=== PATIENT | female | born 1950 | race Caucasian/White ===

== ENCOUNTER → 2017-09-13 10:11 | Outpatient (CLI) | payer MEDICARE, BC, SELFPAY ==
--- NOTE | 2017-09-13 10:13 | RAD_ITS ---
STUDY: X-RAY - LEFT SHOULDER REASON FOR EXAM: Shoulder pain, no trauma. TECHNIQUE: 3 view(s) of the shoulder. COMPARISON: None. FINDINGS: Normal glenohumeral articulation. Normal acromioclavicular joint. Normal acromion. Normal humeral head and visualized proximal humerus. There is calcific tendinitis. Normal visualized pulmonary apex. RAD/Shoulder min 2 Views IMPRESSION: Calcific tendinitis. Electronically Signed: Jersey Bose MD at 10:58 EDT Tel , Service support ,
== END ==
PROVIDERS: Family Provider Internal Medicine; PCP Internal Medicine; Visit Provider Orthopaedic Surgery
DX: M25.512 Pain in left shoulder (principal)
CPT/HCPCS: 73030

== ENCOUNTER → 2017-10-14 08:11 | Outpatient (CLI) | payer MEDICARE, BC, SELFPAY ==
--- NOTE | 2017-10-14 08:14 | RAD_ITS ---
PROCEDURE: DOUBLE Air-contrast AND BARIUM ESOPHAGRAM. REASON FOR EXAM: Female, 67 years old. Dysphagia. Solid stuck in esophagus for months. GERD. TECHNIQUE: Real-time fluoroscopic images of the esophagus following the oral administration of barium contrast and insufflation crystals and upright and MARTINEZ prone position with standard protocol. Additional upright right lateral cine imaging of the cervical esophagus was accomplished with and without an ingested 18 mm barium tablet due to symptomatology. 174 images acquired. Fluoroscopy time: 91 seconds. Dose: 144.06 mGy COMPARISON: None available. 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 In addition, a small sliding-type hiatal hernia is noted superimposed upon the distal esophagus. Minimal GE reflux is noted with and without provocation. Moderate esophageal dysmotility is also seen with initial pooling of barium within the distal esophagus during upright swallowing. Additionally, 18 mm barium tablet was seen in the upper thoracic esophagus for approximately a minute indicating esophageal dysmotility but then was later seen in the stomach. No mayte aspiration below the vocal cords noted. No finding of esophageal obstruction, diverticulum, web or stricture. Incidental imaging of the stomach shows a single fundal tiny rounded peripheral high density area with central rounded high density and interval low-attenuation, cannot exclude an aphthous ulcer versus artifact in the not completely distended stomach. More medial gastric antrum adjacent rounded peripheral high density with central low density may also represent an ulcer versus artifact. Cholecystectomy clips. RAD/Esophagus Only IMPRESSION: GE reflux with feline esophagus appearance. During the study, mild GE reflux was noted with and without provocation. Small sliding-type hiatal hernia. Functional narrowing distal esophagus with upright swallowing as described with barium pooling within the distal esophagus, may be due to hypertrophy of the lower esophageal sphincter. Clinical correlation recommended. Barium tablet seen in the upper thoracic proximal esophagus for approximately 1 minute indicating esophageal dysmotility as described. This appears to correspond well with patient's reported symptomatology. Clinical correlation recommended. Electronically Signed: Gilberto Arana, at 15:13 EDT Tel , Service support ,
== END ==
PROVIDERS: Family Provider Internal Medicine; PCP Internal Medicine; Visit Provider Internal Medicine
DX: R13.19 Other dysphagia (principal)
CPT/HCPCS: 74220

== ENCOUNTER 2018-10-10 18:25 | Emergency (ER) | payer MEDICARE, BC, SELFPAY ==
[2018-10-10 18:28] VITALS: BP 150/81; PULSE 74; RESP 15; TEMP 36.9; O2SAT 98; BMI 32.9
--- NOTE | 2018-10-10 18:36 | EKG12_ITS ---
Test Reason : Blood Pressure : / mmHG Vent. Rate : 065 BPM Atrial Rate : 065 BPM P-R Int : 120 ms QRS Dur : 074 ms QT Int : 398 ms P-R-T Axes : 054 007 068 degrees QTc Int : 413 ms Normal sinus rhythm Nonspecific ST abnormality Abnormal ECG Confirmed by JIMI CORNEJO, DIMAS ([id number]), editor at large RENETTA ASHLEY ([id number]) on 10/11/2018 3:52:06 PM Referred By: MAURY Confirmed By:DIMAS KRAUSE MD
--- NOTE | 2018-10-10 20:53 | ED.RN ---
PT CALLED FROM TRIAGE. PT NO LONGER RESIDES IN WAITING ROOM. PT LEFT WITHOUT BEING SEEN. REGISTRATION NOTIFIED.
== END 2018-10-10 20:59 | disposition left against medical advice (07) ==
LOC: ED 20:53
PROVIDERS: Emergency Provider Emergency Medicine; Family Provider Internal Medicine; PCP Internal Medicine
DX: I10 Essential (primary) hypertension (principal)
CPT/HCPCS: 93005

== ENCOUNTER → 2018-10-20 | Outpatient (CLI) | payer MEDICARE, BC, SELFPAY ==
[2018-10-10 18:28] VITALS: BMI 32.9
--- NOTE | 2018-10-20 08:57 | MRI_ITS ---
STUDY: MRA OF THE HEAD WITHOUT CONTRAST REASON FOR EXAM: Female, 68 years old. Constant headaches/dizziness x1 month. TECHNIQUE: 3-D kvny-ec-kmavnz (TOF) imaging was performed with MIPs. The study was performed unenhanced. COMPARISON: 07/23/2010. FINDINGS: Normal bilateral petrous carotid arteries. Normal right cavernous carotid artery with a normal supraclinoid bifurcation. Normal left cavernous carotid artery with a normal supraclinoid bifurcation. Normal right A1 segment of the anterior cerebral artery. Normal left A1 segment of the anterior cerebral artery. Normal intact anterior communicating artery (ACOM). Normal bilateral A2 segments of the anterior cerebral arteries. Normal right M1 and M2 segments of the middle cerebral arteries, with a normal M1 bifurcation. Normal left M1 and M2 segments of the middle cerebral arteries, with a normal M1 bifurcation. Normal right posterior communicating artery (PCOM). Normal left posterior communicating artery (PCOM). Normal bilateral vertebral arteries. Normal basilar artery with a normal basilar bifurcation. The visualized bilateral superior cerebellar (SCA) arteries are normal. Normal bilateral P1, P2 and visualized P3 segments of the posterior cerebral arteries. There is no demonstrated aneurysm of the [place] of [place]. There is no major vessel occlusion or hemodynamically significant stenosis. MRI/MRA Head ONLY without Contrast IMPRESSION: Normal MRA of the head Electronically Signed: Hang Day MD at 11:43 EDT , Service support ,
--- NOTE | 2018-10-20 08:57 | MRI_ITS ---
STUDY: MRA NECK WITH AND WITHOUT CONTRAST REASON FOR EXAM: Female, 68 years old. Constant headaches and dizziness x1 month. TECHNIQUE: 3-D njvn-ey-ulblhq (TOF) imaging was performed in an 1.5 T MRI scanner. 17 IV Dotarem was administered for the contrast enhanced images. COMPARISON: None. FINDINGS: RIGHT CAROTID ARTERIES: Normal right common carotid artery (CCA). Widely patent right internal carotid bulb. Minimal stenosis of the origin of the right internal carotid (ICA) artery without a hemodynamically significant stenosis. Normal visualized cervical portion of the right internal carotid artery. Normal origin of the right external carotid artery (ECA). LEFT CAROTID ARTERIES: Normal left common carotid artery (CCA). Normal left internal carotid bulb. Normal origin of the left internal carotid (ICA) artery without a hemodynamically significant stenosis. Normal visualized cervical portion of the left internal carotid artery. Normal origin of the left external carotid artery (ECA). VERTEBRAL ARTERIES: Normal antegrade flow within the bilateral vertebral artery without a hemodynamically significant stenosis. MRI/MRA Neck WITH and W/O Contrast IMPRESSION: 1. Minimal stenosis at the origin of the right proximal internal carotid artery. The right common carotid artery and the rest of the right cervical internal carotid artery are also widely patent. 2. Widely patent left common carotid artery, left common carotid bifurcation and left cervical internal carotid artery. 3. Widely patent vertebral arteries, left is dominant. 4. Widely patent aortic arch and origins of the great vessels. The left common carotid artery has a common trunk with the innominate artery. Electronically Signed: Hang Day MD at 11:48 EDT , Service support ,
--- NOTE | 2018-10-20 08:57 | MRI_ITS ---
STUDY: MRI BRAIN WITH AND WITHOUT CONTRAST REASON FOR EXAM: Female, 68 years old. Constant headaches and dizziness x1 month. TECHNIQUE: Standardized multiplanar fat and water weighted pulse sequences were obtained. 17 IV Dotarem was administered for the contrast portion of the examination. COMPARISON: 07/23/2010. FINDINGS: No restricted diffusion to suspect acute or subacute ischemic infarct. Normal size of the ventricles and extra-axial spaces for the patient's age. Few subcortical white matter T2 FLAIR hyperintensity foci in the frontal lobes and left central lobe convexity have increased slightly in size. There are no mass effects. These are chronic white matter ischemic changes. Normal bilateral basal ganglia. Normal thalami. There is no extra-axial fluid accumulation. Normal flow voids within the major intracranial circulation suggesting patency by spin echo criteria. Normal venous enhancement. There is no enhancing intra-axial or extra-axial abnormality. Converging linear intramedullary veins in the right frontal operculum (series 8, image 14; series 9, images 22-23) due to focal DVA (developmental venous anomaly). Normal sella turcica, pituitary gland, infundibular stalk, optic chiasm and hypothalamus. Normal tectal plate and pineal gland. Normal midbrain, diana and medulla. Normal cerebellum. Normal basal cisterns. Normal bilateral temporal bones. Normal bilateral internal auditory canals. No demonstrated orbital abnormality, within the constraints of a routine brain study. Normal visualized paranasal sinuses. Normal calvarium and skull base. Normal visualized soft tissue structures. Normal visualized upper cervical spine. MRI/Brain W/WO Contrast IMPRESSION: 1. No MRI evidence of acute or subacute ischemic infarct or acute intracranial abnormality. 2. Mild increase in size of few nonspecific subcortical white matter T2 FLAIR hyperintensity foci in the frontal lobes and left central lobe convexity. They may be migraine-related changes but microvascular disease cannot be entirely excluded. 3. Incidental small focal DVA (developmental venous anomaly) in the right frontal operculum. Electronically Signed: Hang Day MD at 11:19 EDT , Service support ,
[2018-10-20 09:26] LABS: CREATININE FINGERSTICK 0.9 mg/dL (0.55-1.02); EGFR FINGERSTICK > 60.0000 mL/min (>60)
== END | disposition home or self-care (01) ==
PROVIDERS: Family Provider Internal Medicine; PCP Internal Medicine; Referring Provider Internal Medicine; Visit Provider Internal Medicine
DX: R51 Headache (principal)
CPT/HCPCS: 70544; 70549; 70553; A9575

== ENCOUNTER 2018-11-09 11:00 | Outpatient (RCR) | payer MEDICARE, BC, SELFPAY ==
--- NOTE | 2018-11-03 14:42 | HP.PTEVAL_ITS ---
Patient's Visit Information PARVIN DUENAS is a 68 year old F referred to Physical Therapy by Aubree Woody DO with a diagnosis of BPV. Date of Evaluation: 11/03/18 Physical Therapist: Torres Galindo, LAURYN, OCS, CSCS - Visit Plan Frequency: 1x/Week Duration: 4-6 Weeks Plan: weekly as needed 2-4 for positional treatments adn ablance checks - Subjective Findings: Dizzy for 6 weeks. Had something similar a couple years ago whcih we treated successfully with positional. Insidious on set of dizzyness and FRAUSTO and eye pain. Had MRI whcih was normal and opthalmologist said she is normal. No heart tests. Woke up 6 weeks ago in middle of night and spun getting out of bed. Now looking up or down gets dizzy for a couple seconds. Is fine in between episodes. FRAUSTO constant for 6 weeks. No falls. Balance not bad but might be off a little bit causing her to grab stuff. No numbness. Sleep is not great but that is normal for her. Not employed. 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 - Pain FRAUSTO Pain Intensity (Out of 10): 5 Pain Intensity Range: 5 - Objective Walks hesitantly but I, hesitant to move head. C/S AROM WFL adn painfree but hesitant to extend. UE AROM WFL. Balance is fair. - L hallpike, + R hallpike for up torsional, treated with Arslan then + again for 10 seconds up torsional or ageotropic nystagmus. Treated with Arslan again . did not wish to lie down again and test. - Balance Scores Functional Gait Assessment Score: 26 % Disability: 13.3400 - Goals Goal 1:: abolish dizzyness with head movements Goal Time Frame: 2-4 Weeks Goal 2:: Pt 30/30 FGA score to showimproved balance Goal Time Frame: 2-4 Weeks Goal 3:: Pt feel 100% back to normal Goal Time Frame: 2-4 Weeks - Rehabilitation Potential Physical Therapy Diagnosis: BPPV R post canal Rehabilitation Potential: Good - Anticipated Interventions Patient/Client Instruction: Educate patient on: Condition, Plan of Care For the Purpose of:: To increase tolerance to activity/condition/position Therapeutic Exercise to Include: Balance training Comment: positional treatments For the Purpose of:: To increase tolerance to activity/condition/position Thank you for the opportunity to evaluate your patient. For Medicare and Medicare HMO plans, please review the plan of care and approve it. It will need to be FAXED BACK to us at [phone] for Medicare purposes. For Medicare only, by signing this I certify the plan of care. Please let me know if there are questions or concerns regarding this plan of care. Physician Signature:__ Date:
--- NOTE | 2019-01-12 14:46 | HP.PTDCNRP_ITS ---
HP - Discharge Summary (1) - Patient Information PARVIN DUENAS was seen in my office for initial evaluation on 11/03/18. The following Plan of Care was established for this patient: Initial Frequency: 1x/Week Initial Duration: 4-6 Weeks - Anticipated Interventions Patient/Client Instruction: Educate patient on: Condition, Plan of Care For the Purpose of:: To increase tolerance to activity/condition/position Therapeutic Exercise to Include: Balance training For the Purpose of:: To increase tolerance to activity/condition/position This patient was last seen in our office 11/09/18. Pertinent comments regarding their Physical therapy will appear below: Pt see 2 visits for symptoms for BPPV treatment adn was 93% improved. She cancelled her alst foolow up. at this point, it has been nearly two months and I will discontinue due to nonattendance. At this point I will be discontinuing this patient from physical therapy. I wo uld be happy to see this patient again in the future if found appropriate by the physician. Thank you! Torres Galindo, DPT, OCS, CSCS
== END 2018-11-09 19:00 | disposition home or self-care (01) ==
LOC: PT 11:00
PROVIDERS: Family Provider Internal Medicine; PCP Internal Medicine; Visit Provider Internal Medicine
DX: H81.10 Benign paroxysmal vertigo, unspecified ear (principal)
CPT/HCPCS: 97161; 97530

== ENCOUNTER → 2019-08-07 | Outpatient (CLI) | payer MEDICARE, BC, SELFPAY ==
[2019-07-19 13:18] VITALS: BMI 32.9
--- NOTE | 2019-08-07 12:45 | RAD_ITS ---
STUDY: X-RAY - RIGHT SHOULDER REASON FOR EXAM: Shoulder pain, no trauma. TECHNIQUE: 4 view(s) of the shoulder. COMPARISON: Radiographs 03/15/2013. FINDINGS: Normal glenohumeral articulation. There is acromioclavicular arthrosis similar to the prior study. There is a small exostosis at the posterior aspect of the base of the acromion. Normal humeral head and visualized proximal humerus. The soft tissue structures are unremarkable. Normal visualized pulmonary apex. RAD/Shoulder min 2 Views IMPRESSION: Acromioclavicular arthrosis. Electronically Signed: Jersey Bose MD at 14:12 EDT Tel , Service support ,
== END | disposition home or self-care (01) ==
LOC: HPRAD 12:45
PROVIDERS: PCP Internal Medicine; Referring Provider Orthopaedic Surgery; Visit Provider Orthopaedic Surgery
DX: M25.511 Pain in right shoulder (principal)
CPT/HCPCS: 73030

== ENCOUNTER 2019-09-14 13:30 | Outpatient (RCR) | payer MEDICARE, BC, SELFPAY ==
[2019-07-19 13:18] VITALS: BMI 32.9
--- NOTE | 2019-08-17 13:27 | HP.PTEVAL_ITS ---
Patient's Visit Information PARVIN DUENAS is a 69 year old F referred to Physical Therapy by Dr. Taya Kang DO with a diagnosis of R shoulder pain. Date of Evaluation: 08/17/19 Physical Therapist: Betito Garcia DPT - Visit Plan Frequency: 2x /Week Duration: 4 Weeks Plan: Start with ROM, US as need. Add in isometrics and scapular stability, with in pain free ranges. - Subjective Pt. is here today for her initial evaluation with diagnosis of R shoulder pain. Pt. reports having pain fro ~5-6 months. No mech of injury. 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 Denies N/T. Pt. reports pain at posterior aspect of subacromial space and AC joint region. Pt. reports pain is inconsistent pending on the day. Increases pain: lifting, reaching over head, pushing. Decreases pain: rest, ice/heat. Pt. has not been taking any medications at this point in time. Pt. is hopeful to reduce symptoms in order to complete all recreational and houshold work without incerase in symptoms. - Pain R shoulder Pain Intensity (Out of 10): 2 Pain Intensity Range: 1, 8 - Objective POSTURE: Pt. has slight rounded shoulders, but symmetrical. Pt. has equal shoulder heights. PALPATION: Pt. has tenderness at AC joint, at subacromial space throughout (worst at posteiror side). NEURO: normal DTR and normal sensation throughout. ROM: R shoulder- AROM- flexion 170deg increased pain starting at 120deg above, abd 170deg tota (pain starting at ~120deg), functional ER C6, functional IR L3 NE. MMT: R shoulder- flexion 4+/5 mild increase nW, abd 4+/5 mild increase NW, ER 4+/5 NE, IR 4+/5 NE, ext 5/5 NE. L shoulder- 4+/5 throughout NE. - Special Tests R Shoulder Lift Off Test - Subscapular Tear: Negative R Shoulder Drop Sign - IS Test: Negative R Shoulder Empty Can - SS: Positive R Shoulder Belly Press - SupScap: Negative R Shoulder Neer - Impingement: Positive R Shoulder Shea [place] - Impingement: Positive R Shoulder Biceps Load Test - Labrum: Negative R Shoulder Speeds Test - Labrum/Biceps: Negative R Shoulder [place]riens - SLAP/A-C: Negative R Shoulder Shrug Sign - OA/Adhesive Capsulitis: Negative Comments: Pt. has tenderness with empty can, no weakness noted - Goals Goal 1:: LTG: pt. to be I with HEP. Goal Time Frame: 4-6 Weeks Goal 2:: LTG: Pt. to have increased MMT by 1/2 grade of all effected R shoulder musculature. Goal Time Frame: 4-6 Weeks Goal 3:: STG: Pt. to have increased ROM of R shoulder to full without increase in symptoms. Goal Time Frame: 2-4 Weeks Goal 4:: STG: Pt. to sleep throughout the night withotu increase in symptoms. Goal Time Frame: 2-4 Weeks Goal 5:: LTG: Pt. to complete all ADLs and IADLs without increase in symptoms. Goal Time Frame: 4-6 Weeks - Rehabilitation Potential Physical Therapy Diagnosis: Pt. has signs and symptoms consistent with R shoulder pain. Pt. has descent strength and no drop sign. Pt. does have some soreness with impingement testing, but minimal pain with strength testing throughout R shoulder. Pt. has pain at final 25% of over head motions as well. Pt. appears to have impingement symptoms and some pain at her AC joint with over head motions. Rehabilitation Potential: Excellent - Anticipated Interventions Patient/Client Instruction: Educate patient on: Condition, Plan of Care, Risk Factors, Benefits of Fitness Program For the Purpose of:: To improve decision making, To facilitate caregiver knowledge, To improve self management, To prevent re-injury, To improve ability to perform tasks related to life management, To improve tolerance to ADL's Therapeutic Exercise to Include: Strength training, Power training, Endurance training, Postural training, Flexibilty training, Passive ROM, Active ROM, Scapular Strength/Stabilization For the Purpose of:: To decrease pain, To decrease swelling/inflammation, To increase ROM, To improve nutrient delivery to tissue, To increase oxygenation perfusion, To improve muscle performance and motor function, To improve ability to perform ADL's, To increase tolerance to activity/condition/position, To decrease soft tissue restriction, To increase flexibility/ROM Manual Therapy Techniques to Include: Trigger point massage, Mobilization, Passive ROM, Functional dry needling, Soft tissue mobilization For the Purpose of:: To decrease pain, To decrease swelling/inflammation, To increase ROM, To improve nutrient delivery to tissue Ultrasound (thermal/non thermal): Yes For the Purpose of:: To decrease pain, To decrease swelling/inflammation, To increase ROM, To improve nutrient delivery to tissue Thank you for the opportunity to evaluate your patient. For Medicare and Medicare HMO plans, please review the plan of care and approve it. It will need to be FAXED BACK to us at [phone] for Medicare purposes. For Medicare only, by signing this I certify the plan of care. Please let me know if there are questions or concerns regarding this plan of care. Physician Signature: Date:
--- NOTE | 2019-11-27 12:37 | HP.PT.NRP ---
PARVIN DUENAS was seen in my office for initial evaluation on 08/17/19. The following Plan of Care was established for this patient: Initial Frequency: 2x /Week Initial Duration: 4 Weeks Patient/Client Instruction: Educate patient on: Condition, Plan of Care, Risk Factors, Benefits of Fitness Program For the Purpose of:: To improve decision making, To facilitate caregiver knowledge, To improve self management, To prevent re-injury, To improve ability to perform tasks related to life management, To improve tolerance to ADL's Therapeutic Exercise to Include: Strength training, Power training, Endurance training, Postural training, Flexibilty training, Passive ROM, Active ROM, Scapular Strength/Stabilization For the Purpose of:: To decrease pain, To decrease swelling/inflammation, To increase ROM, To improve nutrient delivery to tissue, To increase oxygenation perfusion, To improve muscle performance and motor function, To improve ability to perform ADL's, To increase tolerance to activity/condition/position, To decrease soft tissue restriction, To increase flexibility/ROM Manual Therapy Techniques to Include: Trigger point massage, Mobilization, Passive ROM, Functional dry needling, Soft tissue mobilization For the Purpose of:: To decrease pain, To decrease swelling/inflammation, To increase ROM, To improve nutrient delivery to tissue Ultrasound (thermal/non thermal): Yes For the Purpose of:: To decrease pain, To decrease swelling/inflammation, To increase ROM, To improve nutrient delivery to tissue This patient was last seen in our office 08/23/19. Pertinent comments regarding their Physical therapy will appear below: Pt. was seen in PT for her shoulder pain. Pt. has not been seen in several months and will be DC from PT at this point in time. At this point I will be discontinuing this patient from physical therapy. I would be happy to see this patient again in the future if found appropriate by the physician. Thank you! Betito Garcia, LAURYN
== END 2019-09-14 19:00 | disposition home or self-care (01) ==
LOC: MASS 13:30
PROVIDERS: PCP Internal Medicine; Referring Provider Orthopaedic Surgery; Visit Provider Orthopaedic Surgery
DX: M25.511 Pain in right shoulder (principal)
CPT/HCPCS: 97035; 97110; 97161

== ENCOUNTER → 2019-10-05 | Outpatient (CLI) | payer MEDICARE, BC, SELFPAY ==
[2019-07-19 13:18] VITALS: BMI 32.9
[2019-10-05 15:46] LABS: Hematocrit 37.2 % (37-47); Hemoglobin 11.6 g/dL (12.0-15.0); Mean Corp Hgb Conc 31.2 g/dL (32-36); Mean Corpuscular Hgb 28.2 pg (27.0-32.0); Mean Corpuscular Volume 90.5 fL (81-99); Mean Platelet Vol. 10.1 fl (6.2-12.0); Platelet Count 240 K/mm3 (150-450); RBC Distribution Width SD 46.5 fl (35.1-43.9); Red Blood Count 4.11 M/mm3 (4.2-5.4); White Blood Count 4.2 K/mm3 (4.4-11.0)
[2019-10-05 16:09] LABS: CRP 3.09 mg/L (0.0-3.0)
[2019-10-05 16:18] LABS: Erythrocyte Sedimentation Rate 6 mm/hr (0-30)
== END | disposition home or self-care (01) ==
LOC: LAB 14:36
PROVIDERS: PCP Internal Medicine; Referring Provider Ophthalmology; Visit Provider Ophthalmology
DX: G45.3 Amaurosis fugax (principal)
CPT/HCPCS: 36415; 85027; 85652; 86140

== ENCOUNTER → 2019-10-12 12:41 | Outpatient (CLI) | payer MEDICARE, BC, SELFPAY ==
[2019-07-19 13:18] VITALS: BMI 32.9
--- NOTE | 2019-10-12 12:44 | ECHOCS_ITS ---
Reason For Study: TIA Procedure This was a 2D Doppler, Color Flow transthoracic echocardiogram. The study was technically difficult. Contrast injection was performed. Exam performed in department. Left Ventricle Normal LV size. Left ventricular systolic function is normal. The estimated ejection fraction is 65 %. There is evidence of diastolic dysfunction. No regional wall motion abnormalities noted. Right Ventricle Normal RV size. Normal systolic function. Atria The left atrium is mildly enlarged. Normal right atrium. No doppler evidence for ASD. Mitral Valve There is no mitral annular calcification. Normal mitral valve. Trivial mitral valve insufficiency. Tricuspid Valve Normal tricuspid valve. Trivial tricuspid valve insufficiency. Right ventricular systolic pressure estimated to be 39 mmHg. Aortic Valve Trisinus/trileaflet aortic valve. Mild focal aortic valve calcification. Pulmonic Valve The pulmonic valve is not well visualized. Trivial pulmonic valve insufficiency. Great Vessels Normal sized aortic root. Pericardium/Pleural No pericardial effusion. Medication 22 gauge I.V. with prn adaptor inserted into right arm. Performed a rapid injection of agitated mix of 9 cc saline and 1cc air to assess for atrial septal defect. Diluted definity 3.0ml given slow IV push to enhance endocardial definition. MMode/2D Measurements & Calculations LVIDd: 4.8 cm IVSd: 0.78 cm LVOT diam: 2.0 cm LVIDs: 3.4 cm LVPWd: 0.77 cm RVDd: 3.1 cm FS: 29.7 % LVOT area: 3.0 cm2 Ao root diam: 3.0 cm LAV(MOD-bp): 58.9 ml LVAd ap4: 22.8 cm2 LAV(MOD-bp) Indexed: 31.7 ml/m2 EDV(MOD-sp4): 64.3 ml LAV(MOD-sp2): 59.6 ml EDV(sp4-el): 66.0 ml LAV(MOD-sp4): 53.8 ml LVAs ap4: 9.4 cm2 ESV(MOD-sp4): 15.0 ml ESV(sp4-el): 15.6 ml EF(MOD-sp4): 76.7 % EF(sp4-el): 76.4 % SV(MOD-sp4): 49.3 ml SV(sp4-el): 50.4 ml LA A4 area: 18.7 cm2 LA dimension(2D): 4.0 cm RA A4 area: 17.2 cm2 Time Measurements MV dec time: 0.28 sec Doppler Measurements & Calculations MV E max pako: 105.3 cm/sec Lat Peak E' Pako: 7.0 cm/sec Med Peak E' Pako: 5.6 cm/sec MV A max pako: 117.1 cm/sec E/E' lat: 15.1 E/E' med: 18.7 MV E/A: 0.90 MV V2 max: 117.8 cm/sec Ao V2 max: 153.2 cm/sec LV V1 max: 116.5 cm/sec MV max P.6 mmHg Ao max P.4 mmHg LV V1 max P.4 mmHg MV V2 mean: 64.6 cm/sec JUANA(V,D): 2.3 cm2 MV mean P.0 mmHg MV V2 VTI: 34.7 cm PA V2 max: 95.1 cm/sec PI end-d pako: 133.2 cm/sec TR max pako: 297.7 cm/sec TR max P.6 mmHg MV P1/2t-pr_phl: 76.1 msec Interpretation Summary The study was technically difficult. Contrast injection was performed. Left ventricular systolic function is normal. The estimated ejection fraction is 65 %. The left atrium is mildly enlarged. Trivial mitral valve insufficiency. Trivial tricuspid valve insufficiency. Mild focal aortic valve calcification. Trivial pulmonic valve insufficiency. Right ventricular systolic pressure estimated to be 39 mmHg. There is evidence of diastolic dysfunction. Ordering Physician: Uriah Jiménez Referring Physician: ANASTASIA COLINDRES Performed By: Shilpa Back RDCS, RVT
--- NOTE | 2019-10-12 13:51 | CDU_ITS ---
Reason For Study: Amaurosis fugax Rt. Velocities/BP Lt. Velocities/BP Prox CCA 112.5/10.8 cm/sec. Prox CCA 99.2/15.2 cm/sec. Mid CCA 74.7/14.7 cm/sec. Mid CCA 86.4/17.0 cm/sec. Dist CCA 70.8/12.1 cm/sec. Dist CCA 75.4/22.5 cm/sec. Prox ICA 93.7/22.5 cm/sec. Prox ICA 65.1/16.8 cm/sec. Mid ICA 20.9/18.8 cm/sec. Mid ICA 58.2/16.7 cm/sec. Dist ICA 60.9/17.5 cm/sec. Dist ICA 57.3/14.0 cm/sec. Rt. ICA/CCA = 1.25. Lt. ICA/CCA = .75. Prox ECA 146.7/13.3 cm/sec. Prox ECA 135.7/18.8 cm/sec. Rt. Vert. 79.1/15.2 cm/sec. Lt. Vert. 78.5/16.3 cm/sec. Right Extracranial There is intimal thickening but no significant atherosclerotic plaque noted in the right common carotid artery. There is heterogeneous, irregular atherosclerotic plaque noted in the right internal carotid artery. There is intimal thickening but no significant atherosclerotic plaque noted in the right external carotid artery. Antegrade flow is noted in the right vertebral artery. Left Extracranial There is intimal thickening but no significant atherosclerotic plaque noted in the left common carotid artery. There is heterogeneous, irregular atherosclerotic plaque noted in the left internal carotid artery. There is intimal thickening but no significant atherosclerotic plaque noted in the left external carotid artery. Antegrade flow is noted in the left vertebral artery. Procedure Carotid Duplex [id number]. Exam performed in department. Interpretation Summary Irregular calcific plaque at the proximal right internal carotid artery with less than 50% stenosis. The mid internal carotid artery has a peak systolic velocity of 80 cm/s and not recorded 20 cm/s. <50% stenosis right external carotid Irregular calcific plaque with shadowing at the proximal left internal carotid with less than 50% stenosis <50% stenosis left external carotid Patent and antegrade vertebrals bilaterally Ordering Physician: Uriah Jiménez Referring Physician: Aubree Woody M.D. Performed By: Tana Palencia RVT and Student
== END ==
PROVIDERS: PCP Internal Medicine; Referring Provider Ophthalmology; Visit Provider Ophthalmology
DX: G45.3 Amaurosis fugax (principal)
CPT/HCPCS: 93306; 93880; Q9957; A4216; C8929

== ENCOUNTER → 2019-11-30 | Outpatient (CLI) | payer MEDICARE, BC, SELFPAY ==
[2019-11-22 12:49] VITALS: BMI 32.9
--- NOTE | 2019-11-30 10:26 | MRI_ITS ---
STUDY: MRI LUMBAR SPINE WITHOUT CONTRAST REASON FOR EXAM: Female, 69 years old. LBP, LEFT leg and buttock pain. 2 prior lumbar surgeries TECHNIQUE: Standardized fat and water weighted pulse sequences were obtained in the sagittal and axial planes. COMPARISON: October 13 2016, September 02 2016 FINDINGS: Lumbar spine is aligned. T12 has a hemangioma in the anterior two thirds of the vertebral body. Marrow, SI joints and paraspinal soft tissues are normal There are laminectomies of L2-L3, L3-L4 and L4-L5 without hardware placement. Multiple discs are age-appropriate the degenerated. There is an incidental intrasacral CSF cyst. Conus medullaris terminates at T12-L1 with normal cauda equina. Thecal sac is patent. There is moderate bilateral foraminal stenosis at L3-L4, L4-L5 and L5-S1. Lateral recesses are patent. Compared to 2017 preoperative state thecal sac is decompressed with improvement in patency. MRI/Spine Lumbar (Routine) IMPRESSION: 1. Expected appearance of decompressed patent thecal sac at L2-L3, L3-L4 and L4-L5. 2. Bilateral multilevel moderate foraminal stenoses. Electronically Signed: Dariana Marks, at 16:34 EDT Tel , Service support ,
== END | disposition home or self-care (01) ==
PROVIDERS: PCP Internal Medicine; Referring Provider Physician Assistant; Visit Provider Physician Assistant
DX: M54.16 Radiculopathy, lumbar region (principal)
CPT/HCPCS: 72148

== ENCOUNTER 2019-12-19 12:00 | Outpatient (RCR) | payer MEDICARE, BC, SELFPAY ==
[2019-10-15 14:54] VITALS: BMI 32.9
[2019-11-22 12:49] VITALS: BMI 32.9
--- NOTE | 2019-12-05 09:18 | HP.PTEVAL_ITS ---
Patient's Visit Information PARVIN DUENAS is a 69 year old F referred to Physical Therapy by ALONDRA López with a diagnosis of L ITB syndrome adn Lumbar radiculopathy.. Date of Evaluation: 12/05/19 Physical Therapist: Torres Galindo, DPT, OCS, CSCS - Visit Plan Frequency: 3x /Week Duration: 2-4 Weeks Plan: 2-3x/week for 4-6 weeks. 1. rollout and stertch L ITB and piriformis to HEP. 2. L/S AROM flexion bias and NS strengthening. 3. hip stabs. 4. TENS with ice as needed. Progress all ex to HEP pt can continue on her own when done with PT. - Subjective LB was really giving trouble. lso L hip and into L leg. Thsi does nto feel l sana sciatica whcih she has had in the past. These were bad for about three months. Cannot lie on left side. They have been bad for 3 months and not sure why. Pain is 7/10 in back and hip with activity with walking. Sitting is pretty comfortable. Hurts at night in L hip if on side. Is keeping her up a little each night. Not employed. Spends day taking care of daughter who is bedridden and this makes that hard. Can do basics at home without too much trouble. No regular exercises. - Pain L hip and LB Pain Intensity (Out of 10): 0 Pain Intensity Range: 0, 7 - Objective Increased lumbar lordosis in LB, tender to touch in L GT area and down ITB maximally and minimaly on R. Walks I and easily and safe. Transfers bed and chair I. L/S AROM mod limited in ext adn L SB with some minor pain, flexion is min limited, R SB is OK. HS mod tight, - SLR, - SLump test. LE joints aROM WFL, hip tight in IR and flexion B but no pain. ITB max tight B staying in neutral in sidelying. reflexes 2/3 patella and achilles. Sensation LE WNL to gross light touch. Strength LE 4-/5 without myotomal abnormalities. - Goals Goal 1:: Sleep withotu waking at night Goal Time Frame: 4-6 Weeks Goal 2:: Pain in LB and hip 0-1/10 at all times and 80% improved. Goal Time Frame: 4-6 Weeks Goal 3:: I appropr HEP adn activitiy modification to manage symptoms. Goal Time Frame: 4-6 Weeks Goal 4:: Walk dog without increased pain Goal Time Frame: 4-6 Weeks - Rehabilitation Potential Physical Therapy Diagnosis: L ITB syndrome and lumbar radiculopathy/stenosis. Rehabilitation Potential: Fair - Anticipated Interventions Patient/Client Instruction: Educate patient on: Condition, Plan of Care For the Purpose of:: To decrease pain, To increase ROM, To improve muscle performance and motor function, To increase tolerance to activity/condition/position Therapeutic Exercise to Include: Strength training, Postural training, Flexibilty training, Neuromotor development, Passive ROM, Active ROM, Dynamic Lumbar Stabilization For the Purpose of:: To decrease pain, To increase ROM, To improve muscle performance and motor function, To increase tolerance to activity/condition/position, To improve ability of physical actions for home/community/work/leisure Manual Therapy Techniques to Include: Mobilization, Soft tissue mobilization For the Purpose of:: To decrease pain, To increase ROM TENS: Yes Cryotherapy (ice pack, ice massage): Yes For the Purpose of:: To decrease pain, To decrease swelling/inflammation Thank you for the opportunity to evaluate your patient. For Medicare and Medicare HMO plans, please review the plan of care and approve it. It will need to be FAXED BACK to us at [phone] for Medicare purposes. For Medicare only, by signing this I certify the plan of care. Please let me know if there are questions or concerns regarding this plan of care. Physician Signature: Date:
--- NOTE | 2019-12-26 10:35 | HP.PT.NRP ---
PARVIN DUENAS was seen in my office for initial evaluation on 12/05/19. The following Plan of Care was established for this patient: Initial Frequency: 3x /Week Initial Duration: 2-4 Weeks Patient/Client Instruction: Educate patient on: Condition, Plan of Care For the Purpose of:: To decrease pain, To increase ROM, To improve muscle performance and motor function, To increase tolerance to activity/condition/position Therapeutic Exercise to Include: Strength training, Postural training, Flexibilty training, Neuromotor development, Passive ROM, Active ROM, Dynamic Lumbar Stabilization For the Purpose of:: To decrease pain, To increase ROM, To improve muscle performance and motor function, To increase tolerance to activity/condition/position, To improve ability of physical actions for home/community/work/leisure Manual Therapy Techniques to Include: Mobilization, Soft tissue mobilization For the Purpose of:: To decrease pain, To increase ROM TENS: Yes Cryotherapy (ice pack, ice massage): Yes For the Purpose of:: To decrease pain, To decrease swelling/inflammation This patient was last seen in our office 12/19/19. Pertinent comments regarding their Physical therapy will appear below: Pt seen 4 visits of POC and has called to cancel the remianing visits due to covid. Wants chart discharged. At this point I will be discontinuing this patient from physical therapy. I would be happy to see this patient again in the future if found appropriate by the physician. Thank you! Torres Galindo, DPT, OCS, CSCS
== END 2019-12-19 19:00 | disposition home or self-care (01) ==
LOC: PT 12:00
PROVIDERS: PCP Internal Medicine; Referring Provider Physician Assistant; Visit Provider Physician Assistant
DX: M76.32 Iliotibial band syndrome, left leg (principal); M54.16 Radiculopathy, lumbar region
CPT/HCPCS: 97014; 97110; 97140; 97162; G0283

== ENCOUNTER → 2020-03-29 07:12 | Outpatient (CLI) | payer MEDICARE, BC, SELFPAY ==
[2019-12-12 11:27] VITALS: BMI 32.9
--- NOTE | 2020-03-29 07:14 | MRI_ITS ---
STUDY: MRI LEFT HIP REASON FOR EXAM: Female, 69 years old. lt hip pain TECHNIQUE: Standardized fat and water weighted pulse sequences were obtained in all 3 orthogonal planes. COMPARISON: None. FINDINGS: Normal hip joint without articular joint space narrowing. Normal acetabulum. Normal labrum. Normal femoral head. Normal femoral neck and intratrochanteric region. Normal gluteus minimus, medius and iliopsoas tendons and distal insertions. There is no trochanteric, iliopsoas or iliopectineal bursitis. Normal superior and inferior pubic rami. Normal pubic symphysis. Normal ischial tuberosity. Mild tendinosis and peritendinitis is of the origin of the conjoined tendon of the hamstring origin. Normal visualized iliac wing, sacroiliac joint, and sacral ala. Normal visualized soft tissue structures of the pelvis. MRI/Lower Ext Joint Only (Routine) IMPRESSION: Mild tendinosis and peritendinitis is of the conjoined tendon of the hamstring origin. Electronically Signed: Flash Maloney MD at 9:18 EST Tel , Service support ,
== END ==
PROVIDERS: PCP Internal Medicine; Referring Provider Orthopaedic Surgery; Visit Provider Orthopaedic Surgery
DX: M25.552 Pain in left hip (principal)
CPT/HCPCS: 73721

== ENCOUNTER 2020-04-24 23:10 | Emergency (ER) | payer MEDICARE, BC, SELFPAY ==
[2020-04-24 23:11] VITALS: BP 157/70; PULSE 92; RESP 18; TEMP 37.2; O2SAT 95; BMI 35.2
[2020-04-24 23:30] VITALS: BP 166/70; PULSE 88; RESP 16; O2SAT 98
--- NOTE | 2020-04-24 23:50 | ED.DCSUM_ITS ---
History of Present Illness Chief Complaint: General Illness Informant: Patient - Abdominal Pain/Flank Pain Onset: Today - several hrs ago tonight Context: Sudden Onset Timing: Continuous - not colicky Quality: Aching Location: Right Flank Current Severity: Moderate Maximum Severity: Moderate Worsened by: Nothing Relieved by: Nothing - Nausea/Vomiting/Emesis GI Symptom: Nausea, Vomiting Onset: - - started simultaneously with R flank pain tonight Quality: Nonbilious. Negative for: Blood streaks - Diarrhea/Melena/Hematochezia GI Symptom: Negative for: Melena, Hematochezia Associated Symptoms: Frequency, Urgency, - - and suprapubic/bladder pain Narrative: Patient states for the last several days she has felt like she had a UTI which is not uncommon for her, giving her pain in her bladder/suprapubic area in addition to urinary frequency and urgency. As a result she had a phone conversation with her doctor, who called her in Macrobid without needing to be seen. She took the first pill just today. Tonight, she started having acute sudden onset severe right flank pain which she has never had before. Associated with nausea/vomiting. No history of kidney stones. Multiple remote abdominal surgeries. Subjective fevers that she was feeling today, chills started when she started vomiting and having this pain. Pain goes around her right side into her back, she denies any radiation down in extremity, saddle anesthesia, urinary retention or incontinence. - Past Medical History (1) Depression Status: Chronic (2) IBS (irritable bowel syndrome) Status: Chronic (3) Piriformis syndrome of left side Status: Chronic Past Medical History - Allergies and Home Meds Allergies/Adverse Reactions: Allergies Penicillins [PCN] Allergy (Verified 04/24/20 23:21) Rash Primary Care Physician: Aubree Woody DO [Primary Care Provider] - 3-5 Days Surgical History: appendectomy, cholecystectomy, hysterectomy - and BSO per pt Smoking Status: Never smoker Review of Systems General: Reports: Chills, Fever, Malaise, Subjective. Denies: Sweats Eyes: Denies: Visual changes - bilaterally, Diplopia ENT: Denies: Bilateral ear pain, Rhinorrhea, Sore throat Cardiovascular: Denies: Chest pain, Palpitations Respiratory: Denies: Dyspnea, Cough, Dyspnea on exertion Gastrointestinal: Reports: Abdominal pain, Nausea, Vomiting. Denies: Diarrhea, Melena, Hematochezia Genitourinary: Reports: Frequency. Denies: Dysuria, Hematuria Musculoskeletal: Reports: Back pain. Denies: Neck pain, Extremity Pain Skin: Denies: Rash, Wounds Neurological: Denies: Headache, Weakness, Numbness Physical Exam Vital Signs/Narrative: Vital Signs Temp Pulse Resp BP Pulse Ox 04/24/20 23:11 99.0 F 92 18 157/70 H 95 Inital Vital Signs reviewed: Yes General: Well nourished, Well developed, No Acute Distress Head: Normocephalic, Atraumatic Eyes: Perrl, EOMI ENT: Moist mucous membranes, No rhinorrhea Neck: Supple, Nontender Cardiovascular: Regular rate, Regular rhythm, No murmurs Respiratory: No distress, CTA bilaterally, Chest nontender Abdomen: Soft, Nondistended, Normal bowel sounds, Tender - Suprapubic mostly. Also tender throughout the right side.. Negative for: Guarding, Rebound tenderness, Pulsatile mass Back: Nontender, Normal Inspection. Negative for: CVA tenderness Extremities: Nontender, No edema. Negative for: Calf Tenderness Skin: Normal color, No rash, No Trauma Neurological: Alert, Oriented x3, Cranial nerves II-XII grossly intact, Normal Strength, Normal Sensation, Normal Gait Psychological: Normal affect, Normal Mood Diagnostic/Tx/Re-eval Impressions Abdomen/Pelvis CT 04/25/20 23:31 IMPRESSION: Suspicion for acute urinary bladder cystitis with right pyelonephritis. No evidence of obstructing stone Electronically Signed: Luigi Pinedo DO at 0:45 EST Tel , Service support , 04/25/20 23:31 Abdomen/Pelvis without Cont [CT] Stat Laboratory Results 04/24/20 04/24/20 04/24/20 23:40 23:40 23:40 WBC 7.9 RBC 4.21 Hgb 12.2 Hct 38.6 MCV 91.7 MCH 29.0 MCHC 31.6 L RDW Std Deviation 43.3 RDW Coeff of Nuno 13.0 Plt Count 231 MPV 9.6 Immature Gran % (Auto) 0.900 Neut % (Auto) 69.0 Lymph % (Auto) 21.7 [place] % (Auto) 7.1 Eos % (Auto) 0.9 Baso % (Auto) 0.4 Absolute Neuts (auto) 5.5 Absolute Lymphs (auto) 1.72 Nucleated RBC % 0 PT 12.4 INR 1.0 APTT 20.7 L Sodium 138 Potassium 3.7 Chloride 104 Carbon Dioxide 28.0 Anion Gap 6 BUN 15 Creatinine 0.81 Estim Creat Clear Calc 51.11 Est GFR (MDRD) Af Amer 90 Est GFR (MDRD) Non-Af 74 BUN/Creatinine Ratio 18.5 Glucose 101 Lactic Acid Calcium 8.7 Total Bilirubin 0.50 AST 11 L ALT 16 Alkaline Phosphatase 60 Total Protein 6.8 Albumin 3.6 Globulin 3.2 Albumin/Globulin Ratio 1.1 Urine Color Urine Clarity Urine pH Ur Specific [place] Urine Protein Urine Glucose (UA) Urine Ketones Urine Occult Blood Urine Nitrite Urine Bilirubin Urine Urobilinogen Ur Leukocyte Esterase Urine RBC Urine WBC Ur Squamous Epith Cells Urine Bacteria Urine Mucus 04/24/20 04/25/20 23:40 00:30 WBC RBC Hgb Hct MCV MCH MCHC RDW Std Deviation RDW Coeff of Nuno Plt Count MPV Immature Gran % (Auto) Neut % (Auto) Lymph % (Auto) [place] % (Auto) Eos % (Auto) Baso % (Auto) Absolute Neuts (auto) Absolute Lymphs (auto) Nucleated RBC % PT INR APTT Sodium Potassium Chloride Carbon Dioxide Anion Gap BUN Creatinine Estim Creat Clear Calc Est GFR (MDRD) Af Amer Est GFR (MDRD) Non-Af BUN/Creatinine Ratio Glucose Lactic Acid 1.0 Calcium Total Bilirubin AST ALT Alkaline Phosphatase Total Protein Albumin Globulin Albumin/Globulin Ratio Urine Color SEE COMMENT BELOW Urine Clarity Cloudy Urine pH 7.0 Ur Specific [place] 1.010 Urine Protein 100 H Urine Glucose (UA) Normal Urine Ketones 5 H Urine Occult Blood 150 H Urine Nitrite Positive H Urine Bilirubin 6 H Urine Urobilinogen 12 H Ur Leukocyte Esterase 500 H Urine RBC 25-50 SEEN Urine WBC 50-100 SEEN Ur Squamous Epith Cells 0-5 SEEN Urine Bacteria 1+ Urine Mucus 0 SEEN - Medical Decision Making CT abdomen and pelvis was performed given the sudden onset of symptoms that is more suspicious for a stone or other obstructive uropathy. Pyelonephritis is also in the differential diagnosis, which is what the imaging is mostly consistent with in addition to cystitis as above. She was given Rocephin IV and her Macrobid is changed to Cipro. Urine was obtained prior to starting antibiotics here, and it was sent for culture. Her septic work-up is really negative for sepsis, although blood cultures were obtained is part of this anyway. She is feeling much better after morphine and Zofran with IV fluids, however she is having gas pains that she associates with her irritable bowel now. She was treated with a GI cocktail and dicyclomine, she said this helped and she is feeling better enough to go home, although prior to discharge she requested another dose of analgesic. Since she is tolerating oral fluids, pain is under control, she is not septic, has no renal injury/failure or obstructive uropathy in context of infection, outpatient treatment with close outpatient follow-up is appropriate. We discussed reasons to return she is comfortable with this plan. Rx'd reglan, cipro, and #10 prn [place]. ED Disposition - Plan for ED Patient: Disposition: Home or Assisted Living Diagnosis: Pyelonephritis, acute Instructions: ED Pyelonephritis, Female (Adult) Prescriptions: Ciprofloxacin [Cipro] 500 mg PO BID #14 tab Prescription Printed Hydrocodone Bitart/Apap 5-325 [[place] 5MG-325MG] 1 tab PO Q4H PRN PRN 2 Days #10 tab PRN Reason: Pain Prescription Printed Metoclopramide [Reglan] 10 mg PO Q6H PRN #15 tab PRN Reason: Nausea/Vomiting Prescription Printed Referrals: Aubree Woody DO [Primary Care Provider] - 3-5 Days
[2020-04-24] MEDS: Ondansetron 4 MG/2 ML Vial IV (23:55)
[2020-04-24] MEDS: Morphine 4 MG/ML Syringe IV (23:55)
[2020-04-24 23:56] LABS: Prothrombin Time (Protime)PT. 12.4 SECONDS (11.7-14.9)
[2020-04-24 23:57] LABS: Partial Thromboplast Time 20.7 Seconds (24.1-36.2)
[2020-04-24 23:59] VITALS: PULSE 95; TEMP 37.3
[2020-04-25 00:02] LABS: Absolute Lymphocyte Count 1.72 X10^3/uL (0.83-4.51); Absolute Neutrophil Count 5.5 X10^3/uL (2.0-7.7); Basophil# 0.03 X10^3/uL; Basophil% 0.4 % (0-1); Eosinophil# 0.07 X10^3/uL; Eosinophils% 0.9 % (0-5); Hematocrit 38.6 % (37-47); Hemoglobin 12.2 g/dL (12.0-15.0); Lymphocyte # 1.72 X10^3/ul (4.0); Lymphocyte % 21.7 % (19-41); Mean Corp Hgb Conc 31.6 g/dL (32-36); Mean Corpuscular Volume 91.7 fL (81-99); Mean Platelet Vol. 9.6 fl (6.2-12.0); Monocyte# 0.56 X10^3/uL; Monocyte% 7.1 % (0-10); NRBC Flagged by Analyzer 0 % (0-5); Neutrophil # 5.46 X10^3/uL (2.7-7.7); Platelet Count 231 K/mm3 (150-450); RBC Distribution Width SD 43.3 fl (35.1-43.9); Red Blood Count 4.21 M/mm3 (4.2-5.4); White Blood Count 7.9 K/mm3 (4.4-11.0)
[2020-04-25 00:04] LABS: ALB/GLOB Ratio 1.1 RATIO (0.9-2.4); AST(SGOT) 11 U/L (15-37); Alanine Aminotransfer ALT/SGPT 16 U/L (13-56); Albumin, Serum 3.6 g/dL (3.2-5.0); Alkaline Phosphatase 60 U/L (45-117); Anion Gap 6 (5-15); BUN 15 mg/dL (7-18); BUN/Creat Ratio 18.5 RATIO (10-20); Calcium,Total 8.7 mg/dL (8.5-10.1); Chloride 104 mmol/L (98-107); Creatinine, Serum 0.81 mg/dL (0.55-1.02); EST Glomerular Filtration Rate 74 mL/min (>60); Est Glom Filt Rate - Afr Amer 90 mL/min (>60); Estimated Creatinine Clearance 51.11 ml/min; Globulin 3.2 g/dL (2.2-4.2); Glucose 101 mg/dL (74-106); Potassium 3.7 mmol/L (3.5-5.1); Protein, Total 6.8 g/dL (6.4-8.2); Sodium Level 138 mmol/L (136-145)
[2020-04-25 00:39] LABS: Mucous, Urine 0 SEEN /hpf (<or=2+)
[2020-04-25 00:40] LABS: Glucose, Dipstick Normal (Normal); Ketone-Dipstick 5 mg/dl (Negative); Leukocyte Esterase-Dipstick 500 /ul (Negative); Nitrite-Dipstick Positive (Negative); Occult Blood-Urine 150 /ul (Negative); Protein-Dipstick 100 mg/dl (Negative); Urine Clarity Cloudy (Clear); Urine Urobilinogen 12 mg/dl (Normal)
[2020-04-25 00:41] LABS: Color, Urine SEE COMMENT BELOW (Yellow); Urine Bilirubin Dipstick 6 mg/dL (Negative)
[2020-04-25 00:51] LABS: Red Blood Cells-Urine 25-50 SEEN /hpf (0-5); Squamous Epithelial Cells - UA 0-5 SEEN /hpf (5-10); White Blood Cells 50-100 SEEN /hpf (0-5)
[2020-04-25 00:52] LABS: Bacteria 1+ /hpf (None Seen)
[2020-04-25] MEDS: Mag Hydrox/Al Hydrox/Simeth 30 ML UDC PO (01:00)
[2020-04-25] MEDS: Dicyclomine 10 MG Capsule PO (01:00)
[2020-04-25] MEDS: Ceftriaxone 1 GM/50 ML BAG IV (01:05)
[2020-04-25 01:09] VITALS: RESP 18
[2020-04-25 01:20] VITALS: TEMP 37.2
[2020-04-25] MEDS: Morphine 2 MG/ML Syringe IV (01:49)
[2020-04-25 01:56] VITALS: BP 162/71; PULSE 84; RESP 18; O2SAT 99
[2020-04-25 02:00] VITALS: RESP 16
--- NOTE | 2020-04-25 23:31 | CT_ITS ---
STUDY: CT ABDOMEN AND PELVIS WITHOUT CONTRAST REASON FOR EXAM: Female, 69 years old. RT FLANK PAIN,NAUSEA AND VOMITING,RECENT DX WITH UTI -- HX:HTN,GERD -- SURGERY:APPENDECTOMY,CHOLECYSTECTOMY,HYSTERECTOMY,MULT BACK RADIATION DOSAGE (If Supplied By Facility): CTDIvol = ( 12.04 ) mGy, DLP = ( 595.80 ) mGycm TECHNIQUE: Transaxial images were obtained from the dome of the diaphragm to the symphysis pubis without oral contrast, and without intravenous contrast. Sagittal and coronal images were reconstructed. Individualized dose optimization techniques were used for this CT. COMPARISON: None. FINDINGS: The visualized lung bases are unremarkable. The visualized portions of the heart are within normal limits. Normal liver. There are surgical clips in the gallbladder fossa consistent with a prior cholecystectomy. Normal spleen. Normal pancreas. Normal bilateral adrenal glands. No evidence of obstructing stones however, there is mild right hydronephrosis and right hydroureter as well as inflammation and edema around the bladder suggesting acute cystitis with right pyelonephritis. Left kidney is within normal limits Normal visualized stomach. Normal small intestine. There are multiple colonic diverticula consistent with diverticulosis. There are surgical clips in the region of the appendix consistent with a prior appendectomy. Normal abdominal aorta. Normal inferior vena cava. Normal retroperitoneum. Normal abdominal wall. Normal osseous structures. CT/Abdomen/Pelvis without Cont IMPRESSION: Suspicion for acute urinary bladder cystitis with right pyelonephritis. No evidence of obstructing stone Electronically Signed: Luigi Pinedo DO at 0:45 EST Tel , Service support ,
== END 2020-04-25 01:56 | disposition home or self-care (01) ==
PROVIDERS: Emergency Provider Emergency Medicine; PCP Internal Medicine
DX: N10 Acute pyelonephritis (principal); K92.1 Melena; F32.9 Major depressive disorder, single episode, unspecified; Z79.899 Other long term (current) drug therapy
CPT/HCPCS: 74176; 80053; 81001; 83605; 85025; 85610; 85730; 87040; 87086; 87088; 96361; 96365; 96375; 96376; 99285; J7030; A4216; J2405

== ENCOUNTER 2020-04-28 10:30 | Outpatient (RCR) | payer MEDICARE, BC, SELFPAY ==
--- NOTE | 2020-04-03 11:31 | HP.PTEVAL_ITS ---
Patient's Visit Information PARVIN DUENAS is a 69 year old F referred to Physical Therapy by Dr. Taya Kang DO with a diagnosis of L PSIS/Piriformis, Gt TTP, Left ITband tendonitis. Date of Evaluation: 04/03/20 Physical Therapist: Abiola Waggoner DPT - Visit Plan Frequency: 2x /Week Duration: 4 Weeks Plan: Focus on core strength/stabilization- ITband/posterior chain roll out- modalities of US and E-stim. HEP Given IE: TA Contraction, hip adduction with pillow, bridge, postural education - Subjective Patient reports that she has left sided ITBand and lumbar back pain on the left side. Has had this since before December- She has pain in the hip and radiates all the way to her ankle- does radiate into the groin. Did have PT in December but nervous about COVID so she stopped coming. But the pain has gotten worse- she had an MRI of the hip which was fine but was referred back to PT at this time. Patient reports that pain is there all the time but sometimes it worst. Agg: standing for long periods of time, sitting then getting up, getting in/out of the car. Worst: 10/10 describes the pain as sharp/shotting and can be a dull ache. Eases: heating pad, sitting in a reclyner and a hand held massager. Best: 3/10. The pain that radiates down the leg is more of an ache. No N/T in the foot. Feels like a tight band around the ankles. Has had an MRI of her back and a hip MRI and x-ray- done through the [facility]. 08 and 16 back surgeries- laminectomy Dr. Cheng the first one and Dr. Christiano O[place] the 2nd one. She had great outcomes from those. Does have knee buckling and has fallen twice- last one was Tuesday. She squatted down and then could not get up off the floor. Sleep: disturbed- hard to get comfortable and wakes her up-usually a side sleeper but is now only able to sleep on the right side. Has had a few UTIs in the last few months but is having bladder- getting up 3-4x a night- mild incontinence (plans to call PCP) Work: does not work outside of the home. She is not very active- she has to sit a lot due to the pain. 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 Her left foot feels a little swoll en today- that has been since she has had pain. PMHx/Meds: no changes since she saw . Tuesday she had to use a walker. - Objective Posture: FH, RS, increased kyphoisis- can correct with verbal and tacile cues but does not maintain. Gait:antalgic- decreased stance on the left LE with flat foot progression with shortened step length- when getting up from sitting takes a few seconds prior to taking first step. Sit to Stand: requires UE a and reports pain- takes longer than normal. SLS: weight shift but unable to SLS on either side but reports pain on left. HR/TR: able without pain uses UE A. ROM: Lumbar: Flexion: hands to mid campbell, exnt: neutral, SB: decreased by 50% bilateral with pain on left, Rotation: decreased by 25% no pain reported bilaterally, Hip/Knee/Ankle: WFL no pain reported. Strength: Core: poor, Hip: 4-/5 throughout with pain in all testing. Knee: 5/5, Ankle:5/5. Sensation:Left sided hypersensitive to gross touch in LE Calf>thigh. Reflex: patellar: WNL bilateral. Flex: HS: severe. Gastroc: moderate. Special Test: slump: positive on left, Dural signs: postive on left. Palpation: significant tenderness throughout left paraspinals, gluts and down the ITband to the knee and lateral aspect of the calf - Goals Goal 1:: Patient will be I with HEP and progression Goal Time Frame: 4-6 Weeks Goal 2:: Patient will ambulate >300 feet with a normalized gait pattern Goal Time Frame: 4-6 Weeks Goal 3:: Patient will sit to stand without pain Goal Time Frame: 4-6 Weeks Goal 4:: Patient will maintain proper posture t/o tx session to demo increased core s/s Goal Time Frame: 4-6 Weeks - Rehabilitation Potential Physical Therapy Diagnosis: Patient presents with hypomobility- she has dec reased core strength/stabilization, LE strength, flex and muscular endurance leading to poor posture and increased pain with ADL's. Rehabilitation Potential: Good - Anticipated Interventions Patient/Client Instruction: Educate patient on: Benefits of Fitness Program Therapeutic Exercise to Include: Strength training, Endurance training, Balance training, Coordination, Agility training, Body mechanics, Postural training, Flexibilty training, Gait and locomotor training, Neuromotor development, Passive ROM, Active ROM, Dynamic Lumbar Stabilization, Scapular Strength/Stabilization For the Purpose of:: To improve muscle performance and motor function TENS: Yes Cryotherapy (ice pack, ice massage): Yes Thermo therapy (hot pack): Yes Ultrasound (thermal/non thermal): Yes For the Purpose of:: To decrease swelling/inflammation Thank you for the opportunity to evaluate your patient. For Medicare and Medicare HMO plans, please review the plan of care and approve it. It will need to be FAXED BACK to us at [phone] for Medicare purposes. For Medicare only, by signing this I certify the plan of care. Please let me know if there are questions or concerns regarding this plan of care. Physician Signature: Date:
--- NOTE | 2020-07-10 10:18 | HP.PT.NRP ---
PARVIN DUENAS was seen in my office for initial evaluation on 04/03/20. The following Plan of Care was established for this patient: Initial Frequency: 2x /Week Initial Duration: 4 Weeks Patient/Client Instruction: Educate patient on: Benefits of Fitness Program Therapeutic Exercise to Include: Strength training, Endurance training, Balance training, Coordination, Agility training, Body mechanics, Postural training, Flexibilty training, Gait and locomotor training, Neuromotor development, Passive ROM, Active ROM, Dynamic Lumbar Stabilization, Scapular Strength/Stabilization For the Purpose of:: To improve muscle performance and motor function TENS: Yes Cryotherapy (ice pack, ice massage): Yes Thermo therapy (hot pack): Yes Ultrasound (thermal/non thermal): Yes For the Purpose of:: To decrease swelling/inflammation This patient was last seen in our office . Pertinent comments regarding their Physical therapy will appear below: self pay DN- discharge At this point I will be discontinuing this patient from physical therapy. I would be happy to see this patient again in the future if found appropriate by the physician. Thank you! PARKER CormierT
== END 2020-04-28 19:00 | disposition home or self-care (01) ==
LOC: PT 10:30
PROVIDERS: PCP Internal Medicine; Referring Provider Orthopaedic Surgery; Visit Provider Orthopaedic Surgery
DX: G57.02 Lesion of sciatic nerve, left lower limb (principal); M76.32 Iliotibial band syndrome, left leg
CPT/HCPCS: 97035; 97110; 97140; 97161

== ENCOUNTER → 2020-07-23 10:44 | Outpatient (CLI) | payer MEDICARE, BC, SELFPAY ==
--- NOTE | 2020-07-23 10:47 | US_ITS ---
STUDY: RENAL ULTRASOUND - COMPLETE REASON FOR EXAM: Female, 70 years old. UTI TECHNIQUE: Ultrasound evaluation of the kidneys was performed with real-time and static stark-scale imaging. COMPARISON: None. FINDINGS: RIGHT KIDNEY: Normal location of the right kidney, which is normal in size. The right kidney measures 10.3 x 4.1 x 3.9 cm. There is a normal cortex of the right kidney. The renal cortex measures 0.9 cm. There is no right renal mass or cyst. There are no right renal calculi. There is no right hydronephrosis. DISTAL RIGHT URETER: There is non-visualization of the distal right ureter. There is no demonstrated right ureterovesical junction calculus. There is a visualized right ureteral jet. LEFT KIDNEY: Normal location of the left kidney, which is normal in size. The left kidney measures 10.0 x 5.2 x 5.1 cm. There is a normal cortex of the left kidney. The renal cortex measures 1.5 cm. There is a simple 1.4 cm cyst. There are no left renal calculi. There is no left hydronephrosis. DISTAL LEFT URETER: There is non-visualization of the distal left ureter. There is no demonstrated left ureterovesical junction calculus. There is a visualized left ureteral jet. AORTA: There is no elongation or tortuosity of the abdominal aorta. I.V.C.: The IVC is patent. BLADDER: The bladder is sonographically normal US/Kidney and Bladder IMPRESSION: No suspicious sonographic findings, simple left renal cyst, no specific follow-up needed Electronically Signed: Kenton Rodriguez MD at 11:33 EDT , Service support ,
== END ==
PROVIDERS: PCP Internal Medicine; Referring Provider Urology; Visit Provider Urology
DX: N39.0 Urinary tract infection, site not specified (principal)
CPT/HCPCS: 76770

== ENCOUNTER → 2020-10-06 10:16 | Outpatient (CLI) | payer MEDICARE, BC, SELFPAY ==
--- NOTE | 2020-10-06 10:21 | NM_ITS ---
CLINICAL: 70-year-old female with reported history of abdominal bloating and nausea. SEMI-SOLID PHASE 99m Tc SULFUR COLLOID GASTRIC EMPTYING STUDY COMPARISON: Previous semisolid gastric emptying examination report 01/26/2016 FINDINGS: The patient was administered 1.0 mCi of 99m Tc sulfur colloid mixed with oatmeal and consumed per os. Image acquisitions in the anterior-posterior projections for a total of 60 minutes. There is prompt visualization of the stomach. There is no gastroesophageal reflux identified. First order kinetics are maintained throughout the duration of the acquisitions. The T ? linear fit was calculated to be 130.99 minutes, (Normal: 12-56 minutes) compared to 38.64 minutes defined on the previous examination. NM/Gastric Emptying Study IMPRESSION: 1. ABNORMAL 99m Tc sulfur colloid semi-solid phase (oatmeal) gastric emptying imaging examination. A. There is delayed semi-solid phase gastric emptying compared to normal controls. (Arline et al, J Nucl Med Tech 38: 186, 2010). B. Overall compared to the previous semisolid phase gastric emptying examination dated 01/26/2016, there is interval development of abnormal delayed gastric emptying as defined above. Electronically Signed: Flash Sanchez DO at 22:49 EDT Tel , Service support ,
== END ==
PROVIDERS: PCP Internal Medicine; Referring Provider Internal Medicine; Visit Provider Internal Medicine
DX: R11.0 Nausea (principal)
CPT/HCPCS: 78264; A9541

== ENCOUNTER → 2020-12-01 08:38 | Outpatient (CLI) | payer MEDICARE, BC, SELFPAY ==
--- NOTE | 2020-12-01 08:41 | RAD_ITS ---
STUDY: X-RAY - ESOPHAGUS (BARIUM SWALLOW) WITH FLUOROSCOPY REASON FOR EXAM: Female, 70 years old. DYSPHAGIA, FEELS LIKE FOOD STICKERS TECHNIQUE: 16 view(s) of the esophagus were obtained following swallowing of barium. FLUOROSCOPY TIME (if supplied): (35 seconds) minutes/seconds COMPARISON: Comparison is made with prior examination 10/14/2017. FINDINGS: There is no demonstrated esophageal foreign body. There is no demonstrated stricture or mucosal abnormality. Normal gastroesophageal junction, without a demonstrated hiatal hernia. The patient ingested a 12 mm tablet of barium. The tablet is trapped at the gastroesophageal junction. There is atherosclerotic calcification of the aortic arch with tortuosity of the descending aorta. Normal visualized pulmonary parenchyma. There are diffuse degenerative changes of the visualized thoracic spine. RAD/Esophagus Dual Contrast IMPRESSION: The ingested 12 mm tablet of barium is trapped at the gastroesophageal junction. Electronically Signed: Toni Bishop MD at 10:34 EDT , Service support ,
== END ==
PROVIDERS: PCP Internal Medicine; Referring Provider Internal Medicine Gastroenterology; Visit Provider Internal Medicine Gastroenterology
DX: R13.10 Dysphagia, unspecified (principal)
CPT/HCPCS: 74220; 74221

== ENCOUNTER → 2020-12-09 10:14 | Outpatient (CLI) | payer MEDICARE, BC, SELFPAY | PROVIDERS: PCP Internal Medicine; Referring Provider Internal Medicine Gastroenterology; Visit Provider Internal Medicine Gastroenterology | DX: Z11.59 Encounter for screening for other viral diseases (principal) | CPT/HCPCS: 87635; C9803; U0005; U0003 ==

== ENCOUNTER 2021-01-10 22:55 | Emergency (ER) | payer MEDICARE, BC, SELFPAY ==
[2021-01-10 22:56] VITALS: BP 139/75; PULSE 103; RESP 20; TEMP 35.9; O2SAT 96; BMI 33.5
--- NOTE | 2021-01-10 23:31 | EDS_ITS ---
HPI HPI - GI History of Present Illness Chief Complaint: Nausea/Vomiting Informant: patient Abdominal Pain/Flank Pain Onset: Today Context: Sudden Onset (Awoke with symptoms 2 AM almost 24 hours ago from now) Timing: Continuous Quality: Aching Location: Diffuse (Mostly epigastric and periumbilical, nonlateralizing) Current Severity: Severe Maximum Severity: Severe Worsened by: - (Vomiting) Relieved by: Nothing Nausea/Vomiting/Emesis GI Symptom: Positive for Nausea and Vomiting Onset: Today Quality: Positive for Nonbilious; Negative for Blood streaks, Coffee ground and Hematemesis Severity: Severe (Unable to keep anything down including ice chips) Diarrhea/Melena/Hematochezia GI Symptom: Positive for - (Constipated but having bowel movement today.); Negative for Diarrhea, Melena and Hematochezia Associated Symptoms Associated Symptoms: Negative for Dysuria, Frequency, Hematuria and Urgency Narrative Narrative: 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 She presents today with symptoms that initially started similar to how she has had them in the past with vomiting and epigastric discomfort, however the pain is worsened and progressed into the periumbilical area throughout the day, now she is having epigastric distention, continues to have intractable vomiting. All of this is unusual. She had history of cholecystectomy, is also had a total hysterectomy with bilateral salpingo-oophorectomy due to multiple cysts in the past. [facility] Medical History (Updated 01/11/21 @ 01:[address] Efren Mcfarland MD) Anxiety Gastroparesis GERD (gastroesophageal reflux disease) Home Medications bupropion HCl 300 mg 24 hr tablet, extended release 300 mg PO DAILY tab 09/13/17 [History Last Taken Unknown] propranolol 20 mg tablet 20 mg PO DAILY tab 09/13/17 [History Last Taken Unknown] rabeprazole 20 mg tablet,delayed release 20 mg PO DAILY 11/22/19 [History Last Taken Unknown] cholecalciferol (vitamin D3) 1,250 mcg (50,000 unit) capsule 1,250 mcg PO DAILY cap 04/01/20 [History Last Taken Unknown] mecobalamin (vitamin B12) 10,000 mcg solution for injection mcg IM [facility] 04/01/20 [History Last Taken Unknown] ciprofloxacin HCl 500 mg PO BID #14 tablet 01/11/21 [Rx Last Taken Unknown] metoclopramide HCl 10 mg PO Q6H PRN #20 tab 01/11/21 [Rx Last Taken Unknown] Allergy/AdvReac Type Severity Reaction Status Date / Time Penicillins [PCN] Allergy Rash Verified 04/24/20 23:21 Surgical History (Updated 01/10/21 @ 23:[address] Efren Mcfarland MD) H/O bilateral salpingo-oophorectomy H/O: hysterectomy History of appendectomy History of cholecystectomy Hx of tonsillectomy Social History Smoking Status: Never smoker ROS ROS ED Constitutional Constitutional ED: Reports malaise; Denies chills or fever(s) Eyes Eyes: Denies change in vision or diplopia ENT ENT ED: Denies rhinorrhea or sore throat Cardiovascular Cardiovascular: Denies chest pain or palpitations Respiratory/Chest Respiratory/Chest: Denies cough or dyspnea Gastrointestinal Gastrointestinal: Reports as per HPI, abdominal pain, nausea and vomiting; Denies diarrhea Genitourinary Genitourinary ED: Denies dysuria or hematuria Musculoskeletal Musculoskeletal: Denies back pain or neck pain Integumentary Denies abscess or rash Neurologic Neurologic: Denies headache(s), paresthesias or weakness Psychiatric Psychiatric: Denies anxiety or suicidal thoughts EXAM Physical Exam Const Vital Signs: 01/10/21 22:56 Temperature 96.7 F L Temperature Source Temporal Pulse Rate 103 H Respiratory Rate 20 H Blood Pressure 139/75 H Blood Pressure Mean 96 Pulse Ox 96 Oxygen Delivery Method Room Air Positive well nourished and well developed General Appearance ED: well developed and NAD HEENT Reports moist mucous membranes normocephalic and atraumatic Eyes PERRL and EOMs intact bilaterally Neck full ROM and supple Resp normal respiratory effort and clear to auscultation bilaterally Cardio regular rate, regular rhythm and no murmurs GI GI Narrative: Hyperactive bowel sounds present. Very tender throughout the entire upper abdomen mostly in the epigastrium and supraumbilical area. No palpable hernias. Mild distention throughout upper abdomen, nonlateralizing. No palpable masses. Auscultation: hyperactive bowel sounds Palpation: soft; Negative for guarding or rebound tenderness present Back/Spine no CVA tenderness General Back: other FROM Extremity normal to inspection General Extremety ED: Negative for edema, pulses abnormal or tenderness General Extremity: Negative for edema or pulses abnormal Neuro oriented x3, CN's II-XII intact bilaterally and no sensory deficits noted Sensorium / Orientation: awake and alert Motor Exam: strength 5/5 throughout Skin no rashes or lesions noted and no wounds MDM MDM MDM Narrative Medical decision making narrative: Patient initially treated with IV fluids, small dose of morphine and Reglan. Her nausea was much better, her pain transiently was improved and then returned in the epigastrium mostly focused. Labs really are unremarkable except for urinalysis which appears to show infection although she does have 10-25 squamous epithelials, she has more pyuria. This will be sent for culture, she states she is on Keflex daily to prevent urinary tract infection but she has noticed some burning lately as she did not initially admit to. Her CT shows nothing acute. It was obtained mostly to rule out obstruction which is not present. She is tolerating oral fluids. She will be given a GI cocktail to see if that helps with her discomfort prior to discharge on antibiotics for urinary infection which may or may not be causing her vomiting here especially with her history of gastroparesis. Will prescribe her some Reglan to use as needed in addition, and advised to hold the Keflex until after the antibiotic course is finished. We did send a culture. Lab Data Attestation: I reviewed the patient's lab results. Labs: Laboratory Results - last 24 hr 01/10/21 01/10/21 01/11/21 23:55 23:55 00:22 WBC 7.8 RBC 4.43 Hgb 13.1 Hct 40.1 MCV 90.5 MCH 29.6 MCHC 32.7 RDW Std Deviation 42.7 RDW Coeff of Nuno 13.0 Plt Count 238 MPV 10.0 Immature Gran % (Auto) 0.300 Neut % (Auto) 74.1 H Lymph % (Auto) 17.1 L [place] % (Auto) 7.1 Eos % (Auto) 1.3 Baso % (Auto) 0.1 Absolute Neuts (auto) 5.8 Absolute Lymphs (auto) 1.33 Nucleated RBC % 0 Sodium 139 Potassium 3.6 Chloride 107 Carbon Dioxide 28.0 Anion Gap 4 L BUN 17 Creatinine 0.86 Estim Creat Clear Calc 49.63 Est GFR (MDRD) Af Amer 83 Est GFR (MDRD) Non-Af 69 BUN/Creatinine Ratio 19.7 Glucose 104 Calcium 8.9 Total Bilirubin 0.80 AST 13 L ALT 16 Alkaline Phosphatase 73 Total Protein 6.7 Albumin 3.3 Globulin 3.4 Albumin/Globulin Ratio 1.0 Lipase 51 L Urine Color SEE COMMENT BELOW Urine Clarity Sl. Cloudy Urine pH 6.0 Ur Specific [place] 1.020 Urine Protein 100 H Urine Glucose (UA) Normal Urine Ketones 5 H Urine Occult Blood 25 H Urine Nitrite Negative Urine Bilirubin 1 H Urine Urobilinogen 1 H Ur Leukocyte Esterase 500 H Urine RBC 0 SEEN Urine WBC 50-100 SEEN Ur Squamous Epith Cells 10-25 SEEN Ur Transition Epith Cell 0-5 SEEN Urine Bacteria 1+ Urine Mucus 0 SEEN Radiography Diagnostic Testing: Clinical Impression(s) from Imaging Studies Abdomen/Pelvis CT 01/11/21 00:05 IMPRESSION: Findings most compatible with nonspecific enteritis. Cannot exclude mild distal colitis No significant dilatation to suggest bowel obstruction. Status post cholecystectomy. Right renal cysts, remainder of abdominal viscera are unremarkable. Mild hiatal hernia. Electronically Signed: Anay Singh MD at 1:49 EDT , Service support , Discharge Plan Triage Chief Complaint: Nausea/Vomiting ED Provider: Efren Mcfarland Dx/Rx/DC Orders Clinical Impression: Vomiting, Acute epigastric pain, Gastroparesis, Acute lower urinary tract infection Instructions: Gastroparesis, ED CYSTITIS Female Adult Prescriptions: New ciprofloxacin HCl [ciprofloxacin HCl] 500 MG tablet 500 mg PO BID Qty: 14 RF: 0 metoclopramide HCl [metoclopramide HCl] 10 MG tablet 10 mg PO Q6H PRN (Reason: nausea and vomiting) Qty: 20 RF: 0 Continued propranolol 20 mg tablet 20 mg PO DAILY RF: 0 cholecalciferol (vitamin D3) 1,250 mcg (50,000 unit) capsule 1,250 mcg PO DAILY RF: 0 rabeprazole [AcipHex] 20 mg tablet,delayed release (DR/EC) 20 mg PO DAILY RF: 0 mecobalamin (vitamin B12) 10,000 mcg recon soln IM .qomonth RF: 0 Held bupropion HCl [Wellbutrin XL] 300 mg tablet extended release 24 hr 300 mg PO DAILY RF: 0 Hold Instructions: until finished w/ metoclopramide Primary Care Provider: Aubree Woody Referrals: Aubree Woody DO [Primary Care Provider] - 3-5 Days if not improving Disposition Disposition: Home, Self Care
[2021-01-10] MEDS: 0.9% Normal Saline 1,000 ML 250 ML IV (23:56)
[2021-01-10] MEDS: Morphine 2 MG/ML Syringe IV (23:56)
[2021-01-10] MEDS: Metoclopramide 10 MG/2 ML Vial IV (23:56)
--- NOTE | 2021-01-11 00:05 | CT_ITS ---
STUDY: CT ABDOMEN AND PELVIS WITH CONTRAST REASON FOR EXAM: Female, 70 years old. diffuse abd pain, vomiting RADIATION DOSAGE (If Supplied By Facility): CTDIvol = ( 17.22 ) mGy, DLP = ( 1121.04 ) mGycm TECHNIQUE: Transaxial images were obtained from the dome of the diaphragm to the symphysis pubis without oral contrast. IV 100mL [id number]-[id number] was administered. Sagittal and coronal images were reconstructed. Individualized dose optimization techniques were used for this CT. COMPARISON: None. FINDINGS: The visualized lung bases are unremarkable. The visualized portions of the heart are within normal limits. Normal liver. There are surgical clips in the gallbladder fossa consistent with a prior cholecystectomy. Normal spleen. Normal pancreas. Normal bilateral adrenal glands. Normal right kidney. Multiple low attenuation structures within the left kidney consistent with simple renal cysts, largest seen in the upper pole measuring 1.8 cm. Otherwise normal left kidney. There is a small hiatal hernia. Borderline thickening of the rose of the small bowel with mild distention up to a maximum diameter of 2.2 cm. Findings may indicate nonspecific enteritis. There is fluid within the colon. The appendix is not visualized. The descending colon is decompressed with borderline thickening of the wall, cannot exclude distal mild colitis. There is diffuse atherosclerotic calcification of the abdominal aorta, without a demonstrated aneurysm. Normal inferior vena cava. Normal retroperitoneum. The urinary bladder is decompressed with thickening of the wall which may indicate cystitis. Mild free fluid within the posterior cul-de-sac. Nonvisualized uterus suggestive of previous hysterectomy. Normal abdominal wall. There are diffuse degenerative changes of the visualized lumbar spine. CT/Abdomen/Pelvis W IV Cont ONLY IMPRESSION: Findings most compatible with nonspecific enteritis. Cannot exclude mild distal colitis No significant dilatation to suggest bowel obstruction. Status post cholecystectomy. Right renal cysts, remainder of abdominal viscera are unremarkable. Mild hiatal hernia. Electronically Signed: Anay Singh MD at 1:49 EDT , Service support ,
[2021-01-11 00:11] LABS: Absolute Lymphocyte Count 1.33 X10^3/uL (0.83-4.51); Absolute Neutrophil Count 5.8 X10^3/uL (2.0-7.7); Basophil# 0.01 X10^3/uL; Basophil% 0.1 % (0-1); Eosinophils% 1.3 % (0-5); Hematocrit 40.1 % (37-47); Hemoglobin 13.1 g/dL (12.0-15.0); Lymphocyte # 1.33 X10^3/ul (0.83-4.51); Lymphocyte % 17.1 % (19-41); Mean Corp Hgb Conc 32.7 g/dL (32-36); Mean Corpuscular Hgb 29.6 pg (27.0-32.0); Mean Corpuscular Volume 90.5 fL (81-99); Monocyte# 0.55 X10^3/uL; Monocyte% 7.1 % (0-10); NRBC Flagged by Analyzer 0 % (0-5); Neutrophil # 5.77 X10^3/uL (2.7-7.7); Neutrophil % 74.1 % (47-70); Platelet Count 238 K/mm3 (150-450); RBC Distribution Width SD 42.7 fl (35.1-43.9); Red Blood Count 4.43 M/mm3 (4.2-5.4); White Blood Count 7.8 K/mm3 (4.4-11.0)
[2021-01-11 00:26] LABS: AST(SGOT) 13 U/L (15-37); Alanine Aminotransfer ALT/SGPT 16 U/L (13-56); Albumin, Serum 3.3 g/dL (3.2-5.0); Alkaline Phosphatase 73 U/L (45-117); Anion Gap 4 (5-15); BUN 17 mg/dL (7-18); BUN/Creat Ratio 19.7 RATIO (10-20); Calcium,Total 8.9 mg/dL (8.5-10.1); Chloride 107 mmol/L (98-107); Creatinine, Serum 0.86 mg/dL (0.55-1.02); EST Glomerular Filtration Rate 69 mL/min (>60); Est Glom Filt Rate - Afr Amer 83 mL/min (>60); Estimated Creatinine Clearance 49.63 ml/min; Globulin 3.4 g/dL (2.2-4.2); Glucose 104 mg/dL (74-106); Lipase 51 U/L (73-393); Potassium 3.6 mmol/L (3.5-5.1); Protein, Total 6.7 g/dL (6.4-8.2); Sodium Level 139 mmol/L (136-145)
[2021-01-11 00:34] LABS: Mucous, Urine 0 SEEN /hpf (<or=2+); Red Blood Cells-Urine 0 SEEN /hpf (0-5)
[2021-01-11 00:38] LABS: Glucose, Dipstick Normal (Normal); Ketone-Dipstick 5 mg/dl (Negative); Leukocyte Esterase-Dipstick 500 /ul (Negative); Nitrite-Dipstick Negative (Negative); Occult Blood-Urine 25 /ul (Negative); Protein-Dipstick 100 mg/dl (Negative); Urine Clarity Sl. Cloudy (Clear); Urine Urobilinogen 1 mg/dl (Normal)
[2021-01-11 00:41] LABS: Color, Urine SEE COMMENT BELOW (Yellow); Urine Bilirubin Dipstick 1 mg/dL (Negative)
[2021-01-11] MEDS: Mag Hydrox/Al Hydrox/Simeth 30 ML UDC PO (01:03)
[2021-01-11 01:05] LABS: Squamous Epithelial Cells - UA 10-25 SEEN /hpf (5-10); Transitional Epithelial - Ur 0-5 SEEN /hpf (0-5); White Blood Cells 50-100 SEEN /hpf (0-5)
[2021-01-11 01:06] LABS: Bacteria 1+ /hpf (None Seen)
[2021-01-11] MEDS: Ciprofloxacin 500 MG Tablet PO (01:07)
[2021-01-11] MEDS: Ceftriaxone 1 GM/50 ML BAG IV (01:11)
[2021-01-11 01:57] VITALS: BP 134/78; PULSE 70; RESP 16; O2SAT 97
== END 2021-01-11 01:58 | disposition home or self-care (01) ==
PROVIDERS: Emergency Provider Emergency Medicine; PCP Internal Medicine
DX: N39.0 Urinary tract infection, site not specified (principal); K31.84 Gastroparesis; F41.9 Anxiety disorder, unspecified; K21.9 Gastro-esophageal reflux disease without esophagitis; Z79.899 Other long term (current) drug therapy
CPT/HCPCS: 74177; 80053; 81001; 83690; 85025; 87086; 87088; 96361; 96365; 96375; 99285; J7030; Q9967; A4216

== ENCOUNTER → 2021-02-10 12:19 | Outpatient (CLI) | payer MEDICARE, BC, SELFPAY ==
--- NOTE | 2021-02-10 12:23 | BI_ITS ---
MAMMOGRAPHY - BILATERAL SCREENING REASON FOR EXAM: Female, 70 years old. Routine annual screening examination. PERTINENT HISTORY: Non-contributory. TECHNIQUE: Digital bilateral breast amina (3D mammographic acquisition) in the CC and MLO projections. 2-D mediolateral oblique (MLO) and craniocaudad (CC) views of both breasts were obtained. CAD: Full Field Digital Mammography with Computer Added Detection was performed. COMPARISON: Comparison is made with prior study dated 07/07/2016 and 10/31/2014. FINDINGS: Breast Composition: The breasts are almost entirely fatty. There are no dominant masses or suspicious calcifications. No other significant abnormalities are identified. There has been no significant change since the prior study. BI/SCRN MAMM (CAD)W/AMINA BILAT IMPRESSION: Stable bilateral screening mammogram. Yearly follow-up mammogram recommended. (A) ASSESSMENT CATEGORY: BIRADS Category 1: Negative. A letter regarding these results will be sent to the patient by the facility within 30 days. Approximately 10% of breast cancers are not detected by mammography. A normal mammogram should not delay biopsy of a clinically suspicious abnormality. [id number] Electronically Signed: Toni Bishop MD at 8:12 EST , Service support ,
--- NOTE | 2021-02-10 12:27 | BD_ITS ---
STUDY: DUAL ENERGY X-RAY ABSORPTIOMETRY / DXA REASON FOR EXAM: Female, 70 years old. [id number]. The patient is postmenopausal. TECHNIQUE: Bone Mineral Density (BMD) measurements of lumbar spine and bilateral hips were obtained. COMPARISON: Comparison is made with prior study 10/31/2014. FINDINGS: Lumbar Spine (L1-L4): g/cm2 (0.866) / T-score (-1.6) / Z-score (0.6) Findings are suggestive of osteopenia with a moderate fracture risk. Left Femur Total: g/cm2 (0.845) / T-score (-0.8) / Z-score (0.8) Left Femoral Neck: g/cm2 (0.696) / T-score (-1.4) / Z-score (0.5) Right Femur Total: g/cm2 (0.839) / T-score (0.8) / Z-score (0.7) Right Femoral Neck: g/cm2 (0.707) / T-score (-1.3) / Z-score (0.6) The T-Scores on the most recent prior examination were: Lumbar Spine (L1-L4): There has been worsening of bone density since the previous examination. Left Femur Total: which represents a worsening of 7.9%. Right Femur Total: which represents a worsening of 5.6%. BD/Dexa Bone Density Study IMPRESSION: The patient is considered osteopenic as outlined below according to World Lionel Organization (WHO) criteria with a moderate fracture risk. There has been worsening of bone density since the previous examination. Reference Information: The T-score is the number of standard deviations above or below the standard which is normal for young adults at their peak bone mineral density. The World Health Organization (WHO) interprets the T-scores as follows: Above -1 Normal bone density Between -1 and -2.5 Osteopenia Equal to / or below -2.5 Osteoporosis As a practical clinical guideline, osteopenia may be graded as follows: Mild -1 through -1.5 Moderate -1.6 through -2.0 Severe -2.1 through -2.4 The Z-score is the number of standard deviations above or below age-matched controls. A Z-score of less than -1.5 would be considered abnormal. References: 1. NIH Osteoporosis and Related Bone Diseases www osteo.org 2. International Society for Clinical Densitometry www iscd.org 3. National Osteoporosis Foundation www nof.org Electronically Signed: Toni Bishop MD at 14:31 EST , Service support ,
== END ==
PROVIDERS: PCP Internal Medicine; Referring Provider Internal Medicine; Visit Provider Internal Medicine
DX: Z12.31 Encounter for screening mammogram for malignant neoplasm of breast (principal); Z78.0 Asymptomatic menopausal state
CPT/HCPCS: 77063; 77067; 77080

== ENCOUNTER → 2021-07-03 | Outpatient (CLI) | payer MEDICARE, BC, SELFPAY ==
[2021-07-03 15:00] LABS: Hematocrit 38.8 % (37-47); Hemoglobin 12.6 g/dL (12.0-15.0); Mean Corp Hgb Conc 32.5 g/dL (32-36); Mean Corpuscular Volume 92.4 fL (81-99); Mean Platelet Vol. 10.4 fl (6.2-12.0); Platelet Count 262 K/mm3 (150-450); RBC Distribution Width CV 13.2 % (11.6-14.6); RBC Distribution Width SD 44.7 fl (35.1-43.9); White Blood Count 5.4 K/mm3 (4.4-11.0)
[2021-07-03 15:07] LABS: Anion Gap 5 (5-15); BUN 17 mg/dL (7-18); BUN/Creat Ratio 21.1 RATIO (10-20); Calcium,Total 9.3 mg/dL (8.5-10.1); Chloride 106 mmol/L (98-107); EST Glomerular Filtration Rate 74 mL/min (>60); Est Glom Filt Rate - Afr Amer 90 mL/min (>60); Glucose 88 mg/dL (74-106); Potassium 4.1 mmol/L (3.5-5.1); Sodium Level 141 mmol/L (136-145)
== END | disposition home or self-care (01) ==
LOC: MTLAB 11:50
PROVIDERS: PCP Internal Medicine; Referring Provider Urology; Visit Provider Urology
DX: N39.0 Urinary tract infection, site not specified (principal); R10.9 Unspecified abdominal pain
CPT/HCPCS: 36415; 80048; 85027

== ENCOUNTER → 2021-07-09 | Outpatient (CLI) | payer MEDICARE, BC, SELFPAY ==
--- NOTE | 2021-07-09 07:27 | CT_ITS ---
STUDY: CT ABDOMEN AND PELVIS WITHOUT CONTRAST REASON FOR EXAM: Female, 70 years old. UTI, FLANK PAIN RADIATION DOSAGE (If Supplied By Facility): CTDIvol = ( 11.96 ) mGy, DLP = ( 578.87 ) mGycm TECHNIQUE: Transaxial images were obtained from the dome of the diaphragm to the symphysis pubis without oral contrast, and without intravenous contrast. Sagittal and coronal images were reconstructed. Individualized dose optimization techniques were used for this CT. COMPARISON: 01/11/2021 FINDINGS: The visualized lung bases are unremarkable. The visualized portions of the heart are within normal limits. Normal liver. There are surgical clips in the gallbladder fossa consistent with a prior cholecystectomy. Normal spleen. Normal pancreas. Normal bilateral adrenal glands. Normal right kidney. Normal left kidney. There is a small hiatal hernia. Normal small intestine. Normal colon. There is non-visualization of the appendix. Normal abdominal aorta. Normal inferior vena cava. Normal retroperitoneum. Normal urinary bladder. Normal abdominal wall. Status post posterior decompression in the lower lumbar spine. CT/Abdomen/Pelvis without Cont IMPRESSION: No renal or ureteral stone. Electronically Signed: Flash Maloney MD at 8:50 EDT ,
== END | disposition home or self-care (01) ==
LOC: CT 07:25
PROVIDERS: PCP Internal Medicine; Referring Provider Urology; Visit Provider Urology
DX: R10.9 Unspecified abdominal pain (principal); N39.0 Urinary tract infection, site not specified; R11.2 Nausea with vomiting, unspecified; N36.9 Urethral disorder, unspecified
CPT/HCPCS: 74176

== ENCOUNTER → 2022-01-20 | Outpatient (CLI) | payer MEDICARE, BC, SELFPAY ==
[2022-01-20 12:25] LABS: Absolute Lymphocyte Count 2.21 X10^3/uL (0.83-4.51); Absolute Neutrophil Count 1.7 X10^3/uL (2.0-7.7); Basophil# 0.05 X10^3/uL; Basophil% 1.1 % (0-1); Eosinophil# 0.17 X10^3/uL; Eosinophils% 3.8 % (0-5); Hemoglobin 11.8 g/dL (12.0-15.0); Lymphocyte # 2.21 X10^3/ul (0.83-4.51); Mean Corp Hgb Conc 31.9 g/dL (32-36); Mean Corpuscular Hgb 29.3 pg (27.0-32.0); Mean Corpuscular Volume 91.8 fL (81-99); Mean Platelet Vol. 9.9 fl (6.2-12.0); Monocyte# 0.39 X10^3/uL; Monocyte% 8.6 % (0-10); NRBC Flagged by Analyzer 0 % (0-5); Neutrophil # 1.69 X10^3/uL (2.7-7.7); Neutrophil % 37.5 % (47-70); Platelet Count 246 K/mm3 (150-450); RBC Distribution Width CV 13.3 % (11.6-14.6); RBC Distribution Width SD 45.1 fl (35.1-43.9); Red Blood Count 4.03 M/mm3 (4.2-5.4); White Blood Count 4.5 K/mm3 (4.4-11.0)
[2022-01-20 12:44] LABS: D-Dimer Quantitative (DVT/PE) 0.74 FEU/ug/m (0.27-0.49)
[2022-01-20 12:45] LABS: ALB/GLOB Ratio 1.3 RATIO (0.9-2.4); AST(SGOT) 15 U/L (15-37); Alanine Aminotransfer ALT/SGPT 19 U/L (13-56); Albumin, Serum 3.7 g/dL (3.2-5.0); Alkaline Phosphatase 58 U/L (45-117); Anion Gap 6 (5-15); BUN 17 mg/dL (7-18); BUN/Creat Ratio 21.5 RATIO (10-20); Calcium,Total 9.3 mg/dL (8.5-10.1); Chloride 107 mmol/L (98-107); Creatinine, Serum 0.79 mg/dL (0.55-1.02); EST Glomerular Filtration Rate 76 mL/min (>60); Est Glom Filt Rate - Afr Amer 92 mL/min (>60); Globulin 2.9 g/dL (2.2-4.2); Glucose 96 mg/dL (74-106); Potassium 4.7 mmol/L (3.5-5.1); Protein, Total 6.6 g/dL (6.4-8.2); Sodium Level 143 mmol/L (136-145); Thyroid Stim Hormone (TSH) 1.01 uIU/mL (0.358-3.74)
[2022-01-20 12:50] LABS: BNP,B-Type NATRIURETIC PEPTIDE 214.7 pg/mL (0-100)
== END | disposition home or self-care (01) ==
LOC: LABSPEC 12:15
PROVIDERS: PCP Internal Medicine; Visit Provider Internal Medicine
DX: R06.02 Shortness of breath (principal); R00.2 Palpitations
CPT/HCPCS: 80053; 83880; 84443; 85025; 85379

== ENCOUNTER → 2022-01-20 | Outpatient (CLI) | payer MEDICARE, BC, SELFPAY ==
--- NOTE | 2022-01-20 13:34 | CT_ITS ---
STUDY: CTA CHEST REASON FOR EXAM: Female, 71 years old. ELEVATED D DIMER RADIATION DOSAGE (If Supplied By Facility): CTDIvol = ( 11.19 ) mGy, DLP = ( 493.64 ) mGycm TECHNIQUE: The examination was performed with the intravenous administration of IV 100mL Isovue-370. Post-processing of the angiographic images was performed, with multiplanar reformation and 3D reconstruction. Individualized dose optimization techniques were used for this CT. COMPARISON: None. FINDINGS: Normal enhancement of the main pulmonary artery and right and left pulmonary arteries. Normal enhancement of the bilateral peripheral pulmonary arteries. There is no demonstrated pulmonary embolism. There is atherosclerotic calcification of the aortic arch with tortuosity. There is no demonstrated aortic dissection. There are mild degree of calcifications of the coronary arteries. Normal mediastinum. Normal hilar regions. Normal visualized trachea and bronchi. The lungs are well expanded. Minimal increased linear markings in the posterior medial segment of the right lower lobe suggestive of a mild lingular scarring. Normal pleura. Normal chest wall structures. There are degenerative changes of thoracic spine. There is a 1.6 cm x 2 cm cyst in the upper medial aspect of the left kidney. Small hiatal hernia. CT/CTA Chest W/WO Contrast IMPRESSION: No evidence of pleural embolism. Mild scarring in the posterior medial segment of the right lower lobe. Electronically Signed: Toni Bishop MD at 14:19 EST ,
== END | disposition home or self-care (01) ==
LOC: CT 13:32
PROVIDERS: PCP Internal Medicine; Referring Provider Internal Medicine; Visit Provider Internal Medicine
DX: R79.89 Other specified abnormal findings of blood chemistry (principal); R06.02 Shortness of breath; R00.2 Palpitations
CPT/HCPCS: 71275; 80053; 83880; 84443; 85025; 85379; Q9967

== ENCOUNTER → 2022-01-29 | Outpatient (CLI) | payer MEDICARE, BC, SELFPAY | END | disposition home or self-care (01) | LOC: PSN 13:18 | PROVIDERS: PCP Internal Medicine; Visit Provider Internal Medicine | DX: R79.89 Other specified abnormal findings of blood chemistry (principal); R00.2 Palpitations | CPT/HCPCS: 93225; 93226 ==

== ENCOUNTER → 2022-02-02 | Outpatient (CLI) | payer MEDICARE, BC, SELFPAY ==
--- NOTE | 2022-02-02 10:31 | MRI_ITS ---
STUDY: MRI LUMBAR SPINE WITH AND WITHOUT CONTRAST REASON FOR EXAM: Female, 71 years old. LUMBAR RADICULOPATHY, PRIOR SURGERY TECHNIQUE: Standardized fat and water weighted pulse sequences were obtained in the sagittal and axial planes. IV 17ml Clariscan was administered for the contrast portion of the examination. COMPARISON: 11/30/2019 FINDINGS: A hemangioma is noted in T12. Partially visualized possible CSF cyst that level of S1-S2. Postsurgical changes with laminectomies are identified in the lumbar spine. T12-L1: Normal endplates. Normal disc height, hydration and morphology. Normal bilateral facet joints. Normal central canal and bilateral lateral recesses. Normal bilateral intervertebral neural foramina. Normal lumbar lordosis. There is no substantial scoliosis. Normal conus medullaris that terminates at the L1 L1-2: Normal endplates. Normal disc height, hydration and morphology. Normal bilateral facet joints. Normal central canal and bilateral lateral recesses. Normal bilateral intervertebral neural foramina. L2-3: There is broad-based disc herniation with mild to moderate right and moderate left foraminal stenosis. There is bilateral facet arthrosis. Findings appear stable at this level compared to prior study. L3-4: There is broad-based disc herniation with moderate bilateral foraminal stenosis. There is bilateral facet arthrosis. Findings appear slightly improved compared to the prior study. L4-5: There is broad-based disc herniation with moderate bilateral foraminal stenosis. Findings appear stable compared to prior study. L5-S1: There is broad-based disc herniation with moderate bilateral foraminal stenosis. Findings appear stable compared to the prior study. Normal visualized sacral ala. Normal visualized paraspinous soft tissue structures. MRI/Spine Lumbar W/WO Contrast IMPRESSION: Multilevel disc herniations, foraminal stenosis, mostly unchanged when compared to the prior study. Findings appear slightly improved at the level of L3-L4. Stable hemangioma and sacral CSF cyst. Electronically Signed: En Horton MD at 14:44 EST ,
== END | disposition home or self-care (01) ==
LOC: MRI 10:21
PROVIDERS: PCP Internal Medicine; Referring Provider Physician Assistant Surgical; Visit Provider Physician Assistant Surgical
DX: N28.9 Disorder of kidney and ureter, unspecified (principal); M51.36 Other intervertebral disc degeneration, lumbar region
CPT/HCPCS: 72158; A9575

== ENCOUNTER → 2022-02-04 | Outpatient (CLI) | payer MEDICARE, BC, SELFPAY ==
--- NOTE | 2022-02-04 10:54 | ECHOD_ITS ---
Reason For Study: EDEMA Procedure This was a 2D Doppler, Color Flow transthoracic echocardiogram. Exam performed in department. Left Ventricle Normal size and thickness. The left ventricular ejection fraction is 60 %. Stage 2 diastolic dysfunction. Right Ventricle Normal right ventricle. Atria The left atrium is moderately enlarged. Normal right atrium. Mitral Valve Mild (1+) mitral valve insufficiency. Tricuspid Valve Trivial tricuspid valve insufficiency. Right ventricular systolic pressure estimated to be 43 mmHg. Mild pulmonary hypertension. Aortic Valve Aortic sclerosis, no stenosis. Pulmonic Valve The pulmonic valve is not well visualized. Great Vessels Normal sized aortic root. MMode/2D Measurements & Calculations Ao root diam: 2.5 cm LAV(MOD-bp): 60.5 ml LVAd ap4: 16.9 cm2 LAV(MOD-bp) Indexed: 32.6 ml/m2 LVLd ap4: 6.0 cm LAV(MOD-sp2): 50.3 ml EDV(MOD-sp4): 39.2 ml LAV(MOD-sp4): 55.9 ml EDV(sp4-el): 40.7 ml LVAs ap4: 7.7 cm2 LVLs ap4: 4.4 cm ESV(MOD-sp4): 12.7 ml ESV(sp4-el): 11.5 ml EF(MOD-sp4): 67.8 % EF(sp4-el): 71.8 % SV(MOD-sp4): 26.6 ml SV(sp4-el): 29.2 ml LA A4 area: 18.0 cm2 LA dimension(2D): 4.4 cm RA A4 area: 12.5 cm2 Time Measurements MV dec time: 0.19 sec Doppler Measurements & Calculations MV E max pako: 106.9 cm/sec Lat Peak E' Pako: 6.1 cm/sec Med Peak E' Pako: 6.8 cm/sec MV A max pako: 84.2 cm/sec E/E' lat: 17.5 E/E' med: 15.7 MV E/A: 1.3 MV V2 max: 130.0 cm/sec Ao V2 max: 121.1 cm/sec MV max P.8 mmHg MV dec slope: 579.4 cm/sec2 Ao max P.9 mmHg MV V2 mean: 55.5 cm/sec Ao V2 mean: 77.6 cm/sec MV mean P.7 mmHg Ao mean P.8 mmHg MV V2 VTI: 41.2 cm Ao V2 VTI: 29.8 cm AV (velocity ratio): 0.80 LV V1 max: 89.5 cm/sec PA V2 max: 79.6 cm/sec TR max pako: 308.1 cm/sec LV V1 max P.2 mmHg PA V2 mean: 63.1 cm/sec TR max P.0 mmHg LV V1 mean P.9 mmHg LV V1 mean: 64.9 cm/sec LV V1 VTI: 23.7 cm ECHO/Echo Complete Interpretation Summary The left ventricular ejection fraction is 60 %. Stage 2 diastolic dysfunction. The left atrium is moderately enlarged. Mild (1+) mitral valve insufficiency. Mild pulmonary hypertension. Ordering Physician: Aubree Woody Referring Physician: Aubree Woody Performed By: Jenny lEkins RCS
== END | disposition home or self-care (01) ==
PROVIDERS: PCP Internal Medicine; Referring Provider Internal Medicine; Visit Provider Internal Medicine
DX: R06.02 Shortness of breath (principal); R60.9 Edema, unspecified
CPT/HCPCS: 93306

== ENCOUNTER → 2022-03-22 | Outpatient (CLI) | payer MEDICARE, BC, SELFPAY ==
[2022-03-22 14:05] LABS: Rheumatoid Factor < 10.0 IU/mL (<15)
[2022-03-24 14:09] LABS: Cytoplasmic Ab (C-ANCA) <1:20 titer (Neg:<1:20)
[2022-03-24 16:50] LABS: ANTINUCLEAR ANTIBODIES DIRECT Negative (Negative)
[2022-03-24 16:51] LABS: CCP IgG Antibodies 3 units (0-19); Perinuclear Ab (P-ANCA) <1:20 titer (Neg:<1:20)
== END | disposition home or self-care (01) ==
LOC: PAVLAB 13:21
PROVIDERS: PCP Internal Medicine; Referring Provider Internal Medicine Critical Care Medicine; Visit Provider Internal Medicine Critical Care Medicine
DX: I27.20 Pulmonary hypertension, unspecified (principal)
CPT/HCPCS: 36415; 86038; 86200; 86225; 86235; 86256; 86431

== ENCOUNTER 2022-03-30 14:05 | Emergency (ER) | payer MEDICARE, BC, SELFPAY ==
[2022-03-30 14:06] VITALS: BP 176/76; PULSE 51; RESP 16; TEMP 36.6; O2SAT 98; BMI 35.3
--- NOTE | 2022-03-30 15:26 | CT_ITS ---
EXAMINATION : Head CT w/out contrast HISTORY : visual changes COMPARISON : None. TECHNIQUE : Multiple contiguous axial images were obtained from the skull base to the vertex without intravenous contrast. A radiation dose optimization technique was used for this scan. FINDINGS : There is no evidence for acute intracranial hemorrhage, mass effect, or midline shift. There is no extra-axial fluid collection. There are periventricular white matter changes consistent with chronic microvascular ischemic disease. There is sulcal widening and ventricular enlargement consistent with cerebral atrophy. There is normal stark-white differentiation, without CT evidence of acute ischemia or infarct. The skull base and calvarium are unremarkable. The orbits are unremarkable. The paranasal sinuses are clear. The mastoid air cells are well-aerated. The soft tissues are unremarkable. CT/Brain/Head without Contrast IMPRESSION: No acute intracranial abnormality. Chronic involutional and ischemic changes of the brain. Electronically Signed: Laron Diaz MD at 16:57 EST ,
--- NOTE | 2022-03-30 15:27 | EKG12_ITS ---
Test Reason : NEURO Blood Pressure : / mmHG Vent. Rate : 048 BPM Atrial Rate : 048 BPM P-R Int : 144 ms QRS Dur : 076 ms QT Int : 434 ms P-R-T Axes : 058 015 077 degrees QTc Int : 387 ms Sinus bradycardia Nonspecific ST and T wave abnormality Abnormal ECG Confirmed by SHARIF CORNEJO, MATHEW ([id number]), newspaper managing editor BRANDON DELGADO ([id number]) on 03/31/2022 9:16:54 AM Referred By: Confirmed By:MATHEW OLGUIN MD
--- NOTE | 2022-03-30 15:30 | EDS_ITS ---
HPI History of Present Illness Chief Complaint: Neuro S/Sx Informant: patient Narrative Narrative: Patient presents with vertigo and transient visual changes. We This patient is being worked up for congestive heart failure but not having any symptoms related to that. She was in the shower this morning. She had an episode where she had vertigo. She had a true sense of spinning. She held onto a rail and was fine. This was not presyncope. She states that lasted for maybe a minute and has been completely gone. This occurred if she bent and reached for some shampoo. After it was gone she has been totally normal and functional. However, about an hour or so after that she had an episode where she had bright- colored lights in her vision. She describes these as looking similar to the streamer's that will be used sometimes at an Olympic celebration. She covered each eye individually and she saw the same thing out of both eyes. I brought up Internet pictures of visual scotoma and she verifies that that is exactly which she saw. Those symptoms are also gone. Patient is completely asymptomatic and back to normal now. She has no other complaints and review of systems. Only new medications are Lasix and potassium. She had blood work done this morning also. She had been fasting for this and wonders if that may have contributed. Patient does have a prior history of migraines but has never had a complex migraine. She is starting to get just a slight headache on the left side but it is very mild. [facility] Medical History Anxiety B12 deficiency Chavira palsy CKD (chronic kidney disease) stage 3, GFR 30-59 ml/min Depression Diastolic dysfunction Eczema of both hands Edema, leg Essential (primary) hypertension Gastroparesis GERD (gastroesophageal reflux disease) Hyperlipidemia IBS (irritable bowel syndrome) Iron deficiency anemia AJAY (obstructive sleep apnea) Palpitations Piriformis syndrome of left side Pulmonary hypertension SOB (shortness of breath) SVT (supraventricular tachycardia) Home Medications albuterol sulfate 90 mcg/actuation aerosol inhaler 2 puff inhalation Q4H PRN shortness of breath or wheezing 03/12/22 [History Last Taken Unknown] mecobalamin (vitamin B12) 10,000 mcg solution for injection 1,000 mcg IM QMONTH 03/12/22 [History Last Taken Unknown] pantoprazole 40 mg tablet,delayed release 40 mg PO DAILY 03/12/22 [History Last Taken Unknown] vilazodone 20 mg tablet 20 mg PO DAILY 03/12/22 [History Last Taken Unknown] vibegron 75 mg tablet (Gemtesa) 75 mg PO DAILY 03/22/22 [History Last Taken Unknown] cholecalciferol (vitamin D3) 50 mcg (2,000 unit) capsule 100 mcg PO DAILY 03/23/22 [History Last Taken Unknown] furosemide 20 mg tablet (Lasix) 20 mg PO DAILY #30 tabs 03/23/22 [Rx Last Taken Unknown] potassium chloride 10 mEq tablet,extended release 10 meq PO DAILY #30 tabs 03/23/22 [Rx Last Taken Unknown] propranolol 40 mg tablet 40 mg PO DAILY 03/23/22 [History Last Taken Unknown] lisinopril 10 mg tablet 10 mg PO BID #180 tabs 03/29/22 [Rx Last Taken Unknown] Allergy/AdvReac Type Severity Reaction Status Date / Time Sulfa (Sulfonamide Allergy Intermediate Other Verified 03/30/22 14:06 Antibiotics) sulfamethoxazole Allergy Intermediate Itching Verified 03/30/22 14:06 [From Bactrim] trimethoprim [From Bactrim] Allergy Intermediate Itching Verified 03/30/22 14:06 codeine Allergy Unknown Other Verified 03/30/22 14:06 Penicillins [PCN] Allergy Rash Verified 03/30/22 14:06 Family History Mother Hypertension Grandfather Cancer kidney, brain Father Parkinson's disease Grandmother CVA (cerebral vascular accident) Myocardial infarction Brother CVA (cerebral vascular accident) Myocardial infarction Surgical History H/O bilateral salpingo-oophorectomy H/O: hysterectomy History of appendectomy History of cholecystectomy History of lumbar laminectomy Hx of tonsillectomy Social History Smoking Status: Never smoker alcohol intake: never substance use type: does not use caffeine: Yes Type: coffee Number of servings: 1 ROS ROS ED Constitutional Constitutional ED: Denies chills or fever(s) Eyes Eyes: Reports change in vision ENT ENT ED: Denies sore throat Cardiovascular Cardiovascular: Denies chest pain or palpitations Respiratory/Chest Respiratory/Chest: Denies cough or dyspnea Gastrointestinal Gastrointestinal: Denies nausea or vomiting Musculoskeletal Musculoskeletal: Denies myalgias Integumentary Denies rash Neurologic Neurologic: Reports headache(s) and other Details: See history of present illness. ; Denies paresthesias or weakness Endocrine Endocrinology: Denies polydipsia or polyuria Hematologic/Lymphatic Hematologic/Lymphatic: Denies easy bleeding EXAM Physical Exam Narrative Exam Narrative: Patient sitting quietly in bed. She looks comfortable. She had no trouble walking back to the room and getting into a gown. HEENT: No sign of rash trauma or weakness. No lid lag. No pallor. Eye: funduscopic exam is normal on both sides. There is no photophobia. There is no limitation of range of motion. No APD. Neck: No pain with range of motion. No JVD seen. Lungs clear to auscultation bilaterally Heart is regular with a rate of about 50. She states she has had a slow heart rate recently and has been watching this. She has no hypotension with this. She is on propanolol. Abdomen is completely benign No CVA tenderness Extremities show no notable edema. Peripheral pulses are normal. Color is no rmal. Coordination is normal. Neurologic: Patient alert oriented person place time and situation with no sign of weakness numbness or tingling on exam. She has no history of this on her history either. Const Vital Signs: 03/30/22 14:06 Temperature 97.9 F Temperature Source Temporal Pulse Rate 51 L Respiratory Rate 16 Blood Pressure 176/76 H Blood Pressure Mean 109 Pulse Ox 98 Oxygen Delivery Method Room Air MDM MDM MDM Narrative Medical decision making narrative: I did review patient's outpatient Holter monitor report from January 2022. This showed supraventricular events but no abnormal occurrences couplets or's ventricular tachycardia. I reviewed the patient's electrolytes that were just done this morning as ordered by outpatient/primary physician. This shows some mild elevation in the creatinine consistent with possibly mild dehydration. She had been n.p.o. overnight for lab work. Potassium was okay at 4.0. I did add a CBC here that showed minimal anemia at 11.9 but normal platelets and white count. This anemia is not the cause of her symptoms. My independent interpretation of her CT of the head without contrast shows no acute process bleeding or mass. Final reading by radiology showed chronic involutional ischemic changes of the brain but no acute intracranial abnormality. This patient had visual scotoma with a history of migraines and has a dull headache unilaterally now afterwards. I think her symptoms were related to this. She states the headache is not that bad. She is happy just taking Tylenol and going home. I think that is reasonable in this case. I do not think that this is a stroke. I do not think she needs further evaluation/MRI/admission. We did discuss reasons that would bring her back. Lab Data Attestation: I reviewed the patient's lab results. Labs: Laboratory Results - last 24 hr 03/30/22 15:40 WBC 5.0 RBC 4.09 L Hgb 11.9 L Hct 36.8 L MCV 90.0 MCH 29.1 MCHC 32.3 RDW Std Deviation 42.5 RDW Coeff of Nuno 12.9 Plt Count 256 MPV 10.0 Immature Gran % (Auto) 0.200 Neut % (Auto) 47.9 Lymph % (Auto) 39.5 Mccone % (Auto) 7.8 Eos % (Auto) 3.8 Baso % (Auto) 0.8 Absolute Neuts (auto) 2.4 Absolute Lymphs (auto) 1.98 Nucleated RBC % 0 Radiography Diagnostic Testing: Clinical Impression(s) from Imaging Studies Brain CT 03/30/22 15:26 IMPRESSION: No acute intracranial abnormality. Chronic involutional and ischemic changes of the brain. Electronically Signed: Laron Diaz MD at 16:57 EST , EKG Initial EKG: Comments: My independent interpretation of an EKG done for chronic bradycardia shows bradycardic rhythm at 48 but it is sinus. No ectopy. No acute ST elevation depression. IA interval, QRS duration and QTc are normal. Of note the patient has had a Holter monitor evaluating her slow rate. She is also on propanolol chronically. Discharge Plan Triage Chief Complaint: Neuro S/Sx ED Provider: Serjio Ignacio Dx/Rx/DC Orders Clinical Impression: Ocular migraine Instructions: ED, Migraine (Classical) Prescriptions: No Action mecobalamin (vitamin B12) 10,000 mcg recon soln 1,000 mcg IM QMONTH albuterol sulfate 90 mcg/actuation HFA aerosol inhaler 2 puff inhalation Q4H PRN (Reason: shortness of breath or wheezing) vilazodone 20 mg tablet 20 mg PO DAILY pantoprazole 40 mg tablet,delayed release (DR/EC) 40 mg PO DAILY propranolol 40 mg tablet 40 mg PO DAILY cholecalciferol (vitamin D3) 50 mcg (2,000 unit) capsule 100 mcg PO DAILY potassium chloride 10 mEq tablet extended release 10 meq PO DAILY Qty: 30 6RF furosemide [Lasix] 20 mg tablet 20 mg PO DAILY Qty: 30 6RF Gemtesa 75 mg tablet 75 mg PO DAILY lisinopril 10 mg tablet 10 mg PO BID Qty: 180 3RF Primary Care Provider: Aubree Woody Referrals: Aubree Woody DO [Primary Care Provider] - 3-5 Days Disposition Disposition: Home, Self Care
[2022-03-30 16:01] LABS: Absolute Lymphocyte Count 1.98 X10^3/uL (0.83-4.51); Absolute Neutrophil Count 2.4 X10^3/uL (2.0-7.7); Basophil# 0.04 X10^3/uL; Basophil% 0.8 % (0-1); Eosinophil# 0.19 X10^3/uL; Eosinophils% 3.8 % (0-5); Hematocrit 36.8 % (37-47); Hemoglobin 11.9 g/dL (12.0-15.0); Lymphocyte # 1.98 X10^3/ul (0.83-4.51); Lymphocyte % 39.5 % (19-41); Mean Corp Hgb Conc 32.3 g/dL (32-36); Mean Corpuscular Hgb 29.1 pg (27.0-32.0); Monocyte# 0.39 X10^3/uL; Monocyte% 7.8 % (0-10); NRBC Flagged by Analyzer 0 % (0-5); Neutrophil % 47.9 % (47-70); Platelet Count 256 K/mm3 (150-450); RBC Distribution Width CV 12.9 % (11.6-14.6); RBC Distribution Width SD 42.5 fl (35.1-43.9); Red Blood Count 4.09 M/mm3 (4.2-5.4)
[2022-03-30 17:56] VITALS: BMI 35.2
[2022-03-30 18:00] VITALS: BP 175/81; PULSE 50; RESP 16; O2SAT 100
== END 2022-03-30 18:01 | disposition home or self-care (01) ==
PROVIDERS: Emergency Provider Emergency Medicine; PCP Internal Medicine; Visit Provider Emergency Medicine
DX: G43.909 Migraine, unspecified, not intractable, without status migrainosus (principal); N18.30 Chronic kidney disease, stage 3 unspecified; E78.5 Hyperlipidemia, unspecified; I12.9 Hypertensive chronic kidney disease with stage 1 through stage 4 chronic kidney disease, or unspecified chronic kidney disease; R42 Dizziness and giddiness; R06.02 Shortness of breath; Z79.899 Other long term (current) drug therapy
CPT/HCPCS: 36415; 70450; 80048; 85025; 93005; 96360; 99283; J7030; A4216

== ENCOUNTER → 2022-03-30 | Outpatient (CLI) | payer MEDICARE, BC, SELFPAY ==
[2022-03-30 09:43] LABS: Anion Gap 7 (5-15); BUN 24 mg/dL (7-18); BUN/Creat Ratio 23.1 RATIO (10-20); Calcium,Total 9.5 mg/dL (8.5-10.1); Chloride 106 mmol/L (98-107); Creatinine, Serum 1.04 mg/dL (0.55-1.02); EST Glomerular Filtration Rate 55 mL/min (>60); Est Glom Filt Rate - Afr Amer 67 mL/min (>60); Glucose 107 mg/dL (74-106); Sodium Level 141 mmol/L (136-145)
== END | disposition home or self-care (01) ==
LOC: LAB 08:36
PROVIDERS: PCP Internal Medicine; Referring Provider Internal Medicine Cardiovascular Disease; Visit Provider Internal Medicine Cardiovascular Disease
DX: R06.02 Shortness of breath (principal)
CPT/HCPCS: 36415; 80048

== ENCOUNTER → 2022-04-07 | Outpatient (CLI) | payer MEDICARE, BC, SELFPAY ==
--- NOTE | 2022-04-07 16:00 | STRESSREP_ITS ---
Stress Test Report Date: 04/07/2022 Procedure: Pharmacologic stress nuclear imaging study Indications: Shortness of breath Consent: Per the patient Procedure: The patient underwent pharmacologic (Regadenoson 0.4mg ) evaluation with a peak heart rate of 89 beats per minute (6%predicted maximal heart rate) and a peak blood pressure of 164/78 mmHg. The baseline ECG demonstrated sinus bradycardia. The peak pharmacologic ECG demonstrated normal sinus rhythm with downsloping ST segments in inferior leads. There were no cardiac dysrhythmias pretest, during pharmacologic infusion, or recovery. There was no complaint of chest discomfort during pharmacologic infusion or recovery. The patient was injected with 11.9 millicuries of technetium 99m Cardiolite and subsequently rest SPECT Cardiolite nuclear imaging was obtained in the horizontal long, vertical long, and short axis views. The patient underwent pharmacologic (Regadenoson) evaluation. The patient was injected with 36 millicuries of technetium 99m Cardiolite and subsequently stress SPECT Cardiolite nuclear imaging was obtained in the horizontal long, vertical long, and short axis views. A gated Cardiolite study at peak stress was obtained. The examination was stopped secondary to completion of protocol. Rest and stress SPECT Cardiolite nuclear imaging status post realignment, normalization, and attenuation correction demonstrate mildly decreased perfusion of the anterior wall with stress along with basal lateral wall. The reported LVEF is 82%. Impression: 1. Pharmacologic (Regadenoson) evaluation 2. Peak pharmacologic ECG with downsloping ST changes suggestive of ischemia. 3. There were no cardiac dysrhythmias pretest, during pharmacologic infusion, or recovery. 5. Mildly decreased perfusion of the anterior wall and basal lateral wall with stress suggestive of ischemia. 6. The gated Cardiolite study reports an LVEF of 82%. This note was generated with Pruffiation software. It may contain incorrect words, spelling, and punctuation that were not noted in checking the note before signing.
== END | disposition home or self-care (01) ==
LOC: CVS 06:28
PROVIDERS: PCP Internal Medicine; Visit Provider Internal Medicine Cardiovascular Disease
DX: R06.02 Shortness of breath (principal)
CPT/HCPCS: 78452; 93017; A9500; A4216; J2785

== ENCOUNTER → 2022-04-08 | Outpatient (CLI) | payer MEDICARE, BC, SELFPAY ==
--- NOTE | 2022-04-08 15:38 | PFTCOMP_ITS ---
COMPLETE PULMONARY FUNCTION TEST INTERPRETATION Brief HPI: Patient is a 71-year-old female, currently under the care of Dr. Parsons, who presents to [facility] for complete pulmonary function tests secondary to diagnosis of pulmonary hypertension. Respiratory therapist reports good effort and reproducible results. Interpretation: Forced expiration spirometry shows no large airways obstructive ventilatory defect with an FEV1 of 80% predicted. There is no significant bronchodilator response by strict ATS criteria. Spirograms are of good quality and plateau normally. The respiratory flow volume loop shows a normal pattern. Lung volumes by body plethysmography show a moderately decreased total lung capacity at 2.87 L, 65% predicted. All other lung volumes are reduced symmetrically. Diffusion capacity by carbon monoxide is normal at 76% predicted. The airway resistance is slightly elevated. No previous pulmonary function tests were available for review. Impression: Moderate restrictive ventilatory defect with relatively preserved diffusion capacity
== END | disposition home or self-care (01) ==
PROVIDERS: PCP Internal Medicine; Visit Provider Internal Medicine Critical Care Medicine
DX: I27.20 Pulmonary hypertension, unspecified (principal)
CPT/HCPCS: 94060; 94726; 94729

== ENCOUNTER → 2022-04-14 | Outpatient (CLI) | payer MEDICARE, BC, SELFPAY ==
[2022-04-14 12:35] LABS: Prothrombin Time (Protime)PT. 12.6 SECONDS (11.7-14.9)
[2022-04-14 12:36] LABS: Partial Thromboplast Time 25.1 Seconds (24.1-36.2)
== END | disposition home or self-care (01) ==
LOC: LAB 11:58
PROVIDERS: PCP Internal Medicine; Visit Provider Internal Medicine Cardiovascular Disease
DX: R06.02 Shortness of breath (principal); I50.30 Unspecified diastolic (congestive) heart failure; R00.2 Palpitations
CPT/HCPCS: 36415; 85610; 85730

== ENCOUNTER 2022-04-23 10:15 | Observation (INO) | payer MEDICARE, BC, SELFPAY ==
[2022-04-22 08:35] VITALS: BMI 34.7
--- NOTE | 2022-04-23 10:32 | CL.I_ITS ---
Patient Name: PARVIN DUENAS Study Date: 04/23/2022 Performing: Elizabet Snider MD Ht: 62 inches 157.48 cm : 1950 Wt: 189.99 lbs 86.18 kg Age: 71 Gender: female BSA: 1.87 PROCEDURE(S) PERFORMED IC12-([id number])GENI W/WO PTCA, SINGLE CORONARY ARTERY [id number])LHC/COR CLINICAL PROFILE AND CO-MORBIDITIES Indications: Suspected CAD Heart Failure: None Stress/Imaging Stress Test w/SPECT MPI: Yes Result: Positive Intermediate Risk Stress Test with SPECT MPI: Positive Intermediate Risk CAD Presentations: Stable angina. CONCLUSIONS 75-80% distal RCA Mild LAD/LCX Successful GENI distal RCA using Resolute Milan 2.75x12 mm, post-dilated using 3.0 mm balloon RECOMMENDATIONS ASA Indefinitley Plavix for at least 12 months DESCRIPTION OF PROCEDURE The patient arrived to the procedure lab. The risks and benefits of the procedure as well as a full description of our services here and lack of surgical backup were fully explained to the patient and/or their significant other prior to the catheterization. The Timeout was completed, verifying the correct patient and procedure. The patient's procedural site was prepped and draped in the usual fashion. Local anesthetic was given subcutaneously to right radial region with Lidocaine 2%. Using a modified Seldinger technique, arterial access was obtained via the right radial artery, a 6Fr sheath was inserted.. Left Coronary Artery selective angiography was performed in multiple views using a 5 Fr. 4.0 Oxford catheter. Right Coronary Artery selective angiography was then performed in multiple views using a 5 Fr. 4.0 Oxford catheterThe images were reviewed and options discussed. A decision was then made to proceed with an Intervention, IVUS or other adjunct procedure. jr 4 cordis Guide catheter was inserted and engaged into the RCA. runthrough Guide wire was advanced to the RCA. milan 2.75 x 12 Drug Eluting stent was advanced across the lesion in the right coronary, distal. Angiogram performed post stent deployment. nc euphora 3.0 x 12 Balloon catheter was inserted post stent. Angiogram performed post balloon dilatation. sheath flushed then The arterial sheath was pulled and a TR Band was applied for hemostasis CORONARY ANGIOGRAPHY DOMINANCE: Right Dominant LEFT HEART ASSESSMENT Left Ventricular Ejection Fraction: Not assessed LEFT MAIN: Angiographically normal LEFT ANTERIOR DESCENDING ARTERY: LAD: Luminal Irregularities 10% Proximal lesion in LAD CIRCUMFLEX ARTERY: CIRCUMFLEX: Tubular 30% Mid lesion in Circumflex RIGHT CORONARY ARTERY: RCA: Tubular 30% Proximal lesion in RCA Tubular 80% Distal lesion in RCA INTERVENTION INFORMATION LESION SITE: RCA (Distal) Lesion Complexity: Non-High/Non-C, lesion length: 10 mm Pre Stenosis: 80 % Pre intervention LEANN flow: 3 PROCEDURE: Drug Eluting Stent with post dilatation Post Stenosis: 0 % Post intervention LEANN flow: 3 Lesion Devices: Terumo .014 180cm Runthrough Extra Floppy straight Cordis 6 Fr JR4 100cm Guide Catheter Medtronic Resolute [place] RX GENI 2.75x12 Medtronic NC EUPHORA RX 3.0x12 BALLOON COMPLICATIONS No Complications PROCEDURE MEDICATIONS Versed 1 mg IV Fentanyl 50 mcg IV Versed 1 mg IV Oxygen: 2 L/min via nasal cannula Brilinta 180 mg PO @ 04/23/2022 09:45:26 Heparin given IA 04/23/2022 09:34:49 Heparin 6000 unit(s) IV 04/23/2022 09:42:56 Nitro 200 mcg IC 04/23/2022 09:58:55 Verapamil 2.5mg, Ntg 200mcgs, 2000 units of Heparin given IA 04/23/2022 09:34:49 SUMMARY OF HEMODYNAMIC DATA Time AIR REST ECG 07:49:15 ECG 09:11:27 AO 138/63 (93) SA 09:38:51 AIR REST 10:31:21 Signed By Elizabet Snider MD On 04/23/2022 10:31:43 Elizabet Snider MD
[2022-04-23 12:45] VITALS: BP 147/63; PULSE 51; RESP 16; TEMP 36.6; O2SAT 100
--- NOTE | 2022-04-23 13:15 | DCINST_ITS ---
Discharge Instructions Diet Discharge Diet: Low fat / Low cholesterol Activity Discharge Activity: Return to Normal Activity Follow Up Care Please Follow Up With: Elizabet Snider MD When: 2 weeks Test Results: Test results from this visit will be discussed in further detail at your follow- up appointment, if applicable. Discharge Plan Admission Admit Date/Time: 04/23/22 10:15 Attending Provider: Elizabet Snider Primary Care Provider: Aubree Woody Discharge Orders/Prescriptions Prescriptions: New atorvastatin 10 mg Tablet 10 mg PO QHS Qty: 30 3RF clopidogrel 75 mg Tablet 75 mg PO DAILY Qty: 60 3RF nitroglycerin 0.4 mg Tablet, Sublingual 0.4 mg sublingual Q5M PRN (Reason: Cardiac/Chest Pain) Qty: 14 3RF Continued mecobalamin (vitamin B12) 10,000 mcg recon soln 1,000 mcg IM QMONTH albuterol sulfate 90 mcg/actuation HFA aerosol inhaler 2 puff inhalation Q4H PRN (Reason: shortness of breath or wheezing) vilazodone 20 mg tablet 20 mg PO DAILY pantoprazole 40 mg tablet,delayed release (DR/EC) 40 mg PO DAILY propranolol 40 mg tablet 40 mg PO DAILY cholecalciferol (vitamin D3) 50 mcg (2,000 unit) capsule 100 mcg PO DAILY potassium chloride 10 mEq tablet extended release 10 meq PO DAILY Qty: 30 6RF furosemide [Lasix] 20 mg tablet 20 mg PO DAILY Qty: 30 6RF Gemtesa 75 mg tablet 75 mg PO DAILY lisinopril 10 mg tablet 10 mg PO BID Qty: 180 3RF amlodipine 2.5 mg tablet 2.5 mg PO DAILY Qty: 30 11RF aspirin 81 mg tablet,delayed release (DR/EC) 81 mg PO DAILY Referrals / Follow Up: Aubree Woody DO [Primary Care Provider] - Disposition Disposition (needs filled in before D/C Order can be placed): Home, Self Care
--- NOTE | 2022-04-23 13:23 | EKG12_ITS ---
Test Reason : POST PCI Blood Pressure : / mmHG Vent. Rate : 051 BPM Atrial Rate : 051 BPM P-R Int : 144 ms QRS Dur : 084 ms QT Int : 390 ms P-R-T Axes : 060 021 102 degrees QTc Int : 359 ms Sinus bradycardia Nonspecific T wave abnormality Abnormal ECG Confirmed by JIMI CORNEJO, DIMAS ([id number]), purchase request editor BRANDON DELGADO ([id number]) on 04/28/2022 8:53:05 AM Referred By: JAMMIE Confirmed By:DIMAS KRAUSE MD
--- NOTE | 2022-04-23 13:43 | CRPHASE1 ---
Patient Communication Guide to Cardiac Rehab Given to Patient:: Yes Cardiac Rehab Facility Choice List Given to Patient:: Yes Knitting Machine Fixer:: Elizabet Snider Guide to Cardiac Rehab Given by ICU Staff Prior to Discharge: Yes Cardiac Rehabilitation Info Cardiac Rehabilitation Program Information: Cardiac Rehab The cardiac rehab team at [facility] consists of highly skilled exercise physiologists, nurses, respiratory therapists and physicians working together with you. Our purpose is to help you have a full recovery and achieve the goals you set for yourself. Over the years many of our patients have returned to activities they assumed they would never do again! We can help restore your confidence and motivation to make lifestyle changes that can have a significant impact on your health and quality of life! We can help answer questions and concerns you may have about exercise, lifestyle, medications, diet, stress and anxiety which are common following a hospitalization. WE monitor ECG and vital signs during exercise and discuss your progress with you and report to your physician(s). Cardiac Rehab is proven to help reduce readmissions, improve functional capacity and lower recurrence of problems with your heart. Our Cardiac Rehab program is Certified by the [place] [employer] Pulmonary [employer] (AACVPR) and Accredited by the [place] [employer] through our [facility]. You can contact us at . We invite you to call us with your questions or to get started in our program. If you have other questions or concerns be sure to ask your physician/provider during your follow-up visit. WE look forward to seeing you!
--- NOTE | 2022-04-23 13:44 | CRPH1.INST_ITS ---
General Education CAD and cardiac anatomy and function:: Patient communicates acknowledgment Explanation of diagnoses and procedures:: Patient communicates acknowledgment Sign/Symptoms of RI:: Patient communicates acknowledgment Antiplatelet therapy: Patient communicates acknowledgment Emergency procedures and activation of EMS: Patient communicates acknowledgment Compliance of all prescribed medications: Patient communicates acknowledgment Smoking Patient Nicotine/Smoking Risk Factors Are:: Never smoked Recommendations Include:: Second-hand smoke recommendation Nicotine/Smoking Response Code:: Patient communicates acknowledgment Dyslipidemia Recommendations Include:: Lipid profile not available Dyslipidemia Response Code:: Patient communicates acknowledgment Overweight/Obesity Patient Overweight/Obesity Risk Factors Are:: Obesity - > or = 30 Recommendations Include:: Weight loss of 5-10%, Reduced calorie diet, Exercise 5-7 times/week Overweight/Obesity:: Patient communicates acknowledgment Hypertension Recommendations Include:: Maintain BP <130/85 Hypertension:: Patient communicates acknowledgment Heart Disease Recommendations Include:: Educated family members of their risk Heart Disease Response Code:: Patient communicates acknowledgment Diabetes Patient Diabetes Risk Factors Are:: No documented hx of diabetes Diabetes:: Patient communicates acknowledgment Metabolic Syndrome Recommendations Include:: Does not meet criteria Sedentary Patient Sedentary Risk Factors Are:: Lack of regular exercise Recommendations Include:: Aerobic exercise 5-7 times/week for 20-30 minutes continuously, Benefits of regular exercise, Discussed home walking program, [facility] Sedentary Response Code:: Patient communicates acknowledgment Stress Patient Stress Risk Factors Are:: Patient denies stress as a risk factor Recommendations Include:: Identification of stressors, and assessment of coping skills, Stress management techniques Stress Response Code:: Patient communicates acknowledgment
[2022-04-23] MEDS: Acetaminophen 500 MG Tablet 1000 MG PO (13:45)
[2022-04-23 16:13] LABS: ACT Activated Clotting Time 281 sec (74-137)
[2022-04-23 16:14] LABS: ACT Activated Clotting Time 269 sec (74-137)
[2022-04-23 16:35] VITALS: BP 153/60; PULSE 52; RESP 18; O2SAT 100
[2022-04-23] MEDS: Clopidogrel Bisulfate 300 MG Tablet PO (16:36)
== END 2022-04-23 17:50 | disposition home or self-care (01) ==
LOC: PCU 12:47
PROVIDERS: Admitting Provider Internal Medicine Cardiovascular Disease; PCP Internal Medicine; Visit Provider Internal Medicine Cardiovascular Disease
DX: I25.110 Atherosclerotic heart disease of native coronary artery with unstable angina pectoris (principal); I50.32 Chronic diastolic (congestive) heart failure; I13.0 Hypertensive heart and chronic kidney disease with heart failure and stage 1 through stage 4 chronic kidney disease, or unspecified chronic kidney disease; N18.30 Chronic kidney disease, stage 3 unspecified; Z79.899 Other long term (current) drug therapy; Z79.82 Long term (current) use of aspirin; G47.33 Obstructive sleep apnea (adult) (pediatric); K21.9 Gastro-esophageal reflux disease without esophagitis; E78.5 Hyperlipidemia, unspecified
CPT/HCPCS: 85347; 92928; 93005; 93454; 99152; 99153; 99221; J7040; Q9967; C1725; C1769; C1874; C1887; C1894; C9600; G0378

== ENCOUNTER → 2022-05-11 | Outpatient (CLI) | payer MEDICARE, BC, SELFPAY ==
--- NOTE | 2022-05-11 09:26 | CR.HP_ITS ---
CR - History & Physical - General Arrival date:: 05/11/22 Arrival time:: 09:25 Date of Referral:: 04/28/22 Date of CR Evaluation:: 05/11/22 Referring Physician: Dr. Elizabet Snider Primary Diagnosis: PCI w/coronary stenting - History of Present Cardiac Event Onset Date: Enter Onset Date of cardiac illnesses in Comment field below PTCA or coronary stenting:: Yes - PCI w/coronary stenting on 04/23/2022 Heart Failure EF <35%:: Yes - Unspecified Diastolic Heart Failure LVEF 60-64% Type of Symptoms:: 6 months ago, started feeling slugish tired and short of breath, even just sitting. Interventions with present event:: PCP, lab work; Pulmonary Consult and Car diology Consult, lead to stent Were there any complications?: no - Sleep Disorder Evaluation Hx of Sleep Apnea: Yes Do you snore loudly (louder than talking or can be heard through closed doors)?: Yes - Has already Diagnosed with AJAY and has CPAP History of Hypertension (for STOP score): Yes - Sleep study showed very severe AJAY with apnea 44 times in 60 minutes - Medications Home Medications: Ambulatory Orders Medication Instructions Recorded albuterol sulfate 90 mcg/actuation 2 puff inhalation Q4H PRN 03/12/22 aerosol inhaler shortness of breath or wheezing mecobalamin (vitamin B12) 10,000 1,000 mcg IM QMONTH 03/12/22 mcg solution for injection pantoprazole 40 mg tablet,delayed 40 mg PO DAILY 03/12/22 release vilazodone 20 mg tablet 20 mg PO DAILY 03/12/22 vibegron 75 mg tablet (Gemtesa) 75 mg PO DAILY 03/22/22 cholecalciferol (vitamin D3) 50 100 mcg PO DAILY 03/23/22 mcg (2,000 unit) capsule furosemide 20 mg tablet (Lasix) 20 mg PO DAILY #30 tabs 03/23/22 potassium chloride 10 mEq 10 meq PO DAILY #30 tabs 03/23/22 tablet,extended release propranolol 40 mg tablet 40 mg PO DAILY 03/23/22 lisinopril 10 mg tablet 10 mg PO BID #180 tabs 03/29/22 amlodipine 2.5 mg tablet 2.5 mg PO DAILY #30 tabs 04/06/22 aspirin 81 mg tablet,delayed 81 mg PO DAILY 04/07/22 release atorvastatin 10 mg tablet 10 mg PO QHS #30 tabs 04/23/22 clopidogrel 75 mg tablet 75 mg PO DAILY #60 tabs 04/23/22 nitroglycerin 0.4 mg sublingual 0.4 mg sublingual Q5M PRN 04/23/22 tablet Cardiac/Chest Pain #14 tabs - Allergies Allergies/Adverse Reactions: Allergies Sulfa (Sulfonamide Antibiotics) Allergy (Intermediate, Verified 04/20/22 11:11) Other sulfamethoxazole [From Bactrim] Allergy (Intermediate, Verified 04/20/22 11:11) Itching burning of hands trimethoprim [From Bactrim] Allergy (Intermediate, Verified 04/20/22 11:11) Itching burning of hands codeine Allergy (Unknown, Verified 04/20/22 11:11) Other Penicillins [PCN] Allergy (Verified 04/20/22 11:11) Rash Advanced Directives - Advanced Directives 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 Living Will: Yes Advance Directives Information Provided: No Advance Directives on File: No DNR Order?:: No - MOLST See MOLST form: No Past Medical History - Covid-19 Screening Fever: No Unexplained muscle aches: No Current respiratory symptoms: No Upper respiratory infections symptoms: No Gastro-intestinal symptoms: Yes - H/O GERD< Irritable Bowel Syndrome Mhz-Smin-Ssfuiq symptoms: No Has tested positive for COVID-19 in last 30 days: No Date of testin05/11/22 - not vaccinated Had contact w/person w/symptoms or Covid-19 (+) last 14 days: No Has High Risk Exposures ID'd by Health dept/Inf Control team: No 65 years or older:: Yes Lives in Assisted Living facility:: No Has a chronic lung disease or moderate to severe asthma:: No Has a serious heart condition:: No Immunocompromised:: No Severely obese (Body Mass Index of 40 or higher):: No Diabetic:: No Has chronic kidney disease undergoing dialysis:: Yes Has liver disease:: No - Past Medical Illness Medical History: Past Medical History (Last Reviewed 05/06/22 @ 10:07 by Kaitlyn Triplett) Anxiety F41.9 B12 deficiency E53.8 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 CKD (chronic kidney disease) stage 3, GFR 30-59 ml/min N18.30 Depression F32.9 Diastolic dysfunction I51.89 Eczema of both hands L30.9 Edema, leg R60.0 Essential (primary) hypertension I10 Gastroparesis K31.84 GERD (gastroesophageal reflux disease) K21.9 Hyperlipidemia E78.5 IBS (irritable bowel syndrome) K58.9 Iron deficiency anemia D50.9 AJAY (obstructive sleep apnea) G47.33 Palpitations R00.2 Piriformis syndrome of left side G57.02 Pulmonary hypertension I27.20 SOB (shortness of breath) R06.02 SVT (supraventricular tachycardia) I47.1 - Past Surgical History Surgical History: Past Surgical History (Last Reviewed 05/06/22 @ 10:07 by Kaitlyn Triplett) H/O bilateral salpingo-oophorectomy Z90.79, Z90.722 H/O: hysterectomy Z90.710 History of appendectomy Z90.49 History of cholecystectomy Z90.49 History of coronary artery stent placement Onset Date: ~04/23/22 Z95.5 GENI distal RCA using Resolute Sunday [id number] History of lumbar laminectomy Z98.890 Hx of tonsillectomy Z90.89 Surgical History: appendectomy, cholecystectomy, hysterectomy - and BSO per pt - Family History Summary Family History: Family History (Last Reviewed 05/06/22 @ 10:07 by Kaitlyn Triplett) Mother Hypertension Grandfather Cancer kidney, brain Father Parkinson's disease Grandmother CVA (cerebral vascular accident) Myocardial infarction Brother CVA (cerebral vascular accident) Myocardial infarction Social History - Smoking History Smoking Status: Never smoker Hx Tobacco Use: No Hx Smoking Exposure: No - Alcohol Use Alcohol Usage: No - Substance Abuse Hx Substance Use: No - Occupation Occupation (List type of work in comments):: Retired - Hobbies, Recreation, Social Activities Hobbies: Other - scrap booking make cards, granddaughter, [place] (son adn granddaughter both in [place]) Recreational Activities: I am able to engage in most, but not all activities Social Environment - Status Marital Status: - Current Living Arrangements Living Environment:: Spouse - Children How many children do you have?: 2 - Son/daughter Do any of your children live nearby?: No - Daughter is bed ridden on ventilator from CP - Safety Do you feel safe in your surroundings?: Yes - Assistance Do you need any assistance at home?: no Review of Systems - Review of Systems Hints: Right click = Denies ([place]). Left click = Reports ([place]) Review of Present Symptoms: Reports: Heart Arrhythmia/Irregularities - Periods of SVT, palpitations, Appetite - Normal - days don't want to eat, days I want to eat all day, don't eat regular 3 meals day, Sleep - Normal - it is now since reagular CPAP 7 to 9 hours nightly. Denies: Shortness of Breath at Rest - improved, still has periods of like anxiety., Shortness of Breath with Exertion - since the stent not really but a few times there has been periods., Angina, Dizziness/Lightheadedness, Fatigue - ti is not as bad as it was prior to the stent placement and by 7:30 pm ready for bed., Appetite - Special Diet - Pain Is Patient Pain Free?: Yes Pain Location: none, pelvis - hips, back - chronic back pain., lower extremity - terrible leg pain cramping, stopped lipitor for 10 days to see if improved but still having the issues Pain Level: 10 - some day can be an 8 to 9 Risk Factor Assessment - Vital Signs Temperature: 98.2 F Respiratory Rate: 14 Pulse Ox: 96 Blood Pressure: 134/79 Nailbeds:: pink - Pulse Pulse Rate: 50 Pulse Rhythm: Regular - Hypertension Blood Pressure Sitting - Left Arm: 134/79 - Stress Stress: Recent - this is all new to deal with - Blood Cholesterol/Lipids Total Cholesterol (mg/dL) Goal = less than 200 mg/dL: 201 HDL Cholesterol (mg/dL) Goal = less than 40 mg/dL: 49 LDL Cholesterol (mg/dL) Goal = less than 70 mg/dL: 107 Triglycerides (mg/dL) Goal = less than 150 mg/dL: 226 - Diabetes Nutrition Referral for Diabetes: No - Obesity Height: 5 ft 2 in Weight:: 192 lb Weight in Pounds: 192.0 lbs Weight Source: Stated by Patient Body Mass Index (BMI): 35.1 Nutritional Referral for Obesity: Yes - Physical Inactivity Physical Inactivity: Reg Exercise 30 min/day - Risk Stratification Risk Guidelines: Lowest Risk: Risk Factor for Smoking, Risk Factor for Diabetes, Risk Factor for Sedentary Lifestyle, Moderate Risk: Risk Factor for Dyslipidemia, Risk Factor for Hypertension - 134/79 @ rest, Highest Risk: Risk Factor for Obesity - BMI 35% - Family History Family History: Family History (Last Reviewed 05/06/22 @ 10:07 by Kaitlyn Triplett) Mother Hypertension Grandfather Cancer Father Parkinson's disease Grandmother CVA (cerebral vascular accident) Myocardial infarction Brother CVA (cerebral vascular accident) Myocardial infarction Motivation - Motivation to Participate On a scale of 1 to 10, how prepared are you to commit to attending program?: 10 What do you see as barriers to successfully being able to complete the program?: depend on the care of my daughter What do you see as the benefits of succesfully completing the program? In other words, what do you hope to get out of participating in the program?: healthier both mentally and physically, being focused on getting better Are there issues you are dealing with that will interfere with completing the program?: mental attitude Do you have a spouse or signficant other, family or friends who will help support you to complete the program?: Yes
--- NOTE | 2022-05-11 09:27 | PCM.CR.ITP ---
Diagnosis - General Information Admitting Diagnosis: PCI w/coronary stenting Secondary Diagnosis: Unspecified Diasstolic HF, Hypertension, Hyperlipidemia Personal Learning Style:: Audio/Visual, Written Barriers to Learning: Vision Impairment Stage of change r/t lifestyle modifications:: Action Gave educational material for:: Treating Heart Disease, Emotions & Heart Disease, Stress Management & Relaxation, Sleep Disorders & Heart Disease, How The Heart Works, What it means to have Heart Disease, How Coronary Artery Disease is Diagnosed, Heart Procedures, What Heart Medications Do, Risk Factors & Modifications, Living an Active Life, Nutrition - Education/Goals Individual Counseling: Initial Assessment: Abnormal Cholesterol Levels, High Blood Pressure, Overweight/Obesity Cardiac Rehabilitation Goals: 1. Maintain the individual as the primary focus of care. 2. To improve the patient's quality of life. 3. Identification of cardiac risk factors and provide cardiac risk factor management. 4. Enhance the psychosocial status of the patient. 5. Reconditioning enough to allow the patient to resume customary activities. 6. Control symptoms of cardiac disease Personal Goals: Initial Assessment: Improve management of stress and emotions, Improve energy level, Participate in home exercise program, Improve knowledge of cardiac disease, Improve muscle strength and endurance, Improve diet and eating habits (eat healthier), Control risk factors (learn risk factor modification) Scale for measuring improvement of personal goals: Enter appropriate number in Comments. 2 = Unchanged. 3 = Slightly Better. 4 = Moderate Improvement. 5 = Met my Goal - Diagnosis & Disease Process Outcomes/Goals: Pt IDs own risk factors & lifestyle modifications by Session 10, Verbalizes symptoms of angina & response by session 3., Pt independently manages Plan/Interventions: Assist Pt to ID & engage in lifestyle modification to reduce CVD risk, Instruct on individual risk factors, Review symptoms of angina & emergency actions, Review secondary diagnosis & identify educational needs. - Safety Referral to Physical Therapy: No Referral to [facility] Case Management: No Fall Risk Assessed:: Yes Assistive Devices:: None Exercise - Initial Assessment - Visit Date of Eval: 05/11/22 Session #:: 0 - Pre-cardiac Rehab Evaluation Mets: Pre-: >7 METS for 30 minutes by discharge - Physician Prescribed Exercise Modalities: Treadmill, Airdyne, NuStep Frequency: 3x/week for 12 weeks [36 sessions] Intensity: 60-80% of age predicted maximum heart rate reserve Duration: 30 - 45 minutes Current METSs:: 3.0 Target Heart Rate:: 96-111 Resting Blood Pressure: 134/79 EKG Type: Sinus Bradycardia Current Physical Activity or Exercising minutes: Physically active > 3 hours daily - Outcomes & Goals Goals:: Verbalizes understanding of THR, RPE & goal METS by session 6, Documents in home exercise log/reports 30 min aerobic 5 day/wk by DC, Demonstrates accurate pulse taking by DC - Intervention & Plan Exercise Program Goals: Instruct on personal THR & RPE, Instruct on MET level & personal MET goal, Show patient to take own pulse /validate performance until accurate, Instruct on home exercise - Physical Activity Home Exercise Physical Activity - Home Exercise: Safe Exercise, Warm-up, Self-monitoring, Cool-Down, Home Exercise > 30 min Daily, Sitting Time <3 hours/daily - Outcomes & Goals Outcomes/Goals: Demonstrates correct Warm-up/exercise Cool-Down (S3) if = 2.5 METs, Verbalizes symptoms of exercise intolerance by Session 3 (S3), Demonstrate safe equipment use (S3) & follows exercise prescrition (6) - Intervention & Plan Plan/Intervention: Instruct warm-up & cool-down if exercising at > 2 METs, Instruct on symptoms of exercise intolerance & actions to take, Instruct & monitor on saf, Assess intial functional capacity & safety risk Nutrition - Initial Assessment - Program Goals Nutrition Program Goals: LDL <100 optimal. 100 - 129 Near optimal. 130 - 159 Borderline High. 160 - 189 High. Total Cholesterol <200 desirable. 200 - 239 Borderline High. >/= 240 High. HDL < 40 Low >/=60 High. Triglycerides <150 desirable. <199 optimal. VlDL 5 - 40. HgbA1C <7%. BMI <25 Patient has diagnosis of Hyperlipidemia (ICD E78)?: Yes - Visit Date of Assessment:: 05/11/22 Session #:: 0 - Pre-cardiac Rehab Evaluation - Cholesterol/Lipids (Other Core Measures) Triglycerides (mg/dL): 226 Total Cholesterol (mg/dL): 201 LDL Cholesterol (mg/dL): 107 HDL Cholesterol (mg/dL): 49 Determine presence & major risk factors that modify LDL goal: Hypertension or hypertensive medication, Age men > 45 years; women >/= 55 years Outcomes/Goals: Pt IDs own risk factors & lifestyle modifications by Session 10, Verbalizes symptoms of angina & response by session 3., Pt independently manages Intervention/Plan: Instruct on personal lipid levels & lipid goals/NCEP guidelines, Instruct on cholesterol Referral to dietitian:: Yes - Medical Nutrition Therapy - Diabetes (Other Core Measures) Diabetes Type: Not Applicable - Weight Mgt (Other Care) Not Applicable: No Height: 5 ft 2 in - Weight:: 192 lb BMI: 35.1 Diagnosis Overweight/Obesity BMI> 30% ICD-10 E66: Yes Diagnosis High BMI/Morbid Obesity BMI> 35% ICD-10 Z68: Yes Outcomes/Goals: Pt sets, maintains & shows weight loss goal & trend during rehab Intervention/Plan: Instruct on ideal BMI & set weight loss goal w/patient, Assist pt to ID & incorporate diet changes for weight loss by S9, Refer to Structured Weight Loss program as appropriate, Encourage goal of using 250-300dcal per session for weight loss - Healthy Eating Habits Will attend diet classes:: Yes Outcomes/Goals:: Consume diet rich in vegs,fruits,whole grain/high fiber,fish,lean meat, Limit sat/trans fats,cholesterol & added salts & sugars Intervention/Plan:: Assess current eating habits - Education Gave educational materials for:: Healthy eating Nutrition - 30-Day Assessment Nutrition - 60-Day Assessment Nutrition - 90-Day Assessment Nutrition - Final Assessment Core - Initial Assessment - Visit Date of Eval: 05/11/22 Session #:: 0 - Pre-cardiac Rehab Evaluation - Medication Compliance Preventative Medication(s):: Aspirin, Clopidogrel/P2Y12 inhibit, Statin/lipid, Beta marciano H/O mental health issues: depression, anxiety, or addiction?: No Doesn?t believe in the benefits of treatment?: No Believes medications are unnecessary or harmful?: No Has a concern about medication side effects?: No Expresses concern over the cost of medications?: No Outcomes/Goals: Verbalizes medications,desired effect & common side effects @ DC, Pt self-reports following medication regimen, Keeps card in wallet w/medications listed by DC Interventions/plans: Instruct on medication effects & side effects, Review medication list w/patient every two weeks, Instruct importance of taking meds as ordered & assist problem solving - Tobacco Use Tobacco Use: Non-smoker - Hypertension Hypertension Diagnosis:: Hypertension ICD-10 I10 Resting Blood Pressure:: 134/79 [place] [employer] Hypertension Guidelines: Citizen [place] [employer] Hypertension Guidelines. Normal BP Less than 120/80. Elevated BP 120/80. Hypertension Stage 1: BP 130-139/80-89. Hypertesnion Stage 2: BP 140 or higher/90 or higher. Hypertension Crisis: BP higher than 180/120 Outcomes/Goals: Able to verbalize/achieve optimal blood pressure <130/80, Incorporates diet changes & exercise for blood pressure control by DC Interventions/plan: Instruct on optimal blood pressure, hypertension & medications, Instruct on effects of sodium, alcohol, stress, exercise &hypertension - Tobacco Cessation Referral Smoking Cessation Referral:: No Individual Education/Counseling:: No Education Schedule Given:: Yes Core - 30-Day Assessment Core - 60-Day Assessment Core - 90 Day Assessment Core - Final Assessment Psychosocial - Initial Assess - VIsit Date of Eval: 05/11/22 Session #:: 0 - Pre-cardiac Rehab Evaluation History of Emotional Disorders: Anxious, Depression - Psychosocial Test Tool Used:: Vivi Bailey QOL Cardiac, PHQ-9 Questionnaire phq-9 Severity: Severity. 1-4 Minimal Depression. 5-9 Mild Depression. 10-14 Moderate Depression. 15-19 Moderately Sever Depression. 20-27 Severe Depression. Rule: See PHQ-9 Score: 17 - Refer back to patient PCP Dr. Woody - Referral to Behavioral Health PS - Interventions: Yes Referral to Physician if PHQ-9 if score is 5-9: - 17 MOderately-Serve Depression per PHQ, Yes Attend Stress Management Classes, No Referral to Behavioral Health if PHQ-9 score >9:, No Referral to [facility] - Outcomes/Goals: See list Psychosocial Outcomes/Goals:: ID's personal stressors & 2 strategies to manage stress by discharge - Intervention/Plan: See List Interventions/Plan:: Assess stressors,coping strategies & signs of derpression on admission, Instruct/assist pt to develop coping & personal stress Mgt strategies, Instruct patient to recognize signs & symptoms of depression, Instruct patient to recog Psychosocial - 30-Day Assess Psychosocial - 60-Day Assess Psychosocial - 90-Day Assess Psychosocial - Final Assessmen Patient Health Questionnaire Initial Assessment 1. Little interest or pleasure in doing things: Nearly every day 2. Feeling down, depressed, or hopeless: More than half the days 3. Trouble falling or staying asleep, or sleeping too much: Not at all 4. Feeling tired or having little energy: Nearly every day 5. Poor appetite or overeating: Nearly every day 6. Feeling bad about yourself -- or that you are a failure or have let yourself or your family down: More than half the days 7. Trouble concentrating on things, such as reading the newspaper or watching television: More than half the days 8. Moving or speaking so slowly that other people could have noticed. Or the opposite - being so fidgety or restless that you have been moving around a lot more than usual: More than half the days 9. Thoughts that you would be better off , or of hurting yourself in some way: Not at all How difficult have these problems made it for you to do your work, take care of things at home, or get along with other people?: Very difficult Total Score: 17 NI-Q SV Test - Statements CAD is a disease of the arteries in the heart: False Examples of risk factors for heart disease: False Angina is chest pain or discomfort: True The benefits of resistance training include: True Eating more meat and dairy products: False Anti-platelet medications such as aspirin are important: True The only effective way to manage stress: False An exercise warm-up slowly increases heart rate: I Don't Know Prepared, processed foods usually have high sodium: True Depression is common after a heart attack: True The statin medications lower cholesterol: True To control blood pressure, lower the amount of sodium: True If someone gets chest discomfort during walking: False Transfats are partially hydrogenated vegetable oils: False Sleep apnea that is not treated increases the risk: True To control cholesterol, one should become a vegetarian: False Someone knows if he/she is exercising at the right level: I Don't Know Diabetes cannot be prevented with exercise & health eating: False Stress is a large risk for heart attack: True A diet that can help lower blood pressure is rich in: I Don't Know - Total Score Total Correct Responses: 14 Self-Efficacy Initial Assessment We would like to know how confident you are in doing certain activities. Please select your confidence level for:: Select your confidence level for the following using the scale 1-10 where 1 is not at all confident and 10 is totally confident. Your score is the average of all 6 responses. Fatigue: How confident are you that you can keep the fatigue caused by your disease from interfering with the things you want to do? Select Number: 2 Physical Discomfort or Pain: How confident are you that you can keep the physical discomfort or pain of your disease from interfering with the things you want to do? Select Number: 2 Emotional Distress: How confident are you that you can keep the emotional distress caused by your disease from interfering with the things you want to do? Select Number: 2 Other Symptoms or Health Problems: How confident are you that you can keep other symptoms or health problems from interfering with the things you want to do? Select Number: 2 Different Tasks and Activities: How confident are you that you can do the different tasks and activities needed to manage your health condition so as to reduce your need to see a doctor? Select Number: 2 Medication: How confident are you that you can do things other than just taking medication to reduce how much your illness affects your everyday life? Select Number: 7 Total Score:: 2 Nutrition Survey - Nutrition Survey Initial Have you lost >10 lbs over the past 2 months without trying?: No Are you following a special diet at home for diabetes, low fat, or low salt?: No Are you interested in meeting with a dietitian for help understanding your diet?: Yes Do you eat less than 3 meals a day?: Yes Do you eat fatty meats (avendaño, sausage, ribs, etc), fried foods, desserts, large amounts of salad dressings, margarine, butter, or cheese most days?: No Do you have food allergies? [Enter types in comment field]: Yes - watermelon, canalope, pineapple Do you eat in restaurants more than 3 times a week?: No Do you season food with salt, seasoning salt, or garlic salt?: No Do you used canned, boxed, frozen meals, or soups, seasoning packets?: No Total Score:: 3
[2022-05-11 10:01] VITALS: BP 134/79; PULSE 50; RESP 14; TEMP 36.8; O2SAT 96; BMI 35.1
[2022-05-11 10:32] VITALS: BP 134/79; BMI 35.1
== END | disposition home or self-care (01) ==
LOC: CR 09:21
PROVIDERS: PCP Internal Medicine; Referring Provider Internal Medicine Cardiovascular Disease; Visit Provider Internal Medicine Cardiovascular Disease
DX: Z95.5 Presence of coronary angioplasty implant and graft (principal)

== ENCOUNTER → 2022-05-28 | Outpatient (CLI) | payer MEDICARE, BC, SELFPAY ==
[2022-05-11 10:32] VITALS: BMI 35.1
--- NOTE | 2022-05-28 10:30 | BI_ITS ---
MAMMOGRAPHY - BILATERAL SCREENING REASON FOR EXAM: Female, 71 years old. Routine annual screening examination. PERTINENT HISTORY: Non-contributory. TECHNIQUE: Digital bilateral breast idris (3D mammographic acquisition) in the CC and MLO projections. 2-D mediolateral oblique (MLO) and craniocaudad (CC) views of both breasts were obtained. CAD: Full Field Digital Mammography with Computer Added Detection was performed. COMPARISON: Comparison is made with prior examination of February 10, 2021 and July 07, 2016. FINDINGS: Breast Composition: The breasts are almost entirely fatty. There are no dominant masses or suspicious calcifications. No other significant abnormalities are identified. There has been no significant change since the prior study. BI/SCREENING MAMM (CAD), BILAT IMPRESSION: Stable bilateral screening mammogram. Yearly follow-up mammogram recommended. (A) ASSESSMENT CATEGORY: BIRADS Category 1: Negative. A letter regarding these results will be sent to the patient by the facility within 30 days. Approximately 10% of breast cancers are not detected by mammography. A normal mammogram should not delay biopsy of a clinically suspicious abnormality. [id number] Electronically Signed: Toni Bishop MD at 12:17 EDT ,
== END | disposition home or self-care (01) ==
LOC: OPBI 10:29
PROVIDERS: PCP Internal Medicine; Visit Provider Internal Medicine
DX: Z12.31 Encounter for screening mammogram for malignant neoplasm of breast (principal)
CPT/HCPCS: 77067

== ENCOUNTER → 2022-06-01 | Outpatient (CLI) | payer MEDICARE, BC, SELFPAY ==
[2022-05-11 10:32] VITALS: BMI 35.1
--- NOTE | 2022-06-01 07:56 | ART_ITS ---
Reason For Study: claudication Procedure A bilateral lower extremity continuous wave Doppler with analog waveform analysis,segmental pressures,and ankle brachial indexes without exercise. Left Segmental Pressures Left brachial= 144mmHg. Left posterior tibial artery = 176mmHg. Left dorsalis pedis artery = 149mmHg. Left digit = 111 mmHg. The left dorsalis pedis waveforms are triphasic. The left posterior tibial artery waveforms are triphasic. Right Segmental Pressures Right brachial= 142mmHg. Right posterior tibial artery = 172mmHg. Right dorsalis pedis artery = 155mmHg. Right digit = 111 mmHg. The right dorsalis pedis waveforms are triphasic. The right posterior tibial artery waveforms are triphasic. Indices The right ankle brachial index by the dorsalis pedis is 1.08. The right ankle brachial index by the posterior tibial artery is 1.19. The right digital-brachial index is .77. The left ankle brachial index by the dorsalis pedis is 1.03. The left ankle brachial index by the posterior tibial artery is 1.22. The left digital-brachial index is .77. VL/Lower Ext Art Exam w/o Exercis Interpretation Summary Right ARY 1.19, normal. TBI and Doppler/PVR waveforms of the right leg normal a t rest. Left ARY 1.22, normal. TBI and Doppler/PVR waveforms of the left leg normal at rest. Ordering Physician: Joan Canales Performed By: Santiago Meade RVT
== END | disposition home or self-care (01) ==
LOC: CVS 07:55
PROVIDERS: PCP Internal Medicine; Referring Provider Physician Assistant Medical; Visit Provider Physician Assistant Medical
DX: I73.9 Peripheral vascular disease, unspecified (principal); I27.20 Pulmonary hypertension, unspecified; R25.2 Cramp and spasm; I25.10 Atherosclerotic heart disease of native coronary artery without angina pectoris; Z95.5 Presence of coronary angioplasty implant and graft
CPT/HCPCS: 93923

== ENCOUNTER 2022-06-04 09:30 | Outpatient (RCR) | payer MEDICARE, BC, SELFPAY ==
[2022-05-11 10:32] VITALS: BMI 35.1
== END 2022-06-04 23:59 ==
LOC: CR 09:30
PROVIDERS: PCP Internal Medicine; Referring Provider Internal Medicine Cardiovascular Disease; Visit Provider Internal Medicine Cardiovascular Disease
DX: I25.10 Atherosclerotic heart disease of native coronary artery without angina pectoris (principal); I50.30 Unspecified diastolic (congestive) heart failure; Z95.5 Presence of coronary angioplasty implant and graft
CPT/HCPCS: 93798

== ENCOUNTER → 2022-06-29 | Outpatient (CLI) | payer MEDICARE, BC, SELFPAY ==
[2022-06-11 15:05] VITALS: BMI 35.1
[2022-06-29 12:00] LABS: Rheumatoid Factor < 10.0 IU/mL (<15); Thyroid Stim Hormone (TSH) 1.21 uIU/mL (0.358-3.74)
[2022-06-30 15:08] LABS: RNP Ab <0.2 AI (0.0-0.9); Smith Ab <0.2 AI (0.0-0.9)
[2022-07-02 16:09] LABS: Immunoglobulin A 240 mg/dL (64-422); Immunoglobulin G 811 mg/dL (586-1602); Immunoglobulin M 39 mg/dL (26-217); PROEL- A/G Ratio 1.4 (0.7-1.7); PROEL- Albumin 4.1 g/dL (2.9-4.4); PROEL- Alpha-1 Globulin 0.2 g/dL (0.0-0.4); PROEL- Alpha-2 Globulin 0.8 g/dL (0.4-1.0); PROEL- Beta Globulin 1.1 g/dL (0.7-1.3); PROEL- Gamma Globulin 0.8 g/dL (0.4-1.8); PROEL- Globulin, Total 2.9 g/dL (2.2-3.9); VITAMIN B6 17.1 ug/L (3.4-65.2); Vitamin B1, Thiamine 99.7 nmol/L (66.5-200.0)
== END | disposition home or self-care (01) ==
LOC: LAB 09:58
PROVIDERS: PCP Internal Medicine; Referring Provider Psychiatry & Neurology Neurology; Visit Provider Psychiatry & Neurology Neurology
DX: G62.9 Polyneuropathy, unspecified (principal); Z79.899 Other long term (current) drug therapy
CPT/HCPCS: 82746; 82784; 84165; 84207; 84425; 84443; 86235; 86334; 86431

== ENCOUNTER 2022-07-02 09:30 | Outpatient (RCR) | payer MEDICARE, BC, SELFPAY ==
[2022-05-11 10:32] VITALS: BMI 35.1
--- NOTE | 2022-06-11 14:51 | CR.ITP_ITS ---
Diagnosis Exercise - 60-day Assessment - Visit Date of Eval: 06/11/22 Session #:: 12 - Physician Prescribed Exercise Modalities: Treadmill, Airdyne, NuStep, SciFit Frequency: 3x/week for 12 weeks [36 sessions] Intensity: 60-80% of age predicted maximum heart rate reserve Duration: 30 - 45 minutes Current METSs:: 4.0 Target Heart Rate:: 96-111 Current RPE:: 11-14 Maximum Excercise HR:: 97 Resting Blood Pressure: 120/60 Maximum Exercise Blood Pressure: 140/68 EKG Type: sinus bradycardia to sinus rhythm w/rare PACs. - Outcomes & Goals Goals:: Verbalizes understanding of THR, RPE & goal METS by session 6, Documents in home exercise log/reports 30 min aerobic 5 day/wk by DC, Demonstrates accurate pulse taking by DC - Intervention & Plan Exercise Program Goals: Instruct on personal THR & RPE, Instruct on MET level & personal MET goal, Show patient to take own pulse /validate performance until a ccurate, Instruct on home exercise - 30-day Reassessments 30 day Reassessments:: Met - Physical Activity Home Exercise Physical Activity - Home Exercise: Safe Exercise, Warm-up, Self-monitoring, Cool-Down, Home Exercise > 30 min Daily, Sitting Time <3 hours/daily - Outcomes & Goals Outcomes/Goals: Demonstrates correct Warm-up/exercise Cool-Down (S3) if = 2.5 METs, Verbalizes symptoms of exercise intolerance by Session 3 (S3), Demonstrate safe equipment use (S3) & follows exercise prescrition (6) - Intervention & Plan Plan/Intervention: Instruct warm-up & cool-down if exercising at > 2 METs, Instruct on symptoms of exercise intolerance & actions to take, Instruct & monitor on saf, Assess intial functional capacity & safety risk - 30-day Reassessments 30 day Reassessments:: Met Nutrition - Initial Assessment Nutrition - 30-Day Assessment Nutrition - 60-Day Assessment - Program Goals Nutrition Program Goals: LDL <100 optimal. 100 - 129 Near optimal. 130 - 159 Borderline High. 160 - 189 High. Total Cholesterol <200 desirable. 200 - 239 Borderline High. >/= 240 High. HDL < 40 Low >/=60 High. Triglycerides <150 desirable. <199 optimal. VlDL 5 - 40. HgbA1C <7%. BMI <25 Patient has diagnosis of Hyperlipidemia (ICD E78)?: Yes - Visit Date of Assessment:: 06/11/22 Session #:: 12 - Cholesterol/Lipids (Other Core Measures) Triglycerides (mg/dL): 226 Total Cholesterol (mg/dL): 201 LDL Cholesterol (mg/dL): 107 HDL Cholesterol (mg/dL): 49 Determine presence & major risk factors that modify LDL goal: Hypertension or hypertensive medication, Age men > 45 years; women >/= 55 years Outcomes/Goals: Pt IDs own risk factors & lifestyle modifications by Session 10, Verbalizes symptoms of angina & response by session 3., Pt independently manages Intervention/Plan: Instruct on personal lipid levels & lipid goals/NCEP guidelines, Instruct on cholesterol Referral to dietitian:: No - Medical Nutrition Therapy on 06/02/2022 30-day Reassessments:: Progressing - Diabetes (Other Core Measures) Diabetes Type: Not Applicable - Weight Mgt (Other Care) Not Applicable: No Height: 5 ft 2 in Weight:: 192 lb BMI: 35.1 Diagnosis Overweight/Obesity BMI> 30% ICD-10 E66: Yes Diagnosis High BMI/Morbid Obesity BMI> 35% ICD-10 Z68: Yes Outcomes/Goals: Pt sets, maintains & shows weight loss goal & trend during rehab Intervention/Plan: Instruct on ideal BMI & set weight loss goal w/patient, Assist pt to ID & incorporate diet changes for weight loss by S9, Encourage goal of using 250-300dcal per session for weight loss 30 day Reassessments:: Not Met Reassessment Notes & Comments:: no changes made - Healthy Eating Habits Will attend diet classes:: Yes Outcomes/Goals:: Consume diet rich in vegs,fruits,whole grain/high fiber,fish,lean meat, Limit sat/trans fats,cholesterol & added salts & sugars Intervention/Plan:: Assess current eating habits 30-day Reassessments:: Progressing - Education Gave educational materials for:: Healthy eating Nutrition - 90-Day Assessment Nutrition - Final Assessment Core - Initial Assessment Core - 30-Day Assessment Core - 60-Day Assessment - Visit Date of Eval: 06/11/22 Session #:: 12 - Medication Compliance Preventative Medication(s):: Aspirin, Clopidogrel/P2Y12 inhibit, Statin/lipid H/O mental health issues: depression, anxiety, or addiction?: No Doesn?t believe in the benefits of treatment?: No Believes medications are unnecessary or harmful?: No Has a concern about medication side effects?: No Expresses concern over the cost of medications?: No Outcomes/Goals: Verbalizes medications,desired effect & common side effects @ DC, Pt self-reports following medication regimen, Keeps card in wallet w/medications listed by DC Interventions/plans: Instruct on medication effects & side effects, Review medication list w/patient every two weeks, Instruct importance of taking meds as ordered & assist problem solving 30-day Reassessments:: Progressing - Tobacco Use Tobacco Use: Non-smoker - Hypertension Hypertension Diagnosis:: Hypertension ICD-10 I10 Resting Blood Pressure:: 120/60 [place] [employer] Hypertension Guidelines: [place] [employer] Hypertension Guidelines. Normal BP Less than 120/80. Elevated BP 120/80. Hypertension Stage 1: BP 130-139/80-89. Hypertesnion Stage 2: BP 140 or higher/90 or higher. Hypertension Crisis: BP higher than 180/120 Peak Exercise Blood Pressure:: 140/68 Outcomes/Goals: Able to verbalize/achieve optimal blood pressure <130/80, Incorporates diet changes & exercise for blood pressure control by DC Interventions/plan: Instruct on optimal blood pressure, hypertension & medications, Instruct on effects of sodium, alcohol, stress, exercise &hype rtension 30 day Reassessments:: Progressing - Tobacco Cessation Referral Smoking Cessation Referral:: No Individual Education/Counseling:: No Education Schedule Given:: Yes Core - 90 Day Assessment Core - Final Assessment Psychosocial - Initial Assess Psychosocial - 30-Day Assess Psychosocial - 60-Day Assess - VIsit Date of Eval: 06/11/22 Session #:: 12 Not Applicable: No History of previous Mental disease:: Yes History of Emotional Disorders: Anxious, Depression - Psychosocial Test Tool Used:: PHQ-9 Questionnaire phq-9 Severity: Severity. 1-4 Minimal Depression. 5-9 Mild Depression. 10-14 Moderate Depression. 15-19 Moderately Sever Depression. 20-27 Severe Depression. Rule: - Referral to Behavioral Health PS - Interventions: Yes Attend Stress Management Classes, No Referral to Behavioral Health if PHQ-9 score >9:, No Referral to [facility], No Referral to Physician if PHQ-9 if score is 5-9: - Outcomes/Goals: See list Psychosocial Outcomes/Goals:: ID's personal stressors & 2 strategies to manage stress by discharge - Intervention/Plan: See List Interventions/Plan:: Assess stressors,coping strategies & signs of derpression on admission, Instruct/assist pt to develop coping & personal stress Mgt strategies, Instruct patient to recognize signs & symptoms of depression, Instruct patient to recog - 30-day Reassessments: 30 day Reassessments:: Met Psychosocial - 90-Day Assess Psychosocial - Final Assessmen Patient Health Questionnaire 30-Day Re-eval Assessment 1. Little interest or pleasure in doing things: Nearly every day 2. Feeling down, depressed, or hopeless: More than half the days 3. Trouble falling or staying asleep, or sleeping too much: Not at all 4. Feeling tired or having little energy: Nearly every day 5. Poor appetite or overeating: Nearly every day 6. Feeling bad about yourself -- or that you are a failure or have let yourself or your family down: More than half the days 7. Trouble concentrating on things, such as reading the newspaper or watching television: More than half the days 8. Moving or speaking so slowly that other people could have noticed. Or the opposite - being so fidgety or restless that you have been moving around a lot more than usual: More than half the days 9. Thoughts that you would be better off , or of hurting yourself in some way: Not at all How difficult have these problems made it for you to do your work, take care of things at home, or get along with other people?: Very difficult Total Score: 17 Self-Efficacy 30-Day Re-eval Assessment We would like to know how confident you are in doing certain activities. Please select your confidence level for:: Select your confidence level for the following using the scale 1-10 where 1 is not at all confident and 10 is totally confident. Your score is the average of all 6 responses. Fatigue: How confident are you that you can keep the fatigue caused by your disease from interfering with the things you want to do? Select Number: 3 Physical Discomfort or Pain: How confident are you that you can keep the physical discomfort or pain of your disease from interfering with the things you want to do? Select Number: 3 Emotional Distress: How confident are you that you can keep the emotional distress caused by your disease from interfering with the things you want to do? Select Number: 3 Other Symptoms or Health Problems: How confident are you that you can keep other symptoms or health problems from interfering with the things you want to do? Select Number: 4 Different Tasks and Activities: How confident are you that you can do the different tasks and activities needed to manage your health condition so as to reduce your need to see a doctor? Select Number: 7 Medication: How confident are you that you can do things other than just taking medication to reduce how much your illness affects your everyday life? Select Number: 7 Total Score:: 4 Nutrition Survey
[2022-06-11 15:05] VITALS: BP 120/60; BP 140/68; BMI 35.1
== END 2022-07-04 23:59 ==
LOC: CR 09:30
PROVIDERS: PCP Internal Medicine; Referring Provider Internal Medicine Cardiovascular Disease; Visit Provider Internal Medicine Cardiovascular Disease
DX: I25.10 Atherosclerotic heart disease of native coronary artery without angina pectoris (principal); I50.30 Unspecified diastolic (congestive) heart failure; Z95.5 Presence of coronary angioplasty implant and graft
CPT/HCPCS: 93798; 97802

== ENCOUNTER 2022-07-23 09:30 | Outpatient (RCR) | payer MEDICARE, BC, SELFPAY ==
[2022-06-11 15:05] VITALS: BMI 35.1
[2022-07-05 00:43] VITALS: BP 120/60; BP 140/68
--- NOTE | 2022-07-12 09:07 | CR.ITP_ITS ---
Diagnosis Exercise - 60-day Assessment - Visit Date of Eval: 07/12/22 Session #:: 23 - Physician Prescribed Exercise Modalities: Treadmill, Airdyne, NuStep Frequency: 3x/week for 12 weeks [36 sessions] Intensity: 60-80% maximum heart rate reserve from GXT Current METSs:: 5 Target Heart Rate:: 111-126 Current RPE:: 12-13 Maximum Excercise HR:: 90 Resting Blood Pressure: 108/62 Maximum Exercise Blood Pressure: 164/72 EKG Type: SB to NSR with rare/occas pac's - Outcomes & Goals Goals:: Verbalizes understanding of THR, RPE & goal METS by session 6, Documents in home exercise log/reports 30 min aerobic 5 day/wk by DC, Demonstrates accurate pulse taking by DC, Other additional outcome/goals: see below - Intervention & Plan Exercise Program Goals: Instruct on personal THR & RPE, Instruct on MET level & personal MET goal, Show patient to take own pulse /validate performance until accurate, Instruct on home exercise, Other additional plan/int - 30-day Reassessments 30 day Reassessments:: Progressing - pulse taking reviewed - Physical Activity Home Exercise Physical Activity - Home Exercise: Safe Exercise, Warm-up, Self-monitoring, Cool-Down, Home Exercise > 30 min Daily, Sitting Time <3 hours/daily - Outcomes & Goals Outcomes/Goals: Demonstrates correct Warm-up/exercise Cool-Down (S3) if = 2.5 METs, Verbalizes symptoms of exercise intolerance by Session 3 (S3), Demonstrate safe equipment use (S3) & follows exercise prescrition (6), Other: See below - Intervention & Plan Plan/Intervention: Instruct warm-up & cool-down if exercising at > 2 METs, Instruct on symptoms of exercise intolerance & actions to take, Instruct & monitor on saf, Assess intial functional capacity & safety risk, Other See below - 30-day Reassessments 30 day Reassessments:: Progressing - warming up properly Nutrition - Initial Assessment Nutrition - 30-Day Assessment Nutrition - 60-Day Assessment - Program Goals Nutrition Program Goals: LDL <100 optimal. 100 - 129 Near optimal. 130 - 159 Borderline High. 160 - 189 High. Total Cholesterol <200 desirable. 200 - 239 Borderline High. >/= 240 High. HDL < 40 Low >/=60 High. Triglycerides <150 desirable. <199 optimal. VlDL 5 - 40. HgbA1C <7%. BMI <25 Patient has diagnosis of Hyperlipidemia (ICD E78)?: Yes - Visit Date of Assessment:: 07/12/22 Session #:: 23 - Cholesterol/Lipids (Other Core Measures) Determine presence & major risk factors that modify LDL goal: Hypertension or hypertensive medication, Low HDL cholesterol <40 mg/dL*, Family history of premature CHD in Male < 55 years: female <65 yearsFa, Age men > 45 years; women >/= 55 years Outcomes/Goals: Pt IDs own risk factors & lifestyle modifications by Session 10, Verbalizes symptoms of angina & response by session 3., Pt independently manages, Other Additional Outcomes/Goals: Intervention/Plan: Advocate for lipid panel cholesterol medication if applicable, Instruct on personal lipid levels & lipid goals/NCEP guidelines, Instruct on cholesterol, Other additional plan/int Referral to dietitian:: No - pt has met with dietition 30-day Reassessments:: Progressing - pt has met with dietition - Weight Mgt (Other Care) Height: 5 ft 2 in Weight:: 85.049 kg BMI: 34.2 Diagnosis Overweight/Obesity BMI> 30% ICD-10 E66: Yes Diagnosis High BMI/Morbid Obesity BMI> 35% ICD-10 Z68: No Outcomes/Goals: Pt sets, maintains & shows weight loss goal & trend during rehab, Other additional outcomes/goals Intervention/Plan: Instruct on ideal BMI & set weight loss goal w/patient, Assist pt to ID & incorporate diet changes for weight loss by S9, Refer to Structured Weight Loss program as appropriate, Encourage goal of using 250- 300dcal per session for weight loss, Other additional plan/interventions 30 day Reassessments:: Progressing - pt has met with dietary and has lost weight - Healthy Eating Habits Will attend diet classes:: Yes Outcomes/Goals:: Consume diet rich in vegs,fruits,whole grain/high fiber,fish,lean meat, Limit sat/trans fats,cholesterol & added salts & sugars, Other additional outcome/goals: Intervention/Plan:: Assess current eating habits, Other Additional plan/interventions 30-day Reassessments:: Progressing - pt has met with dietary - Education Gave educational materials for:: Signs & symptoms of hypoglycemia, Signs & symptoms of hyperglycemia, Relate diabetes to coronary artery disease, Healthy eating Nutrition - 90-Day Assessment Nutrition - Final Assessment Core - Initial Assessment Core - 30-Day Assessment Core - 60-Day Assessment - Visit Date of Eval: 07/12/22 Session #:: 23 - Medication Compliance Preventative Medication(s):: Aspirin, Clopidogrel/P2Y12 inhibit, Statin/lipid H/O mental health issues: depression, anxiety, or addiction?: No Doesn?t believe in the benefits of treatment?: No Believes medications are unnecessary or harmful?: No Has a concern about medication side effects?: No Expresses concern over the cost of medications?: No Outcomes/Goals: Verbalizes medications,desired effect & common side effects @ DC, Pt self-reports following medication regimen, Keeps card in wallet w/medications listed by DC, Other additional outcome/goals: Interventions/plans: Instruct on medication effects & side effects, Review medication list w/patient every two weeks, Instruct importance of taking meds as ordered & assist problem solving, Other additional 30-day Reassessments:: Progressing - encouraged pt to take meds - Tobacco Use Tobacco Use: Non-smoker - Hypertension Hypertension Diagnosis:: Hypertension ICD-10 I10 Resting Blood Pressure:: 108/62 [place] [employer] Hypertension Guidelines: [place] [employer] Hypertension Guidelines. Normal BP Less than 120/80. Elevated BP 120/80. Hypertension Stage 1: BP 130-139/80-89. Hypertesnion Stage 2: BP 140 or higher/90 or higher. Hypertension Crisis: BP higher than 180/120 Peak Exercise Blood Pressure:: 164/72 Outcomes/Goals: Able to verbalize/achieve optimal blood pressure <130/80, Incorporates diet changes & exercise for blood pressure control by DC, Other additional outcomes/goals Interventions/plan: Instruct on optimal blood pressure, hypertension & medications, Instruct on effects of sodium, alcohol, stress, exercise &hypertension, Other additional plan/interventions 30 day Reassessments:: Progressing - encouraged pt to take meds - Tobacco Cessation Referral Smoking Cessation Referral:: No Individual Education/Counseling:: No Education Schedule Given:: Yes Core - 90 Day Assessment Core - Final Assessment Psychosocial - Initial Assess Psychosocial - 30-Day Assess Psychosocial - 60-Day Assess - VIsit Date of Eval: 07/12/22 History of previous Mental disease:: Yes History of Emotional Disorders: Anxious, Depression - Outcomes/Goals: See list Psychosocial Outcomes/Goals:: ID's personal stressors & 2 strategies to manage stress by discharge, Other Additional outcome/goals: - Intervention/Plan: See List Interventions/Plan:: Assess stressors,coping strategies & signs of derpression on admission, Instruct/assist pt to develop coping & personal stress Mgt strategies, Refer to Behavioral Health if appropriate, Refer to Physician if appropriate, Instruct patient to recognize signs & symptoms of depression, Instruct patient to recog, Other additional plan/intervention - 30-day Reassessments: 30 day Reassessments:: Met Psychosocial - 90-Day Assess Psychosocial - Final Assessmen Patient Health Questionnaire 60-Day Re-eval Assessment 1. Little interest or pleasure in doing things: Nearly every day 2. Feeling down, depressed, or hopeless: More than half the days 3. Trouble falling or staying asleep, or sleeping too much: Not at all 4. Feeling tired or having little energy: Nearly every day 5. Poor appetite or overeating: Nearly every day 6. Feeling bad about yourself -- or that you are a failure or have let yourself or your family down: More than half the days 7. Trouble concentrating on things, such as reading the newspaper or watching television: More than half the days 8. Moving or speaking so slowly that other people could have noticed. Or the opposite - being so fidgety or restless that you have been moving around a lot more than usual: More than half the days 9. Thoughts that you would be better off , or of hurting yourself in some way: Not at all How difficult have these problems made it for you to do your work, take care of things at home, or get along with other people?: Very difficult Total Score: 17 Self-Efficacy 60-Day Re-eval Assessment We would like to know how confident you are in doing certain activities. Please select your confidence level for:: Select your confidence level for the following using the scale 1-10 where 1 is not at all confident and 10 is totally confident. Your score is the average of all 6 responses. Fatigue: How confident are you that you can keep the fatigue caused by your disease from interfering with the things you want to do? Select Number: 3 Physical Discomfort or Pain: How confident are you that you can keep the physical discomfort or pain of your disease from interfering with the things you want to do? Select Number: 3 Emotional Distress: How confident are you that you can keep the emotional distress caused by your disease from interfering with the things you want to do? Select Number: 3 Other Symptoms or Health Problems: How confident are you that you can keep other symptoms or health problems from interfering with the things you want to do? Select Number: 4 Different Tasks and Activities: How confident are you that you can do the diffe rent tasks and activities needed to manage your health condition so as to reduce your need to see a doctor? Select Number: 7 Medication: How confident are you that you can do things other than just taking medication to reduce how much your illness affects your everyday life? Select Number: 7 Total Score:: 4 Nutrition Survey
[2022-07-12 09:18] VITALS: BP 108/62; BP 164/72; BMI 34.2
== END 2022-08-04 23:59 ==
LOC: CR 09:30
PROVIDERS: PCP Internal Medicine; Referring Provider Internal Medicine Cardiovascular Disease; Visit Provider Internal Medicine Cardiovascular Disease
DX: I25.10 Atherosclerotic heart disease of native coronary artery without angina pectoris (principal); I50.30 Unspecified diastolic (congestive) heart failure; Z95.5 Presence of coronary angioplasty implant and graft
CPT/HCPCS: 93798

== ENCOUNTER → 2022-08-19 | Outpatient (CLI) | payer MEDICARE, BC, SELFPAY ==
[2022-07-12 09:18] VITALS: BMI 34.2
--- NOTE | 2022-08-19 10:00 | ADUUE_ITS ---
Reason For Study: Swelling RIGHT Radial mid, 0.20 x 0.20 cm, 78.5 cm/sec. Radial distal, 0.21 x 0.22 cm, 66.8 cm/sec. Ulnar distal, 0.11 x 0.12 cm, 69.4 cm/sec, Radial, Ulnar and Cephalic vein are compressible. No acute occlusion or pseudoaneurysm noted. Preliminary report to Al[facility]ANT[facility]. /US Art Duplex Unilat UP Extrem Interpretation Summary Right radial and ulnar artery patent with no stenosis, occlusion, pseudoaneurys m, fistula identified. Right radial, ulnar, cephalic veins patent. Ordering Physician: Kaitlyn Tolentino Referring Physician: Aubree Woody M.D. Performed By: Tana Palencia RVT
== END | disposition home or self-care (01) ==
PROVIDERS: PCP Internal Medicine; Referring Provider Nurse Practitioner Gerontology; Visit Provider Nurse Practitioner Gerontology
DX: M25.421 Effusion, right elbow (principal); R09.89 Other specified symptoms and signs involving the circulatory and respiratory systems
CPT/HCPCS: 93931

== ENCOUNTER → 2022-08-31 | Outpatient (CLI) | payer MEDICARE, BC, SELFPAY ==
[2022-07-12 09:18] VITALS: BMI 34.2
--- NOTE | 2022-08-31 09:51 | VDUE_ITS ---
Reason For Study: right arm pain Right Proximal Right jugular vein is spontaneous, widely patent, phasic, with no intraluminal echogenicity noted. Right subclavian vein is spontaneous, widely patent, phasic, with no intraluminal echogenicity noted. Right Lower Arm Right radial vein is compressible. Right ulnar vein is compressible. Right Arm Right axillary vein is spontaneous, patent, phasic, competent, compressible and demonstrates augmentation. Right brachial vein is compressible. Right cephalic vein is compressible. Right basilic vein is compressible. Prelim faxed to Елена Galindo. VL/Venous Duplex US, Unilateral Interpretation Summary Deep veins of the right upper extremity are patent and compressible segmentally . There is no evidence of deep vein thrombosis. Superficial veins of the right upper extremity are patent and compressible segm entally. There is no evidence of superficial vein thrombosis. Ordering Physician: Елена Galindo Performed By: Santiago Meade, RVT ???
== END | disposition home or self-care (01) ==
LOC: CVS 09:49
PROVIDERS: PCP Internal Medicine; Referring Provider Nurse Practitioner Family; Visit Provider Nurse Practitioner Family
DX: M79.601 Pain in right arm (principal)
CPT/HCPCS: 93971

== ENCOUNTER 2022-09-24 15:03 | Emergency (ER) | payer MEDICARE, BC, SELFPAY ==
[2022-07-12 09:18] VITALS: BMI 34.2
--- NOTE | 2022-09-24 15:27 | EX.ED.DYSGE1 ---
HPI History of Present Illness Chief Complaint: Chest Pain Narrative Narrative: Patient is a 72-year-old female with history of CAD who had a stent placed in April, hypertension, arthritis, hyperlipidemia who takes Plavix and aspirin presents to the emergency department with 3 days of worsening chest pain on exertion. Patient notices that when she exerts himself, she feels more dizzy, lightheaded worsening short of breath as well as pain to her back and chest. At rest, the pain subsides. She states it was worse yesterday and she continued to have these feelings today and she is here for evaluation. [facility] Medical History Anxiety B12 deficiency Chavira palsy CKD (chronic kidney disease) stage 3, GFR 30-59 ml/min Depression Diastolic dysfunction Eczema of both hands Edema, leg Essential (primary) hypertension Gastroparesis GERD (gastroesophageal reflux disease) Hyperlipidemia IBS (irritable bowel syndrome) Iron deficiency anemia AJAY (obstructive sleep apnea) Palpitations Piriformis syndrome of left side Pulmonary hypertension SOB (shortness of breath) SVT (supraventricular tachycardia) Home Medications albuterol sulfate 90 mcg/actuation aerosol inhaler 2 puff inhalation Q4H PRN shortness of breath or wheezing 03/12/22 [History Last Taken Unknown] mecobalamin (vitamin B12) 10,000 mcg solution for injection 1,000 mcg IM QMONTH 03/12/22 [History Last Taken Unknown] pantoprazole 40 mg tablet,delayed release 40 mg PO DAILY 03/12/22 [History Last Taken 04/23/22] vilazodone 20 mg tablet 20 mg PO DAILY 03/12/22 [History Last Taken 04/23/22] vibegron 75 mg tablet (Gemtesa) 75 mg PO DAILY 03/22/22 [History Last Taken Unknown] cholecalciferol (vitamin D3) 50 mcg (2,000 unit) capsule 100 mcg PO DAILY 03/23/22 [History Last Taken Unknown] furosemide 20 mg tablet (Lasix) 20 mg PO DAILY #30 tabs 03/23/22 [Rx Last Taken Unknown] potassium chloride 10 mEq tablet,extended release 10 meq PO DAILY #30 tabs 03/23/22 [Rx Last Taken Unknown] propranolol 40 mg tablet 40 mg PO DAILY 03/23/22 [History Last Taken 04/23/22] lisinopril 10 mg tablet 10 mg PO BID #180 tabs 03/29/22 [Rx Last Taken 04/23/22] amlodipine 2.5 mg tablet 2.5 mg PO DAILY #30 tabs 04/06/22 [Rx Last Taken 04/23/22] aspirin 81 mg tablet,delayed release 81 mg PO DAILY 04/07/22 [History Last Taken 04/23/22] atorvastatin 10 mg tablet 10 mg PO QHS #30 tabs 04/23/22 [Rx Last Taken Unknown] clopidogrel 75 mg tablet 75 mg PO DAILY #60 tabs 04/23/22 [Rx Last Taken Unknown] nitroglycerin 0.4 mg sublingual tablet 0.4 mg sublingual Q5M PRN Cardiac/Chest Pain #14 tabs 04/23/22 [Rx Last Taken Unknown] Allergy/AdvReac Type Severity Reaction Status Date / Time Sulfa (Sulfonamide Allergy Intermediate Other Verified 08/10/22 10:33 Antibiotics) sulfamethoxazole Allergy Intermediate Itching Verified 08/10/22 10:33 [From Bactrim] trimethoprim [From Bactrim] Allergy Intermediate Itching Verified 08/10/22 10:33 codeine Allergy Unknown Other Verified 08/10/22 10:33 Penicillins [PCN] Allergy Rash Verified 08/10/22 10:33 Family History Mother Hypertension Grandfather Cancer kidney, brain Father Parkinson's disease Grandmother CVA (cerebral vascular accident) Myocardial infarction Brother CVA (cerebral vascular accident) Myocardial infarction Surgical History H/O bilateral salpingo-oophorectomy H/O: hysterectomy History of appendectomy History of cholecystectomy History of coronary artery stent placement (~04/23/22) History of lumbar laminectomy Hx of tonsillectomy Social History Smoking Status: Never smoker alcohol intake: never substance use type: does not use caffeine: Yes Type: coffee Number of servings: 1 ROS ROS ED ROS Narrative Constitutional: Negative for fever, chills, weight loss, weakness Eyes: Negative for vision loss, vision change, double vision ENT: Negative for any sore throat, ear pain, congestion Cardiovascular: Positive for any chest pain, tightness, palpitations, worse with exertion Respiratory: Negative for any cough, sputum production, hemoptysis, orthopnea. Positive for dyspnea, dyspnea on exertion Gastrointestinal: Negative for any abdominal pain, nausea, vomiting, diarrhea, constipation, blood in stool, blood in vomit : Negative for any urinary frequency, dysuria, retention, blood in urine Muscle skeletal: Negative for any muscle joint pain, stiffness, myalgias, arthralgias, neck pain, back pain Neurological: Negative for any headache, syncope, numbness or tingling, dizziness Skin: Negative for any rashes, lumps, itching, abrasions, lacerations Psychiatric: Negative for any depression, anxiety, stress, suicidal ideation, homicidal ideation Hematologic: Negative for any easy bruising, excessive bruising, easy bleeding Allergies: Negative for any eczema, hives, rash EXAM Physical Exam Narrative Exam Narrative: Vital signs reviewed. HEET: Head normocephalic atraumatic, TMs clear bilaterally. Posterior pharynx is clear, moist mucous membranes. Nares clear bilaterally. Neck: Supple with no lymphadenopathy or tenderness. No signs of meningismus, negative jolt sign. Cardiac: Regular rate and rhythm no murmurs gallops or rubs, equal peripheral pulses bilaterally. Respiratory: Lungs clear to auscultation bilaterally. No chest tenderness. Abdomen: Soft, nontender, nondistended. No abdominal bruit or pulsatile masses. No hepatosplenomegaly Extremities: No peripheral edema, no signs of gross trauma or deformity. Active full range of motion of all extremities. Neuro: Cranial nerves II through XII intact, no focal neurological deficits. Skin: Clean dry and intact with no rash, purpura, petechiae, vesicles or pustules. Backs/flank: No CVA tenderness, no midline spinal tenderness, no deformity. Psych: Normal mood and affect. No SI, HI or acute psychosis. Const Vital Signs: 09/24/22 15:36 09/24/22 15:43 Temperature 97.8 F Temperature Source Temporal Pulse Rate 58 L Respiratory Rate 18 Blood Pressure 117/50 L Blood Pressure Mean 72 Pulse Ox 99 Oxygen Delivery Method Room Air Room Air Positive well nourished and well developed General Appearance ED: well developed MDM MDM Lab Data Labs: Laboratory Results - last 24 hr 09/24/22 09/24/22 15:30 17:40 WBC 5.2 RBC 3.67 L Hgb 11.2 L Hct 34.6 L MCV 94.3 MCH 30.5 MCHC 32.4 RDW Std Deviation 45.1 H RDW Coeff of Nuno 13.1 Plt Count 225 MPV 9.8 Immature Gran % (Auto) 0.200 Neut % (Auto) 51.1 Lymph % (Auto) 37.5 [place] % (Auto) 7.7 Eos % (Auto) 2.9 Baso % (Auto) 0.6 Absolute Neuts (auto) 2.7 Absolute Lymphs (auto) 1.96 Nucleated RBC % 0 D-Dimer Quant (PE/DVT) 0.39 Sodium 140 Potassium 3.6 Chloride 105 Carbon Dioxide 32.0 Anion Gap 3 L BUN 13 Creatinine 0.96 Estim Creat Clear Calc 41.28 Est GFR (MDRD) Af Amer 73 Est GFR (MDRD) Non-Af 61 BUN/Creatinine Ratio 13.6 Glucose 95 Calcium 8.8 Troponin I High Sens 5 6 B-Natriuretic Peptide 72.9 Radiography Diagnostic Testing: Clinical Impression(s) from Imaging Studies Chest X-Ray 09/24/22 15:40 IMPRESSION: No radiographic evidence of acute cardiopulmonary disease. Electronically Signed: Anthony Zarate MD at 16:08 EDT , EKG Sinus rhythm with occasional PVCs: Attestation: I personally reviewed and interpreted this EKG as follows: Comments: Sinus rhythm with occasional PVCs, rate 65 bpm, VA interval 138 ms, QRS duration 70 ms, no acute ST elevation, no acute infarct noted. Treatment and Re-Evaluation :: All radiologic examinations were read, reviewed by the emergency department attending. From these reads, a plan of care will be put in place. Patient appears generally well, patient appears nontoxic, vital signs are stable. Patient presents to the emergency department with complaints of intermittent chest pain, shortness of breath worse with exertion. Patient had a stent placed in April, patient is here for a full cardiac work-up. Patient's laboratory values were grossly unremarkable, patient's CBC was unremarkable, chemistries were unremarkable, BNP was negative. Patient initial troponin was 5, repeat was 6. This is negative. EKG was unremarkable. I did order a D-dimer, concerning for any pulmonary embolus, this was negative. I did speak with Dr. Snider who performed her stent, he offered 2 choices, the patient can go home, have some med changes, and follow-up outpatient and not exert himself. Or be admitted for a stress test. Patient's chest x-ray is unremarkable no evidence of pneumonia. I do long conversation with the patient, the patient would like to do some med changes and follow-up outpatient. Patient has strict return precautions to return for any worsening chest pain shortness of breath fever chills nausea vomiting. There is no evidence of any ACS [place] today. Patient stable for discharge Discharge Plan Triage Chief Complaint: Chest Pain ED Midlevel Provider: Attila Bradford ED Provider: Shaina Goldberg Dx/Rx/DC Orders Clinical Impression: SOB (shortness of breath) on exertion, Chest pain Instructions: ED Chest Pain, Uncertain Cause Prescriptions: No Action mecobalamin (vitamin B12) 10,000 mcg recon soln 1,000 mcg IM QMONTH albuterol sulfate 90 mcg/actuation HFA aerosol inhaler 2 puff inhalation Q4H PRN (Reason: shortness of breath or wheezing) vilazodone 20 mg tablet 20 mg PO DAILY pantoprazole 40 mg tablet,delayed release (DR/EC) 40 mg PO DAILY propranolol 40 mg tablet 40 mg PO DAILY cholecalciferol (vitamin D3) 50 mcg (2,000 unit) capsule 100 mcg PO DAILY potassium chloride 10 mEq tablet extended release 10 meq PO DAILY Qty: 30 6RF furosemide [Lasix] 20 mg tablet 20 mg PO DAILY Qty: 30 6RF Gemtesa 75 mg tablet 75 mg PO DAILY atorvastatin 10 mg Tablet 10 mg PO QHS Qty: 30 3RF clopidogrel 75 mg Tablet 75 mg PO DAILY Qty: 60 3RF nitroglycerin 0.4 mg Tablet, Sublingual 0.4 mg sublingual Q5M PRN (Reason: Cardiac/Chest Pain) Qty: 14 3RF lisinopril 10 mg tablet 10 mg PO BID Qty: 180 3RF amlodipine 2.5 mg tablet 2.5 mg PO DAILY Qty: 30 11RF aspirin 81 mg tablet,delayed release (DR/EC) 81 mg PO DAILY Primary Care Provider: Aubree Woody Referrals: Elizabet Snider MD [Med Staff - Active Staff] - Aubree Woody DO [Primary Care Provider] - Activity Restrictions/Additional Instructions: You will follow-up with Dr. Snider's office next week. You will take amlodipine 5 mg, which is 2 pills. You will then cut your lisinopril in half so that is 5 mg. Please return for worsening chest pain. Follow-up next week Disposition Disposition: Home, Self Care
[2022-09-24 15:36] VITALS: BP 117/50; PULSE 58; RESP 18; TEMP 36.6; O2SAT 99; BMI 33.2
[2022-09-24 15:40] LABS: Absolute Lymphocyte Count 1.96 X10^3/uL (0.83-4.51); Absolute Neutrophil Count 2.7 X10^3/uL (2.0-7.7); Basophil# 0.03 X10^3/uL; Basophil% 0.6 % (0-1); Eosinophil# 0.15 X10^3/uL; Eosinophils% 2.9 % (0-5); Hematocrit 34.6 % (37-47); Hemoglobin 11.2 g/dL (12.0-15.0); Lymphocyte # 1.96 X10^3/ul (0.83-4.51); Lymphocyte % 37.5 % (19-41); Mean Corp Hgb Conc 32.4 g/dL (32-36); Mean Corpuscular Hgb 30.5 pg (27.0-32.0); Mean Corpuscular Volume 94.3 fL (81-99); Mean Platelet Vol. 9.8 fl (6.2-12.0); Monocyte% 7.7 % (0-10); NRBC Flagged by Analyzer 0 % (0-5); Neutrophil # 2.67 X10^3/uL (2.7-7.7); Neutrophil % 51.1 % (47-70); Platelet Count 225 K/mm3 (150-450); RBC Distribution Width CV 13.1 % (11.6-14.6); RBC Distribution Width SD 45.1 fl (35.1-43.9); Red Blood Count 3.67 M/mm3 (4.2-5.4); White Blood Count 5.2 K/mm3 (4.4-11.0)
--- NOTE | 2022-09-24 15:40 | RAD_ITS ---
EXAM: XR CHEST, 1 VIEW CLINICAL INDICATION: chest pain TECHNIQUE: Frontal view of the chest. COMPARISON: 06/27/14 FINDINGS: LUNGS AND PLEURAL SPACES: Unremarkable. No consolidation or edema. No pneumothorax. No effusion. HEART: Unremarkable. Cardiac silhouette not enlarged. MEDIASTINUM: Central airways and mediastinal contour are unremarkable. BONES/JOINTS: Unremarkable. SOFT TISSUES: Unremarkable. RAD/Chest 1 View (Portable) IMPRESSION: No radiographic evidence of acute cardiopulmonary disease. Electronically Signed: Anthony Zarate MD at 16:08 EDT ,
[2022-09-24 15:52] LABS: D-Dimer Quantitative (DVT/PE) 0.39 FEU/ug/m (0.27-0.49)
[2022-09-24 15:59] LABS: Anion Gap 3 (5-15); BUN 13 mg/dL (7-18); BUN/Creat Ratio 13.6 RATIO (10-20); Calcium,Total 8.8 mg/dL (8.5-10.1); Chloride 105 mmol/L (98-107); Creatinine, Serum 0.96 mg/dL (0.55-1.02); EST Glomerular Filtration Rate 61 mL/min (>60); Est Glom Filt Rate - Afr Amer 73 mL/min (>60); Estimated Creatinine Clearance 41.28 ml/min; Glucose 95 mg/dL (74-106); Potassium 3.6 mmol/L (3.5-5.1); Sodium Level 140 mmol/L (136-145); Troponin-I HS (w/2H Reflex) 5 pg/mL (3.0-54.0)
[2022-09-24 16:00] LABS: BNP,B-Type NATRIURETIC PEPTIDE 72.9 pg/mL (0-100)
[2022-09-24] MEDS: Aspirin 81 MG TAB.CHEW 324 MG PO (16:11)
[2022-09-24 17:36] LABS: Reflex Troponin-HS? (from REC) Y
[2022-09-24 18:08] LABS: Troponin-I HS 6 pg/mL (3.0-54.0)
[2022-09-24 19:06] VITALS: BP 126/63; PULSE 57; RESP 18; O2SAT 98
== END 2022-09-24 19:08 | disposition home or self-care (01) ==
PROVIDERS: Nurse Practitioner; Emergency Provider Emergency Medicine; PCP Internal Medicine; Visit Provider Emergency Medicine
DX: R06.02 Shortness of breath (principal); N18.30 Chronic kidney disease, stage 3 unspecified; R07.9 Chest pain, unspecified; I25.10 Atherosclerotic heart disease of native coronary artery without angina pectoris; I12.9 Hypertensive chronic kidney disease with stage 1 through stage 4 chronic kidney disease, or unspecified chronic kidney disease; E78.5 Hyperlipidemia, unspecified; Z95.5 Presence of coronary angioplasty implant and graft; Z79.02 Long term (current) use of antithrombotics/antiplatelets; Z79.82 Long term (current) use of aspirin
CPT/HCPCS: 71045; 80048; 83880; 84484; 85025; 85379; 93005; 99284

== ENCOUNTER → 2022-10-01 | Day surgery (SDC) | payer MEDICARE, BC, SELFPAY ==
[2022-07-12 09:18] VITALS: BMI 34.2
[2022-09-30 09:58] VITALS: BMI 34.5
--- NOTE | 2022-10-01 09:37 | CL.D_ITS ---
Patient Name: PARVIN DUENAS Study Date: 10/01/2022 Performing: Mike Hatfield MD Ht: 62 inches 157.48 cm : 1950 Wt: 189 lbs 85.73 kg Age: 72 Gender: female BSA: 1.87 PROCEDURE(S) PERFORMED [id number])[facility] CLINICAL PROFILE AND INDICATIONS Indications: Worsening Angina Heart Failure: None Stress/Imaging Stress/Image Study Performed: No CAD Presentations: Unstable angina. CONCLUSIONS Previously placed stent in the right coronary artery is noted to be patent with mild luminal irregularities in the circumflex artery and left anterior descending artery. RECOMMENDATIONS Medical therapy. We will add Ranexa to her regimen. DESCRIPTION OF PROCEDURE The patient arrived to the procedure lab. The risks and benefits of the procedure as well as a full description of our services here and current unavailability of surgical backup were fully explained to the patient and/or their significant other prior to the catheterization. The Timeout was completed, verifying the correct patient and procedure. The patient's procedural site was prepped and draped in the usual fashion. Local anesthetic was given subcutaneously to right radial region with Lidocaine 2%. Using a modified Seldinger technique, arterial access was obtained via the right radial artery, a 6Fr sheath was inserted. Right Coronary Artery selective angiography was then performed in multiple views using a 5 Fr. 4.0 Hensley catheter. Left Coronary Artery selective angiography was performed in multiple views using a 5 Fr. 4.0 Hensley catheter.The arterial sheath was pulled and a TR Band was applied for hemostasis CORONARY ANGIOGRAPHY DOMINANCE: Right Dominant LEFT HEART ASSESSMENT Left Ventricular Ejection Fraction: by Echo 60 % Normal LV wall motion Normal Left Ventricular systolic function LEFT MAIN: Angiographically normal LEFT ANTERIOR DESCENDING ARTERY: Mild luminal irregularities less than 30% CIRCUMFLEX ARTERY: Mild luminal irregularities less than 30% RIGHT CORONARY ARTERY: PROX RCA: No significant disease noted MID RCA: Mild luminal irregularities DISTAL RCA: Previously placed stent is patent COMPLICATIONS No Complications PROCEDURE MEDICATIONS Fentanyl 50 mcg IV Versed 1 mg IV Versed 1 mg IV Oxygen: 2 L/min via nasal cannula Baby Aspirin (81mg) 1 Tabs PO @ 10/01/2022 08:26:53 Heparin given IA 10/01/2022 08:50:36 Plavix 75 mg PO 10/01/2022 08:27:02 Verapamil 2.5mg, Ntg 100mcgs, 3000 units of Heparin given IA 10/01/2022 08:50:36 SUMMARY OF HEMODYNAMIC DATA Time AIR REST ECG 07:28:46 ECG 07:29:06 ECG 08:29:32 Art 102/52 (72) 08:50:29 AO 112/52 (75) SA 08:53:06 AO 146/60 (93) 09:03:43 Signed By Mike Hatfield MD On 10/01/2022 09:37:12 Mike Hatfield MD
== END | disposition home or self-care (01) ==
PROVIDERS: PCP Internal Medicine; Referring Provider Internal Medicine Cardiovascular Disease; Visit Provider Internal Medicine Cardiovascular Disease
DX: I25.110 Atherosclerotic heart disease of native coronary artery with unstable angina pectoris (principal); N18.30 Chronic kidney disease, stage 3 unspecified; Z95.5 Presence of coronary angioplasty implant and graft; Z79.899 Other long term (current) drug therapy; Z79.82 Long term (current) use of aspirin; E78.5 Hyperlipidemia, unspecified
CPT/HCPCS: 93454; 99152; 99153; J7040; C1769; C1894; Q9967

== ENCOUNTER → 2022-10-22 | Outpatient (CLI) | payer MEDICARE, BC, SELFPAY ==
[2022-07-12 09:18] VITALS: BMI 34.2
--- NOTE | 2022-10-22 15:55 | RAD_ITS ---
HISTORY: right hand pain -- right hand pain. TECHNIQUE: XR Hand Min 3 Views. COMPARISON: None. FINDINGS: BONES : No acute fracture identified. Mineralization unremarkable. JOINTS: No dislocation. Mild degenerative change peripherally at the intervertebral joints with joint space narrowing and small osteophytes. RAD/Hand Min 3 Views IMPRESSION: No acute fracture or dislocation identified . Mild osteoarthritis of the right hand. Electronically Signed: Oanh Sanford MD at 9:55 EDT ,
== END | disposition home or self-care (01) ==
LOC: RAD 15:50
PROVIDERS: PCP Internal Medicine; Referring Provider Internal Medicine; Visit Provider Internal Medicine
DX: M79.641 Pain in right hand (principal)
CPT/HCPCS: 73130

== ENCOUNTER → 2022-11-12 | Outpatient (CLI) | payer MEDICARE, BC, SELFPAY ==
[2022-07-12 09:18] VITALS: BMI 34.2
[2022-11-12 10:54] LABS: Erythrocyte Sedimentation Rate 5 mm/hr (0-30)
[2022-11-12 10:56] LABS: Absolute Lymphocyte Count 1.83 X10^3/uL (0.83-4.51); Absolute Neutrophil Count 1.6 X10^3/uL (2.0-7.7); Basophil# 0.04 X10^3/uL; Eosinophil# 0.15 X10^3/uL; Eosinophils% 3.8 % (0-5); Hematocrit 36.7 % (37-47); Hemoglobin 12.2 g/dL (12.0-15.0); Lymphocyte # 1.83 X10^3/ul (0.83-4.51); Lymphocyte % 46.4 % (19-41); Mean Corp Hgb Conc 33.2 g/dL (32-36); Mean Corpuscular Hgb 31.1 pg (27.0-32.0); Mean Corpuscular Volume 93.6 fL (81-99); Mean Platelet Vol. 9.9 fl (6.2-12.0); Monocyte# 0.27 X10^3/uL; Monocyte% 6.9 % (0-10); NRBC Flagged by Analyzer 0 % (0-5); Neutrophil # 1.64 X10^3/uL (2.7-7.7); Neutrophil % 41.6 % (47-70); Platelet Count 247 K/mm3 (150-450); RBC Distribution Width SD 44.5 fl (35.1-43.9); Red Blood Count 3.92 M/mm3 (4.2-5.4); White Blood Count 3.9 K/mm3 (4.4-11.0)
[2022-11-12 11:12] LABS: CRP < 2.90 mg/L (0.0-3.0); Rheumatoid Factor < 10.0 IU/mL (<15)
[2022-11-15 16:09] LABS: ANTINUCLEAR ANTIBODIES DIRECT Negative (Negative)
== END | disposition home or self-care (01) ==
PROVIDERS: PCP Internal Medicine; Referring Provider Orthopaedic Surgery; Visit Provider Orthopaedic Surgery
DX: M19.041 Primary osteoarthritis, right hand (principal)
CPT/HCPCS: 36415; 84550; 85025; 85652; 86038; 86140; 86431

== ENCOUNTER → 2022-11-30 | Outpatient (CLI) | payer MEDICARE, BC, SELFPAY ==
[2022-07-12 09:18] VITALS: BMI 34.2
--- NOTE | 2022-11-30 15:53 | NEURO ---
NCS and/or EMG Patient Report Ordering Doctor: Jed Cheng DATE OF SERVICE: 11/30/22 Clinical Summary: This is a 72 year old female presenting with burning/sharp pain the right hand palm. This EMG/NCS was performed to evaluate for right carpal tunnel syndrome or ulnar mononeuropathy. Nerve Conduction Studies Summary: The right ulnar-D5 SNAP is mildly prolonged. Otherwise, nerve conduction studies in the right upper extremity were normal. Needle Examination Summary: Needle examination of the right upper extremity was normal. Impression: There is no electrodiagnostic evidence of a right median mononeuropathy at the wrist (carpal tunnel syndrome) or ulnar mononeuropathy. Multi Select Codes Neurology Neurology Interp Codes: 79692-72 Musc test done w/n test comp (interp) (1) and 01495-89 Nrv cndj test 7-8 studies (interp)
== END | disposition home or self-care (01) ==
LOC: PSN 13:48
PROVIDERS: PCP Internal Medicine; Referring Provider Orthopaedic Surgery; Visit Provider Orthopaedic Surgery
DX: G56.01 Carpal tunnel syndrome, right upper limb (principal); M19.041 Primary osteoarthritis, right hand; R20.2 Paresthesia of skin
CPT/HCPCS: 95886; 95910

== ENCOUNTER → 2023-03-17 | Outpatient (CLI) | payer MEDICARE, BC, SELFPAY ==
[2022-07-12 09:18] VITALS: BMI 34.2
[2023-03-17 11:53] LABS: Cholesterol 211 mg/dL (200); High Density Lipoprotein 59 mg/dL; Triglycerides 178 mg/dL; Very Low Density Lipoprotein 36 mg/dL (5-40)
== END | disposition home or self-care (01) ==
LOC: LAB 10:50
PROVIDERS: PCP Internal Medicine; Referring Provider Internal Medicine Cardiovascular Disease; Visit Provider Internal Medicine Cardiovascular Disease
DX: I10 Essential (primary) hypertension (principal); I73.9 Peripheral vascular disease, unspecified; E78.5 Hyperlipidemia, unspecified; I25.10 Atherosclerotic heart disease of native coronary artery without angina pectoris
CPT/HCPCS: 36415; 80061

== ENCOUNTER → 2023-03-22 | Outpatient (CLI) | payer MEDICARE, BC, SELFPAY ==
[2022-07-12 09:18] VITALS: BMI 34.2
== END | disposition home or self-care (01) ==
LOC: PSN 10:20
PROVIDERS: PCP Internal Medicine; Referring Provider Internal Medicine Cardiovascular Disease; Visit Provider Internal Medicine Cardiovascular Disease
DX: R00.2 Palpitations (principal)
CPT/HCPCS: 93225; 93226

== ENCOUNTER 2023-06-06 14:46 | Emergency (ER) | payer MEDICARE, BC, SELFPAY ==
[2022-07-12 09:18] VITALS: BMI 34.2
[2023-06-06 14:47] VITALS: BP 169/78; PULSE 67; RESP 18; TEMP 36.3; O2SAT 98; BMI 36.6
--- NOTE | 2023-06-06 14:56 | ED.RN ---
when asked to describe dizziness like room is moving/spinning or lightheaded like going to pass out/collapse pt states both. pt later states that when she woke up this am it was like her curtains were moving. reports nausea improved with zofran given per squad.
--- NOTE | 2023-06-06 15:17 | EKG12_ITS ---
Test Reason : Blood Pressure : / mmHG Vent. Rate : 060 BPM Atrial Rate : 060 BPM P-R Int : 134 ms QRS Dur : 076 ms QT Int : 426 ms P-R-T Axes : 064 015 088 degrees QTc Int : 426 ms Normal sinus rhythm Nonspecific ST and T wave abnormality Abnormal ECG Confirmed by Jed Rosado ([id number]), videotape editor BRANDON DELGADO ([id number]) on 06/07/2023 10:07:11 AM Referred By: PARAG Confirmed By:Jed Rosado
[2023-06-06] MEDS: 0.9% Normal Saline (1000mL) 1,000 ML 1000 ML IV (15:27)
[2023-06-06] MEDS: proMETHazine 25 MG/ML Syringe 12.5 MG IM (15:27)
[2023-06-06] MEDS: Meclizine HCl 25 MG Tablet PO (15:28)
--- NOTE | 2023-06-06 15:28 | EDS_ITS ---
HPI History of Present Illness Chief Complaint: Dizziness Narrative Narrative: 72-year-old female presenting with dizziness. She describes this as vertiginous in nature. It started at 6:30 AM. There is mild headache. She had nausea and vomiting. She states he had this a couple of weeks ago and it went well tone. She states he also has a history of vertigo in the past. She states she was off balance and fell today but did not hit her head or lose conscious. Denies any chest pain or shortness of breath. Patient states he has chronic abdominal pain secondary to diabetic gastroparesis. Patient states that when she was vomiting today she was also having bowel movements at the same time. Denies any black or bloody stool. No fevers or chills. Patient states that she is on Plavix. [facility] Medical History Abnormal stress test Angina pectoris Anxiety B12 deficiency Chavira palsy CAD (coronary artery disease) CKD (chronic kidney disease) stage 3, GFR 30-59 ml/min Claudication of both lower extremities Decreased radial pulse Depression Diastolic dysfunction Eczema of both hands Edema, leg Essential (primary) hypertension Gastroparesis GERD (gastroesophageal reflux disease) Heart failure with preserved ejection fraction, NYHA class II Hyperlipidemia IBS (irritable bowel syndrome) Iron deficiency anemia Leg cramps Obesity AJAY (obstructive sleep apnea) AJAY (obstructive sleep apnea) Palpitations Piriformis syndrome of left side Pulmonary hypertension SOB (shortness of breath) SVT (supraventricular tachycardia) Swelling of right wrist Home Medications albuterol sulfate 90 mcg/actuation aerosol inhaler 2 puff inhalation Q4H PRN shortness of breath or wheezing 03/12/22 [History Last Taken Unknown] mecobalamin (vitamin B12) 10,000 mcg solution for injection 1,000 mcg IM QMONTH 03/12/22 [History Last Taken Unknown] pantoprazole 40 mg tablet,delayed release 40 mg PO DAILY 03/12/22 [History Last Taken 10/01/22] vilazodone 20 mg tablet 20 mg PO DAILY 03/12/22 [History Last Taken 10/01/22] vibegron 75 mg tablet (Gemtesa) 75 mg PO DAILY 03/22/22 [History Last Taken Unknown] cholecalciferol (vitamin D3) 50 mcg (2,000 unit) capsule 100 mcg PO DAILY 03/23/22 [History Last Taken Unknown] aspirin 81 mg tablet,delayed release 81 mg PO DAILY 04/07/22 [History Last Taken 10/01/22] nitroglycerin 0.4 mg sublingual tablet 0.4 mg sublingual Q5M PRN Cardiac/Chest Pain #14 tabs 04/23/22 [Rx Last Taken Unknown] lisinopril 5 mg tablet 5 mg PO BID #180 tabs 10/01/22 [Rx Last Taken Unknown] ranolazine 500 mg tablet,extended release,12 hr 500 mg PO Q12H #60 tabs 10/01/22 [Rx Last Taken Unknown] furosemide 20 mg tablet (Lasix) 20 mg PO DAILY #90 tabs 10/22/22 [Rx Last Taken Unknown] potassium chloride 10 mEq tablet,extended release 10 meq PO DAILY #30 tabs 10/28/22 [Rx Last Taken Unknown] clopidogrel 75 mg tablet 75 mg PO DAILY 03/17/23 [History Last Taken Unknown] prucalopride 2 mg tablet (Motegrity) 2 mg PO DAILY 03/17/23 [History Last Taken Unknown] cyanocobalamin (vitamin B-12) 1,000 mcg/mL injection solution 1,000 mcg IM QMONTH 06/06/23 [History Last Taken Unknown] meclizine 25 mg tablet 25 mg PO 4X/DAY PRN PRN Dizziness #30 tabs 06/06/23 [Rx Last Taken Unknown] Allergy/AdvReac Type Severity Reaction Status Date / Time Sulfa (Sulfonamide Allergy Intermediate Other Verified 06/06/23 14:47 Antibiotics) sulfamethoxazole Allergy Intermediate Itching Verified 06/06/23 14:47 [From Bactrim] trimethoprim [From Bactrim] Allergy Intermediate Itching Verified 06/06/23 14:47 codeine Allergy Unknown Other Verified 06/06/23 14:47 Penicillins [PCN] Allergy Rash Verified 06/06/23 14:47 atorvastatin AdvReac Intermediate Myalgias Verified 06/06/23 14:47 Family History Mother Hypertension Grandfather Cancer kidney, brain Father Parkinson's disease Grandmother CVA (cerebral vascular accident) Myocardial infarction Brother CVA (cerebral vascular accident) Myocardial infarction Surgical History H/O bilateral salpingo-oophorectomy H/O: hysterectomy History of appendectomy History of cholecystectomy History of coronary artery stent placement (~04/23/22) History of lumbar laminectomy Hx of cardiac cath Hx of tonsillectomy Social History Smoking Status: Never smoker alcohol intake: never substance use type: does not use caffeine: Yes Type: coffee Number of servings: 1 ROS ROS ED Constitutional Constitutional ED: Denies chills, fever(s) or sweats Eyes Eyes: Reports other Details: Dizziness ; Denies blurry vision or change in vision ENT ENT ED: Denies ear pain or sore throat Cardiovascular Cardiovascular: Denies palpitations or racing heartbeat Respiratory/Chest Respiratory/Chest: Denies cough, dyspnea or sputum Gastrointestinal Gastrointestinal: Reports abdominal pain, nausea and vomiting; Denies constipation or diarrhea Genitourinary Genitourinary ED: Denies dysuria, hematuria or urinary frequency Musculoskeletal Musculoskeletal: Denies arthralgias, myalgias or neck pain Integumentary Denies abscess, Abrasions or rash Neurologic Neurologic: Denies headache(s), paresthesias or weakness Psychiatric Psychiatric: Denies anxiety, depression, suicidal ideation or suicidal thoughts Endocrine Endocrinology: Denies polydipsia or polyuria EXAM Physical Exam Const Vital Signs: 06/06/23 14:47 06/06/23 14:55 06/06/23 17:04 Temperature 97.4 F L Temperature Source Oral Pulse Rate 67 71 Respiratory Rate 18 16 Respiratory Effort Normal Respiratory Pattern Normal Blood Pressure 169/78 H 156/80 H Blood Pressure Mean 108 105 Pulse Ox 98 99 Oxygen Delivery Method Room Air Positive well nourished General Appearance ED: NAD; Negative for pallor HEENT Reports moist mucous membranes Eyes Eyes Narrative: Nystagmus noted on examination. Difficulty performing Hazel-Hallpike as patient closes her eyes. Reproducible vertiginous dizziness with head motion. Neck no lymphadenopathy Resp normal respiratory effort and clear to auscultation bilaterally Cardio regular rate and regular rhythm Neuro oriented x3 and CN's II-XII intact bilaterally Sensorium / Orientation: alert Psych mental status grossly normal Skin no rashes or lesions noted General Skin Exam: Negative for jaundice or pallor MDM MDM MDM Narrative Medical decision making narrative: Patient presenting with dizziness which she describes as vertiginous in nature. Is difficult to examine her to assess for peripheral vertigo with Hazel-Hallpike as the patient closes her eyes on examination. She does have reproducible vertiginous symptoms. Patient given meclizine and Phenergan. Differential includes vertigo, dehydration, anemia, electrolyte abnormalities, dysrhythmia. Patient also having abdominal pain which also please differential of gastritis, GERD, gastroenteritis, colitis, diverticulitis, UTI, pyelonephritis, gastroparesis. CBC will be obtained to assess white blood cell count, hemoglobin, platelets. CMP to assess liver function, renal function, electroly charles. Lipase to assess for pancreatitis. Urinalysis to assess for UTI. EKG to assess for dysrhythmia. High-sensitivity troponin to assess for cardiac ischemia. Patient is fairly tender on examination diffusely. Will obtain CT of the abdomen pelvis with IV contrast. Patient is given a liter normal saline. Will reevaluate. On reevaluation the patient's dizziness is much improved. EKG on my interpretation shows normal sinus rhythm with a ventricular to 60 bpm without sign of ischemic change. CBC shows normal white blood cell count of 5.3. Hemoglobin 12.5, platelets 272. Renal function and electrolytes within normal limits. LFTs are normal. Lipase is normal. Patient feeling much better after treatment and is no longer dizzy. CT of the abdomen pelvis was obtained due to her abdominal pain and is negative for any acute findings. Patient counseled on this. Return precautions were discussed. Impression: 1. Abdominal pain 2. History of gastroparesis 3. Vertigo Lab Data Attestation: I reviewed the patient's lab results. Labs: Laboratory Results - last 24 hr 06/06/23 15:21 WBC 5.3 RBC 4.40 Hgb 12.5 Hct 38.5 MCV 87.5 MCH 28.4 MCHC 32.5 RDW Std Deviation 43.6 RDW Coeff of Nuno 13.6 Plt Count 272 MPV 9.7 Immature Gran % (Auto) 0.200 Neut % (Auto) 58.3 Lymph % (Auto) 31.6 [place] % (Auto) 7.4 Eos % (Auto) 1.7 Baso % (Auto) 0.8 Absolute Neuts (auto) 3.1 Absolute Lymphs (auto) 1.67 Nucleated RBC % 0 Sodium 140 Potassium 3.9 Chloride 106 Carbon Dioxide 27.0 Anion Gap 7 BUN 17 Creatinine 0.76 Estim Creat Clear Calc 65.71 Est GFR (MDRD) Af Amer 95 Est GFR (MDRD) Non-Af 79 BUN/Creatinine Ratio 22.2 H Glucose 107 H Calcium 9.2 Total Bilirubin 0.80 AST 19 ALT 17 Alkaline Phosphatase 69 Troponin I High Sens 4 Total Protein 6.9 Albumin 3.4 Globulin 3.5 Albumin/Globulin Ratio 1.0 Lipase 30 Radiography Diagnostic Testing: Clinical Impression(s) from Imaging Studies Abdomen/Pelvis CT 06/06/23 16:42 IMPRESSION: No acute abnormalities in the abdomen or pelvis. Electronically Signed: Laron Diaz MD at 17:42 EDT , Discharge Plan Triage Chief Complaint: Dizziness ED Provider: Ferny Slade Dx/Rx/DC Orders Instructions: ED Abdominal Pain Unkn Cause Fem, ED Vertigo, Unspecified Prescriptions: New meclizine 25 mg tablet 25 mg PO 4X/DAY PRN PRN (Reason: Dizziness) Qty: 30 0RF No Action mecobalamin (vitamin B12) 10,000 mcg recon soln 1,000 mcg IM QMONTH albuterol sulfate 90 mcg/actuation HFA aerosol inhaler 2 puff inhalation Q4H PRN (Reason: shortness of breath or wheezing) vilazodone 20 mg tablet 20 mg PO DAILY pantoprazole 40 mg tablet,delayed release (DR/EC) 40 mg PO DAILY cholecalciferol (vitamin D3) 50 mcg (2,000 unit) capsule 100 mcg PO DAILY Gemtesa 75 mg tablet 75 mg PO DAILY clopidogrel 75 mg tablet 75 mg PO DAILY Motegrity 2 mg tablet 2 mg PO DAILY Patient Comments: TAKE 1 TABLET BY MOUTHLONCE DAILYD nitroglycerin 0.4 mg Tablet, Sublingual 0.4 mg sublingual Q5M PRN (Reason: Cardiac/Chest Pain) Qty: 14 3RF ranolazine 500 mg tablet extended release 12 hr 500 mg PO Q12H Qty: 60 2RF cyanocobalamin (vitamin B-12) 1,000 mcg/mL solution 1,000 mcg IM QMONTH aspirin 81 mg tablet,delayed release (DR/EC) 81 mg PO DAILY lisinopril 5 mg tablet 5 mg PO BID Qty: 180 3RF furosemide [Lasix] 20 mg tablet 20 mg PO DAILY Qty: 90 3RF potassium chloride 10 mEq tablet extended release 10 meq PO DAILY Qty: 30 6RF Primary Care Provider: Aubree Woody Referrals: Aubree Woody DO [Primary Care Provider] - Disposition Disposition: Home, Self Care
[2023-06-06 15:40] LABS: Absolute Lymphocyte Count 1.67 X10^3/uL (0.83-4.51); Absolute Neutrophil Count 3.1 X10^3/uL (2.0-7.7); Basophil# 0.04 X10^3/uL; Basophil% 0.8 % (0-1); Eosinophil# 0.09 X10^3/uL; Eosinophils% 1.7 % (0-5); Hematocrit 38.5 % (37-47); Hemoglobin 12.5 g/dL (12.0-15.0); Lymphocyte # 1.67 X10^3/ul (0.83-4.51); Lymphocyte % 31.6 % (19-41); Mean Corp Hgb Conc 32.5 g/dL (32-36); Mean Corpuscular Hgb 28.4 pg (27.0-32.0); Mean Corpuscular Volume 87.5 fL (81-99); Mean Platelet Vol. 9.7 fl (6.2-12.0); Monocyte# 0.39 X10^3/uL; Monocyte% 7.4 % (0-10); NRBC Flagged by Analyzer 0 % (0-5); Neutrophil # 3.08 X10^3/uL (2.7-7.7); Neutrophil % 58.3 % (47-70); Platelet Count 272 K/mm3 (150-450); RBC Distribution Width CV 13.6 % (11.6-14.6); RBC Distribution Width SD 43.6 fl (35.1-43.9); White Blood Count 5.3 K/mm3 (4.4-11.0)
[2023-06-06 16:27] LABS: AST(SGOT) 19 U/L (15-37); Alanine Aminotransfer ALT/SGPT 17 U/L (13-56); Albumin, Serum 3.4 g/dL (3.2-5.0); Alkaline Phosphatase 69 U/L (45-117); Anion Gap 7 (5-15); BUN 17 mg/dL (7-18); BUN/Creat Ratio 22.2 RATIO (10-20); Calcium,Total 9.2 mg/dL (8.5-10.1); Chloride 106 mmol/L (98-107); Creatinine, Serum 0.76 mg/dL (0.55-1.02); EST Glomerular Filtration Rate 79 mL/min (>60); Est Glom Filt Rate - Afr Amer 95 mL/min (>60); Estimated Creatinine Clearance 65.71 ml/min; Globulin 3.5 g/dL (2.2-4.2); Glucose 107 mg/dL (74-106); Lipase 30 U/L (13-75); Potassium 3.9 mmol/L (3.5-5.1); Protein, Total 6.9 g/dL (6.4-8.2); Sodium Level 140 mmol/L (136-145); Troponin-I HS 4 pg/mL (3.0-54.0)
--- NOTE | 2023-06-06 16:42 | CT_ITS ---
INDICATION: abdominal pain EXAMINATION: CT Abdomen And Pelvis W/ Contrast Injection TECHNIQUE: Helically acquired images were obtained of the abdomen and pelvis after IV contrast. A radiation dose optimization technique was used for this scan. IV Contrast dosage and agent: IV 100mL Isovue-300 Oral contrast: None. COMPARISON: None. FINDINGS: Visualized lung bases: Unremarkable Liver: Unremarkable Gallbladder: Surgically absent. Spleen: Unremarkable Pancreas: Unremarkable Adrenal Glands: Unremarkable Kidneys: Bilateral simple renal cysts. Vasculature: Mild scattered aortoiliac atherosclerotic calcifications. GI Tract: Scattered diverticula throughout the colon without evidence of inflammation. Lymphadenopathy: None Peritoneum: No ascites. Bladder: Unremarkable Reproductive organs: Status post hysterectomy. Bones/Soft tissues: No suspicious osseous or soft tissue lesions CT/Abdomen/Pelvis W IV Cont ONLY IMPRESSION: No acute abnormalities in the abdomen or pelvis. Electronically Signed: Laron Diaz MD at 17:42 EDT ,
[2023-06-06 17:04] VITALS: BP 156/80; PULSE 71; RESP 16; O2SAT 99
[2023-06-06 17:57] VITALS: BP 121/50; PULSE 88; RESP 16; TEMP 36.4; O2SAT 100
== END 2023-06-06 17:59 | disposition home or self-care (01) ==
PROVIDERS: Emergency Provider Student in an Organized Health Care Education/Training Program; PCP Internal Medicine; Visit Provider Student in an Organized Health Care Education/Training Program
DX: R42 Dizziness and giddiness (principal); I50.32 Chronic diastolic (congestive) heart failure; I13.0 Hypertensive heart and chronic kidney disease with heart failure and stage 1 through stage 4 chronic kidney disease, or unspecified chronic kidney disease; E11.43 Type 2 diabetes mellitus with diabetic autonomic (poly)neuropathy; E11.22 Type 2 diabetes mellitus with diabetic chronic kidney disease; N18.30 Chronic kidney disease, stage 3 unspecified; R10.9 Unspecified abdominal pain; R11.2 Nausea with vomiting, unspecified; R51.9 Headache, unspecified; K21.9 Gastro-esophageal reflux disease without esophagitis; E78.5 Hyperlipidemia, unspecified; I25.10 Atherosclerotic heart disease of native coronary artery without angina pectoris; Z79.02 Long term (current) use of antithrombotics/antiplatelets; K31.84 Gastroparesis
CPT/HCPCS: 74177; 80053; 83690; 84484; 85025; 93005; 99283; J7030; Q9967; A4216

== ENCOUNTER 2023-07-27 17:03 | Observation (INO) | payer MEDICARE, BC, SELFPAY ==
[2022-07-12 09:18] VITALS: BMI 34.2
[2023-07-27] VITALS (7 sets, daily range): BP systolic 126–176; BP diastolic 62–90; PULSE 63–88; RESP 18–23; TEMP 36.1–36.6; O2SAT 97–99; BMI 36.8; BMI 35.9
--- NOTE | 2023-07-27 17:07 | EKG12_ITS ---
Test Reason : CP Blood Pressure : / mmHG Vent. Rate : 069 BPM Atrial Rate : 069 BPM P-R Int : 134 ms QRS Dur : 078 ms QT Int : 396 ms P-R-T Axes : 051 005 110 degrees QTc Int : 424 ms Normal sinus rhythm with sinus arrhythmia Nonspecific ST and T wave abnormality Abnormal ECG Confirmed by Jed Rosado ([id number]), department editor LEONELA JENNINGS ([id number]) on 07/28/2023 11:59:13 AM Referred By: Umm Villagran Confirmed By:Jed Rosado
--- NOTE | 2023-07-27 17:15 | EDS_ITS ---
HPI History of Present Illness Chief Complaint: Chest Pain Informant: patient Onset/Context/Timing Onset: Today and Weeks Activity at onset: gradual Timing: Intermittent Quality: Positive for Dull and Heaviness Location: Substernal Current Severity: Gone Maximum Severity: Mild Worsened By: Exertion Relieved By: Rest Associated Symptoms: Positive for Dyspnea; Negative for Nausea, Vomiting, Diaphoresis, Cough, Fever, Lightheadedness, Acid Reflux or Palpitations Narrative Narrative: 73-year-old female history of CAD with 1 cardiac stent a year ago. Patient states the last several weeks she has had exertional chest pain with walking steps to her basement or take her dog for a walk. At rest she feels better. She does get exertional shortness of breath. Denies nausea or diaphoresis. Currently symptom-free. Denies any radiation of the pain. Has had prior chest pain similar with her coronary artery disease. Prior Similar Symptoms: Yes Recent Illness/Hospitalization: No CVD Risk Factors: Negative for Diabetes PE Risk Factors: Negative for Recent Travel/Surgery, Recent Immobilization, Prior DVT or PE, Cancer or OCP + Smoking + >/=35 TAD Risk Factors: Negative for Marfan's Syndrome [facility] Medical History Angina pectoris Decreased radial pulse Swelling of right wrist Claudication of both lower extremities Leg cramps CAD (coronary artery disease) Abnormal stress test Heart failure with preserved ejection fraction, NYHA class II Obesity AJAY (obstructive sleep apnea) Chavira palsy CKD (chronic kidney disease) stage 3, GFR 30-59 ml/min B12 deficiency Iron deficiency anemia Hyperlipidemia AJAY (obstructive sleep apnea) Diastolic dysfunction Pulmonary hypertension SVT (supraventricular tachycardia) Palpitations SOB (shortness of breath) Edema, leg Essential (primary) hypertension Eczema of both hands Anxiety Gastroparesis GERD (gastroesophageal reflux disease) Piriformis syndrome of left side IBS (irritable bowel syndrome) Depression Home Medications ?Medication ?Instructions ?Recorded ?Last Taken ?Type albuterol sulfate 90 mcg/actuation 2 puff inhalation Q4H PRN 03/12/22 Unknown History aerosol inhaler shortness of breath or wheezing mecobalamin (vitamin B12) 10,000 1,000 mcg IM QMONTH 03/12/22 Unknown History mcg solution for injection pantoprazole 40 mg tablet,delayed 40 mg PO DAILY 03/12/22 10/01/22 History release vilazodone 20 mg tablet 20 mg PO DAILY 03/12/22 10/01/22 History vibegron 75 mg tablet (Gemtesa) 75 mg PO DAILY 03/22/22 Unknown History cholecalciferol (vitamin D3) 50 100 mcg PO DAILY 03/23/22 Unknown History mcg (2,000 unit) capsule aspirin 81 mg tablet,delayed 81 mg PO DAILY 04/07/22 10/01/22 History release nitroglycerin 0.4 mg sublingual 0.4 mg sublingual Q5M PRN 04/23/22 Unknown Rx tablet Cardiac/Chest Pain #14 tabs lisinopril 5 mg tablet 5 mg PO BID #180 tabs 10/01/22 Unknown Rx furosemide 20 mg tablet (Lasix) 20 mg PO DAILY #90 tabs 10/22/22 Unknown Rx potassium chloride 10 mEq 10 meq PO DAILY #30 tabs 10/28/22 Unknown Rx tablet,extended release clopidogrel 75 mg tablet 75 mg PO DAILY 03/17/23 Unknown History prucalopride 2 mg tablet 2 mg PO DAILY 03/17/23 Unknown History (Motegrity) cyanocobalamin (vitamin B-12) 1,000 mcg IM QMONTH 06/06/23 Unknown History 1,000 mcg/mL injection solution meclizine 25 mg tablet 25 mg PO 4X/DAY PRN PRN Dizziness 06/06/23 Unknown Rx #30 tabs Allergy/AdvReac Type Severity Reaction Status Date / Time Sulfa (Sulfonamide Allergy Intermediate Other Verified 06/06/23 14:47 Antibiotics) sulfamethoxazole (From Allergy Intermediate Itching Verified 06/06/23 14:47 Bactrim) trimethoprim (From Bactrim) Allergy Intermediate Itching Verified 06/06/23 14:47 codeine Allergy Unknown Other Verified 06/06/23 14:47 Penicillins (PCN) Allergy Rash Verified 06/06/23 14:47 atorvastatin AdvReac Intermediate Myalgias Verified 06/06/23 14:47 Family History Mother Hypertension Grandfather Cancer kidney, brain Father Parkinson's disease Grandmother CVA (cerebral vascular accident) Myocardial infarction Brother CVA (cerebral vascular accident) Myocardial infarction Surgical History Hx of cardiac cath History of coronary artery stent placement (~04/23/22) History of lumbar laminectomy H/O bilateral salpingo-oophorectomy H/O: hysterectomy Hx of tonsillectomy History of appendectomy History of cholecystectomy Social History Smoking Status: Never smoker alcohol intake: never substance use type: does not use caffeine: Yes Type: coffee Number of servings: 1 ROS ROS ED ROS Narrative Exertional dyspnea and exertional chest pain. Review of Systems ROS Unobtainable: Denies due to encephalopathy Constitutional Constitutional ED: Denies chills or fever(s) Eyes Eyes: Denies none ENT ENT ED: Denies ear pain Cardiovascular Cardiovascular: Reports as per HPI and chest pain; Denies palpitations or racing heartbeat Respiratory/Chest Respiratory/Chest: Reports dyspnea and dyspnea on exertion; Denies cough Gastrointestinal Gastrointestinal: Denies abdominal pain, constipation, diarrhea, melena, nausea or vomiting Genitourinary Genitourinary ED: Denies dysuria or hematuria Musculoskeletal Musculoskeletal: Denies arthralgias or back pain Integumentary Denies abscess Neurologic Neurologic: Denies headache(s) Psychiatric Psychiatric: Denies anxiety Endocrine Endocrinology: Denies cold intolerance Hematologic/Lymphatic Hematologic/Lymphatic: Denies easy bleeding Allergic/Immunologic Allergic/Immunologic ED: Denies mouth swelling, tongue swelling or urticaria EXAM Physical Exam Narrative Exam Narrative: 73-year-old female no acute distress. Vital signs stable afebrile. Pulse ox 99% on room air no hypoxia. H EENT exam unremarkable. Neck nontender. No JVD. Lungs clear to auscultation bilaterally. Heart regular rhythm no murmur. Chest wall and ribs nontender. Abdomen soft nontender. Moving all 4 extremities. Calves are nontender without edema or cords. Equal symmetrical radial pulses. Normal relationship manager strength. Patient is awake and alert. Answering questions following commands. Const Vital Signs: 07/27/23 17:03 07/27/23 17:22 Temperature 98 F Temperature Source Temporal Pulse Rate 88 Respiratory Rate 18 Blood Pressure 176/90 H Blood Pressure Mean 118 Pulse Ox 99 98 Oxygen Delivery Method Room Air Room Air Positive well nourished and well developed; Negative for cachectic, contractures or unkempt General Appearance ED: well developed and NAD; Negative for unkempt, cachectic, contractures or pallor Nutritional Appearance: Negative for cachectic HEENT Denies moist mucous membranes or dry mucous membranes normocephalic and atraumatic; Negative for trauma or tenderness Mouth ED: No dry mucous membranes Mouth: No dry mucous membranes Eyes PERRL and EOMs intact bilaterally General Eye ED: Negative for pale conjunctiva or scleral icterus Neck no lymphadenopathy, supple and no JVD General: Negative for tenderness Chest Wall inspection of chest normal and palpation of chest normal Chest: Negative for tenderness Resp normal respiratory effort and clear to auscultation bilaterally Effort and Inspection: Negative for respiratory distress Auscultation: Negative for rales, rhonchi, wheezes or diminished lung sounds Cardio regular rate, regular rhythm, S1 normal heart sound, S2 normal heart sound and no murmurs Rate: Negative for bradycardia or tachycardic Rhythm: Negative for abnormal rhythm Peripheral Pulses: pulses 2+ throughout GI normal to inspection, nondistended, normoactive bowel sounds, soft to palpation, non-tender, non-distended and no masses Auscultation: Negative for hyperactive bowel sounds Palpation: Negative for splenomegaly, mass or other Back/Spine no CVA tenderness and no thoracic nor lumbar tenderness General Back: Negative for CVA tenderness Cervical Spine: Negative for cervical spine tenderness Extremity normal to inspection General Extremety ED: Negative for edema, pulses abnormal or tenderness General Extremity: Negative for edema or pulses abnormal Neuro oriented x3 and CN's II-XII intact bilaterally Sensorium / Orientation: awake, alert, oriented to person, oriented to place and oriented to time; Negative for confused, lethargic or stuporous Motor Exam: strength 5/5 throughout Psych mental status grossly normal Appearance: Negative for unkempt Attitude: No agitated Mood & Affect: Negative for depressed, anxious or tearful Skin no rashes or lesions noted and no wounds General Skin Exam: Negative for jaundice or pallor Rashes: No rashes noted Trauma: Negative for abrasion, laceration or puncture Heart Score History: Highly Suspicious ECG: Normal Age: >/= 65 years Risk Factors: >/= 3 Risk Factors or History of CAD Score: 6 MDM MDM MDM Narrative Medical decision making narrative: 74-year-old female history of CAD with 1 stent describes classic exertional angina with exertional chest pain exertional dyspnea. Resolves at rest. Is a normal exam. No reproducible pain. She undergo cardiac workup. She will need to be admitted for provocative testing for cardiac disease. Most likely she will need to heart catheterization. Because I do not think she would pass her stress test. Repeat exam patient doing well at 5:56 PM. Hospitalist on page for admission. History & Record Review Discussion w/independent historian: Patient Additional record(s) reviewed:: Prior inpatient record, Prior outpatient record, Prior ED visit and Prior labs Lab Data Attestation: I reviewed the patient's lab results. Lab results narrative: CBC shows a white count of 5. H&H 11.3 and 35.7. Platelets 263. Electrolytes show gap 6. BUN 19 creatinine 0.8. Glucose 87. Troponin 8. Chest x-ray unremarkable. Labs: Laboratory Results - last 24 hr 07/27/23 17:20 WBC 5.5 RBC 4.03 L Hgb 11.3 L Hct 35.7 L MCV 88.6 MCH 28.0 MCHC 31.7 L RDW Std Deviation 45.0 H RDW Coeff of Nuno 13.9 Plt Count 263 MPV 9.8 Immature Gran % (Auto) 0.400 Neut % (Auto) 47.1 Lymph % (Auto) 38.3 [place] % (Auto) 10.9 H Eos % (Auto) 2.4 Baso % (Auto) 0.9 Absolute Neuts (auto) 2.6 Absolute Lymphs (auto) 2.10 Nucleated RBC % 0 Sodium 139 Potassium 3.7 Chloride 105 Carbon Dioxide 28.0 Anion Gap 6 BUN 19 H Creatinine 0.87 Estim Creat Clear Calc 59.59 Est GFR (MDRD) Af Amer 82 Est GFR (MDRD) Non-Af 68 BUN/Creatinine Ratio 21.9 H Glucose 87 Calcium 9.3 Troponin I High Sens 8 Radiography Chest X-Ray - ED: 1 View, Read by ED Physician, Normal, Heart, Lungs, Mediastinum, Bony Structures, No Acute Disease and Chronic Changes Diagnostic Testing: Chest x-ray, portable, single view interpreted by myself shows no acute abnormality. Normal cardiac silhouette. Normal lung barnett. Rhythm Strip Rhythm Strip: Sinus Rhythm Rate: 69 Ectopy: None EKG Initial EKG: Interpretation: Sinus Rhythm and No Acute Injury Pattern Comments: Normal sinus rhythm rate of 69 no acute signs of GA or ischemia. No dysrhythmia. Discharge Plan Triage Chief Complaint: Chest Pain ED Provider: Daniel Yañez Dx/Rx/DC Orders Prescriptions: No Action mecobalamin (vitamin B12) 10,000 mcg recon soln 1,000 mcg IM QMONTH albuterol sulfate 90 mcg/actuation HFA aerosol inhaler 2 puff inhalation Q4H PRN (Reason: shortness of breath or wheezing) vilazodone 20 mg tablet 20 mg PO DAILY pantoprazole 40 mg tablet,delayed release (DR/EC) 40 mg PO DAILY cholecalciferol (vitamin D3) 50 mcg (2,000 unit) capsule 100 mcg PO DAILY Gemtesa 75 mg tablet 75 mg PO DAILY clopidogrel 75 mg tablet 75 mg PO DAILY Motegrity 2 mg tablet 2 mg PO DAILY Patient Comments: TAKE 1 TABLET BY MOUTHLONCE DAILYD nitroglycerin 0.4 mg Tablet, Sublingual 0.4 mg sublingual Q5M PRN (Reason: Cardiac/Chest Pain) Qty: 14 3RF cyanocobalamin (vitamin B-12) 1,000 mcg/mL solution 1,000 mcg IM QMONTH meclizine 25 mg tablet 25 mg PO 4X/DAY PRN PRN (Reason: Dizziness) Qty: 30 0RF aspirin 81 mg tablet,delayed release (DR/EC) 81 mg PO DAILY lisinopril 5 mg tablet 5 mg PO BID Qty: 180 3RF furosemide [Lasix] 20 mg tablet 20 mg PO DAILY Qty: 90 3RF potassium chloride 10 mEq tablet extended release 10 meq PO DAILY Qty: 30 6RF Primary Care Provider: Aubree Woody Referrals: Aubree Woody DO [Primary Care Provider] - Print Language: Scottish
[2023-07-27] MEDS: Aspirin 81 MG TAB.CHEW 324 MG PO (17:24)
--- NOTE | 2023-07-27 17:35 | RAD_ITS ---
INDICATION: chest pain EXAMINATION/TECHNIQUE: X-RAY - XR Chest 1 View COMPARISON: FINDINGS: LINES/DEVICES: None. LUNGS: No consolidation, edema or effusion. No pneumothorax. MEDIASTINUM AND CARDIOVASCULAR STRUCTURES: Cardiac silhouette not enlarged. Calcified aortic arch. Central airways and mediastinal contour are unremarkable. BONES AND SOFT TISSUES: Mild degenerative vertebral changes. RAD/Chest 1 View (Portable) IMPRESSION: No radiographic evidence of acute cardiopulmonary disease. Electronically Signed: Alexys Burnham DO at 17:58 EDT ,
[2023-07-27 17:39] LABS: Absolute Neutrophil Count 2.6 X10^3/uL (2.0-7.7); Basophil# 0.05 X10^3/uL; Basophil% 0.9 % (0-1); Eosinophil# 0.13 X10^3/uL; Eosinophils% 2.4 % (0-5); Hematocrit 35.7 % (37-47); Hemoglobin 11.3 g/dL (12.0-15.0); Lymphocyte % 38.3 % (19-41); Mean Corp Hgb Conc 31.7 g/dL (32-36); Mean Corpuscular Volume 88.6 fL (81-99); Mean Platelet Vol. 9.8 fl (6.2-12.0); Monocyte% 10.9 % (0-10); NRBC Flagged by Analyzer 0 % (0-5); Neutrophil # 2.59 X10^3/uL (2.7-7.7); Neutrophil % 47.1 % (47-70); Platelet Count 263 K/mm3 (150-450); RBC Distribution Width CV 13.9 % (11.6-14.6); Red Blood Count 4.03 M/mm3 (4.2-5.4); White Blood Count 5.5 K/mm3 (4.4-11.0)
[2023-07-27 17:55] LABS: Anion Gap 6 (5-15); BUN 19 mg/dL (7-18); BUN/Creat Ratio 21.9 RATIO (10-20); Calcium,Total 9.3 mg/dL (8.5-10.1); Chloride 105 mmol/L (98-107); Creatinine, Serum 0.87 mg/dL (0.55-1.02); EST Glomerular Filtration Rate 68 mL/min (>60); Est Glom Filt Rate - Afr Amer 82 mL/min (>60); Estimated Creatinine Clearance 59.59 ml/min; Glucose 87 mg/dL (74-106); Potassium 3.7 mmol/L (3.5-5.1); Sodium Level 139 mmol/L (136-145); Troponin-I HS (w/2H Reflex) 8 pg/mL (3.0-54.0)
--- NOTE | 2023-07-27 18:01 | HP.PCM_ITS ---
HPI - General General Date of Admission: 07/27/23 Date of Service: 07/27/23 Chief Complaint: chest pain HPI Narrative PARVIN DUENAS, is a 73 F with a PMh as outlined who presents via the E on 07/27/2023 with a complaint of chest pain. The chest pain had been going on for several weeks, and aggravated by exertion and performing her activities of daily living. She felt better at rest. She denied any nausea, vomiting, dizziness or lightheadedness. She has a history of CAD and had stents inserted one year ago. Review of systems was otherwise negative. Vitals in the ED were temp of 98F, IA of 88, BP of 176/90, RR o 18 and pulse ox of 99% on room air. CBC showed hb of 11.3, wbc of 5.5 and platelets of 263. CHemistry was unremarkable. EKG showed no acute ST changes. CXR showed no acute cardiopulmonary pathology. She is being admitted to be managed for chest pain to rule out ACS. [facility] Medical History Angina pectoris Decreased radial pulse Swelling of right wrist Claudication of both lower extremities Leg cramps CAD (coronary artery disease) Abnormal stress test Heart failure with preserved ejection fraction, NYHA class II Obesity AJAY (obstructive sleep apnea) Chavira palsy CKD (chronic kidney disease) stage 3, GFR 30-59 ml/min B12 deficiency Iron deficiency anemia Hyperlipidemia AJAY (obstructive sleep apnea) Diastolic dysfunction Pulmonary hypertension SVT (supraventricular tachycardia) Palpitations SOB (shortness of breath) Edema, leg Essential (primary) hypertension Eczema of both hands Anxiety Gastroparesis GERD (gastroesophageal reflux disease) Piriformis syndrome of left side IBS (irritable bowel syndrome) Depression Home Medications ?Medication ?Instructions ?Recorded ?Last Taken ?Type albuterol sulfate 90 mcg/actuation 2 puff inhalation Q4H PRN 03/12/22 Unknown History aerosol inhaler shortness of breath or wheezing pantoprazole 40 mg tablet,delayed 40 mg PO DAILY 03/12/22 10/01/22 History release vilazodone 20 mg tablet 20 mg PO DAILY 03/12/22 10/01/22 History vibegron 75 mg tablet (Gemtesa) 75 mg PO DAILY 03/22/22 Unknown History cholecalciferol (vitamin D3) 50 100 mcg PO DAILY 03/23/22 Unknown History mcg (2,000 unit) capsule aspirin 81 mg tablet,delayed 81 mg PO DAILY 04/07/22 10/01/22 History release nitroglycerin 0.4 mg sublingual 0.4 mg sublingual Q5M PRN 04/23/22 Unknown Rx tablet Cardiac/Chest Pain #14 tabs lisinopril 5 mg tablet 5 mg PO BID #180 tabs 10/01/22 Unknown Rx clopidogrel 75 mg tablet 75 mg PO DAILY 03/17/23 Unknown History cyanocobalamin (vitamin B-12) 1,000 mcg IM QMONTH 06/06/23 Unknown History 1,000 mcg/mL injection solution meclizine 25 mg tablet 25 mg PO 4X/DAY PRN PRN Dizziness 06/06/23 Unknown Rx #30 tabs Allergy/AdvReac Type Severity Reaction Status Date / Time Sulfa (Sulfonamide Allergy Intermediate Other Verified 07/27/23 18:22 Antibiotics) sulfamethoxazole (From Allergy Intermediate Itching Verified 07/27/23 18:22 Bactrim) trimethoprim (From Bactrim) Allergy Intermediate Itching Verified 06/06/23 14:47 codeine Allergy Unknown Other Verified 07/27/23 18:22 Penicillins (PCN) Allergy Rash Verified 07/27/23 18:22 atorvastatin AdvReac Intermediate Myalgias Verified 07/27/23 18:22 Family History Mother Hypertension Grandfather Cancer kidney, brain Father Parkinson's disease Grandmother CVA (cerebral vascular accident) Myocardial infarction Brother CVA (cerebral vascular accident) Myocardial infarction Surgical History Hx of cardiac cath History of coronary artery stent placement (~04/23/22) History of lumbar laminectomy H/O bilateral salpingo-oophorectomy H/O: hysterectomy Hx of tonsillectomy History of appendectomy History of cholecystectomy Social History Smoking Status: Never smoker alcohol intake: never substance use type: does not use caffeine: Yes Type: coffee Number of servings: 1 ROS Constitutional Constitutional: Denies anorexia, chills, fatigue, fever(s), malaise or weakness Eyes Eyes: Denies change in vision ENT HEENT: Denies dysphagia, headache(s), sore throat or throat swelling Cardiovascular Cardiovascular: Reports chest pain; Denies claudication, edema, orthopnea, palpitations, paroxysmal nocturnal dyspnea or syncope Respiratory/Chest Respiratory/Chest: Denies cough, shortness of breath at rest, shortness of breath with exertion or wheezing Gastrointestinal Gastrointestinal: Denies abdominal pain, nausea or vomiting Genitourinary Genitourinary: Denies dysuria Musculoskeletal Musculoskeletal: Denies back pain, muscle weakness or neck pain Neurologic Neurologic: Denies confusion, dizziness, focal weakness, headache(s) or numbness Psychiatric Psychiatric: Denies anxiety or depression Vital Signs Vital Signs Vital Signs: 07/27/23 17:03 07/27/23 17:22 Temperature 98 F Temperature Source Temporal Pulse Rate 88 Respiratory Rate 18 Blood Pressure 176/90 H Blood Pressure Mean 118 Pulse Ox 99 98 Oxygen Delivery Method Room Air Room Air Weight Weight: 201 lb 0.985 oz Body Mass Index (BMI) 36.8 Physical Exam Const alert, oriented x3 and no apparent distress General Appearance: cooperative and well developed HEENT normocephalic, head/scalp atraumatic, moist oral mucous membranes and oropharynx normal Eyes PERRL and EOMs intact bilaterally Neck no lymphadenopathy and supple Lymph Lymphatic: no lymphadenopathy noted and no lymphedema noted Resp normal respiratory effort, normal air movement and clear to auscultation bilaterally Cardio regular rate, regular rhythm, S1 normal heart sound, S2 normal heart sound and no murmurs GI normal to inspection, nondistended, normoactive bowel sounds, soft to palpation, non-tender and non-distended Extremity normal capillary refill, no clubbing, cyanosis or edema and no calf tenderness General Extremity: no tenderness to palpation of joints or extremities Skin General Skin Exam: no breakdown Neuro CN's II-XII intact bilaterally, no focal motor deficits, no sensory deficits noted and deep tendon reflexes 2+ bilaterally Motor Exam: strength 5/5 throughout and general weakness Psych thought process normal and cooperative Appearance: appropriate Results Lab / Micro Data 07/27/23 17:20 07/27/23 17:20 Labs: Laboratory Results - last 24 hr 07/27/23 17:20: WBC 5.5, RBC 4.03 L, Hgb 11.3 L, Hct 35.7 L, MCV 88.6, MCH 28.0, MCHC 31.7 L, RDW Std Deviation 45.0 H, RDW Coeff of Nuno 13.9, Plt Count 263, MPV 9.8, Immature Gran % (Auto) 0.400, Neut % (Auto) 47.1, Lymph % (Auto) 38.3, [place] % (Auto) 10.9 H, Eos % (Auto) 2.4, Baso % (Auto) 0.9, Absolute Neuts (auto) 2.6, Absolute Lymphs (auto) 2.10, Nucleated RBC % 0, Sodium 139, Potassium 3.7, Chloride 105, Carbon Dioxide 28.0, Anion Gap 6, BUN 19 H, Creatinine 0.87, Estim Creat Clear Calc 59.59, Est GFR (MDRD) Af Amer 82, Est GFR (MDRD) Non-Af 68, B UN/Creatinine Ratio 21.9 H, Glucose 87, Calcium 9.3, Troponin I High Sens 8 Rhythm Strip Rhythm Strip: Sinus Rhythm Rate: 69 Ectopy: None Imaging Radiology Impression Chest X-Ray 07/27/23 17:35 IMPRESSION: No radiographic evidence of acute cardiopulmonary disease. Electronically Signed: Alexys Burnham DO at 17:58 EDT Reading Location ID and State: [facility] / [place] Tel [phone], Service support , Assessment & Plan Assessment/Plan (1) Chest pain, exertional: PLAN: Plan #Unstable Angina * Admit to PCU * Patient complains of chest pain which is worsened with exertion and relieved by rest. She also has exertional dyspnea. * Initial troponin is negative. EKG shows no acute ST changes and chest x-ray showed no acute cardiopulmonary process. * Will cycle troponins. P.o. aspirin 81 mg daily. Continue with Plavix and high intensity statin as well as metoprolol * Consult cardiology as patient symptoms are classic for angina and so she may benefit from cardiac cath. Discussed with Dr. Rosado the instructor nurse on- call. He wants patient managed as unstable angina and wants her on heparin drip and Nitropaste. For cardiac cath tomorrow. * Sublingual nitroglycerin as needed * #History of CAD s/p stent: * Had cardiac cath in 2022 which showed 75 to 80% distal RCA stenosis and mid LAD and left circumflex artery stenosis. She has successful GENI to the distal RCA. * On aspirin, Plavix as well as metoprolol. Not on statin due to allergies * Her last 2D echo is from February 2022 which showed EF of 60% with stage II diastolic dysfunction and mild pulmonary hypertension with RVSP of 43 mmHg. #Hypertension: Metoprolol and lisinopril #Heart failure preserved ejection fraction: Not in exacerbation. On Lasix. #AJAY: On CPAP nightly DVT prophylaxis: Lovenox CODE STATUS: full code * Patient counseled extensively about different types of CODE STATUS including full code, DNR CCA and DNR CCA. * Patient elects to be full code. Total [id number] time 17 minutes. Charges/Coding Visit Charges Inpatient E&M: 14489 Init Hosp L3 Procedures Hospitalists Procedures: 37159 Advncd Care Plan 30 Min
--- NOTE | 2023-07-27 18:09 | NURSING ---
DR STACY MIGUEL
[2023-07-27 19:29] LABS: Reflex Troponin-HS? (from REC) Y
[2023-07-27] MEDS: Nitroglycerin Oint 1 INCH PACKET TD (20:54)
[2023-07-27] MEDS: Enoxaparin 100 MG/ML Syringe 90 MG SC (20:54)
[2023-07-27 21:37] LABS: Troponin-I HS 9 pg/mL (3.0-54.0)
[2023-07-27] MEDS: Lisinopril 5 MG Tablet PO (21:40)
[2023-07-28] VITALS (8 sets, daily range): BP systolic 139–164; BP diastolic 60–79; PULSE 53–104; RESP 16–18; TEMP 36.2–36.8; O2SAT 97–99
[2023-07-28 00:39] LABS: Troponin-I HS 5 pg/mL (3.0-54.0)
--- NOTE | 2023-07-28 05:55 | ECHOCS_ITS ---
Reason For Study: Chest Pain Procedure This was a 2D Doppler, Color Flow transthoracic echocardiogram. The study was technically difficult. Contrast injection was performed. Exam performed portable in patient room. Left Ventricle Normal LV size. The estimated ejection fraction is 70 %. No evidence for diastolic dysfunction. No regional wall motion abnormalities noted. Right Ventricle Normal RV size. Normal systolic function. Atria The left and right atria are normal. No doppler evidence for ASD. Mitral Valve There is no mitral valve stenosis. No mitral valve insufficiency. Tricuspid Valve There is no tricuspid stenosis. No tricuspid valve insufficiency. Unable to estimate RV systolic pressure due to inadequate jet, pulmonary artery pressure probably normal. Aortic Valve Trisinus/trileaflet aortic valve. Aortic sclerosis, no stenosis. There is no aortic stenosis. No aortic valve insufficiency. Pulmonic Valve There is no pulmonic valvular stenosis. No pulmonic valve insufficiency. Great Vessels Normal aortic root. Pericardium/Pleural No pericardial effusion. Medication Diluted definity 2ml given slow IV push to enhance endocardial definition. MMode/2D Measurements & Calculations LVIDd: 4.7 cm IVSd: 0.81 cm Ao root diam: 3.1 cm LVIDs: 3.0 cm LVPWd: 0.71 cm LA dimension: 4.0 cm FS: 36.6 % LAV(MOD-bp): 53.0 ml LVAd ap4: 23.4 cm2 SV(MOD-sp4): 48.7 ml LAV(MOD-bp) Indexed: 27.8 ml/m2 LVLd ap4: 6.5 cm LAV(MOD-sp2): 55.3 ml EDV(MOD-sp4): 69.2 ml LAV(MOD-sp4): 47.4 ml EDV(sp4-el): 71.8 ml LVAs ap4: 11.1 cm2 LVLs ap4: 5.1 cm ESV(MOD-sp4): 20.5 ml ESV(sp4-el): 20.5 ml EF(MOD-sp4): 70.4 % EF(sp4-el): 71.5 % SV(sp4-el): 51.3 ml LA A4 area: 18.6 cm2 RA A4 area: 17.2 cm2 TAPSE: 2.2 cm Time Measurements MV dec time: 0.29 sec Doppler Measurements & Calculations MV E max pako: 80.7 cm/sec Lat Peak E' Pako: 7.6 cm/sec Med Peak E' Pako: 6.7 cm/sec MV A max pako: 104.7 cm/sec E/E' lat: 10.6 E/E' med: 12.0 MV E/A: 0.77 MV V2 max: 126.5 cm/sec MV P1/2t max pako: 97.9 cm/sec Ao V2 max: 130.9 cm/sec MV max P.4 mmHg MV P1/2t: 106.2 msec Ao max P.9 mmHg MV V2 mean: 53.8 cm/sec MV mean P.5 mmHg MV dec slope: 270.1 cm/sec2 MV V2 VTI: 42.6 cm MVA(P1/2t): 2.1 cm2 LV V1 max: 118.5 cm/sec PA V2 max: 75.8 cm/sec LV V1 max P.6 mmHg LV V1 mean P.8 mmHg LV V1 mean: 77.9 cm/sec LV V1 VTI: 30.1 cm ECHO/Echo Complete W/ Contrast Interpretation Summary The estimated ejection fraction is 70 %. No evidence for diastolic dysfunction. Ordering Physician: Umm Villagran Referring Physician: Aubree Woody M.D. Performed By: Spike Salinas RCS
--- NOTE | 2023-07-28 05:55 | EKG12_ITS ---
Test Reason : pre-cath Blood Pressure : / mmHG Vent. Rate : 057 BPM Atrial Rate : 057 BPM P-R Int : 144 ms QRS Dur : 076 ms QT Int : 452 ms P-R-T Axes : 073 028 095 degrees QTc Int : 439 ms Sinus bradycardia with sinus arrhythmia Nonspecific T wave abnormality Abnormal ECG When compared with ECG of 27-JUL-2023 17:08, MANUAL COMPARISON REQUIRED, DATA IS UNCONFIRMED Confirmed by Jed Rosado ([id number]), photographic editor LEONELA JENNINGS ([id number]) on 07/28/2023 2:20:49 PM Referred By: Umm Villagran Confirmed By:Jed Rosado
[2023-07-28] MEDS: Aspirin E.C. 81 MG Tablet PO (06:30)
[2023-07-28] MEDS: Lisinopril 5 MG Tablet PO (06:30)
[2023-07-28] MEDS: Clopidogrel Bisulfate 75 MG Tablet PO (06:30)
[2023-07-28 06:57] LABS: Absolute Lymphocyte Count 1.68 X10^3/uL (0.83-4.51); Absolute Neutrophil Count 1.6 X10^3/uL (2.0-7.7); Basophil# 0.03 X10^3/uL; Basophil% 0.8 % (0-1); Eosinophil# 0.16 X10^3/uL; Eosinophils% 4.1 % (0-5); Hematocrit 36.3 % (37-47); Hemoglobin 11.3 g/dL (12.0-15.0); Lymphocyte # 1.68 X10^3/ul (0.83-4.51); Lymphocyte % 43.1 % (19-41); Mean Corp Hgb Conc 31.1 g/dL (32-36); Mean Corpuscular Hgb 27.9 pg (27.0-32.0); Mean Corpuscular Volume 89.6 fL (81-99); Mean Platelet Vol. 10.1 fl (6.2-12.0); Monocyte# 0.41 X10^3/uL; Monocyte% 10.5 % (0-10); NRBC Flagged by Analyzer 0 % (0-5); Platelet Count 254 K/mm3 (150-450); Red Blood Count 4.05 M/mm3 (4.2-5.4); White Blood Count 3.9 K/mm3 (4.4-11.0)
--- NOTE | 2023-07-28 07:23 | PCM.PN.HOSP ---
Reason for Visit Reason for Visit: Diagnoses Chest pain, unspecified (07/27/23) Subjective Subjective Patient is a 73-year-old lady who was sent to the ED by her primary private detective on account of shortness of breath and chest pain with exertion and assessment of unstable angina made treatment initiated per protocol admitted to monitored bed for further management Objective Data Objective Data Vital Signs: Vital Signs Temp Pulse Resp BP Pulse Ox O2 Del Method 97.9 F 55 L 18 147/60 H 98 Room Air 07/28/23 06:27 07/28/23 06:27 07/28/23 06:27 07/28/23 06:27 07/28/23 06:27 07/28/23 06:27 Oxygen Delivery Method Room Air Weight: 90.5 kg Body Mass Index (BMI) 35.9 Lab / Micro Data 07/28/23 06:05 07/28/23 06:05 Labs: Laboratory Results - last 24 hr 07/27/23 17:20: WBC 5.5, RBC 4.03 L, Hgb 11.3 L, Hct 35.7 L, MCV 88.6, MCH 28.0, MCHC 31.7 L, RDW Std Deviation 45.0 H, RDW Coeff of Nuno 13.9, Plt Count 263, MPV 9.8, Immature Gran % (Auto) 0.400, Neut % (Auto) 47.1, Lymph % (Auto) 38.3, [place] % (Auto) 10.9 H, Eos % (Auto) 2.4, Baso % (Auto) 0.9, Absolute Neuts (auto) 2.6, Absolute Lymphs (auto) 2.10, Nucleated RBC % 0, Sodium 139, Potassium 3.7, Chloride 105, Carbon Dioxide 28.0, Anion Gap 6, BUN 19 H, Creatinine 0.87, Estim Creat Clear Calc 59.59, Est GFR (MDRD) Af Amer 82, Est GFR (MDRD) Non-Af 68, BUN/Creatinine Ratio 21.9 H, Glucose 87, Calcium 9.3, Troponin I High Sens 8 07/27/23 21:04: Troponin I High Sens 9 07/27/23 23:57: Troponin I High Sens 5 07/28/23 06:05: WBC 3.9 L, RBC 4.05 L, Hgb 11.3 L, Hct 36.3 L, MCV 89.6, MCH 27.9, MCHC 31.1 L, RDW Std Deviation 46.0 H, RDW Coeff of Nuno 14.0, Plt Count 254, MPV 10.1, Immature Gran % (Auto) 0.500, Neut % (Auto) 41.0 L, Lymph % (Auto) 43.1 H, [place] % (Auto) 10.5 H, Eos % (Auto) 4.1, Baso % (Auto) 0.8, Absolute Neuts (auto) 1.6 L, Absolute Lymphs (auto) 1.68, Nucleated RBC % 0 Radiography Diagnostic Testing: Radiology Impression Chest X-Ray 07/27/23 17:35 IMPRESSION: No radiographic evidence of acute cardiopulmonary disease. Electronically Signed: Alexys Burnham DO at 17:58 EDT Reading Location ID and State: [facility] / [place] Tel [phone], Service support , Rhythm Strip Rhythm Strip: Sinus Rhythm Rate: 69 Ectopy: None Physical Exam Narrative GENERAL: cooperative HEENT: Atraumatic; normocephalic EYES; Anicteric, Normal Conjunctiva NECK; supple, normal thyroid, RESPIRATORY: Diminished to auscultation CARDIOVASCULAR: Regular S1 S2, GI: soft, normoactive bowel sounds, : No Renal angle tenderness; EXTREMITIES: No edema, no clubbing, MUSCULOSKELETAL: no muscle wasting NEURO: Awake; no lateralizing signs. SKIN: No Rash PSYCH; Flat affect Assessment & Plan Assessment/Plan (1) Chest pain, exertional: PLAN: Plan Patient is a 73-year-old lady who was sent to the ED by her primary private detective on account of shortness of breath and chest pain with exertion and assessment of unstable angina made treatment initiated per protocol admitted to monitored bed for further management 1. Unstable angina ? Patient admitted to a monitored bed as part of the management serial cardiac enzymes ordered. Patient started on LMWH, nitrates, dual antiplatelet therapy in addition to high intensity statin and beta-blockers. Consult was placed to Dr. Rosado Case was discussed with him by the admitting physician. Plan is for patient to undergo left heart catheterization with intervention if warranted on 07/28/2023 2. Coronary artery disease ? With previous PCI, cardiac cath in 2022 which showed 75 to 80% distal RCA stenosis and mid LAD and left circumflex artery stenosis. She has successful GENI to the distal RCA. Patient is on guideline directed medical therapy 3. Essential benign hypertension ? Blood pressure remained stable 4. Chronic congestive heart failure with preserved ejection fraction ? Patient remains euvolemic 5. Class II obesity with BMI of 35.9 ? Complicating care weight loss advised 6. Obstructive sleep apnea ? Patient is on CPAP consistent use encouraged 7. Anemia ? Secondary to chronic disorder monitoring H&H and transfuse if patient becomes symptomatic or hemoglobin falls below 7 8. DVT prophylaxis ? Patient is on Lovenox Time spent in the patient's overall evaluation,decision-making process, review of diagnostic data, adjustment of management, discussion with other providers, nursing nursing and ancillary staff involved in patient's care documentation, 52 Minutes Charges/Coding Visit Charges Inpatient E&M: 83036 [facility] Hosp L3
--- NOTE | 2023-07-28 07:38 | CON.PCM.CA_ITS ---
Assessment & Plan Assessment/Plan (1) Chest pain, exertional: PLAN: The patient's chest discomfort is almost pathognomonic for exertional angina that is accelerating. Her EKG shows minor T wave changes compared to an old EKG from June 2023. Enzymes are negative x 2 sets. But the patient has known coronary disease status post stenting of the right coronary artery in April 2022 and had mild 30% stenoses in the LAD and circumflex on catheterization. The patient has remained asymptomatic on nitroglycerin paste aspirin and Plavix. I would recommend that she undergo a left heart catheterization. The procedure risk/benefit and alternatives were explained to the patient in detail she voiced understanding and agrees to proceed. (2) History of CAD (coronary artery disease): PLAN: April 2022 the patient underwent stenting of the distal right coronary artery with a final diameter of 3 mm stent. She had 30% stenoses in the LAD and circumflex at that time with normal LV function ejection fraction 60%. (3) AJAY (obstructive sleep apnea): PLAN: The patient is on therapy for her obstructive sleep apnea. (4) Hyperlipidemia: QUALIFIERS: Hyperlipidemia type: pure hypercholesterolemia Q ualified Code(s): E78.00 - Pure hypercholesterolemia, unspecified PLAN: March 2023 the patient's lipids were total cholesterol of 211 triglycerides 178 LDL 116 and HDL 59. She was placed on atorvastatin at the time of her stenting procedure but apparently developed myalgias. She is currently not on statin therapy. Consideration should be given for trialing low-dose rosuvastatin with coenzyme Q10 as an outpatient. PLAN: Plan 1. Left heart catheterization today. 2. Continue Plavix aspirin and nitroglycerin. 3. Will address trial of statin therapy in the ambulatory setting. HPI Consult Data Date of Consult: 07/28/23 HPI Narrative HPI Narrative: PARVIN DUENAS, is a 73 F who presents with a history of exertional chest symptoms. The patient noted this week that walking her dog to the mailbox which is several 100 feet that she developed some tightness and upper chest discomfort. She also noticed this when she went downstairs and back up the stairs. When she stopped and rested the symptoms were got resolved. She also has noted yesterday that just walking on flat ground in her kitchen she developed the same type of discomfort that went away when she stopped and rested. The patient called our office and was instructed to present to the emergency department with this history. The patient has a history of stenting of the distal right coronary by Dr. Snider in April 2022. She was recathed in September of that year and it showed that the stent was widely patent with mild luminal irregularities in the circumflex and left anterior descending. There is 30% lesions in both. Left-ventricular ejection fraction was 60% with normal wall motion. This catheterization and the stent were prompted by dyspnea on exertion as her presenting complaint. She has not had the type of chest discomfort that she is experiencing now with exertion. The patient has been treated with Ranexa aspirin and Plavix. She also is on lisinopril 5 mg twice daily. Since admission the patient denies any recurrent symptoms her troponin and delta high-sensitivity troponin were both negative. Her EKG shows minor T wave changes compared to an old EKG. The patient also notes that she has had some mild lightheadedness with the symptoms. She denies any near-syncope or syncope. She denies any lower extremity edema she has not had any shortness of breath dyspnea on exertion, PND or orthopnea. [facility] Medical History Angina pectoris Decreased radial pulse Swelling of right wrist Claudication of both lower extremities Leg cramps CAD (coronary artery disease) Abnormal stress test Heart failure with preserved ejection fraction, NYHA class II Obesity AJAY (obstructive sleep apnea) Chavira palsy CKD (chronic kidney disease) stage 3, GFR 30-59 ml/min B12 deficiency Iron deficiency anemia Hyperlipidemia AJAY (obstructive sleep apnea) Diastolic dysfunction Pulmonary hypertension SVT (supraventricular tachycardia) Palpitations SOB (shortness of breath) Edema, leg Essential (primary) hypertension Eczema of both hands Anxiety Gastroparesis GERD (gastroesophageal reflux disease) Piriformis syndrome of left side IBS (irritable bowel syndrome) Depression Home Medications ?Medication ?Instructions ?Recorded ?Last Taken ?Type albuterol sulfate 90 mcg/actuation 2 puff inhalation Q4H PRN 03/12/22 Unknown History aerosol inhaler shortness of breath or wheezing pantoprazole 40 mg tablet,delayed 40 mg PO DAILY 03/12/22 10/01/22 History release vilazodone 20 mg tablet 20 mg PO DAILY 03/12/22 10/01/22 History vibegron 75 mg tablet (Gemtesa) 75 mg PO DAILY 03/22/22 Unknown History cholecalciferol (vitamin D3) 50 100 mcg PO DAILY 03/23/22 Unknown History mcg (2,000 unit) capsule aspirin 81 mg tablet,delayed 81 mg PO DAILY 04/07/22 10/01/22 History release nitroglycerin 0.4 mg sublingual 0.4 mg sublingual Q5M PRN 04/23/22 Unknown Rx tablet Cardiac/Chest Pain #14 tabs lisinopril 5 mg tablet 5 mg PO BID #180 tabs 10/01/22 Unknown Rx clopidogrel 75 mg tablet 75 mg PO DAILY 03/17/23 Unknown History cyanocobalamin (vitamin B-12) 1,000 mcg IM QMONTH 06/06/23 Unknown History 1,000 mcg/mL injection solution meclizine 25 mg tablet 25 mg PO 4X/DAY PRN PRN Dizziness 06/06/23 Unknown Rx #30 tabs Allergy/AdvReac Type Severity Reaction Status Date / Time Sulfa (Sulfonamide Allergy Intermediate Other Verified 07/27/23 18:22 Antibiotics) sulfamethoxazole (From Allergy Intermediate Itching Verified 07/27/23 18:22 Bactrim) trimethoprim (From Bactrim) Allergy Intermediate Itching Verified 06/06/23 14:47 codeine Allergy Unknown Other Verified 07/27/23 18:22 Penicillins (PCN) Allergy Rash Verified 07/27/23 18:22 atorvastatin AdvReac Intermediate Myalgias Verified 07/27/23 18:22 Family History Mother Hypertension Grandfather Cancer kidney, brain Father Parkinson's disease Grandmother CVA (cerebral vascular accident) Myocardial infarction Brother CVA (cerebral vascular accident) Myocardial infarction Surgical History Hx of cardiac cath History of coronary artery stent placement (~04/23/22) History of lumbar laminectomy H/O bilateral salpingo-oophorectomy H/O: hysterectomy Hx of tonsillectomy History of appendectomy History of cholecystectomy Social History Smoking Status: Never smoker alcohol intake: never substance use type: does not use caffeine: Yes Type: coffee Number of servings: 1 Prior Cardiac Testing/Procedures Prior Cardiac Testing/Procedures: Echocardiogram, Stress Test, Stenting and Cardiac Angiogram ROS Constitutional Constitutional: Reports as per HPI Eyes Eyes: Reports as per HPI ENT HEENT: Reports as per HPI Cardiovascular Cardiovascular: Reports as per HPI Respiratory/Chest Respiratory/Chest: Reports cough Gastrointestinal Gastrointestinal: Reports systems reviewed and no addt'l complaints, except as documented Genitourinary Genitourinary: Reports systems reviewed and no addt'l complaints, except as documented Musculoskeletal Musculoskeletal: Reports systems reviewed and no addt'l complaints, except as documented Integumentary Integumentary: Reports systems reviewed and no addt'l complaints, except as documented Neurologic Neurologic: Reports as per HPI Psychiatric Psychiatric: Reports systems reviewed and no addt'l complaints, except as documented Endocrine Endocrinology: Reports systems reviewed and no addt'l complaints, except as documented Hematologic/Lymphatic Hematologic/Lymphatic: Reports systems reviewed and no addt'l complaints, except as documented Allergic/Immunologic Allergic/Immunologic: Reports systems reviewed and no addt'l complaints, except as documented Physical Exam Const alert, oriented x3 and no apparent distress HEENT normocephalic Eyes EOMs intact bilaterally Neck no JVD and no carotid bruits Chest inspection of chest normal Resp normal respiratory effort and clear to auscultation bilaterally Cardio regular rate, regular rhythm, S1 normal heart sound, S2 normal heart sound, no murmurs, no rub and no gallops Peripheral Pulses: radial pulses present right 2+, posterior tibial pulses present right 2+ and dorsalis pedis pulses present right 2+ GI soft to palpation and no bruits Extremity normal to inspection and no pedal edema Skin no rashes or lesions noted Neuro Neuro Narrative: Alert and oriented x 3 Psych mental status grossly normal Risk Stratification Risk Stratification Applicable: Yes Age >/= 65: Yes >/= 3 CAD Risk Factors (HTN, HLD, DM, family hx of CAD, or current smoker): Yes Aspirin Use in the Past 7 Days: Yes Severe Angina (>/= episodes in 24 hours): Yes EKG ST Changes >/= 0.5mm: No Positive Cardiac Marker: No LEANN Risk Stratification Score: 4 LEANN % Risk: 20% Risk Charges/Coding Visit Charges Inpatient E&M: 22382 Init Hosp L3 Objective Data Vital Signs: Vital Signs Temp Pulse Resp BP Pulse Ox O2 Del Method 97.9 F 55 L 18 147/60 H 98 Room Air 07/28/23 06:27 07/28/23 06:27 07/28/23 06:27 07/28/23 06:27 07/28/23 06:27 07/28/23 06:27 Oxygen Delivery Method Room Air Weight: 199 lb 8.293 oz Body Mass Index (BMI) 35.9 Lab / Micro Data Attestation: I reviewed the patient's lab results. 07/28/23 06:05 07/27/23 17:20 Labs: Laboratory Results - last 24 hr 07/27/23 17:20: WBC 5.5, RBC 4.03 L, Hgb 11.3 L, Hct 35.7 L, MCV 88.6, MCH 28.0, MCHC 31.7 L, RDW Std Deviation 45.0 H, RDW Coeff of Nuno 13.9, Plt Count 263, MPV 9.8, Immature Gran % (Auto) 0.400, Neut % (Auto) 47.1, Lymph % (Auto) 38.3, [place] % (Auto) 10.9 H, Eos % (Auto) 2.4, Baso % (Auto) 0.9, Absolute Neuts (auto) 2.6, Absolute Lymphs (auto) 2.10, Nucleated RBC % 0, Sodium 139, Potassium 3.7, Chloride 105, Carbon Dioxide 28.0, Anion Gap 6, BUN 19 H, Creatinine 0.87, Estim Creat Clear Calc 59.59, Est GFR (MDRD) Af Amer 82, Est GFR (MDRD) Non-Af 68, B UN/Creatinine Ratio 21.9 H, Glucose 87, Calcium 9.3, Troponin I High Sens 8 07/27/23 21:04: Troponin I High Sens 9 07/27/23 23:57: Troponin I High Sens 5 07/28/23 06:05: WBC 3.9 L, RBC 4.05 L, Hgb 11.3 L, Hct 36.3 L, MCV 89.6, MCH 27.9, MCHC 31.1 L, RDW Std Deviation 46.0 H, RDW Coeff of Nuno 14.0, Plt Count 254, MPV 10.1, Immature Gran % (Auto) 0.500, Neut % (Auto) 41.0 L, Lymph % (Auto) 43.1 H, [place] % (Auto) 10.5 H, Eos % (Auto) 4.1, Baso % (Auto) 0.8, A bsolute Neuts (auto) 1.6 L, Absolute Lymphs (auto) 1.68, Nucleated RBC % 0 Rhythm Strip Rhythm Strip: Sinus Rhythm Rate: 69 Ectopy: None Cardiology Labs/Tests 07/27/23 17:20: WBC 5.5, RBC 4.03 L, Hgb 11.3 L, Hct 35.7 L, MCV 88.6, MCH 28.0, MCHC 31.7 L, Plt Count 263, MPV 9.8, Immature Gran % (Auto) 0.400, Neut % (Auto) 47.1, Lymph % (Auto) 38.3, [place] % (Auto) 10.9 H, Eos % (Auto) 2.4, Baso % (Auto) 0.9, Absolute Neuts (auto) 2.6, Nucleated RBC % 0, Sodium 139, Potassium 3.7, Chloride 105, Carbon Dioxide 28.0, Anion Gap 6, BUN 19 H, Creatinine 0.87, Est GFR (MDRD) Af Amer 82, Est GFR (MDRD) Non-Af 68, BUN/Creatinine Ratio 21.9 H, Glucose 87, Calcium 9.3 07/28/23 06:05: WBC 3.9 L, RBC 4.05 L, Hgb 11.3 L, Hct 36.3 L, MCV 89.6, MCH 27.9, MCHC 31.1 L, Plt Count 254, MPV 10.1, Immature Gran % (Auto) 0.500, Neut % (Auto) 41.0 L, Lymph % (Auto) 43.1 H, [place] % (Auto) 10.5 H, Eos % (Auto) 4.1, Baso % (Auto) 0.8, Absolute Neuts (auto) 1.6 L, Nucleated RBC % 0 Rhythm: EKG: ECHO: Stress Test: Cardiac Cath: PCI: CT Surgery: Holter monitor: EPS: PPM: CXR: Chest CT Scan: Radiography Diagnostic Testing: Radiology Impression Chest X-Ray 07/27/23 17:35 IMPRESSION: No radiographic evidence of acute cardiopulmonary disease. Electronically Signed: Alexys Burnham DO at 17:58 EDT Reading Location ID and State: [facility] / [place] Tel [phone], Service support ,
[2023-07-28 07:39] LABS: Anion Gap 6 (5-15); BUN 15 mg/dL (7-18); BUN/Creat Ratio 18.1 RATIO (10-20); Calcium,Total 9.2 mg/dL (8.5-10.1); Chloride 108 mmol/L (98-107); Creatinine, Serum 0.83 mg/dL (0.55-1.02); EST Glomerular Filtration Rate 72 mL/min (>60); Est Glom Filt Rate - Afr Amer 87 mL/min (>60); Glucose 103 mg/dL (74-106); Potassium 4.4 mmol/L (3.5-5.1); Sodium Level 138 mmol/L (136-145)
[2023-07-28] MEDS: 0.9% Saline Lock 10 ML Syringe IV (08:10)
[2023-07-28] MEDS: Acetaminophen 325 MG Tablet 650 MG PO (08:10)
--- NOTE | 2023-07-28 11:04 | CL.D_ITS ---
Patient Name: PARVIN DUENAS Study Date: 07/28/2023 Performing: Namrata Harrison MD Ht: 62 inches 158.75 cm : 1950 Wt: 199.8 lbs 90.5 kg Age: 73 Gender: female BSA: 1.92 PROCEDURE(S) PERFORMED [id number]-([id number])[facility] CLINICAL PROFILE AND INDICATIONS Heart Failure: None CAD Presentations: Unstable angina. CONCLUSIONS Mild CAD as described. Prior stent in the RCA is widely patent. No significant aortic stenosis. RECOMMENDATIONS DESCRIPTION OF PROCEDURE The patient arrived to the procedure lab. The risks and benefits of the procedure as well as a full description of our services here and current unavailability of surgical backup were fully explained to the patient and/or their significant other prior to the catheterization. The Timeout was completed, verifying the correct patient and procedure. The patient's procedural site was prepped and draped in the usual fashion. Local anesthetic was given subcutaneously to right radial region with Lidocaine 2%. Using a modified Seldinger technique, arterial access was obtained via the right radial artery, a 6Fr sheath was inserted. LV to AO pullback pressures were then recorded. Left Coronary Artery selective angiography was performed in multiple views using a 5 Fr. JL3.5 catheter. Right Coronary Artery selective angiography was then performed in multiple views using a 5 Fr. JR4 catheter.The arterial sheath was pulled and a TR Band was applied for hemostasis CORONARY ANGIOGRAPHY DOMINANCE: Right Dominant LEFT HEART ASSESSMENT LEFT MAIN: Mild luminal irregularities LEFT ANTERIOR DESCENDING ARTERY: Mild luminal irregularities DIAGONAL 1: Proximal - 30 % Stenosis CIRCUMFLEX ARTERY: Mild luminal irregularities RIGHT CORONARY ARTERY: Mild luminal irregularities DISTAL RCA: Previously placed stent is patent VALVE FINDINGS: No Aortic Valve Stenosis COMPLICATIONS No Complications PROCEDURE MEDICATIONS Fentanyl 50 mcg IV Versed 1 mg IV Oxygen: 2 L/min via nasal cannula Heparin given IA 07/28/2023 10:24:21 Verapamil 2.5mg, Ntg 100mcgs, 3000 units of Heparin given IA 07/28/2023 10:24:21 SUMMARY OF HEMODYNAMIC DATA Time AIR REST ECG 09:57:28 LV 148/-4, 7 10:28:00 LV 155/-5, 9 10:28:08 LVp 154/5, 10 10:28:31 AOp 152/72 (103) 10:28:38 Signed By Namrata Harrisno MD On 07/28/2023 11:03:51 Namrata Harrison MD
[2023-07-28] MEDS: Vibegron 75 MG TABLET PO (11:13)
[2023-07-28] MEDS: Cholecalciferol (VIT D3) 25 MCG TABLET (1,000 UNITS) 100 MCG PO (11:13)
[2023-07-28] MEDS: VILAZODONE HYDROCHLORIDE 10 MG TABLET 20 MG PO (11:13)
[2023-07-28] MEDS: Pantoprazole Sodium 40 MG Tablet PO (11:13)
--- NOTE | 2023-07-28 13:38 | DS.PCM_ITS ---
Providers Date of Admission: 07/27/23 Date of Discharge: 07/28/23 Primary Care Physician: Dr. Aubree Woody, DO Consultations 07/27/23 20:15 Consult: Cardiology Routine Consulting Provider: Jed Rosado Reason for Consult: unstable angina EMERGENT Consult: No MD Notified: Yes Date Notified: 07/27/23 Time Notified: 20:16 Method of Notification: Verbal Reason For Visit: STABLE ANGINA Diagnosis Discharge Diagnosis (1) Chest pain, exertional: Status: Acute Code(s): R07.9 - Chest pain, unspecified Plan Patient is a 73-year-old lady who was sent to the ED by her primary transit planning director on account of shortness of breath and chest pain with exertion and assessment of unstable angina made treatment initiated per protocol admitted to monitored bed for further management 1. Unstable angina ? Patient admitted to a monitored bed as part of the management serial cardiac enzymes ordered. Patient started on LMWH, nitrates, dual antiplatelet therapy in addition to high intensity statin and beta-blockers. Consult was placed to Dr. Rosado Case was discussed with him by the admitting physician. Plan is for patient to undergo left heart catheterization with intervention if warranted on 07/28/2023 -Patient left heart catheterization demonstrated mild CAD with widely patent proximal stent in the RCA no significant aortic stenosis. Cardiology recommended optimization of medical therapy 2. Coronary artery disease ? With previous PCI, cardiac cath in 2022 which showed 75 to 80% distal RCA stenosis and mid LAD and left circumflex artery stenosis. She has successful GENI to the distal RCA. Patient is on guideline directed medical therapy 3. Essential benign hypertension ? Blood pressure remained stable 4. Chronic congestive heart failure with preserved ejection fraction ? Patient remains euvolemic 5. Class II obesity with BMI of 35.9 ? Complicating care weight loss advised 6. Obstructive sleep apnea ? Patient is on CPAP consistent use encouraged 7. Anemia ? Secondary to chronic disorder monitoring H&H and transfuse if patient becomes symptomatic or hemoglobin falls below 7 8. DVT prophylaxis ? Patient is on Lovenox Time spent in the patient's overall evaluation,decision-making process, review of diagnostic data, adjustment of management, discussion with other providers, nursing nursing and ancillary staff involved in patient's care documentation, 52 Minutes Medications at Discharge Home Medications albuterol sulfate 90 mcg/actuation aerosol inhaler 2 puff inhalation Q4H PRN shortness of breath or wheezing 03/12/22 pantoprazole 40 mg tablet,delayed release 40 mg PO DAILY 03/12/22 vilazodone 20 mg tablet 20 mg PO DAILY 03/12/22 vibegron 75 mg tablet (Gemtesa) 75 mg PO DAILY 03/22/22 cholecalciferol (vitamin D3) 50 mcg (2,000 unit) capsule 100 mcg PO DAILY 03/23/22 aspirin 81 mg tablet,delayed release 81 mg PO DAILY 04/07/22 nitroglycerin 0.4 mg sublingual tablet 0.4 mg sublingual Q5M PRN Cardiac/Chest Pain #14 tabs 04/23/22 lisinopril 5 mg tablet 5 mg PO BID #180 tabs 10/01/22 clopidogrel 75 mg tablet 75 mg PO DAILY 03/17/23 cyanocobalamin (vitamin B-12) 1,000 mcg/mL injection solution 1,000 mcg IM QMONTH 06/06/23 meclizine 25 mg tablet 25 mg PO 4X/DAY PRN PRN Dizziness #30 tabs 06/06/23 Physical Exam Narrative GENERAL: cooperative HEENT: Atraumatic; normocephalic EYES; Anicteric, Normal Conjunctiva NECK; supple, normal thyroid, RESPIRATORY: Diminished to auscultation CARDIOVASCULAR: Regular S1 S2, GI: soft, normoactive bowel sounds, : No Renal angle tenderness; EXTREMITIES: No edema, no clubbing, MUSCULOSKELETAL: no muscle wasting NEURO: Awake; no lateralizing signs. SKIN: No Rash PSYCH; Flat affect Weight / BMI Weight Weight: 90.5 kg Body Mass Index (BMI) 35.9 ABG / Lab / Microbiology Data 07/28/23 06:05 07/28/23 06:05 Laboratory: Laboratory Results - last 24 hr 07/27/23 17:20: WBC 5.5, RBC 4.03 L, Hgb 11.3 L, Hct 35.7 L, MCV 88.6, MCH 28.0, MCHC 31.7 L, RDW Std Deviation 45.0 H, RDW Coeff of Nuno 13.9, Plt Count 263, MPV 9.8, Immature Gran % (Auto) 0.400, Neut % (Auto) 47.1, Lymph % (Auto) 38.3, [place] % (Auto) 10.9 H, Eos % (Auto) 2.4, Baso % (Auto) 0.9, Absolute Neuts (auto) 2.6, Absolute Lymphs (auto) 2.10, Nucleated RBC % 0, Sodium 139, Potassium 3.7, Chloride 105, Carbon Dioxide 28.0, Anion Gap 6, BUN 19 H, Creatinine 0.87, Estim Creat Clear Calc 59.59, Est GFR (MDRD) Af Amer 82, Est GFR (MDRD) Non-Af 68, B UN/Creatinine Ratio 21.9 H, Glucose 87, Calcium 9.3, Troponin I High Sens 8 07/27/23 21:04: Troponin I High Sens 9 07/27/23 23:57: Troponin I High Sens 5 07/28/23 06:05: WBC 3.9 L, RBC 4.05 L, Hgb 11.3 L, Hct 36.3 L, MCV 89.6, MCH 27.9, MCHC 31.1 L, RDW Std Deviation 46.0 H, RDW Coeff of Nuno 14.0, Plt Count 254, MPV 10.1, Immature Gran % (Auto) 0.500, Neut % (Auto) 41.0 L, Lymph % (Auto) 43.1 H, [place] % (Auto) 10.5 H, Eos % (Auto) 4.1, Baso % (Auto) 0.8, A bsolute Neuts (auto) 1.6 L, Absolute Lymphs (auto) 1.68, Nucleated RBC % 0, Sodium 138, Potassium 4.4, Chloride 108 H, Carbon Dioxide 24.0, Anion Gap 6, BUN 15, Creatinine 0.83, Estim Creat Clear Calc 62.20, Est GFR (MDRD) Af Amer 87, Est GFR (MDRD) Non-Af 72, BUN/Creatinine Ratio 18.1, Glucose 103, Calcium 9.2 Radiography Diagnostic Testing: Radiology Impression Chest X-Ray 07/27/23 17:35 IMPRESSION: No radiographic evidence of acute cardiopulmonary disease. Electronically Signed: Alexys Burnham DO at 17:58 EDT Reading Location ID and State: [facility] / [place] Tel [phone], Service support , Echocardiogram 07/28/23 05:55 Interpretation Summary The estimated ejection fraction is 70 %. No evidence for diastolic dysfunction. Ordering Physician: Umm Villagran Referring Physician: Aubree Woody M.D. Performed By: Spike Salinas RCS D/C Instructions Discharge Diet: Low fat / Low cholesterol Discharge Activity: Return to Normal Activity Call your doctor if you observe: Fever of 101 or Higher, Shortness of breath, Fainting spells and Chest pain Meaningful Use Info Meaningful Use Meaningful Use Diagnoses (Choose all that apply): None applicable Ischemic Stroke Statin Dosing Therapy Reference: STATIN DOSE THERAPY REFERENCE: * Patients > 75 years receive moderate or high dose statin therapy. * Patients 75 years or YOUNGER should receive HIGH intensity statin dose unless contraindicated. You will be required to document reason for non-treatment if statin daily dose does not meet guidelines. HIGH DOSE STATIN THERAPY DAILY Atorvastatin > than or = to 40 mg Rosuvastatin > than or = to 20 mg Amlodipine + Atorvastatin > than or = to 2.5/40 mg Ezetimibe + Simvastatin 10/80 mg Simvastatin 80mg Discharge Plan Admission Admit Date/Time: 07/27/23 18:19 Attending Provider: Willi Mehta Primary Care Provider: Aubree Woody Consulting Providers: Jed Rosado; Umm Villagran Discharge Orders/Prescriptions Prescriptions: Continued albuterol sulfate 90 mcg/actuation HFA aerosol inhaler 2 puff inhalation Q4H PRN (Reason: shortness of breath or wheezing) vilazodone 20 mg tablet 20 mg PO DAILY pantoprazole 40 mg tablet,delayed release (DR/EC) 40 mg PO DAILY cholecalciferol (vitamin D3) 50 mcg (2,000 unit) capsule 100 mcg PO DAILY Gemtesa 75 mg tablet 75 mg PO DAILY clopidogrel 75 mg tablet 75 mg PO DAILY nitroglycerin 0.4 mg Tablet, Sublingual 0.4 mg sublingual Q5M PRN (Reason: Cardiac/Chest Pain) Qty: 14 3RF cyanocobalamin (vitamin B-12) 1,000 mcg/mL solution 1,000 mcg IM QMONTH meclizine 25 mg tablet 25 mg PO 4X/DAY PRN PRN (Reason: Dizziness) Qty: 30 0RF aspirin 81 mg tablet,delayed release (DR/EC) 81 mg PO DAILY lisinopril 5 mg tablet 5 mg PO BID Qty: 180 3RF Referrals / Follow Up: Aubree Woody DO [Primary Care Provider] - Within 1 Week Disposition Disposition (needs filled in before D/C Order can be placed): Home, Self Care Charges/Coding Visit Charges Inpatient E&M: 88997 Disch Hosp >30min
--- NOTE | 2023-07-28 14:14 | PHA.DC.MR.R ---
Pharmacy MA Med Reconciliation Pharmacy Service has performed discharge medication reconciliation for this patient. The patient's discharge medication list was reviewed for discrepancies and discrepancies were resolved. Medications at Discharge Home Medications albuterol sulfate 90 mcg/actuation aerosol inhaler 2 puff inhalation Q4H PRN shortness of breath or wheezing 03/12/22 pantoprazole 40 mg tablet,delayed release 40 mg PO DAILY 03/12/22 vilazodone 20 mg tablet 20 mg PO DAILY 03/12/22 vibegron 75 mg tablet (Gemtesa) 75 mg PO DAILY 03/22/22 cholecalciferol (vitamin D3) 50 mcg (2,000 unit) capsule 100 mcg PO DAILY 03/23/22 aspirin 81 mg tablet,delayed release 81 mg PO DAILY 04/07/22 nitroglycerin 0.4 mg sublingual tablet 0.4 mg sublingual Q5M PRN Cardiac/Chest Pain #14 tabs 04/23/22 lisinopril 5 mg tablet 5 mg PO BID #180 tabs 10/01/22 clopidogrel 75 mg tablet 75 mg PO DAILY 03/17/23 cyanocobalamin (vitamin B-12) 1,000 mcg/mL injection solution 1,000 mcg IM QMONTH 06/06/23 meclizine 25 mg tablet 25 mg PO 4X/DAY PRN PRN Dizziness #30 tabs 06/06/23
--- NOTE | 2023-07-28 15:11 | CASEMGMT ---
Patient has order for discharge. RN CM in to discuss needs at discharge. Patient denies needs or help at discharge. Patient had no further questions or concerns.
== END 2023-07-28 13:38 | disposition home or self-care (01) ==
LOC: ED 18:17 → PCU 19:18
PROVIDERS: Admitting Provider Student in an Organized Health Care Education/Training Program; Emergency Provider Emergency Medicine; PCP Internal Medicine; Referring Provider Student in an Organized Health Care Education/Training Program; Visit Provider Internal Medicine
DX: I25.110 Atherosclerotic heart disease of native coronary artery with unstable angina pectoris (principal); I13.0 Hypertensive heart and chronic kidney disease with heart failure and stage 1 through stage 4 chronic kidney disease, or unspecified chronic kidney disease; I50.32 Chronic diastolic (congestive) heart failure; N18.30 Chronic kidney disease, stage 3 unspecified; E78.5 Hyperlipidemia, unspecified; Z79.82 Long term (current) use of aspirin; Z95.5 Presence of coronary angioplasty implant and graft; K21.9 Gastro-esophageal reflux disease without esophagitis; Z79.899 Other long term (current) drug therapy; Z79.02 Long term (current) use of antithrombotics/antiplatelets; G47.33 Obstructive sleep apnea (adult) (pediatric); E66.9 Obesity, unspecified; Z68.35 Body mass index [BMI] 35.0-35.9, adult; D63.8 Anemia in other chronic diseases classified elsewhere
CPT/HCPCS: 36415; 71045; 80048; 84484; 85025; 93005; 93306; 93454; 96372; 99152; 99153; 99221; 99285; J7040; Q9957; A4216; C1769; C1894; C8929; G0378; Q9967

== ENCOUNTER → 2023-08-04 | Outpatient (CLI) | payer MEDICARE, BC, SELFPAY ==
[2022-07-12 09:18] VITALS: BMI 34.2
--- NOTE | 2023-08-04 14:57 | CT_ITS ---
STUDY: CT CHEST WITHOUT CONTRAST REASON FOR EXAM: Female, 73 years old. Chest pain -- Chest pain RADIATION DOSAGE (If Supplied By Facility): CTDIvol = ( 17.21 ) mGy, DLP = ( 632.36 ) mGycm TECHNIQUE: Transaxial imaging was performed without the administration of intravenous contrast material. Individualized dose optimization techniques were used for this CT. COMPARISON: Comparison is made with prior chest radiograph dated July 27, 2023. FINDINGS: CHEST The lungs are normal. There is no demonstrated pleural abnormality. There are calcifications of the coronary arteries. There are small lymph nodes within the mediastinum, which are normal in size and morphology most compatible with reactive lymph hyperplasia. Normal hilar regions. Normal unenhanced pulmonary arteries. There is atherosclerotic calcification of the aortic arch. There are degenerative changes of the thoracic spine. There is a 2.1 cm cyst in the upper medial aspect of the left kidney. CT/Chest without Contrast IMPRESSION: No acute abnormality is seen. Electronically Signed: Toni Bishop MD at 15:19 EDT ,
== END | disposition home or self-care (01) ==
LOC: CT 14:52
PROVIDERS: PCP Internal Medicine; Referring Provider Internal Medicine; Visit Provider Internal Medicine
DX: R07.9 Chest pain, unspecified (principal)
CPT/HCPCS: 71250

== ENCOUNTER → 2023-08-11 | Outpatient (CLI) | payer MEDICARE, BC, SELFPAY ==
[2022-07-12 09:18] VITALS: BMI 34.2
--- NOTE | 2023-08-11 10:05 | BI_ITS ---
MAMMOGRAPHY - BILATERAL SCREENING REASON FOR EXAM: Female, 73 years old. Routine annual screening examination. PERTINENT HISTORY: Non-contributory. TECHNIQUE: Digital bilateral breast amina (3D mammographic acquisition) in the CC and MLO projections. 2-D mediolateral oblique (MLO) and craniocaudad (CC) views of both breasts were obtained. CAD: Full Field Digital Mammography with Computer Added Detection was performed. COMPARISON: Comparison is made with prior study dated May 28, 2022 and February 10, 2021. FINDINGS: Breast Composition: The breasts are almost entirely fatty. There are no dominant masses or suspicious calcifications. No other significant abnormalities are identified. There has been no significant change since the prior study. BI/SCRN MAMM (CAD)W/AMINA BILAT IMPRESSION: Stable bilateral screening mammogram. Yearly follow-up mammogram recommended. (A) ASSESSMENT CATEGORY: BIRADS Category 1: Negative. A letter regarding these results will be sent to the patient by the facility within 30 days. Approximately 10% of breast cancers are not detected by mammography. A normal mammogram should not delay biopsy of a clinically suspicious abnormality. [id number] Electronically Signed: Toni Bishop MD at 10:44 EDT ,
== END | disposition home or self-care (01) ==
LOC: OPBI 10:03
PROVIDERS: PCP Internal Medicine; Referring Provider Internal Medicine; Visit Provider Internal Medicine
DX: Z12.31 Encounter for screening mammogram for malignant neoplasm of breast (principal)
CPT/HCPCS: 77063; 77067

== ENCOUNTER → 2023-09-16 | Outpatient (CLI) | payer MEDICARE, BC, SELFPAY ==
[2022-07-12 09:18] VITALS: BMI 34.2
--- NOTE | 2023-09-16 09:18 | RAD_ITS ---
STUDY: X-RAY CHEST REASON FOR EXAM: Female, 73 years old. Bronchitis and bronchospasm. Evaluate for pneumonia. TECHNIQUE: Frontal and lateral views of the chest. COMPARISON: July 27, 2023 FINDINGS: The lungs are clear and expanded. There is no demonstrated pleural abnormality. Stable borderline cardiomegaly. Normal mediastinum and les. Normal visualized pulmonary arteries. Aortic tortuosity with calcification unchanged. Normal visualized thoracic spine. Normal visualized ribs, clavicles, and shoulders. No abnormality of the visualized soft tissue structures of the upper abdomen. RAD/Chest PA and Lateral IMPRESSION: Stable chest with no acute superimposed finding. Electronically Signed: Neto Lal MD at 11:12 EDT ,
== END | disposition home or self-care (01) ==
LOC: RAD 09:11
PROVIDERS: PCP Internal Medicine; Referring Provider Nurse Practitioner Family; Visit Provider Nurse Practitioner Family
DX: J20.9 Acute bronchitis, unspecified (principal)
CPT/HCPCS: 71046

== ENCOUNTER → 2023-12-13 | Outpatient (CLI) | payer MEDICARE, BC, SELFPAY ==
[2022-07-12 09:18] VITALS: BMI 34.2
--- NOTE | 2023-12-13 09:36 | CT_ITS ---
STUDY: CT ABDOMEN AND PELVIS WITH CONTRAST REASON FOR EXAM: Female, 73 years old. Rectocele, fistula? -- rectal contrast. Frequent UTIs. RADIATION DOSAGE (If Supplied By Facility): CTDIvol = ( 22.23 ) mGy, DLP = ( 1110.82 ) mGycm TECHNIQUE: Transaxial images were obtained from the dome of the diaphragm to the symphysis pubis without oral contrast. IV 100mL Isovue-300 was administered. Sagittal and coronal images were reconstructed. Individualized dose optimization techniques were used for this CT. COMPARISON: Comparison is made with prior study dated June 06, 2023. FINDINGS: The visualized lung bases are unremarkable. Coronary artery calcification. There is decreased attenuation of the liver consistent with steatosis. There are surgical clips in the gallbladder fossa consistent with a prior cholecystectomy. Normal spleen. Normal pancreas. Normal bilateral adrenal glands. Normal right kidney. Stable 2.6 cm x 2.5 cm cyst in the mid lateral aspect of the left kidney. Stable 2.2 summary a cyst in the medial aspect of the left kidney. There is a moderate-sized hiatal hernia. Normal small intestine. There are scattered colonic diverticula consistent with diverticulosis. Large amount of fecal material is seen in the colon. There is evidence of a cecal bascule. The appendix is visualized and appears normal. Normal abdominal aorta. Normal inferior vena cava. Normal retroperitoneum. Diffuse irregular bladder wall thickening with increased markings in the surrounding peritoneal fat. Cystitis should BE ruled out. Status post hysterectomy. Normal abdominal wall. There are degenerative changes of the visualized lumbar spine. CT/Abdomen/Pelvis WITH Contrast IMPRESSION: Diffuse irregular bladder wall thickening with increased markings in the surrounding peritoneal fat suggestive of a cystitis. Large amount of fecal material is seen in the colon. Findings suggestive of a cecal bascule. This is unchanged. Electronically Signed: Toni Bishop MD at 10:32 EDT ,
[2023-12-13 10:16] LABS: CREATININE FINGERSTICK < 1.0 mg/dL (0.55-1.02); EGFR FINGERSTICK > 60.0000 mL/min (>60)
== END | disposition home or self-care (01) ==
LOC: CT 09:34
PROVIDERS: PCP Internal Medicine
DX: Z01.812 Encounter for preprocedural laboratory examination (principal); N81.6 Rectocele
CPT/HCPCS: 74177; Q9967

== ENCOUNTER 2023-12-14 11:10 | Day surgery (SDC) | payer MEDICARE, BC, SELFPAY ==
[2022-07-12 09:18] VITALS: BMI 34.2
[2023-12-14] VITALS (9 sets, daily range): BP systolic 100–151; BP diastolic 51–99; PULSE 61–75; RESP 16–18; TEMP 36.3–36.7; O2SAT 92–97; BMI 35.4
--- NOTE | 2023-12-14 12:12 | PRE.ANES_ITS ---
ASA Classification* ASA Classification ASA Classification: 2 Assessment & Plan Anesthesia* Anesthesia Assessment Anesthesia Assessment: Discussed sedation and/or anesthesia options, risks, benefits, and alternatives with patient/parents/legal guardian/POA. Questions invited. The patient/parents/legal guardian/POA seems to understand and agrees to proceed with anesthesia plan. Reviewed the physical assessment, medical history, allergy history and patient home medications list prior to surgery/procedure/anesthetic and documented any changes. Performed airway and anesthesia risk assessments. Anesthesia Type Anesthesia Type: MAC History Source History Obtained from:: Patient and Chart Anesthesia Focused Assessment* Temperature: 98.0 F Pulse Rate: 61 Blood Pressure: 151/92 Respiratory Rate: 18 Pulse Ox: 95 Oxygen Delivery Method: Room Air Airway Assessment Mouth opens: >3 cm Mallampati Score: I Teeth Condition: Caps/Crowns (Tooth #9 is a crown. Tooth is tight.) and Missing (Missing right lower molar.) Neck Range of motion (ROM): Limited ROM Focused Labs Anesthesia Preop lab: CBC WBC 3.9 K/mm3 (4.4-11.0) L 07/28/23 06:05 RBC 4.05 M/mm3 (4.2-5.4) L 07/28/23 06:05 Hgb 11.3 g/dL (12.0-15.0) L 07/28/23 06:05 Hct 36.3 % (37-47) L 07/28/23 06:05 Plt Count 254 K/mm3 (150-450) 07/28/23 06:05 CHEMISTRY Potassium 4.4 mmol/L (3.5-5.1) 07/28/23 06:05 Sodium 138 mmol/L (136-145) 07/28/23 06:05 BUN 15 mg/dL (7-18) 07/28/23 06:05 Creatinine 0.83 mg/dL (0.55-1.02) 07/28/23 06:05 Glucose 103 mg/dL (74-106) 07/28/23 06:05 TSH 1.21 uIU/mL (0.358-3.74) 06/29/22 10:05 COAG PT 12.6 SECONDS (11.7-14.9) 04/14/22 12:00 Pre-Assessment Diagnosis/Proposed Procedure Planned Operative Procedure(s): EGD, CSCOPE Anesthesia History 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 When Was Last Pacemaker Check QUESTION #4 FULL TEXT: You/Your Family Experience fever (hyperthermia) with Anesthesia Last Oral Intake Last Oral intake: Last Oral Intake NPO since 09:30 12/14/23 11:39 Meds taken in AM with sips of No 12/14/23 11:39 water? 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 Female Yes 12/09/23 15:38 HX of Motion Sickness No 12/09/23 15:38 HX of N/V After Surgery No 12/09/23 15:38 Non-Smoker Yes 12/09/23 15:38 Duration of Surgery greater No 12/09/23 15:38 than 60 minutes Number of Risk Factors 2 12/09/23 15:38 PONV Score Moderate Risk 12/09/23 15:38 Height & Weight Height & Weight: Anesthesia: Height & Weight Height 5 ft 2 in 12/14/23 11:39 Weight: 88 kg 12/14/23 11:39 Body Mass Index (BMI) 35.4 12/14/23 11:39 Respiratory Assessment Respiratory Assessment - military science instructor: Respiratory Tract Infection Hx - military science instructor Hx Respiratory Tract Infection No 12/09/23 15:38 STOP Sleep Apnea STOP Sleep Apnea - military science instructor: STOP Sleep Apnea - military science instructor Hx Hypertension Yes: CONTROLLED WITH MED 12/09/23 15:38 Hx Sleep Apnea Yes 12/09/23 15:38 CPAP Yes 12/09/23 15:38 BIPAP No 12/09/23 15:38 Do you snore loudly (louder than talking or can be heard Do you often feel tired/ fatigued/ sleepy during daytime? Has anyone observed you stop breathing during sleep? STOP Results Positive 12/09/23 15:38 QUESTION #5 FULL TEXT : Do you snore loudly (louder than talking or can be heard through closed doors)? 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 Specify any problems Hx of Preganancy in last 3 N/A 12/09/23 15:38 Months Nurse Filling Out Transfusion NBUCHER 12/09/23 15:38 & Questions: Date: 12/09/23 12/09/23 15:38 Time: 15:39 12/09/23 15:38 Patient unable to answer at this time (ie. 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: /Reproductive Hx- military science instructor Hx Now No 12/09/23 15:38 Gestational Age (in weeks): EDC: Hx Hx Para Hx Section SAB No 12/09/23 15:38 PFSH Medical History (Updated 12/13/23 @ 08:35 by GONSALO Xiao) Wears glasses Depression Arthritis Easy bruising High cholesterol History of hiatal hernia CPAP (continuous positive airway pressure) dependence Sleep apnea History of edema History of Holter monitoring History of stress test History of echocardiogram Cardiology follow-up encounter Chest discomfort History of CAD (coronary artery disease) Dyspnea on exertion Dyslipidemia Angina pectoris Chest pain Decreased radial pulse Swelling of right wrist Claudication of both lower extremities Leg cramps CAD (coronary artery disease) Abnormal stress test Heart failure with preserved ejection fraction, NYHA class II Obesity AJAY (obstructive sleep apnea) Chavira palsy CKD (chronic kidney disease) stage 3, GFR 30-59 ml/min B12 deficiency Iron deficiency anemia Hyperlipidemia AJAY (obstructive sleep apnea) Diastolic dysfunction Pulmonary hypertension SVT (supraventricular tachycardia) Palpitations SOB (shortness of breath) Edema, leg Essential (primary) hypertension Eczema of both hands Anxiety Gastroparesis GERD (gastroesophageal reflux disease) Piriformis syndrome of left side IBS (irritable bowel syndrome) Depression Home Medications ?Medication ?Instructions ?Recorded ?Last Taken ?Type albuterol sulfate 90 mcg/actuation 2 puff inhalation Q4H PRN 03/12/22 Unknown History aerosol inhaler shortness of breath or wheezing vilazodone 20 mg tablet 20 mg PO DAILY 03/12/22 10/01/22 History cholecalciferol (vitamin D3) 50 100 mcg PO DAILY 03/23/22 Unknown History mcg (2,000 unit) capsule nitroglycerin 0.4 mg sublingual 0.4 mg sublingual Q5M PRN 04/23/22 Unknown Rx tablet Cardiac/Chest Pain #14 tabs cyanocobalamin (vitamin B-12) 1,000 mcg IM QMONTH 06/06/23 Unknown History 1,000 mcg/mL injection solution lisinopril 5 mg tablet 5 mg PO BID #180 tabs 10/10/23 Unknown Rx aspirin 81 mg tablet,delayed 81 mg PO DAILY 10/11/23 12/12/23 History release (Adult Aspirin Regimen) ascorbic acid (vitamin C) 500 mg 500 mg PO QDAY 11/24/23 Unknown History tablet rabeprazole 20 mg tablet,delayed 20 mg PO QDAY 11/24/23 Unknown History release (AcipHex) vibegron 75 mg tablet (Gemtesa) 75 mg PO QDAY 11/24/23 Unknown History Allergy/AdvReac Type Severity Reaction Status Date / Time Sulfa (Sulfonamide Allergy Intermediate Other Verified 12/14/23 11:38 Antibiotics) sulfamethoxazole (From Allergy Intermediate Itching Verified 12/14/23 11:38 Bactrim) trimethoprim (From Bactrim) Allergy Intermediate Itching Verified 12/14/23 11:38 codeine Allergy Unknown Other Verified 11/24/23 13:08 adhesive tape (tape) Allergy Rash Verified 12/14/23 11:38 Penicillins (PCN) Allergy Rash Verified 12/14/23 11:38 atorvastatin AdvReac Intermediate Myalgias Verified 12/14/23 11:38 Family History (Updated 11/24/23 @ 13:26 by Raven Donohue) Mother Hypertension Arthritis Respiratory disease Grandfather Cancer kidney, brain Father Parkinson's disease Arthritis Grandmother CVA (cerebral vascular accident) Myocardial infarction Brother CVA (cerebral vascular accident) Myocardial infarction Sister Seizures Surgical History (Updated 12/09/23 @ 15:45 by Corrine Fairchild) History of laminectomy History of arthroscopy of right knee Hx of heart artery stent Hx of cardiac cath History of coronary artery stent placement (~04/23/22) History of lumbar laminectomy H/O bilateral salpingo-oophorectomy H/O: hysterectomy Hx of tonsillectomy History of appendectomy History of cholecystectomy Social History (Reviewed 10/11/23 @ 10:16 by Kaitlyn Tolentino [employer] SERVICES MANAGER, [employer] FO[employer] SERVICES MANAGER-C) Smoking Status: Never smoker alcohol intake: never substance use type: does not use caffeine: Yes Type: coffee Number of servings: 1 Review of Systems (Anesthesia) ROS Narrative System reviewed and no additional complaints, except as documented.
--- NOTE | 2023-12-14 12:30 | COLBX_PTH ---
PATIENT: PARVIN DUENAS LOC: EN U#:[id number] AGE/SX: 73/F ROOM: RE12/14/[address]: Dr. Albaro Vidal DO : 1950 BED: DIS: 12/14/2023 SPEC #: [id number] RECD: 12/15/23 07:46 STATUS: ANTONIO REPonce #: [id number] ANDRES: 12/14/23 12:[address]: Albaro Vidal DEPT: SURGICAL PATHOLOGY RECD BY: Milli Silver ENTERED: 12/15/23 09:29 SP TYPE: COLON BX OTHR DR: Dr. Aubree Woody DO Tissues: A - Duodenum, NOS B - Esophagus, NOS C - SPLENIC FLEXURE Procedures: Special Stain Group I Surgery Specimen Level IV Alcian Blue/PAS (control) HEADER OPERATION: Colonoscopy, EGD with biopsies PRE-OP DIAGNOSIS: Gastroparesis TISSUE SUBMITTED: A- Duodenum biopsy, B- Distal esophagus biopsy, C- Splenic flexure polyp biopsy MICROSCOPIC DIAGNOSIS A. Duodenum, biopsy: No pathologic change. B. Distal esophagus, biopsy: Gastroesophageal junctional mucosa with mild chronic inflammation. No evidence of goblet cell metaplasia. See comment. C. Colonic polyp at splenic flexure, biopsy: Fragments of tubular adenoma. AM 12/16/2023 COMMENT B. Alcian blue/PAS stain with matched control supports the above diagnosis. MICROSCOPIC DESCRIPTION Slides are reviewed. GROSS DESCRIPTION A. Received in fixative is one container labeled with the patient's name and designated Duodenum biopsy. The specimen consists of two irregular fragments of light mckinney soft tissue that in aggregate measure 0.6 x 0.3 x 0.1 cm. The specimen is totally submitted in one cassette. B. Received in fixative is one container labeled with the patient's name and designated Distal esophagus biopsy. The specimen consists of one irregular fragment of light mckinney soft tissue that measures 0.3 x 0.2 x 0.1 cm. The specimen is totally submitted in one cassette. C. Received in fixative is one container labeled with the patient's name and designated Splenic flexure polyp. The specimen consists of two irregular fragments of light mckinney soft tissue that in aggregate measure 0.6 x 0.3 x 0.1 cm. The specimen is totally submitted in one cassette. 12/15/2023 TC:5 CPT:[id number]
--- NOTE | 2023-12-14 12:50 | HP.PCM_ITS ---
History and Physical Date of Admission: 12/14/23 PARVIN DUENAS, is a 73 F who presents to the office today for establishment with [facility] for complaints of chronic constipation. She reports daily incomplete BMs of small hard round balls or pencils. Denies seeing blood in stool or toilet water. Reports having to strain for what little stool does come out. No abdominal pain associated with BM. Reports abdominal and rectal pressure from stool presence. Reports daily nausea in AM, progressive early satiety, excessive gas, heartburn and abdominal bloating. Denies difficulty chewing and swallowing, denies any particular food worsening symptoms. She denies fever, chills. Reports frequent UTIs with E. coli bacteria and presence of rectocele. Was established with a different GI practice, but wishes to continue care here. Reports last EGD over 5 years ago, doesn't remember last colonoscopy. Last gastric emptying test estimated time of 130minutes. States that she was on Motegrity, but was afraid it would increase her depression as listed on its possible side effects, so she stopped it. ROS Const Constitutional: Positive for fatigue; No fever(s), frequent falls, headache(s), weakness or weight change Eyes Eyes: No change in vision ENT ENT: No abnormal hearing, headache(s) or difficulty swallowing Resp Respiratory: No cough Cardio Cardiology: No leg pain with exertion Gastro GI: Positive for abdominal pain, belching, bloating, change in bowel habits, change in stool character, constipation, heartburn, feeling full early and nausea/dyspepsia; No coffee ground emesis, diarrhea, difficulty swallowing, excessive flatus, Vomiting blood/hematemesis, Blood in stool, pain with swallowing or vomiting Genitourinary-Female: No difficulty urinating Musc Musculoskeletal: Positive for abnormal gait, joint pain, back pain, joint swelling, muscle cramps, numbness, stiffness, tingling, Arthritis and leg pain at night; No muscle weakness, sciatica, restless legs or leg pain with exertion Skin Skin: No dry skin, lesions, itchy eyes or rash Neuro Neurology: Positive for abnormal gait, numbness and tingling; No abnormal hearing, behavioral changes, unsteady gait/balance, weakness, frequent falls, headache(s), restless legs, tremor(s), Increased tone in limbs, paralysis or seizures Psych Psychiatric: No anxiety, No behavioral changes, Positive for depression, No paranoia, No Compulsive Behavior, No hyperactivity, No inattentiveness, No o bsessions/compulsions, No Temper Tantrums and No suicidal ideation Endo Endocrine: Positive for fatigue; No cold intolerance, heat intolerance or weight change Aller/Imm Allergy/Immunologic: No food intolerance or itchy eyes Gianni/Lymp Hematologic/Lymphatic: Positive for easy bruising; No easy bleeding Exam Const General: cooperative and comfortable Nutritional Appearance: obese Orientation: alert HENID Head: normal to inspection Ears: hearing grossly normal bilaterally Nose: external nose normal Face and sinus: normal facial exam and face symmetric Eyes General: appearance normal, both eyes and all related structures Sclera: sclerae normal Neck Neck: normal visual inspection and full ROM Neck mass: No Chest Chest palpation & inspection: normal inspection of the chest Resp Effort & Inspection: normal respiratory effort, able to speak in complete sentences and symmetric chest movement GI Inspection: normal to inspection Skin General: no rashes or lesions noted Neuro General: patient alert, patient awake and patient oriented x3 Cranial Nerves: CN's II-XI intact bilaterally Cognition: normal cognition Speech: speech normal Gait: normal gait Motor: muscle tone normal throughout Extrem General: full ROM Psych Appearance: well kempt Assessment and Plan Assessment and Plan (1) Gastroparesis: Status: Acute Plan: PARVIN DUENAS, is a 73 F who presents to the office today for establishment with [facility] for complaints of chronic constipation. Differential diagnoses include: chronic idiopathic constipation, pelvic floor dysfunction, gastroparesis, gastric outlet obstruction, GERD. * repeat GET * EGD for breakthrough heartburn, nausea * colonoscopy for rectocele, rectal pressure, tenesmus * reviewed OTC treatment regimen for bowel clearance and colon reset: dulcolax soft chew PO QHS x7days, Miralax 17gm PO BID * continue Aciphex for heartburn, OK to use famotidine OTC for breakthrough heartburn as needed * consider sitz marker study to evaluate pelvic floor after bowel reset(2) C hronic idiopathic constipation: Status: Chronic Orders: Orders Gastric Emptying Study Today K31.84 - Gastroparesis, K59.04 - Chronic idiopathic constipation I have examined the patient and the H&P has been reviewed. There are no clinical changes since date of exam.
--- NOTE | 2023-12-14 13:42 | PCM.POST.ANE ---
Anesthesia: Postop Eval I Current Vital Signs Temperature: 97.4 F Pulse Rate: 75 Blood Pressure: 131/99 Respiratory Rate: 18 Pulse Ox: 93 Assessment Airway patent: Yes Spontaneous unlabored respirations: Yes nausea: No Vomiting: No Anesthesia Complication: No Fluid Hydration Crystalloid volume administer (ml): 10 Total IV fluid infused: 10 Progress Note Anesthesia document: Postop Eval 1 completed: Yes
--- NOTE | 2023-12-14 13:44 | OP.EGD_ITS ---
Patient Name: Mary Jensen Procedure Date: 12/14/2023 12:49 PM Date of : 1950 Age: 73 Procedure: Upper GI endoscopy Indications: Abdominal pain in the right lower quadrant Providers: Albaro Vidal DO Medicines: Monitored Anesthesia Care Patient Profile: This is a 73 year old female. Refer to note in patient chart for documentation of history and physical. Patient has symptoms of acute right lower quadrant abdominal pain. Complications: No immediate complications. Procedure: Pre-Anesthesia Assessment: - Prior to the procedure, a History and Physical was performed, and patient medications and allergies were reviewed. The patient is competent. The risks and benefits of the procedure and the sedation options and risks were discussed with the patient. All questions were answered and informed consent was obtained. Patient identification and proposed procedure were verified by the physician in the pre-procedure area. Mental Status Examination: alert and oriented. Airway Examination: normal oropharyngeal airway and neck mobility. Respiratory Examination: clear to auscultation. CV Examination: normal. Prophylactic Antibiotics: The patient does not require prophylactic antibiotics. Prior Anticoagulants: The patient has taken no anticoagulant or antiplatelet agents. ASA Grade Assessment: II - A patient with mild systemic disease. After reviewing the risks and benefits, the patient was deemed in satisfactory condition to undergo the procedure. The anesthesia plan was to use monitored anesthesia care (MAC). Immediately prior to administration of medications, the patient was re-assessed for adequacy to receive sedatives. The heart rate, respiratory rate, oxygen saturations, blood pressure, adequacy of pulmonary ventilation, and response to care were monitored throughout the procedure. The physical status of the patient was re-assessed after the procedure. After obtaining informed consent, the endoscope was passed under direct vision. Throughout the procedure, the patient's blood pressure, pulse, and oxygen saturations were monitored continuously. The Colonoscope was introduced through the mouth, and advanced to the second part of duodenum. The upper GI endoscopy was accomplished without difficulty. The patient tolerated the procedure well. Scope In: 1:01:38 PM Scope Out: 1:07:21 PM Total Procedure Duration Time 0 hours 5 minutes 43 seconds Findings: The Z-line was irregular and was found 40 cm from the incisors. Biopsies were taken with a cold forceps for histology. Verification of patient identification for the specimen was done. Estimated blood loss was minimal. A medium-sized hiatal hernia was present. No other significant abnormalities were identified in a careful examination of the stomach. Patchy mildly erythematous mucosa without active bleeding and with no stigmata of bleeding was found in the duodenal bulb. Biopsies were taken with a cold forceps for histology. Verification of patient identification for the specimen was done. Estimated blood loss was minimal. Impression: - Z-line irregular, 40 cm from the incisors. Biopsied. - Medium-sized hiatal hernia. - Erythematous duodenopathy. Biopsied. Recommendation: - Discharge patient to home. - Resume previous diet. - Continue present medications. - Await pathology results. Procedure Code(s): --- Professional --- 97704, Esophagogastroduodenoscopy, flexible, transoral; with biopsy, single or multiple CPT copyright 2021 [employer]. All rights reserved. The codes documented in this report are preliminary and upon assembly adjuster review may be revised to meet current compliance requirements. Albaro Vidal DO 12/14/2023 1:43:51 PM This report has been signed electronically. Number of Addenda: 0 Note Initiated On: 12/14/2023 12:49 PM
--- NOTE | 2023-12-14 13:44 | OP.CCLET_ITS ---
12/14/2023 Aubree Woody [address] [place] [address] Re : Upper GI endoscopy procedure for Mary Mikey Dear Dr. Woody This procedure was performed on Thursday, December 14, 2023. My impressions and recommendations are as follows: Impressions : - Z-line irregular, 40 cm from the incisors. Biopsied. - Medium-sized hiatal hernia. - Erythematous duodenopathy. Biopsied. Recommendations : - Discharge patient to home. - Resume previous diet. - Continue present medications. - Await pathology results. My findings are described in the full procedure note, which is enclosed. If I can be of further assistance, please feel free to contact me at . Sincerely, Albaro Vidal, 12/14/2023 1:43:51 PM This report has been signed electronically.
--- NOTE | 2023-12-14 13:54 | OP.COLON_ITS ---
Patient Name: Mary Jensen Procedure Date: 12/14/2023 1:07 PM Date of : 1950 Age: 73 Procedure: Colonoscopy Indications: Abdominal pain in the right lower quadrant Providers: Albaro Vidal DO Patient Profile: This is a 73 year old female. Refer to note in patient chart for documentation of history and physical. Patient has symptoms of acute right lower quadrant abdominal pain. Last Colonoscopy: date unknown. Unable to locate last colonoscopy report. Complications: No immediate complications. Procedure: Pre-Anesthesia Assessment: - Prior to the procedure, a History and Physical was performed, and patient medications and allergies were reviewed. The patient is competent. The risks and benefits of the procedure and the sedation options and risks were discussed with the patient. All questions were answered and informed consent was obtained. Patient identification and proposed procedure were verified by the physician in the pre-procedure area. Mental Status Examination: alert and oriented. Airway Examination: normal oropharyngeal airway and neck mobility. Respiratory Examination: clear to auscultation. CV Examination: normal. Prophylactic Antibiotics: The patient does not require prophylactic antibiotics. Prior Anticoagulants: The patient has taken no anticoagulant or antiplatelet agents. ASA Grade Assessment: II - A patient with mild systemic disease. After reviewing the risks and benefits, the patient was deemed in satisfactory condition to undergo the procedure. The anesthesia plan was to use monitored anesthesia care (MAC). Immediately prior to administration of medications, the patient was re-assessed for adequacy to receive sedatives. The heart rate, respiratory rate, oxygen saturations, blood pressure, adequacy of pulmonary ventilation, and response to care were monitored throughout the procedure. The physical status of the patient was re-assessed after the procedure. After I obtained informed consent, the scope was passed under direct vision. Throughout the procedure, the patient's blood pressure, pulse, and oxygen saturations were monitored continuously. The Colonoscope was introduced through the anus and advanced to the cecum, identified by the appendiceal orifice, IC valve and transillumination. The colonoscopy was performed without difficulty. The patient tolerated the procedure well. The quality of the bowel preparation was adequate. The ileocecal valve, appendiceal orifice, and rectum were photographed. Scope In: 1:09:30 PM Scope Withdrawal Time 0 hours 19 minutes 13 seconds Scope Out: 1:35:25 PM Total Procedure Duration Time 0 hours 25 minutes 55 seconds Findings: The perianal and digital rectal examinations were normal. A 4 mm polyp was found in the splenic flexure. The polyp was sessile. The polyp was removed with a jumbo cold forceps. Resection and retrieval were complete. Verification of patient identification for the specimen was done. Estimated blood loss was minimal. A suspected volvulus with viable appearing mucosa was found in the cecum. Impression: - One 4 mm polyp at the splenic flexure, removed with a jumbo cold forceps. Resected and retrieved. - Suspected volvulus. Recommendation: - Discharge patient to home. - Full liquid diet. - Continue present medications. - Await pathology results. - Repeat colonoscopy in 5 years for surveillance. - Refer to a surgeon tomorrow. Procedure Code(s): --- Professional --- 20373, Colonoscopy, flexible; with biopsy, single or multiple CPT copyright 2021 [employer]. All rights reserved. The codes documented in this report are preliminary and upon ad operations specialist review may be revised to meet current compliance requirements. Albaro Vidal DO 12/14/2023 1:53:40 PM This report has been signed electronically. Number of Addenda: 0 Note Initiated On: 12/14/2023 1:07 PM
--- NOTE | 2023-12-14 13:54 | OP.CCLET_ITS ---
12/14/2023 Aubree Woody [address] [place] [address] Re : Colonoscopy procedure for Mary Mikey Dear Dr. Woody This procedure was performed on Thursday, December 14, 2023. My impressions and recommendations are as follows: Impressions : - One 4 mm polyp at the splenic flexure, removed with a jumbo cold forceps. Resected and retrieved. - Suspected volvulus. Recommendations : - Discharge patient to home. - Full liquid diet. - Continue present medications. - Await pathology results. - Repeat colonoscopy in 5 years for surveillance. - Refer to a surgeon tomorrow. My findings are described in the full procedure note, which is enclosed. If I can be of further assistance, please feel free to contact me at . Sincerely, Albaro Vidal, 12/14/2023 1:53:40 PM This report has been signed electronically.
--- NOTE | 2023-12-14 14:44 | SUR.PHASEII ---
Phone number provided for Dr. Herrera's office to call to schedule bowel surgery/ pre op. Patient to remain on full liquid diet. Questions answered. Dr. Vidal at bedside to speak with patient.
--- NOTE | 2023-12-14 15:13 | POSTOPAN2_ITS ---
Anesthesia Postop Eval I Sum Postop Eval Completion status Anesthesia document: Postop Eval 1 completed: Yes Anesthesia Postop Eval I Summary Anesthesia Postop Eval I Summary: Anesthesia Postop Eval I: Assessment Summary Airway patent Yes 12/14/23 13:42 [email or web address] Spontaneous unlabored Yes 12/14/23 13:42 [email or web address] respirations Mental status nausea No 12/14/23 13:42 [email or web address] Vomiting No 12/14/23 13:42 [email or web address] Anesthesia Postop Eval I: Fluid Summary Crystalloid volume administer 10 12/14/23 13:42 [email or web address] (ml) Colloids volume administered ( ml) Blood Product volume administered (ml) Total IV fluid infused 10 12/14/23 13:42 [email or web address] Anesthesia Postop Eval I: Summary Notes Anesthesia Complication No 12/14/23 13:42 [email or web address] Anesthesia Complication Comment: Post-operative progress note Anesthesia: Postop Eval II Evaluation Mental status: Awake and Calm Pain Level: 0 nausea: No Vomiting: No Complications Anesthesia Complication: No
--- NOTE | 2023-12-14 15:13 | PCM.POSTANE2 ---
Anesthesia Postop Eval I Sum Postop Eval Completion status Anesthesia document: Postop Eval 1 completed: Yes Anesthesia Postop Eval I Summary Anesthesia Postop Eval I Summary: Anesthesia Postop Eval I: Assessment Summary Airway patent Yes 12/14/23 13:42 [email or web address] Spontaneous unlabored Yes 12/14/23 13:42 BARN [email or web address] respirations Mental status nausea No 12/14/23 13:42 BARN [email or web address] Vomiting No 12/14/23 13:42 [email or web address] [email or web address] Anesthesia Postop Eval I: Fluid Summary Crystalloid volume administer 10 12/14/23 13:42 BARN [email or web address] (ml) Colloids volume administered ( ml) Blood Product volume administered (ml) Total IV fluid infused 10 12/14/23 13:42 BARN [email or web address] Anesthesia Postop Eval I: Summary Notes Anesthesia Complication No 12/14/23 13:42 BARN [email or web address] Anesthesia Complication Comment: Post-operative progress note Anesthesia: Postop Eval II Evaluation Mental status: Awake and Calm Pain Level: 0 nausea: No Vomiting: No Complications Anesthesia Complication: No
== END 2023-12-14 15:22 | disposition home or self-care (01) ==
LOC: EN 11:11 → AC 11:12
PROVIDERS: PCP Internal Medicine; Referring Provider Internal Medicine; Visit Provider Internal Medicine Gastroenterology
PROC: 0DJD8ZZ Inspection of Lower Intestinal Tract, Via Natural or Artificial Opening Endoscopic (ICD-10-PCS; CPT 45378; principal; 2023-12-14 12:25)
DX: K63.5 Polyp of colon (principal); I50.30 Unspecified diastolic (congestive) heart failure; I13.0 Hypertensive heart and chronic kidney disease with heart failure and stage 1 through stage 4 chronic kidney disease, or unspecified chronic kidney disease; N18.30 Chronic kidney disease, stage 3 unspecified; K44.9 Diaphragmatic hernia without obstruction or gangrene; K31.84 Gastroparesis; K59.04 Chronic idiopathic constipation; R10.31 Right lower quadrant pain; Z79.82 Long term (current) use of aspirin; Z79.899 Other long term (current) drug therapy; I25.10 Atherosclerotic heart disease of native coronary artery without angina pectoris; E78.00 Pure hypercholesterolemia, unspecified; Z95.5 Presence of coronary angioplasty implant and graft; K21.9 Gastro-esophageal reflux disease without esophagitis; Z90.49 Acquired absence of other specified parts of digestive tract
CPT/HCPCS: 45380; 43239; 88305; 88312; A4216; J2405

== ENCOUNTER 2023-12-15 13:12 | Emergency (ER) | payer MEDICARE, BC, SELFPAY ==
[2022-07-12 09:18] VITALS: BMI 34.2
[2023-12-15 13:13] VITALS: BP 128/66; PULSE 62; RESP 18; TEMP 36; O2SAT 99; BMI 36.0
--- NOTE | 2023-12-15 15:03 | CT_ITS ---
EXAM: CT ABDOMEN AND PELVIS WITHOUT INTRAVENOUS CONTRAST CLINICAL INDICATION: eval for obsturction surgeon requesting comparison to prior CT''s TECHNIQUE: Helically acquired images were obtained of the abdomen and pelvis without intravenous contrast. This CT exam was performed using one or more of the following dose reduction techniques: automated exposure control, adjustment of the mA and/or kV according to patient size, and/or use of iterative reconstruction technique. CONTRAST: Oral Gastrografin COMPARISON: 12/13/2023 FINDINGS: LOWER THORAX: There is a small hiatal hernia. Lung bases are clear. No cardiomegaly. No significant pericardial effusion. ABDOMEN: LIVER: Unremarkable. Homogeneous. GALLBLADDER AND BILE DUCTS: Unremarkable. No calcified gallstones. No gallbladder distention or wall edema. No intra- or extrahepatic biliary ductal dilation. PANCREAS: Unremarkable. No focal cystic mass. SPLEEN: Unremarkable. Normal size without focal cystic or solid mass. ADRENALS: Unremarkable. No nodules. KIDNEYS AND URETERS: There are low-density lesions on the left kidney compatible simple cysts. No follow-up imaging is necessary. No hydronephrosis. STOMACH AND BOWEL: Contrast seen throughout the small bowel and into the colon. There is no obstruction identified. No focal inflammatory change. PELVIS: APPENDIX: No evidence of acute appendicitis. BLADDER: There is again mild thickening and irregularity of the wall of the urinary bladder which may be due to cystitis. REPRODUCTIVE: The patient status post hysterectomy. ABDOMEN and PELVIS: INTRAPERITONEAL SPACE: Unremarkable. No ascites or other fluid collection. No free air. BONES/JOINTS: Unremarkable. No suspicious lytic or blastic abnormality. SOFT TISSUES: Unremarkable. No discrete abdominal or pelvic wall hernia. VASCULATURE: Unremarkable. Abdominal aorta is non-dilated. LYMPH NODES: Unremarkable. No enlarged lymph nodes. CT/Abdomen/Pel W ORAL Cont Only IMPRESSION: 1. Thickened wall of the urinary bladder which may be due to cystitis. 2. No other acute abnormalities are identified. There is no evidence of bowel obstruction. Electronically Signed: Jose Stauffer MD at 18:35 EDT ,
[2023-12-15 15:13] VITALS: BP 145/75; PULSE 54; RESP 17; O2SAT 93
[2023-12-15 15:20] LABS: Absolute Lymphocyte Count 1.73 X10^3/uL (0.83-4.51); Absolute Neutrophil Count 3.1 X10^3/uL (2.0-7.7); Basophil# 0.02 X10^3/uL; Basophil% 0.4 % (0-1); Eosinophil# 0.12 X10^3/uL; Eosinophils% 2.2 % (0-5); Hematocrit 37.6 % (37-47); Hemoglobin 11.7 g/dL (12.0-15.0); Lymphocyte # 1.73 X10^3/ul (0.83-4.51); Lymphocyte % 31.5 % (19-41); Mean Corp Hgb Conc 31.1 g/dL (32-36); Mean Corpuscular Hgb 28.4 pg (27.0-32.0); Mean Corpuscular Volume 91.3 fL (81-99); Mean Platelet Vol. 9.2 fl (6.2-12.0); Monocyte# 0.49 X10^3/uL; Monocyte% 8.9 % (0-10); NRBC Flagged by Analyzer 0 % (0-5); Neutrophil # 3.12 X10^3/uL (2.7-7.7); Neutrophil % 56.6 % (47-70); Platelet Count 246 K/mm3 (150-450); RBC Distribution Width CV 14.5 % (11.6-14.6); RBC Distribution Width SD 48.5 fl (35.1-43.9); Red Blood Count 4.12 M/mm3 (4.2-5.4); White Blood Count 5.5 K/mm3 (4.4-11.0)
[2023-12-15 15:36] LABS: ALB/GLOB Ratio 1.1 RATIO (0.9-2.4); AST(SGOT) 22 U/L (15-37); Alanine Aminotransfer ALT/SGPT 20 U/L (13-56); Albumin, Serum 3.8 g/dL (3.2-5.0); Alkaline Phosphatase 76 U/L (45-117); Anion Gap 6 (5-15); BUN 12 mg/dL (7-18); BUN/Creat Ratio 8.5 RATIO (10-20); Calcium,Total 9.8 mg/dL (8.5-10.1); Chloride 106 mmol/L (98-107); Creatinine, Serum 1.41 mg/dL (0.55-1.02); EST Glomerular Filtration Rate 39 mL/min (>60); Est Glom Filt Rate - Afr Amer 47 mL/min (>60); Estimated Creatinine Clearance 36.36 ml/min; Globulin 3.5 g/dL (2.2-4.2); Glucose 88 mg/dL (74-106); Lipase 41 U/L (13-75); Potassium 3.6 mmol/L (3.5-5.1); Protein, Total 7.3 g/dL (6.4-8.2); Sodium Level 138 mmol/L (136-145)
--- NOTE | 2023-12-15 16:29 | EX.ED.DYSGE1 ---
HPI <Dr. Jean-Paul Jang DO - Last Filed: 12/15/23 17:17> History of Present Illness Chief Complaint: Abd Pain Narrative Narrative: Patient is a 73-year-old female with past medical history of hypercholesteremia, AJAY on CPAP, dyslipidemia, CAD, CHF, CKD, IBS who presented to the emergency department chief complaint of abdominal pain. Patient states that on the eighth she had a CT that showed a concern for a bowel obstruction. States that she had a colonoscopy yesterday by Dr. Vidal and there was concern that there was a obstruction/volvulus. She states that she was given the option to be admitted versus go home and follow-up in the outpatient setting with the surgical team. She states that she has a daughter on a ventilator and need to go home and ultimately have care aligned for her. She states that she called the surgery office and they ultimately called her back and states that this is not an elective procedure that she should go to the emergency department for the evaluation management. Patient states that she is having abdominal pain but it is about the same that has been. [facility] <Dr. Jean-Paul Jang DO - Last Filed: 12/15/23 17:17> [facility] Medical History Wears glasses Depression Arthritis Easy bruising High cholesterol History of hiatal hernia CPAP (continuous positive airway pressure) dependence Sleep apnea History of edema History of Holter monitoring History of stress test History of echocardiogram Cardiology follow-up encounter Chest discomfort History of CAD (coronary artery disease) Dyspnea on exertion Dyslipidemia Angina pectoris Chest pain Decreased radial pulse Swelling of right wrist Claudication of both lower extremities Leg cramps CAD (coronary artery disease) Abnormal stress test Heart failure with preserved ejection fraction, NYHA class II Obesity AJAY (obstructive sleep apnea) Chavira palsy CKD (chronic kidney disease) stage 3, GFR 30-59 ml/min B12 deficiency Iron deficiency anemia Hyperlipidemia AJAY (obstructive sleep apnea) Diastolic dysfunction Pulmonary hypertension SVT (supraventricular tachycardia) Palpitations SOB (shortness of breath) Edema, leg Essential (primary) hypertension Eczema of both hands Anxiety Gastroparesis GERD (gastroesophageal reflux disease) Piriformis syndrome of left side IBS (irritable bowel syndrome) Depression Home Medications ?Medication ?Instructions ?Recorded ?Last Taken ?Type albuterol sulfate 90 mcg/actuation 2 puff inhalation Q4H PRN 03/12/22 Unknown History aerosol inhaler shortness of breath or wheezing vilazodone 20 mg tablet 20 mg PO DAILY 03/12/22 10/01/22 History cholecalciferol (vitamin D3) 50 100 mcg PO DAILY 03/23/22 Unknown History mcg (2,000 unit) capsule nitroglycerin 0.4 mg sublingual 0.4 mg sublingual Q5M PRN 04/23/22 Unknown Rx tablet Cardiac/Chest Pain #14 tabs cyanocobalamin (vitamin B-12) 1,000 mcg IM QMONTH 06/06/23 Unknown History 1,000 mcg/mL injection solution lisinopril 5 mg tablet 5 mg PO BID #180 tabs 10/10/23 Unknown Rx aspirin 81 mg tablet,delayed 81 mg PO DAILY 10/11/23 12/12/23 History release (Adult Aspirin Regimen) ascorbic acid (vitamin C) 500 mg 500 mg PO QDAY 11/24/23 Unknown History tablet rabeprazole 20 mg tablet,delayed 20 mg PO QDAY 11/24/23 Unknown History release (AcipHex) vibegron 75 mg tablet (Gemtesa) 75 mg PO QDAY 11/24/23 Unknown History nitrofurantoin 100 mg PO Q12 #10 CAPSULES 12/15/23 Unknown Rx monohydrate/macrocrystals 100 mg capsule Allergy/AdvReac Type Severity Reaction Status Date / Time Sulfa (Sulfonamide Allergy Intermediate Other Verified 12/15/23 13:18 Antibiotics) sulfamethoxazole (From Allergy Intermediate Itching Verified 12/15/23 13:18 Bactrim) trimethoprim (From Bactrim) Allergy Intermediate Itching Verified 12/15/23 13:18 codeine Allergy Unknown Other Verified 12/15/23 13:18 adhesive tape (tape) Allergy Rash Verified 12/15/23 13:18 Penicillins (PCN) Allergy Rash Verified 12/15/23 13:18 atorvastatin AdvReac Intermediate Myalgias Verified 12/15/23 13:18 Family History Mother Hypertension Arthritis Respiratory disease Grandfather Cancer kidney, brain Father Parkinson's disease Arthritis Grandmother CVA (cerebral vascular accident) Myocardial infarction Brother CVA (cerebral vascular accident) Myocardial infarction Sister Seizures Surgical History History of laminectomy History of arthroscopy of right knee Hx of heart artery stent Hx of cardiac cath History of coronary artery stent placement (~04/23/22) History of lumbar laminectomy H/O bilateral salpingo-oophorectomy H/O: hysterectomy Hx of tonsillectomy History of appendectomy History of cholecystectomy Social History Smoking Status: Never smoker alcohol intake: never substance use type: does not use caffeine: Yes Type: coffee Number of servings: 1 ROS <Dr. Jean-Paul Jang, DO - Last Filed: 12/15/23 17:17> ROS ED ROS Narrative Constitutional: Denies any fevers, chills, headaches, lightness, dizziness Eyes: Denies change in vision double vision blurry vision Cardiovascular: Denies chest pain or palpitations Respiratory: Denies coughing wheezing shortness of breath Abdomen: Complains of abdominal discomfort and concern for volvulus as noted above : Denies rashes or lesions Neurological: Denies numbness, weakness, tingling Musculoskeletal: Denies back pain Skin: Denies rashes or lesions EXAM <Dr. Jean-Paul Jang, - Last Filed: 12/15/23 17:17> Physical Exam Narrative Exam Narrative: General: Patient lying in bed rest comfortably did not appear to be in acute distress Head: Atraumatic, normocephalic Eyes: PERRL bilaterally, EOMI bilateral, no conjunctival injection noted Neck: Soft, supple, trachea midline Cardiovascular: Regular rate and rhythm no murmurs gallops rubs noted Respiratory: Clear to auscultation bilaterally no rales rhonchi or wheezes noted Abdomen: Soft, nondistended, mild tenderness palpation diffusely throughout her abdomen no rebound or guarding on exam Extremities: +5/5 strength noted in the bilateral upper and lower extremities, no pedal edema no exam Neurological: Patient following commands knew that she was at [facility] years 2023 Skin: Warm, dry, intact Const Vital Signs: 12/15/23 13:13 12/15/23 15:13 12/15/23 17:00 Temperature 96.8 F L Temperature Source Temporal Pulse Rate 62 54 L 69 Respiratory Rate 18 17 18 Blood Pressure 128/66 H 145/75 H 135/60 H Blood Pressure Mean 86 98 85 Pulse Ox 99 93 96 Oxygen Delivery Method Room Air Room Air Room Air <Dr. Cirilo Ortez MD - Last Filed: 12/15/23 18:55> Physical Exam Const Vital Signs: 12/15/23 13:13 12/15/23 15:13 12/15/23 17:00 Temperature 96.8 F L Temperature Source Temporal Pulse Rate 62 54 L 69 Respiratory Rate 18 17 18 Blood Pressure 128/66 H 145/75 H 135/60 H Blood Pressure Mean 86 98 85 Pulse Ox 99 93 96 Oxygen Delivery Method Room Air Room Air Room Air MDM <Dr. Jean-Paul Jang DO - Last Filed: 12/15/23 17:17> [facility] Narrative Medical decision making narrative: Patient is a 73-year-old female who presents to the emergency department chief complaint of abdominal pain, abnormal scope/CT. Patient will have workup performed here on the differential diagnose includes but limited to bowel obstruction, normal variant, viral gastroenteritis. Once workup is obtained reviewed she will be reevaluated. I did review Dr. Vidal's operative notes which showed a one 4 mm polyp at the splenic flexure that he removed with jumbo cold forceps. He had suspected a volvulus. Patient's CT abdomen pelvis with IV contrast from 12/13/2023 was reviewed and showed diffuse irregular bladder wall thickening with increased markings in the surrounding peritoneal fat suggestive of cystitis. Large amount of fecal material seen in the colon findings suggestive of a cecal bascule this is unchanged. I called and discussed with Dr. Vidal the case and he states that when he was scoping her he felt that she had a volvulus and decompress this and he advised her that she likely should be admitted to the hospital however once again she like to go home and he advised her to follow-up in the outpatient setting. Dr. Paris called and we had further discussion of the case and she does not feel that this is a volvulus she states that this has been on her previous CAT scans and is stable in appearance. She is recommending getting a CT with oral contrast and reevaluation. Patient CBC reviewed and showed no evidence leukocytosis white blood count normal at 5.5, hemoglobin is 11.7, platelet count normal at 246. Patient sodium normal 138, potassium normal 3.6, creatinine was 1.41. Patient's AST and ALT were 22 and 20 respectively. Patient's lipase normal at 41. Patient CT with oral contrast still pending this case will be signed out to Dr. Ortez to follow-up on this and discussed with general surgery. Lab Data Labs: Laboratory Results - last 24 hr 12/15/23 12/15/23 15:10 17:23 WBC 5.5 RBC 4.12 L Hgb 11.7 L Hct 37.6 MCV 91.3 MCH 28.4 MCHC 31.1 L RDW Std Deviation 48.5 H RDW Coeff of Nuno 14.5 Plt Count 246 MPV 9.2 Immature Gran % (Auto) 0.400 Neut % (Auto) 56.6 Lymph % (Auto) 31.5 [place] % (Auto) 8.9 Eos % (Auto) 2.2 Baso % (Auto) 0.4 Absolute Neuts (auto) 3.1 Absolute Lymphs (auto) 1.73 Nucleated RBC % 0 Sodium 138 Potassium 3.6 Chloride 106 Carbon Dioxide 27.0 Anion Gap 6 BUN 12 Creatinine 1.41 H Estim Creat Clear Calc 36.36 Est GFR (MDRD) Af Amer 47 L Est GFR (MDRD) Non-Af 39 L BUN/Creatinine Ratio 8.5 L Glucose 88 Calcium 9.8 Total Bilirubin 0.70 AST 22 ALT 20 Alkaline Phosphatase 76 Total Protein 7.3 Albumin 3.8 Globulin 3.5 Albumin/Globulin Ratio 1.1 Lipase 41 Urine Color Yellow Urine Clarity Cloudy Urine pH 6.5 Ur Specific [place] 1.005 Urine Protein 30 H Urine Glucose (UA) Normal Urine Ketones Negative Urine Occult Blood 25 H Urine Nitrite Positive H Urine Bilirubin Negative Urine Urobilinogen 1 H Ur Leukocyte Esterase 500 H Urine RBC 0-5 SEEN Urine WBC 25-50 SEEN Ur Squamous Epith Cells 0-5 SEEN Urine Bacteria 1+ WBC Casts 0-5 SEEN Urine Mucus RARE Radiography Diagnostic Testing: Clinical Impression(s) from Imaging Studies Abdomen CT 12/15/23 15:03 IMPRESSION: 1. Thickened wall of the urinary bladder which may be due to cystitis. 2. No other acute abnormalities are identified. There is no evidence of bowel obstruction. Electronically Signed: Jose Stauffer MD at 18:35 EDT , <Dr. Cirilo Ortez MD - Last Filed: 12/15/23 18:55> [facility] Lab Data Labs: Laboratory Results - last 24 hr 12/15/23 12/15/23 15:10 17:23 WBC 5.5 RBC 4.12 L Hgb 11.7 L Hct 37.6 MCV 91.3 MCH 28.4 MCHC 31.1 L RDW Std Deviation 48.5 H RDW Coeff of Nuno 14.5 Plt Count 246 MPV 9.2 Immature Gran % (Auto) 0.400 Neut % (Auto) 56.6 Lymph % (Auto) 31.5 [place] % (Auto) 8.9 Eos % (Auto) 2.2 Baso % (Auto) 0.4 Absolute Neuts (auto) 3.1 Absolute Lymphs (auto) 1.73 Nucleated RBC % 0 Sodium 138 Potassium 3.6 Chloride 106 Carbon Dioxide 27.0 Anion Gap 6 BUN 12 Creatinine 1.41 H Estim Creat Clear Calc 36.36 Est GFR (MDRD) Af Amer 47 L Est GFR (MDRD) Non-Af 39 L BUN/Creatinine Ratio 8.5 L Glucose 88 Calcium 9.8 Total Bilirubin 0.70 AST 22 ALT 20 Alkaline Phosphatase 76 Total Protein 7.3 Albumin 3.8 Globulin 3.5 Albumin/Globulin Ratio 1.1 Lipase 41 Urine Color Yellow Urine Clarity Cloudy Urine pH 6.5 Ur Specific [place] 1.005 Urine Protein 30 H Urine Glucose (UA) Normal Urine Ketones Negative Urine Occult Blood 25 H Urine Nitrite Positive H Urine Bilirubin Negative Urine Urobilinogen 1 H Ur Leukocyte Esterase 500 H Urine RBC 0-5 SEEN Urine WBC 25-50 SEEN Ur Squamous Epith Cells 0-5 SEEN Urine Bacteria 1+ WBC Casts 0-5 SEEN Urine Mucus RARE Urine is consistent with infection. Of note patient has thickening urinary bladder consistent with cystitis. Will treat with antibiotics. Patient has allergy to sulfa and penicillin. Therefore will treat with Macrobid. Radiography Diagnostic Testing: Clinical Impression(s) from Imaging Studies Abdomen CT 12/15/23 15:03 IMPRESSION: 1. Thickened wall of the urinary bladder which may be due to cystitis. 2. No other acute abnormalities are identified. There is no evidence of bowel obstruction. Electronically Signed: Jose Stauffer MD at 18:35 EDT , Treatment and Re-Evaluation :: Patient had questions why she has nobody at the time. She was informed that there was disagreement on radiology interpretation. At this point there is no evidence of obvious obstruction. Patient does have evidence of UTI. She was placed on Macrobid. She received her first dose here. Discharge Plan Triage Chief Complaint: Abd Pain ED Provider: Jean-Paul Jang Dx/Rx/DC Orders Clinical Impression: Abdominal pain of unknown cause, Essential (primary) hypertension, Pulmonary hypertension, Acute cystitis Instructions: ED Abdominal Pain Unkn Cause Fem, ED Constipation (Adult), ED Cystitis Female Adult Prescriptions: New nitrofurantoin monohyd/m-cryst 100 mg capsule 100 mg PO Q12 Qty: 10 0RF No Action albuterol sulfate 90 mcg/actuation HFA aerosol inhaler 2 puff inhalation Q4H PRN (Reason: shortness of breath or wheezing) vilazodone 20 mg tablet 20 mg PO DAILY cholecalciferol (vitamin D3) 50 mcg (2,000 unit) capsule 100 mcg PO DAILY aspirin [Adult Aspirin Regimen] 81 mg tablet,delayed release (DR/EC) 81 mg PO DAILY ascorbic acid (vitamin C) 500 mg tablet 500 mg PO QDAY Gemtesa 75 mg tablet 75 mg PO QDAY rabeprazole [AcipHex] 20 mg tablet,delayed release (DR/EC) 20 mg PO QDAY nitroglycerin 0.4 mg Tablet, Sublingual 0.4 mg sublingual Q5M PRN (Reason: Cardiac/Chest Pain) Qty: 14 3RF cyanocobalamin (vitamin B-12) 1,000 mcg/mL solution 1,000 mcg IM QMONTH lisinopril 5 mg tablet 5 mg PO BID Qty: 180 3RF Primary Care Provider: Aubree Woody Referrals: Aubree Woody DO [Primary Care Provider] - 1 Week Albaro Vidal DO [Med Staff - Active Staff] - 1 Week Activity Restrictions/Additional Instructions: Increase your MiraLAX to 1 capful 3 times a day for the next week. Take antibiotic until gone. Print Language: Mongolian Disposition Disposition: Home, Self Care
[2023-12-15 17:00] VITALS: BP 135/60; PULSE 69; RESP 18; O2SAT 96
[2023-12-15 17:31] LABS: Color, Urine Yellow (Yellow); Glucose, Dipstick Normal (Normal); Ketone-Dipstick Negative (Negative); Leukocyte Esterase-Dipstick 500 /ul (Negative); Nitrite-Dipstick Positive (Negative); Occult Blood-Urine 25 /ul (Negative); Protein-Dipstick 30 mg/dl (Negative); Specific Gravity, Urine 1.005 (1.002-1.030); Urine Bilirubin Dipstick Negative (Negative); Urine Clarity Cloudy (Clear); Urine Urobilinogen 1 mg/dl (Normal); Urine pH 6.5 (5.0 - 8.0)
[2023-12-15 17:40] LABS: Bacteria 1+ /hpf (None Seen); Red Blood Cells-Urine 0-5 SEEN /hpf (0-5); Squamous Epithelial Cells - UA 0-5 SEEN /hpf (5-10); White Blood Cells 25-50 SEEN /hpf (0-5)
[2023-12-15 17:41] LABS: Mucous, Urine RARE /hpf (<or=2+); White Cell Cast 0-5 SEEN /lpf (None Seen)
[2023-12-15] MEDS: Nitrofurantoin Macrocrystals 100 MG Capsule PO (18:59)
[2023-12-15 19:00] VITALS: BP 160/51; PULSE 74; RESP 20; TEMP 36.6; O2SAT 99
== END 2023-12-15 19:13 | disposition home or self-care (01) ==
PROVIDERS: Emergency Provider Emergency Medicine; PCP Internal Medicine; Visit Provider Emergency Medicine
DX: R10.9 Unspecified abdominal pain (principal); I13.0 Hypertensive heart and chronic kidney disease with heart failure and stage 1 through stage 4 chronic kidney disease, or unspecified chronic kidney disease; I50.9 Heart failure, unspecified; I27.20 Pulmonary hypertension, unspecified; E78.00 Pure hypercholesterolemia, unspecified; I25.10 Atherosclerotic heart disease of native coronary artery without angina pectoris; N30.90 Cystitis, unspecified without hematuria
CPT/HCPCS: 74176; 80053; 81001; 83690; 85025; 99283; A4216

== ENCOUNTER → 2023-12-30 | Outpatient (CLI) | payer MEDICARE, BC, SELFPAY ==
[2022-07-12 09:18] VITALS: BMI 34.2
--- NOTE | 2023-12-30 10:11 | NM_ITS ---
INDICATION: early satiety, chronic indigestion, cecal bascule EXAMINATION: NUCLEAR MEDICINE GASTRIC EMPTYING - NM Gastric Emptying Study (solid, liquid or both) TECHNIQUE: Radiopharmaceutical (solid portion of the exam): 1 mCi of Tc99m Sulfur Colloid mixed with oat meal. Oral administration. COMPARISON: CT Abdomen/PelvisOct 2023 6:01pm FINDINGS: Gastric emptying time with solids: T1/2 is 50 minutes, within normal limits. NM/Gastric Emptying Study IMPRESSION: Normal gastric emptying time with solids. Electronically Signed: Collette Guzman MD at 8:21 EDT ,
== END | disposition home or self-care (01) ==
LOC: NM 10:11
PROVIDERS: PCP Internal Medicine
DX: K31.84 Gastroparesis (principal); K59.04 Chronic idiopathic constipation
CPT/HCPCS: 78264; A9541

== ENCOUNTER → 2024-01-09 | Outpatient (CLI) | payer MEDICARE, BC, SELFPAY ==
[2022-07-12 09:18] VITALS: BMI 34.2
--- NOTE | 2024-01-09 10:57 | RAD_ITS ---
STUDY: X-RAY - ABDOMEN/PELVIS REASON FOR EXAM: Female, 73 years old. volvulus TECHNIQUE: AP supine and upright views of the abdomen and pelvis. COMPARISON: None. FINDINGS: Status post cholecystectomy. There is an unremarkable bowel gas pattern. There is no demonstrated free abdominal air. The visualized liver, spleen and kidneys are grossly normal in size and morphology. Normal soft tissue structures. Normal visualized osseous structures. RAD/Abd Inc Decub and/or Erect IMPRESSION: Normal x-ray examination of the abdomen and pelvis. Electronically Signed: Flash Maloney MD at 8:31 EST ,
== END | disposition home or self-care (01) ==
LOC: RAD 10:45
PROVIDERS: PCP Internal Medicine
DX: K59.04 Chronic idiopathic constipation (principal)
CPT/HCPCS: 74019

== ENCOUNTER 2024-01-30 09:28 | Inpatient (IN) | payer MEDICARE, BC, SELFPAY ==
[2022-07-12 09:18] VITALS: BMI 34.2
[2024-01-30] VITALS (25 sets, daily range): BP systolic 77–146; BP diastolic 43–72; PULSE 58–83; RESP 13–18; TEMP 36.1–36.6; O2SAT 87–99; BMI 35.5; BMI 36.3
[2024-01-30 06:39] LABS: Magnesium 1.9 mg/dL (1.6-2.6)
[2024-01-30] MEDS: Acetaminophen 500 MG Tablet 1000 MG PO ×4 (06:40→22:07)
[2024-01-30] MEDS: Gabapentin 600 MG Tablet PO (06:40)
[2024-01-30] MEDS: Lactated Ringers 1,000 ML 40 ML IV ×2 (06:40→09:30)
[2024-01-30] MEDS: Magnesium 2 GM for ERAS IV (07:24)
[2024-01-30] MEDS: Clindamycin 900 MG/50 ML BAG 75 MG IV (07:45)
[2024-01-30] MEDS: 0.9% Normal Saline (Pres. free 10 ML Vial (08:13)
[2024-01-30] MEDS: BUPIVACAINE LIPOSOME/PF 20 ML VIAL OPERA.SITE (08:13)
[2024-01-30 08:33] LABS: Bedside Glucose 110 mg/dL (74-106)
[2024-01-30] MEDS: Vibegron 75 MG TABLET PO (14:10)
[2024-01-30] MEDS: Pantoprazole Sodium 40 MG Tablet PO (22:08)
[2024-01-30] MEDS: Docusate Sodium 100 MG Capsule PO (22:08)
[2024-01-30] MEDS: Lisinopril 5 MG Tablet PO (22:08)
[2024-01-31 01:36] VITALS: BP 134/60; PULSE 54; RESP 18; TEMP 36.7; O2SAT 98; BMI 36.3
[2024-01-31 05:47] VITALS: BP 125/53; PULSE 55; RESP 18; TEMP 36.6; O2SAT 97; BMI 36.3
[2024-01-31] MEDS: Acetaminophen 500 MG Tablet 1000 MG PO ×3 (05:51→19:04)
[2024-01-31 06:59] LABS: Hemoglobin 10.7 g/dL (12.0-15.0); Mean Corp Hgb Conc 31.5 g/dL (32-36); Mean Corpuscular Hgb 28.2 pg (27.0-32.0); Mean Corpuscular Volume 89.7 fL (81-99); Platelet Count 240 K/mm3 (150-450); RBC Distribution Width CV 14.3 % (11.6-14.6); RBC Distribution Width SD 46.5 fl (35.1-43.9); Red Blood Count 3.79 M/mm3 (4.2-5.4); White Blood Count 7.6 K/mm3 (4.4-11.0)
[2024-01-31 07:30] LABS: Anion Gap 5 (5-15); BUN 14 mg/dL (7-18); BUN/Creat Ratio 14.4 RATIO (10-20); Calcium,Total 9.2 mg/dL (8.5-10.1); Chloride 106 mmol/L (98-107); Creatinine, Serum 0.97 mg/dL (0.55-1.02); EST Glomerular Filtration Rate 60 mL/min (>60); Est Glom Filt Rate - Afr Amer 72 mL/min (>60); Glucose 111 mg/dL (74-106); Potassium 4.5 mmol/L (3.5-5.1); Sodium Level 137 mmol/L (136-145)
[2024-01-31 09:24] VITALS: BP 135/55; PULSE 54; RESP 16; TEMP 36.4; O2SAT 100
[2024-01-31 09:26] VITALS: BMI 36.3
[2024-01-31] MEDS: VILAZODONE HYDROCHLORIDE 10 MG TABLET 20 MG PO (09:29)
[2024-01-31] MEDS: Docusate Sodium 100 MG Capsule PO (09:29)
[2024-01-31] MEDS: Lisinopril 5 MG Tablet PO ×2 (09:29→21:01)
[2024-01-31] MEDS: Vibegron 75 MG TABLET PO (09:29)
[2024-01-31] MEDS: Pantoprazole Sodium 40 MG Tablet PO ×2 (09:29→21:01)
[2024-01-31 14:11] VITALS: BMI 36.3
[2024-01-31 14:20] VITALS: BP 122/50; PULSE 55; RESP 16; TEMP 37.2; O2SAT 98
[2024-01-31] MEDS: Ibuprofen 600 MG Tablet PO ×2 (14:27→21:00)
[2024-01-31 17:36] VITALS: BP 118/52; PULSE 56; RESP 18; TEMP 37; O2SAT 97; BMI 36.3
[2024-01-31 20:59] VITALS: BP 137/47; PULSE 57; RESP 18; TEMP 36.6; O2SAT 96
[2024-01-31] MEDS: 0.9% Saline Lock 10 ML Syringe IV (21:00)
[2024-02-01] MEDS: Acetaminophen 500 MG Tablet 1000 MG PO ×2 (00:13→05:53)
[2024-02-01 03:10] VITALS: BP 137/59; PULSE 59; RESP 16; TEMP 36.7; O2SAT 97
[2024-02-01 08:25] VITALS: BP 146/62; PULSE 52; RESP 16; TEMP 36.6; O2SAT 100
[2024-02-01] MEDS: Lisinopril 5 MG Tablet PO (09:27)
[2024-02-01] MEDS: Pantoprazole Sodium 40 MG Tablet PO (09:27)
[2024-02-01] MEDS: VILAZODONE HYDROCHLORIDE 10 MG TABLET 20 MG PO (09:27)
[2024-02-01] MEDS: Vibegron 75 MG TABLET PO (09:27)
[2024-02-01] MEDS: Ibuprofen 600 MG Tablet PO (09:33)
== END 2024-02-01 11:24 | disposition home or self-care (01) | DRG 330 ==
PROVIDERS: Anesthesiology; Admitting Provider Surgery; PCP Internal Medicine; Referring Provider Surgery; Visit Provider Surgery
PROC: 0DTH4ZZ Resection of Cecum, Percutaneous Endoscopic Approach (ICD-10-PCS; CPT 44205; principal; 2024-01-30 07:10)
DX: K56.2 Volvulus (principal); Q43.8 Other specified congenital malformations of intestine; I13.0 Hypertensive heart and chronic kidney disease with heart failure and stage 1 through stage 4 chronic kidney disease, or unspecified chronic kidney disease; I50.32 Chronic diastolic (congestive) heart failure; N18.30 Chronic kidney disease, stage 3 unspecified; F32.A Depression, unspecified; E78.5 Hyperlipidemia, unspecified; I25.10 Atherosclerotic heart disease of native coronary artery without angina pectoris; K21.9 Gastro-esophageal reflux disease without esophagitis; Z95.5 Presence of coronary angioplasty implant and graft; Z90.710 Acquired absence of both cervix and uterus; Z79.82 Long term (current) use of aspirin
CPT/HCPCS: 36415; 80048; 82962; 83735; 85027; 88309; 93005; 94668; 94762; J7120; A4216; C1760; J2405; J3490

== ENCOUNTER 2024-02-01 17:54 | Emergency (ER) | payer MEDICARE, BC, SELFPAY ==
[2022-07-12 09:18] VITALS: BMI 34.2
[2024-02-01 17:54] VITALS: BP 168/100; PULSE 76; RESP 16; TEMP 36.4; O2SAT 97; BMI 35.9
[2024-02-01 17:59] VITALS: BP 168/100; PULSE 76; RESP 16; TEMP 36.4; O2SAT 97
--- NOTE | 2024-02-01 18:13 | CT_ITS ---
STUDY: CT ABDOMEN AND PELVIS WITH CONTRAST REASON FOR EXAM: Female, 73 years old. post op pain -- right hemicolectomy day 2 RADIATION DOSAGE (If Supplied By Facility): CTDIvol = ( 16.5 ) mGy, DLP = ( 1141.48 ) mGycm TECHNIQUE: Transaxial images were obtained from the dome of the diaphragm to the symphysis pubis without oral contrast. IV 100mL Isovue-370 was administered. Sagittal and coronal images were reconstructed. Individualized dose optimization techniques were used for this CT. COMPARISON: None. FINDINGS: The visualized lung bases are unremarkable. The visualized portions of the heart are within normal limits. Nonspecific fatty infiltrated liver without mass or bile duct dilatation. Gallbladder has been removed surgically. Normal spleen. Normal pancreas. Normal bilateral adrenal glands. There is a tiny simple cyst in the right kidney and 3 larger cyst in the left which will not require additional imaging Normal visualized stomach. Normal small intestine. Postop change status post resection of the right colon. There is diffusely distended residual distal fluid-filled colon consistent with nonspecific ileus possibly due to inflammatory bowel. Mild atherosclerotic change of the aorta without evidence for aneurysm. Normal inferior vena cava. Normal retroperitoneum. . Uterus not visualized consistent with hysterectomy. Nonspecific diffusely distended bladder. Normal abdominal wall. Lumbar spine demonstrates mild degenerative change. Interosseous hemangioma within the T12 vertebral body CT/Abdomen/Pelvis W IV Cont ONLY IMPRESSION: Postsurgical changes status post cholecystectomy and hysterectomy and partial resection of the right colon There is nonspecific distention of the residual: with diffuse fluid-filled loops of bowel of uncertain etiology possibly due to inflammatory bowel disease. No evidence for small bowel obstruction or other acute abnormality Electronically Signed: Anjel Napoles MD at 19:54 EST ,
--- NOTE | 2024-02-01 18:14 | EDS_ITS ---
HPI HPI - GI History of Present Illness Chief Complaint: Abd Pain Informant: patient and EMS Narrative Narrative: Brought in by EMS increasing abdominal pain over last 2 hours. 2 days postop right hemicolectomy performed by Dr. Herrera. She was discharged at noon today she was feeling fine symptoms were controlled alternate Tylenol and Motrin. Stools have been more liquid and darker in color was not tarry or bloody. She is told not to worry by her surgeon. She is in bed 2 hours ago pain suddenly increased. She called spoke with on-call surgeon was told come the emergency room. No fevers. No nausea or vomiting. Surgery performed due to findings of chronic volvulus from a colonoscopy in December. That was performed by Dr. Vidal. She was referred and had the procedure on Tuesday. Cholecystectomy in the past along multiple laparoscopic surgeries due to PCOS. PFSH PFS Medical History Shortness of breath on exertion Wears glasses Depression Arthritis High cholesterol History of hiatal hernia CPAP (continuous positive airway pressure) dependence History of edema History of Holter monitoring History of stress test History of echocardiogram Cardiology follow-up encounter History of CAD (coronary artery disease) Dyspnea on exertion Dyslipidemia Angina pectoris Chest pain Decreased radial pulse Swelling of right wrist Claudication of both lower extremities Leg cramps CAD (coronary artery disease) Abnormal stress test Heart failure with preserved ejection fraction, NYHA class II Obesity AJAY (obstructive sleep apnea) Chavira palsy CKD (chronic kidney disease) stage 3, GFR 30-59 ml/min B12 deficiency Hyperlipidemia Diastolic dysfunction Pulmonary hypertension SVT (supraventricular tachycardia) Palpitations SOB (shortness of breath) Essential (primary) hypertension Eczema of both hands Anxiety Gastroparesis GERD (gastroesophageal reflux disease) Piriformis syndrome of left side IBS (irritable bowel syndrome) Depression Home Medications ?Medication ?Instructions ?Recorded ?Last Taken ?Type albuterol sulfate 90 mcg/actuation 2 puff inhalation Q4H PRN 03/12/22 Unknown History aerosol inhaler shortness of breath or wheezing vilazodone 20 mg tablet 20 mg PO DAILY DEPRESSION 03/12/22 01/30/24 History cholecalciferol (vitamin D3) 50 100 mcg PO DAILY SUPPLEMENT 03/23/22 01/29/24 History mcg (2,000 unit) capsule nitroglycerin 0.4 mg sublingual 0.4 mg sublingual Q5M PRN 04/23/22 Unknown Rx tablet Cardiac/Chest Pain #14 tabs cyanocobalamin (vitamin B-12) 1,000 mcg IM QMONTH SUPPLEMENT 06/06/23 01/23/24 History 1,000 mcg/mL injection solution lisinopril 5 mg tablet 5 mg PO BID BP #180 tabs 10/10/23 01/29/24 Rx aspirin 81 mg tablet,delayed 81 mg PO DAILY SUPPLEMENT 10/11/23 01/25/24 History release (Adult Aspirin Regimen) ascorbic acid (vitamin C) 500 mg 500 mg PO QDAY SUPPLEMENT 11/24/23 Unknown History tablet vibegron 75 mg tablet (Gemtesa) 75 mg PO QDAY OAB 11/24/23 01/29/24 History pantoprazole 40 mg tablet,delayed 40 mg PO BID GERD #60 tabs 12/28/23 01/29/24 Rx release ondansetron 4 mg disintegrating 4 mg PO Q8H PRN PRN nausea and 01/18/24 Unknown History tablet vomiting ibuprofen 600 mg tablet 600 mg PO Q6H PRN PRN Pain 1-10 Or 01/31/24 Unknown Rx Fever #0 tabs oxycodone-acetaminophen 5 mg-325 1 tab PO Q6H PRN PRN Pain 3 days 02/01/24 Unknown Rx mg tablet #12 TABLETS Allergy/AdvReac Type Severity Reaction Status Date / Time Sulfa (Sulfonamide Allergy Intermediate Other Verified 02/01/24 17:54 Antibiotics) sulfamethoxazole (From Allergy Intermediate Itching Verified 02/01/24 17:54 Bactrim) trimethoprim (From Bactrim) Allergy Intermediate Itching Verified 02/01/24 17:54 codeine Allergy Unknown Other Verified 02/01/24 17:54 adhesive tape (tape) Allergy Rash Verified 02/01/24 17:54 Penicillins (PCN) Allergy Rash Verified 02/01/24 17:54 atorvastatin AdvReac Intermediate Myalgias Verified 02/01/24 17:54 Family History Mother Hypertension Arthritis Respiratory disease Grandfather Cancer kidney, brain Father Parkinson's disease Arthritis Grandmother CVA (cerebral vascular accident) Myocardial infarction Brother CVA (cerebral vascular accident) Myocardial infarction Sister Seizures Surgical History Hx of colonoscopy History of laminectomy History of arthroscopy of right knee Hx of heart artery stent Hx of cardiac cath History of coronary artery stent placement (~04/23/22) H/O bilateral salpingo-oophorectomy H/O: hysterectomy Hx of tonsillectomy History of appendectomy History of cholecystectomy Social History Smoking Status: Never smoker alcohol intake: never substance use type: does not use caffeine: Yes Type: coffee Number of servings: 1 ROS ROS ED Constitutional Constitutional ED: Denies chills, fever(s) or sweats Eyes Eyes: Denies change in vision ENT ENT ED: Denies dysphagia or sore throat Cardiovascular Cardiovascular: Denies chest pain, leg edema, palpitations or racing heartbeat Respiratory/Chest Respiratory/Chest: Denies cough, dyspnea or dyspnea on exertion Gastrointestinal Gastrointestinal: Reports abdominal pain; Denies diarrhea, nausea or vomiting Genitourinary Genitourinary ED: Denies dysuria, hematuria or urinary frequency Musculoskeletal Musculoskeletal: Denies back pain, extremity pain or neck pain Integumentary Denies rash or wounds Neurologic Neurologic: Denies headache(s), paresthesias or weakness EXAM Physical Exam Const Vital Signs: 02/01/24 17:54 02/01/24 17:59 02/01/24 19:59 Temperature 97.5 F L 97.5 F L 98.0 F Temperature Source Temporal Oral Oral Pulse Rate 76 76 90 Respiratory Rate 16 16 18 Blood Pressure 168/100 H 168/100 H 115/53 L Blood Pressure Mean 122 122 73 Pulse Ox 97 97 96 Oxygen Delivery Method Room Air Room Air 02/01/24 20:23 02/01/24 20:58 02/01/24 21:53 Temperature 98.0 F Temperature Source Pulse Rate 76 82 83 Respiratory Rate 19 H 18 Blood Pressure 128/56 H 98/60 102/65 Blood Pressure Mean 80 72 77 Pulse Ox 96 97 Oxygen Delivery Method Positive well nourished and well developed General Appearance ED: well developed and NAD HEENT Reports moist mucous membranes normocephalic and atraumatic Eyes EOMs intact bilaterally and conjunctivae normal General Eye ED: Yes normal appearance of both eyes Neck no lymphadenopathy and supple General: Negative for tenderness Chest Wall Chest: Negative for tenderness Resp normal respiratory effort and normal air movement Effort and Inspection: symmetric chest movement; Negative for respiratory distress Cardio regular rate, regular rhythm and no murmurs Peripheral Pulses: pulses 2+ throughout GI GI Narrative: Laparoscopic incisions clean, dry, intact. Mild tenderness right side abdomen is no guarding or rebound. Palpation: Negative for guarding or rebound tenderness present Extremity normal to inspection General Extremety ED: Negative for edema or tenderness General Extremity: Negative for edema Neuro oriented x3 and no sensory deficits noted Sensorium / Orientation: awake and alert Skin no rashes or lesions noted and no wounds MDM MDM MDM Narrative Medical decision making narrative: Interventions / MDM: Differential diagnosis: Postop pain, postop complications, electrolyte abnormalities Diagnosis considered but do not suspect: N/A My EKG interpretation: N/A Imaging independently reviewed and interpreted by myself: CT abdomen pelvis IV contrast: Postop changes noted, nonspecific bowel distention with reported nonspecific ileus per radiology, no bowel obstruction. External documents reviewed: N/A Test considered but not ordered:N/A ED course: Patient increasing pain postop. No vomiting. Noted darker colored liquid stools since her surgery is unchanged. Nonbloody. She was sent here from surgery for evaluation. Labs were ordered, CT scan abdomen pelvis, IV morphine Zofran. Results of CT postop changes nonspecific ileus reported by radiology. No obstruction. 2044: I discussed with on-call surgeon Dr. Carballo, who sent the patient in for evaluation. Discussed findings with CT for potential ileus. She did have bowel movements while in the emergency department. Her pain was controlled. Labs with potassium 3.2 which she was orally replaced. Reports patient clinically feeling well to be discharged with outpatient follow-up with strict return precautions. I discussed the plan with the patient who understands and agrees at this time. Noted prior discharge she walked to the bathroom return head vasovagal lightheaded symptoms. Vitals are stable. She is monitored with symptoms improved. She is tolerating p.o. intake. Meds to bed with Percocet for pain control. To continue oral fluids for hydration. All questions were answered. Re-evaluation: stable Disposition discussed with patient/family/significant other: Patient Case discussed with consulting clinician: General Surgery This note was generated with [employer] software. It may contain incorrect words, spelling, and punctuation that were not noted in checking the note before signing. Lab Data Attestation: I reviewed the patient's lab results. Labs: Laboratory Results - last 24 hr 02/01/24 02/01/24 18:08 20:47 WBC 9.1 RBC 4.00 L Hgb 11.5 L Hct 35.5 L MCV 88.8 MCH 28.8 MCHC 32.4 RDW Std Deviation 46.4 H RDW Coeff of Nuno 14.5 Plt Count 239 MPV 10.3 Immature Gran % (Auto) 0.400 Neut % (Auto) 76.7 H Lymph % (Auto) 19.1 [place] % (Auto) 2.6 Eos % (Auto) 0.8 Baso % (Auto) 0.4 Absolute Neuts (auto) 7.0 Absolute Lymphs (auto) 1.74 Nucleated RBC % 0 Sodium 140 Potassium 3.2 L Chloride 108 H Carbon Dioxide 30.0 Anion Gap 3 L BUN 22 H Creatinine 0.99 Estim Creat Clear Calc 50.42 Est GFR (MDRD) Af Amer 70 Est GFR (MDRD) Non-Af 58 L BUN/Creatinine Ratio 22.2 H Glucose 99 Calcium 8.9 POC Glucose 121 H Radiography Diagnostic Testing: Clinical Impression(s) from Imaging Studies Abdomen/Pelvis CT 02/01/24 18:13 IMPRESSION: Postsurgical changes status post cholecystectomy and hysterectomy and partial resection of the right colon There is nonspecific distention of the residual: with diffuse fluid-filled loops of bowel of uncertain etiology possibly due to inflammatory bowel disease. No evidence for small bowel obstruction or other acute abnormality Electronically Signed: Anjel Napoles MD at 19:54 EST , Discharge Plan Triage Chief Complaint: Abd Pain ED Provider: Eduar [place] Dx/Rx/DC Orders Clinical Impression: Post-op pain, Abdominal pain, Hypokalemia Instructions: Managing Post-Op Pain at Home Prescriptions: New oxycodone-acetaminophen 5-325 mg tablet 1 tab PO Q6H PRN PRN (Reason: Pain) 3 Days Qty: 12 0RF No Action albuterol sulfate 90 mcg/actuation HFA aerosol inhaler 2 puff inhalation Q4H PRN (Reason: shortness of breath or wheezing) vilazodone 20 mg tablet 20 mg PO DAILY cholecalciferol (vitamin D3) 50 mcg (2,000 unit) capsule 100 mcg PO DAILY aspirin [Adult Aspirin Regimen] 81 mg tablet,delayed release (DR/EC) 81 mg PO DAILY ascorbic acid (vitamin C) 500 mg tablet 500 mg PO QDAY Gemtesa 75 mg tablet 75 mg PO QDAY nitroglycerin 0.4 mg Tablet, Sublingual 0.4 mg sublingual Q5M PRN (Reason: Cardiac/Chest Pain) Qty: 14 3RF ondansetron 4 mg tablet,disintegrating 4 mg PO Q8H PRN PRN (Reason: nausea and vomiting) ibuprofen 600 mg Tablet 600 mg PO Q6H PRN PRN (Reason: Pain 1-10 Or Fever) Qty: 0 0RF cyanocobalamin (vitamin B-12) 1,000 mcg/mL solution 1,000 mcg IM QMONTH lisinopril 5 mg tablet 5 mg PO BID Qty: 180 3RF pantoprazole 40 mg tablet,delayed release (DR/EC) 40 mg PO BID Qty: 60 1RF Primary Care Provider: Aubree Woody Referrals: Ken Herrera MD [Med Staff - Active Staff] - Keep Esa appointment Aubree Woody DO [Primary Care Provider] - Activity Restrictions/Additional Instructions: Discussed with Dr. Carballo. Clear diet for next 24 hours then advance as tolerated. Take medicines as prescribed. Symptoms worsening not controlled medications, return to ED for reevaluation. Print Language: Gibraltarian Disposition Disposition: Home, Self Care Discharge Date/Time: 02/01/24 22:12
[2024-02-01] MEDS: Ondansetron 4 MG/2 ML Vial IV (18:19)
[2024-02-01] MEDS: Morphine 4 MG/ML Syringe IV (18:19)
[2024-02-01 18:20] LABS: Absolute Lymphocyte Count 1.74 X10^3/uL (0.83-4.51); Basophil# 0.04 X10^3/uL; Basophil% 0.4 % (0-1); Eosinophil# 0.07 X10^3/uL; Eosinophils% 0.8 % (0-5); Hematocrit 35.5 % (37-47); Hemoglobin 11.5 g/dL (12.0-15.0); Lymphocyte # 1.74 X10^3/ul (0.83-4.51); Lymphocyte % 19.1 % (19-41); Mean Corp Hgb Conc 32.4 g/dL (32-36); Mean Corpuscular Hgb 28.8 pg (27.0-32.0); Mean Corpuscular Volume 88.8 fL (81-99); Mean Platelet Vol. 10.3 fl (6.2-12.0); Monocyte# 0.24 X10^3/uL; Monocyte% 2.6 % (0-10); NRBC Flagged by Analyzer 0 % (0-5); Neutrophil % 76.7 % (47-70); Platelet Count 239 K/mm3 (150-450); RBC Distribution Width CV 14.5 % (11.6-14.6); RBC Distribution Width SD 46.4 fl (35.1-43.9); White Blood Count 9.1 K/mm3 (4.4-11.0)
[2024-02-01 18:33] LABS: Anion Gap 3 (5-15); BUN 22 mg/dL (7-18); BUN/Creat Ratio 22.2 RATIO (10-20); Calcium,Total 8.9 mg/dL (8.5-10.1); Chloride 108 mmol/L (98-107); Creatinine, Serum 0.99 mg/dL (0.55-1.02); EST Glomerular Filtration Rate 58 mL/min (>60); Est Glom Filt Rate - Afr Amer 70 mL/min (>60); Estimated Creatinine Clearance 50.42 ml/min; Glucose 99 mg/dL (74-106); Potassium 3.2 mmol/L (3.5-5.1); Sodium Level 140 mmol/L (136-145)
[2024-02-01 19:59] VITALS: BP 115/53; PULSE 90; RESP 18; TEMP 36.7; O2SAT 96
[2024-02-01] MEDS: Potassium Chloride Oral Tablet 20 MEQ 40 MEQ PO (20:21)
[2024-02-01 20:23] VITALS: BP 128/56; PULSE 76; RESP 19; TEMP 36.7; O2SAT 96
[2024-02-01 20:58] VITALS: BP 98/60; PULSE 82; RESP 18; O2SAT 97
[2024-02-01 21:07] LABS: Bedside Glucose 121 mg/dL (74-106)
[2024-02-01 21:53] VITALS: BP 102/65; PULSE 83
== END 2024-02-01 22:12 | disposition home or self-care (01) ==
PROVIDERS: Emergency Provider Emergency Medicine; PCP Internal Medicine; Visit Provider Emergency Medicine
DX: G89.18 Other acute postprocedural pain (principal); I50.32 Chronic diastolic (congestive) heart failure; I13.0 Hypertensive heart and chronic kidney disease with heart failure and stage 1 through stage 4 chronic kidney disease, or unspecified chronic kidney disease; N18.30 Chronic kidney disease, stage 3 unspecified; E87.6 Hypokalemia; I25.10 Atherosclerotic heart disease of native coronary artery without angina pectoris; R10.9 Unspecified abdominal pain; E78.00 Pure hypercholesterolemia, unspecified; Z90.49 Acquired absence of other specified parts of digestive tract; Z98.890 Other specified postprocedural states; K21.9 Gastro-esophageal reflux disease without esophagitis; Z79.899 Other long term (current) drug therapy
CPT/HCPCS: 74177; 80048; 82962; 85025; 96374; 96375; 99284; Q9967; A4216; J2405

== ENCOUNTER 2024-02-03 10:11 | Emergency (ER) | payer MEDICARE, BC, SELFPAY ==
[2022-07-12 09:18] VITALS: BMI 34.2
[2024-02-03 10:14] VITALS: BP 157/75; PULSE 83; RESP 16; TEMP 36.8; O2SAT 97; BMI 37.8
--- NOTE | 2024-02-03 10:30 | EDS_ITS ---
HPI History of Present Illness Chief Complaint: Abd Pain Informant: patient and EMS Narrative Narrative: 73-year-old female presenting to the emergency room with chief complaint of dysuria constipation and abdominal pain. Patient is postop day 4 from right hemicolectomy with Dr. Herrera. Patient states that while in the hospital she had multiple diarrheal stools. She came to the emergency room Tuesday night with abdominal pain CT showed findings concerning for ileus she was discharged home with pain medication. She states that she is not really had much to eat only having Jell-O. Patient states that she is no longer been having any diarrheal movements but is having some mild flatus. She now notes urine discoloration urinary frequency and dysuria. She notes continued abdominal pain. Subjective fever. She notes that she was on nitrofurantoin for an extended period of time through neurology (Dr. Regalado). Not currently on an antibiotic. She tells me that she spoke with Dr. Herrera and was sent to the emergency room today. [facility] Medical History Shortness of breath on exertion Wears glasses Depression Arthritis High cholesterol History of hiatal hernia CPAP (continuous positive airway pressure) dependence History of edema History of Holter monitoring History of stress test History of echocardiogram Cardiology follow-up encounter History of CAD (coronary artery disease) Dyspnea on exertion Dyslipidemia Angina pectoris Chest pain Decreased radial pulse Swelling of right wrist Claudication of both lower extremities Leg cramps CAD (coronary artery disease) Abnormal stress test Heart failure with preserved ejection fraction, NYHA class II Obesity AJAY (obstructive sleep apnea) Chavira palsy CKD (chronic kidney disease) stage 3, GFR 30-59 ml/min B12 deficiency Hyperlipidemia Diastolic dysfunction Pulmonary hypertension SVT (supraventricular tachycardia) Palpitations SOB (shortness of breath) Essential (primary) hypertension Eczema of both hands Anxiety Gastroparesis GERD (gastroesophageal reflux disease) Piriformis syndrome of left side IBS (irritable bowel syndrome) Depression Home Medications ?Medication ?Instructions ?Recorded ?Last Taken ?Type albuterol sulfate 90 mcg/actuation 2 puff inhalation Q4H PRN 03/12/22 Unknown History aerosol inhaler shortness of breath or wheezing vilazodone 20 mg tablet 20 mg PO DAILY DEPRESSION 03/12/22 01/30/24 History cholecalciferol (vitamin D3) 50 100 mcg PO DAILY SUPPLEMENT 03/23/22 01/29/24 History mcg (2,000 unit) capsule nitroglycerin 0.4 mg sublingual 0.4 mg sublingual Q5M PRN 04/23/22 Unknown Rx tablet Cardiac/Chest Pain #14 tabs cyanocobalamin (vitamin B-12) 1,000 mcg IM QMONTH SUPPLEMENT 06/06/23 01/23/24 History 1,000 mcg/mL injection solution lisinopril 5 mg tablet 5 mg PO BID BP #180 tabs 10/10/23 01/29/24 Rx aspirin 81 mg tablet,delayed 81 mg PO DAILY SUPPLEMENT 10/11/23 01/25/24 History release (Adult Aspirin Regimen) ascorbic acid (vitamin C) 500 mg 500 mg PO QDAY SUPPLEMENT 11/24/23 Unknown History tablet vibegron 75 mg tablet (Gemtesa) 75 mg PO QDAY OAB 11/24/23 01/29/24 History pantoprazole 40 mg tablet,delayed 40 mg PO BID GERD #60 tabs 12/28/23 01/29/24 Rx release ondansetron 4 mg disintegrating 4 mg PO Q8H PRN PRN nausea and 01/18/24 Unknown History tablet vomiting ibuprofen 600 mg tablet 600 mg PO Q6H PRN PRN Pain 1-10 Or 01/31/24 Unknown Rx Fever #0 tabs oxycodone-acetaminophen 5 mg-325 1 tab PO Q6H PRN PRN Pain 3 days 02/01/24 Unknown Rx mg tablet #12 TABLETS nitrofurantoin 100 mg PO Q12 #14 CAPSULES 02/03/24 Unknown Rx monohydrate/macrocrystals 100 mg capsule Allergy/AdvReac Type Severity Reaction Status Date / Time Sulfa (Sulfonamide Allergy Intermediate Other Verified 02/03/24 10:12 Antibiotics) sulfamethoxazole (From Allergy Intermediate Itching Verified 02/03/24 10:12 Bactrim) trimethoprim (From Bactrim) Allergy Intermediate Itching Verified 02/03/24 10:12 codeine Allergy Unknown Other Verified 02/03/24 10:12 adhesive tape (tape) Allergy Rash Verified 02/03/24 10:12 Penicillins (PCN) Allergy Rash Verified 02/03/24 10:12 atorvastatin AdvReac Intermediate Myalgias Verified 02/03/24 10:12 Family History Mother Hypertension Arthritis Respiratory disease Grandfather Cancer kidney, brain Father Parkinson's disease Arthritis Grandmother CVA (cerebral vascular accident) Myocardial infarction Brother CVA (cerebral vascular accident) Myocardial infarction Sister Seizures Surgical History Hx of colonoscopy History of laminectomy History of arthroscopy of right knee Hx of heart artery stent Hx of cardiac cath History of coronary artery stent placement (~04/23/22) H/O bilateral salpingo-oophorectomy H/O: hysterectomy Hx of tonsillectomy History of appendectomy History of cholecystectomy Social History Smoking Status: Never smoker alcohol intake: never substance use type: does not use caffeine: Yes Type: coffee Number of servings: 1 ROS ROS ED Constitutional Constitutional ED: Reports chills and subjective; Denies weight loss Eyes Eyes: Denies change in vision or diplopia ENT ENT ED: Denies ear pain, rhinorrhea or sore throat Cardiovascular Cardiovascular: Denies chest pain, orthopnea, palpitations or racing heartbeat Respiratory/Chest Respiratory/Chest: Denies cough, dyspnea or orthopnea Gastrointestinal Gastrointestinal: Reports abdominal pain and constipation; Denies diarrhea, nausea or vomiting Genitourinary Genitourinary ED: Reports dysuria and urinary frequency; Denies hematuria Musculoskeletal Musculoskeletal: Denies arthralgias or myalgias Integumentary Denies abscess or rash Neurologic Neurologic: Denies headache(s) or weakness Psychiatric Psychiatric: Denies anxiety, depression, suicidal ideation or suicidal thoughts Endocrine Endocrinology: Denies polydipsia, polyphagia or polyuria Allergic/Immunologic Allergic/Immunologic ED: Denies mouth swelling, tongue swelling or urticaria EXAM Physical Exam Const Vital Signs: 02/03/24 10:14 02/03/24 11:26 Temperature 98.3 F 98.8 F Temperature Source Oral Oral Pulse Rate 83 70 Respiratory Rate 16 18 Blood Pressure 157/75 H 136/67 H Blood Pressure Mean 102 90 Pulse Ox 97 93 Oxygen Delivery Method Room Air Room Air Positive well nourished, well developed and obese General Appearance ED: well developed and NAD Nutritional Appearance: obese HEENT Reports normocephalic, head/scalp atraumatic and moist mucous membranes Eyes PERRL and EOMs intact bilaterally Neck no lymphadenopathy, supple and no JVD Resp normal respiratory effort and clear to auscultation bilaterally Cardio regular rate, regular rhythm and no murmurs GI Inspection: Negative for abdominal distention Auscultation: normoactive bowel sounds Palpation: soft and tender Back/Spine no CVA tenderness and normal ROM Extremity normal to inspection General Extremety ED: Negative for edema General Extremity: Negative for edema Neuro oriented x3 and CN's II-XII intact bilaterally Sensorium / Orientation: alert Motor Exam: strength 5/5 throughout Psych mental status grossly normal Mood & Affect: Negative for depressed or tearful Skin no rashes or lesions noted and no wounds MDM MDM MDM Narrative Medical decision making narrative: Differential diagnosis includes UTI bowel obstruction dehydration ileus postoperative pain constipation Patient was seen by her surgeon Dr. Herrera here in the department. He does not feel that the patient has an ileus and does not have any postoperative complications other than a possible UTI. Urinalysis was sent. This is positive for nitrates, greater than 100 white cells no bacteria seen positive leukocyte esterase. Urine culture will be sent. Patient has tolerated Macrobid in the past. Will place her on this. Would recommend that she follow-up with her urologist or primary care as well as postoperatively with Dr. Herrera is scheduled r History & Record Review Discussion w/independent historian: Patient Additional record(s) reviewed:: Prior inpatient record, Prior ED visit and Prior labs Lab Data Attestation: I reviewed the patient's lab results. Labs: Laboratory Results - last 24 hr 02/03/24 02/03/24 10:50 11:20 WBC 8.5 RBC 3.53 L Hgb 10.2 L Hct 31.1 L MCV 88.1 MCH 28.9 MCHC 32.8 RDW Std Deviation 46.5 H RDW Coeff of Nuno 14.5 Plt Count 228 MPV 9.9 Immature Gran % (Auto) 0.200 Neut % (Auto) 75.2 H Lymph % (Auto) 17.3 L [place] % (Auto) 5.0 Eos % (Auto) 1.9 Baso % (Auto) 0.4 Absolute Neuts (auto) 6.4 Absolute Lymphs (auto) 1.46 Nucleated RBC % 0 Sodium 136 Potassium 3.7 Chloride 105 Carbon Dioxide 28.0 Anion Gap 3 L BUN 13 Creatinine 0.99 Estim Creat Clear Calc 51.16 Est GFR (MDRD) Af Amer 71 Est GFR (MDRD) Non-Af 58 L BUN/Creatinine Ratio 13.2 Glucose 94 Calcium 8.7 Urine Color Yellow Urine Clarity Sl. Cloudy Urine pH 7.0 Ur Specific [place] 1.010 Urine Protein 100 H Urine Glucose (UA) Normal Urine Ketones Negative Urine Occult Blood 150 H Urine Nitrite Positive H Urine Bilirubin Negative Urine Urobilinogen Normal Ur Leukocyte Esterase 500 H Urine RBC 0 SEEN Urine WBC >100 SEEN Ur Squamous Epith Cells 0-5 SEEN Ur Renal Epithelial Cell 0-5 SEEN Urine Bacteria 0 SEEN Urine Mucus 0 SEEN Management Discussion w/another healthcare provider: [employer] (Dr. Herrera ([facility] Surgery)) Discharge Plan Triage Chief Complaint: Abd Pain ED Provider: En Sung Dx/Rx/DC Orders Clinical Impression: Acute cystitis, Post-operative pain Instructions: ED Cystitis Female Adult Prescriptions: New nitrofurantoin monohyd/m-cryst 100 mg capsule 100 mg PO Q12 Qty: 14 0RF No Action albuterol sulfate 90 mcg/actuation HFA aerosol inhaler 2 puff inhalation Q4H PRN (Reason: shortness of breath or wheezing) vilazodone 20 mg tablet 20 mg PO DAILY cholecalciferol (vitamin D3) 50 mcg (2,000 unit) capsule 100 mcg PO DAILY aspirin [Adult Aspirin Regimen] 81 mg tablet,delayed release (DR/EC) 81 mg PO DAILY ascorbic acid (vitamin C) 500 mg tablet 500 mg PO QDAY Gemtesa 75 mg tablet 75 mg PO QDAY nitroglycerin 0.4 mg Tablet, Sublingual 0.4 mg sublingual Q5M PRN (Reason: Cardiac/Chest Pain) Qty: 14 3RF ondansetron 4 mg tablet,disintegrating 4 mg PO Q8H PRN PRN (Reason: nausea and vomiting) ibuprofen 600 mg Tablet 600 mg PO Q6H PRN PRN (Reason: Pain 1-10 Or Fever) Qty: 0 0RF cyanocobalamin (vitamin B-12) 1,000 mcg/mL solution 1,000 mcg IM QMONTH oxycodone-acetaminophen 5-325 mg tablet 1 tab PO Q6H PRN PRN (Reason: Pain) 3 Days Qty: 12 0RF lisinopril 5 mg tablet 5 mg PO BID Qty: 180 3RF pantoprazole 40 mg tablet,delayed release (DR/EC) 40 mg PO BID Qty: 60 1RF Primary Care Provider: Aubree Woody Referrals: Ken Herrera MD [Med Staff - Active Staff] - Keep Esa appointment Kiera Regalado MD [Med Staff - Active Staff] - As soon as possible Aubree Woody, [Primary Care Provider] - Print Language: Mold[place] Disposition Disposition: Home, Self Care
[2024-02-03 10:56] LABS: Absolute Lymphocyte Count 1.46 X10^3/uL (0.83-4.51); Absolute Neutrophil Count 6.4 X10^3/uL (2.0-7.7); Basophil# 0.03 X10^3/uL; Basophil% 0.4 % (0-1); Eosinophil# 0.16 X10^3/uL; Eosinophils% 1.9 % (0-5); Hematocrit 31.1 % (37-47); Hemoglobin 10.2 g/dL (12.0-15.0); Lymphocyte # 1.46 X10^3/ul (0.83-4.51); Lymphocyte % 17.3 % (19-41); Mean Corp Hgb Conc 32.8 g/dL (32-36); Mean Corpuscular Hgb 28.9 pg (27.0-32.0); Mean Corpuscular Volume 88.1 fL (81-99); Mean Platelet Vol. 9.9 fl (6.2-12.0); Monocyte# 0.42 X10^3/uL; NRBC Flagged by Analyzer 0 % (0-5); Neutrophil # 6.36 X10^3/uL (2.7-7.7); Neutrophil % 75.2 % (47-70); Platelet Count 228 K/mm3 (150-450); RBC Distribution Width CV 14.5 % (11.6-14.6); RBC Distribution Width SD 46.5 fl (35.1-43.9); Red Blood Count 3.53 M/mm3 (4.2-5.4); White Blood Count 8.5 K/mm3 (4.4-11.0)
[2024-02-03 11:09] LABS: Anion Gap 3 (5-15); BUN 13 mg/dL (7-18); BUN/Creat Ratio 13.2 RATIO (10-20); Calcium,Total 8.7 mg/dL (8.5-10.1); Chloride 105 mmol/L (98-107); Creatinine, Serum 0.99 mg/dL (0.55-1.02); EST Glomerular Filtration Rate 58 mL/min (>60); Est Glom Filt Rate - Afr Amer 71 mL/min (>60); Estimated Creatinine Clearance 51.16 ml/min; Glucose 94 mg/dL (74-106); Potassium 3.7 mmol/L (3.5-5.1); Sodium Level 136 mmol/L (136-145)
[2024-02-03 11:26] VITALS: BP 136/67; PULSE 70; RESP 18; TEMP 37.1; O2SAT 93
[2024-02-03 11:28] LABS: Bacteria 0 SEEN /hpf (None Seen); Mucous, Urine 0 SEEN /hpf (<or=2+); Red Blood Cells-Urine 0 SEEN /hpf (0-5)
[2024-02-03 11:30] LABS: Color, Urine Yellow (Yellow); Glucose, Dipstick Normal (Normal); Ketone-Dipstick Negative (Negative); Leukocyte Esterase-Dipstick 500 /ul (Negative); Nitrite-Dipstick Positive (Negative); Occult Blood-Urine 150 /ul (Negative); Protein-Dipstick 100 mg/dl (Negative); Urine Bilirubin Dipstick Negative (Negative); Urine Clarity Sl. Cloudy (Clear); Urine Urobilinogen Normal (Normal)
[2024-02-03 11:36] LABS: Renal Epithelial Cells 0-5 SEEN /hpf (0-5); Squamous Epithelial Cells - UA 0-5 SEEN /hpf (5-10); White Blood Cells >100 SEEN /hpf (0-5)
--- NOTE | 2024-02-05 08:56 | ED.RN ---
Urine cultures lloked at by Dr Lin, no change in treatment.
== END 2024-02-03 12:14 | disposition home or self-care (01) ==
PROVIDERS: Emergency Provider Emergency Medicine; PCP Internal Medicine; Visit Provider Emergency Medicine
DX: N30.00 Acute cystitis without hematuria (principal); I13.0 Hypertensive heart and chronic kidney disease with heart failure and stage 1 through stage 4 chronic kidney disease, or unspecified chronic kidney disease; I50.32 Chronic diastolic (congestive) heart failure; N18.30 Chronic kidney disease, stage 3 unspecified; E78.00 Pure hypercholesterolemia, unspecified; I25.10 Atherosclerotic heart disease of native coronary artery without angina pectoris; G89.18 Other acute postprocedural pain; Z90.49 Acquired absence of other specified parts of digestive tract; Z98.890 Other specified postprocedural states; K21.9 Gastro-esophageal reflux disease without esophagitis; E66.9 Obesity, unspecified
CPT/HCPCS: 80048; 81001; 85025; 87077; 87086; 87088; 87186; 99285; A4216

== ENCOUNTER 2024-02-15 16:04 | Inpatient (IN) | payer MEDICARE, BC, SELFPAY ==
[2022-07-12 09:18] VITALS: BMI 34.2
[2024-02-15] VITALS (8 sets, daily range): BP systolic 115–143; BP diastolic 44–78; PULSE 56–85; RESP 16–18; TEMP 36.6–36.9; O2SAT 98–100; BMI 33.7
--- NOTE | 2024-02-15 17:18 | EDS_ITS ---
HPI History of Present Illness Chief Complaint: Complaint Informant: patient Narrative Narrative: She is a 73-year-old female presenting to the emergency room after being referred here by infectious disease. Patient states that she has had a UTI for 6 months and typically has been taking Macrobid. 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 She states that she went saw infectious disease today who referred her over here. She states that she is to be admitted and have CAT scan and a bunch of blood work. I see in the chart that her recent culture at the end of January showed ESBL E. coli. She notes her sulfa allergy is related to when she was 12 years old and had nephritis and had itching with it. Patient states that her temperature is 98.3 and for her that is essentially is a fever as she normally is 97 degrees. She notes diarrhea but is happy not having constipation that she was having when she was previously seen. [facility] Medical History (Updated 02/15/24 @ 21:[address] En Sung, ) History of ESBL E. coli infection Shortness of breath on exertion Wears glasses Depression Arthritis High cholesterol History of hiatal hernia CPAP (continuous positive airway pressure) dependence History of edema History of Holter monitoring History of stress test History of echocardiogram Cardiology follow-up encounter History of CAD (coronary artery disease) Dyspnea on exertion Dyslipidemia Angina pectoris Chest pain Decreased radial pulse Swelling of right wrist Claudication of both lower extremities Leg cramps CAD (coronary artery disease) Abnormal stress test Heart failure with preserved ejection fraction, NYHA class II Obesity AJAY (obstructive sleep apnea) Chavira palsy CKD (chronic kidney disease) stage 3, GFR 30-59 ml/min B12 deficiency Hyperlipidemia Diastolic dysfunction Pulmonary hypertension SVT (supraventricular tachycardia) Palpitations SOB (shortness of breath) Essential (primary) hypertension Eczema of both hands Anxiety Gastroparesis GERD (gastroesophageal reflux disease) Piriformis syndrome of left side IBS (irritable bowel syndrome) Depression Home Medications ?Medication ?Instructions ?Recorded ?Last Taken ?Type albuterol sulfate 90 mcg/actuation 2 puff inhalation Q4H PRN 03/12/22 Unknown History aerosol inhaler shortness of breath or wheezing vilazodone 20 mg tablet 20 mg PO DAILY DEPRESSION 03/12/22 01/30/24 History cholecalciferol (vitamin D3) 50 100 mcg PO DAILY SUPPLEMENT 03/23/22 01/29/24 History mcg (2,000 unit) capsule nitroglycerin 0.4 mg sublingual 0.4 mg sublingual Q5M PRN 04/23/22 Unknown Rx tablet Cardiac/Chest Pain #14 tabs cyanocobalamin (vitamin B-12) 1,000 mcg IM QMONTH SUPPLEMENT 06/06/23 01/23/24 History 1,000 mcg/mL injection solution lisinopril 5 mg tablet 5 mg PO BID BP #180 tabs 10/10/23 01/29/24 Rx aspirin 81 mg tablet,delayed 81 mg PO DAILY SUPPLEMENT 10/11/23 01/25/24 History release (Adult Aspirin Regimen) ascorbic acid (vitamin C) 500 mg 500 mg PO QDAY SUPPLEMENT 11/24/23 Unknown History tablet vibegron 75 mg tablet (Gemtesa) 75 mg PO QDAY OAB 11/24/23 01/29/24 History pantoprazole 40 mg tablet,delayed 40 mg PO BID GERD #60 tabs 12/28/23 01/29/24 Rx release ondansetron 4 mg disintegrating 4 mg PO Q8H PRN PRN nausea and 01/18/24 Unknown History tablet vomiting ibuprofen 600 mg tablet 600 mg PO Q6H PRN PRN Pain 1-10 Or 01/31/24 Unknown Rx Fever #0 tabs oxycodone-acetaminophen 5 mg-325 1 tab PO Q6H PRN PRN Pain 3 days 02/01/24 Unknown Rx mg tablet #12 TABLETS nitrofurantoin 100 mg PO Q12 #14 CAPSULES 02/03/24 Unknown Rx monohydrate/macrocrystals 100 mg capsule Allergy/AdvReac Type Severity Reaction Status Date / Time Sulfa (Sulfonamide Allergy Intermediate Other Verified 02/15/24 16:05 Antibiotics) sulfamethoxazole (From Allergy Intermediate Itching Verified 02/15/24 16:05 Bactrim) trimethoprim (From Bactrim) Allergy Intermediate Itching Verified 02/15/24 16:05 codeine Allergy Unknown Other Verified 02/15/24 16:05 adhesive tape (tape) Allergy Rash Verified 02/15/24 16:05 Penicillins (PCN) Allergy Rash Verified 02/15/24 16:05 atorvastatin AdvReac Intermediate Myalgias Verified 02/15/24 16:05 Family History Mother Hypertension Arthritis Respiratory disease Grandfather Cancer kidney, brain Father Parkinson's disease Arthritis Grandmother CVA (cerebral vascular accident) Myocardial infarction Brother CVA (cerebral vascular accident) Myocardial infarction Sister Seizures Surgical History S/P colectomy Hx of colonoscopy History of laminectomy History of arthroscopy of right knee Hx of heart artery stent Hx of cardiac cath History of coronary artery stent placement (~04/23/22) H/O bilateral salpingo-oophorectomy H/O: hysterectomy Hx of tonsillectomy History of appendectomy History of cholecystectomy Social History Smoking Status: Never smoker alcohol intake: never substance use type: does not use caffeine: Yes Type: coffee Number of servings: 1 ROS ROS ED Constitutional Constitutional ED: Reports chills, fever(s), subjective and sweats; Denies weight loss Eyes Eyes: Denies change in vision or diplopia ENT ENT ED: Denies ear pain, rhinorrhea or sore throat Cardiovascular Cardiovascular: Denies chest pain, orthopnea, palpitations or racing heartbeat Respiratory/Chest Respiratory/Chest: Denies cough, dyspnea or orthopnea Gastrointestinal Gastrointestinal: Reports abdominal pain and diarrhea; Denies nausea or vomiting Genitourinary Genitourinary ED: Reports urinary frequency and other Details: Bladder spasms ; Denies dysuria or hematuria Musculoskeletal Musculoskeletal: Denies arthralgias or myalgias Integumentary Denies abscess or rash Neurologic Neurologic: Denies headache(s) or weakness Psychiatric Psychiatric: Denies anxiety, depression, suicidal ideation or suicidal thoughts Endocrine Endocrinology: Denies polydipsia, polyphagia or polyuria Allergic/Immunologic Allergic/Immunologic ED: Denies mouth swelling, tongue swelling or urticaria EXAM Physical Exam Const Vital Signs: 02/15/24 16:06 02/15/24 16:10 02/15/24 17:17 Temperature 98 F 98 F 98.3 F Temperature Source Oral Oral Oral Pulse Rate 84 84 83 Respiratory Rate 18 18 16 Blood Pressure 115/64 115/64 142/59 H Blood Pressure Mean 81 81 86 Pulse Ox 100 100 98 Oxygen Delivery Method Room Air Room Air Room Air 02/15/24 18:00 02/15/24 19:00 02/15/24 20:00 Temperature 97.8 F 98.5 F 97.8 F Temperature Source Temporal Oral Oral Pulse Rate 62 65 64 Respiratory Rate 16 16 16 Blood Pressure 120/46 L 134/44 H 122/64 H Blood Pressure Mean 70 74 83 Pulse Ox 99 98 99 Oxygen Delivery Method Room Air Room Air Room Air Positive well nourished and well developed General Appearance ED: well developed and NAD HEENT Reports normocephalic, head/scalp atraumatic and moist mucous membranes Eyes PERRL and EOMs intact bilaterally Neck no lymphadenopathy, supple and no JVD Resp normal respiratory effort and clear to auscultation bilaterally Cardio regular rate, regular rhythm and no murmurs GI normal to inspection, nondistended, normoactive bowel sounds and non-tender GI Narrative: Healed abdominal incision Palpation: soft Back/Spine no CVA tenderness and normal ROM Extremity normal to inspection General Extremety ED: Negative for edema General Extremity: Negative for edema Neuro oriented x3 and CN's II-XII intact bilaterally Sensorium / Orientation: alert Motor Exam: strength 5/5 throughout Psych mental status grossly normal Mood & Affect: Negative for depressed or tearful Skin no rashes or lesions noted and no wounds MDM MDM MDM Narrative Medical decision making narrative: I spoke with infectious disease Dr. Macdonald. He is wanting a CT then pelvis to see if there is any potential abscess or other infectious cause to explain her night sweats. This in addition to the ESBL E. coli. Patient's white count 7.3 hemoglobin 12.8 creatinine 0.85 urinalysis greater than 100 white cells 3+ bacteria positive nitrates. ID requested [email or web address]. CT of the abdomen pelvis was obtained. Please see radiologist read for full details. In short there are postsurgical changes noted in the right lower quadrant and incidental superior mesenteric venous thrombosis and changes consistent with cystitis. History & Record Review Discussion w/independent historian: Patient Additional record(s) reviewed:: Prior labs Lab Data Attestation: I reviewed the patient's lab results. Labs: Laboratory Results - last 24 hr 02/15/24 17:42 WBC 7.3 RBC 3.83 L Hgb 10.8 L Hct 33.8 L MCV 88.3 MCH 28.2 MCHC 32.0 RDW Std Deviation 44.9 H RDW Coeff of Nuno 13.9 Plt Count 395 MPV 9.4 Immature Gran % (Auto) 0.300 Neut % (Auto) 62.6 Lymph % (Auto) 26.6 [place] % (Auto) 6.1 Eos % (Auto) 3.4 Baso % (Auto) 1.0 Absolute Neuts (auto) 4.6 Absolute Lymphs (auto) 1.95 Nucleated RBC % 0 PT 14.0 INR 1.1 APTT 24.8 Sodium 139 Potassium 3.7 Chloride 106 Carbon Dioxide 28.0 Anion Gap 5 BUN 13 Creatinine 0.85 Est GFR (MDRD) Af Amer 84 Est GFR (MDRD) Non-Af 69 BUN/Creatinine Ratio 15.2 Glucose 99 Lactic Acid 1.0 Calcium 10.1 Total Bilirubin 0.30 Direct Bilirubin 0.07 AST 11 L ALT 18 Alkaline Phosphatase 77 Total Protein 7.0 Albumin 3.5 Globulin 3.5 Urine Color Yellow Urine Clarity Turbid Urine pH 6.0 Ur Specific [place] 1.015 Urine Protein 100 H Urine Glucose (UA) Normal Urine Ketones Negative Urine Occult Blood 150 H Urine Nitrite Positive H Urine Bilirubin 1 H Urine Urobilinogen 1 H Ur Leukocyte Esterase 500 H Urine RBC 0-5 SEEN Urine WBC >100 SEEN Ur Squamous Epith Cells 0-5 SEEN Urine Bacteria 3+ Hyaline Casts 0-5 SEEN Urine Mucus 0 SEEN Radiography Diagnostic Testing: Clinical Impression(s) from Imaging Studies Abdomen/Pelvis CT 02/15/24 18:59 IMPRESSION: Postsurgical changes status post bowel resection and right lower quadrant and mild thickening of the bowel wall at the anastomosis and mild stranding in the fat likely postsurgical. No focal abscess is observed. Findings which may be consistent with cystitis. Incidental finding of superior mesenteric venous thrombosis Electronically Signed: Anjel Napoles MD at 20:55 EST , Management Discussion w/another healthcare provider: Hospitalist (Dr. Brandt) and Care Administrative Tech (Dr Macdonald) Discharge Plan Dx/Rx/DC Orders Clinical Impression: Night sweats, Infection due to ESBL-producing Escherichia coli, Superior mesenteric vein thrombosis Disposition Disposition: [facility]
[2024-02-15 17:57] LABS: Mucous, Urine 0 SEEN /hpf (<or=2+)
[2024-02-15 18:04] LABS: Absolute Lymphocyte Count 1.95 X10^3/uL (0.83-4.51); Absolute Neutrophil Count 4.6 X10^3/uL (2.0-7.7); Basophil# 0.07 X10^3/uL; Eosinophil# 0.25 X10^3/uL; Eosinophils% 3.4 % (0-5); Hematocrit 33.8 % (37-47); Hemoglobin 10.8 g/dL (12.0-15.0); Lymphocyte # 1.95 X10^3/ul (0.83-4.51); Lymphocyte % 26.6 % (19-41); Mean Corpuscular Hgb 28.2 pg (27.0-32.0); Mean Corpuscular Volume 88.3 fL (81-99); Mean Platelet Vol. 9.4 fl (6.2-12.0); Monocyte# 0.45 X10^3/uL; Monocyte% 6.1 % (0-10); NRBC Flagged by Analyzer 0 % (0-5); Neutrophil % 62.6 % (47-70); Platelet Count 395 K/mm3 (150-450); RBC Distribution Width CV 13.9 % (11.6-14.6); RBC Distribution Width SD 44.9 fl (35.1-43.9); Red Blood Count 3.83 M/mm3 (4.2-5.4); White Blood Count 7.3 K/mm3 (4.4-11.0)
[2024-02-15 18:06] LABS: Color, Urine Yellow (Yellow); Glucose, Dipstick Normal (Normal); Ketone-Dipstick Negative (Negative); Leukocyte Esterase-Dipstick 500 /ul (Negative); Nitrite-Dipstick Positive (Negative); Occult Blood-Urine 150 /ul (Negative); Protein-Dipstick 100 mg/dl (Negative); Specific Gravity, Urine 1.015 (1.002-1.030); Urine Clarity Turbid (Clear); Urine Urobilinogen 1 mg/dl (Normal)
[2024-02-15 18:09] LABS: International Normalized Ratio 1.1
[2024-02-15 18:10] LABS: Partial Thromboplast Time 24.8 Seconds (24.1-36.2)
[2024-02-15 18:18] LABS: AST(SGOT) 11 U/L (15-37); Alanine Aminotransfer ALT/SGPT 18 U/L (13-56); Albumin, Serum 3.5 g/dL (3.2-5.0); Alkaline Phosphatase 77 U/L (45-117); Anion Gap 5 (5-15); BUN 13 mg/dL (7-18); BUN/Creat Ratio 15.2 RATIO (10-20); Bilirubin, Direct 0.07 mg/dL (0.00-0.30); Calcium,Total 10.1 mg/dL (8.5-10.1); Chloride 106 mmol/L (98-107); Creatinine, Serum 0.85 mg/dL (0.55-1.02); EST Glomerular Filtration Rate 69 mL/min (>60); Est Glom Filt Rate - Afr Amer 84 mL/min (>60); Globulin 3.5 g/dL (2.2-4.2); Glucose 99 mg/dL (74-106); Potassium 3.7 mmol/L (3.5-5.1); Sodium Level 139 mmol/L (136-145)
[2024-02-15 18:38] LABS: Urine Bilirubin Dipstick 1 mg/dL (Negative)
--- NOTE | 2024-02-15 18:59 | CT_ITS ---
We are attempting to reach an attending provider to discuss findings. An addendum with communication details will be sent when the communication is complete. STUDY: CT ABDOMEN AND PELVIS WITH CONTRAST REASON FOR EXAM: Female, 73 years old. abscess RADIATION DOSAGE (If Supplied By Facility): CTDIvol = ( 17.47 ) mGy, DLP = ( 1115.54 ) mGycm TECHNIQUE: Transaxial images were obtained from the dome of the diaphragm to the symphysis pubis without oral contrast. IV 100mL Isovue-300 was administered. Sagittal and coronal images were reconstructed. Individualized dose optimization techniques were used for this CT. COMPARISON: February 01, 2024 FINDINGS: Minor subsegmental atelectasis in left lower lobe.. The visualized portions of the heart are within normal limits. Small hiatal hernia is noted Normal liver. Gallbladder has been removed surgically.. Normal spleen. Normal pancreas. Normal bilateral adrenal glands. Normal right kidney. There are 3 simple cysts in the left kidney which will not require additional imaging Normal visualized stomach. Postsurgical changes status post bowel resection in the right lower quadrant with stranding in the adjacent fat and mild focal thickening of the bowel wall. There is focal abscess.. There are mild diverticular changes of the sigmoid colon without evidence for acute diverticulitis . No evidence for acute appendicitis. Minor atherosclerotic changes of the aorta without evidence for aneurysm. Normal inferior vena cava. There is noted to be intraluminal clot within the superior mesenteric vein proximal to the inferior vena caval/splenic venous junction. Normal retroperitoneum. There is concentric thickening of the rose of bladder with stranding in the fat which may be consistent with cystitis. Uterus not visualized status post hysterectomy Normal abdominal wall. Lumbar spine demonstrates degenerative change Postop change status post bilateral laminectomy at L4-5 and L5-S1 CT/Abdomen/Pelvis W IV Cont ONLY IMPRESSION: Postsurgical changes status post bowel resection and right lower quadrant and mild thickening of the bowel wall at the anastomosis and mild stranding in the fat likely postsurgical. No focal abscess is observed. Findings which may be consistent with cystitis. Incidental finding of superior mesenteric venous thrombosis Electronically Signed: Anjel Napoles MD at 20:55 EST ,
[2024-02-15 19:00] LABS: Bacteria 3+ /hpf (None Seen); Red Blood Cells-Urine 0-5 SEEN /hpf (0-5); White Blood Cells >100 SEEN /hpf (0-5)
[2024-02-15 19:01] LABS: Hyaline Cast 0-5 SEEN /lpf (0-5); Squamous Epithelial Cells - UA 0-5 SEEN /hpf (5-10)
[2024-02-15] MEDS: Meropenem 1 GM in 0.9% Normal Saline (100mL MB+) 100 ML IV (19:29)
--- NOTE | 2024-02-15 21:12 | HP.PCM.HOS_ITS ---
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 The patient has been having ongoing symptoms of dysuria [urgency, frequency] with associated lower abdominal pain and intermittent chills at night for the last 6 months. She has been taking Macrobid monthly for recurrent urinary tract infections. Her last urine culture on 02/03/2024 grew EL SBL E. coli. She was referred by her infectious disease physician for to the ED to get IV antibiotics for her infection. At the time of presentation in the ED, BP 143/58, pulse 56, satting well on room, WBC 7.3, hemoglobin 10.8, platelet count 395, INR 1.1, sodium 139, potassium 3.7, chloride 106, BUN 13, creatinine 0.8, lactic acid 1.0, calcium 10.1, AST 11, ALT 18, alk phos 77, total protein 7.0, urine protein 100, urine occult blood 150, nitrite positive, leukoesterase positive, WBC greater than 100. She received 1 dose of meropenem in the ED. Due to her recent surgery, CT abdomen and pelvis was done in the ED. 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 Patient lives with her and daughter, daughter has cerebral palsy and is unfortunately mechanically ventilated at home. [facility] Medical History (Updated 02/15/24 @ 21:[address] En Sung, ) History of ESBL E. coli infection Shortness of breath on exertion Wears glasses Depression Arthritis High cholesterol History of hiatal hernia CPAP (continuous positive airway pressure) dependence History of edema History of Holter monitoring History of stress test History of echocardiogram Cardiology follow-up encounter History of CAD (coronary artery disease) Dyspnea on exertion Dyslipidemia Angina pectoris Chest pain Decreased radial pulse Swelling of right wrist Claudication of both lower extremities Leg cramps CAD (coronary artery disease) Abnormal stress test Heart failure with preserved ejection fraction, NYHA class II Obesity AJAY (obstructive sleep apnea) Chavira palsy CKD (chronic kidney disease) stage 3, GFR 30-59 ml/min B12 deficiency Hyperlipidemia Diastolic dysfunction Pulmonary hypertension SVT (supraventricular tachycardia) Palpitations SOB (shortness of breath) Essential (primary) hypertension Eczema of both hands Anxiety Gastroparesis GERD (gastroesophageal reflux disease) Piriformis syndrome of left side IBS (irritable bowel syndrome) Depression Home Medications ?Medication ?Instructions ?Recorded ?Last Taken ?Type albuterol sulfate 90 mcg/actuation 2 puff inhalation Q4H PRN 03/12/22 Unknown History aerosol inhaler shortness of breath or wheezing vilazodone 20 mg tablet 20 mg PO DAILY DEPRESSION 03/12/22 01/30/24 History cholecalciferol (vitamin D3) 50 100 mcg PO DAILY SUPPLEMENT 03/23/22 02/15/24 History mcg (2,000 unit) capsule nitroglycerin 0.4 mg sublingual 0.4 mg sublingual Q5M PRN 04/23/22 Unknown Rx tablet Cardiac/Chest Pain #14 tabs cyanocobalamin (vitamin B-12) 1,000 mcg IM QMONTH SUPPLEMENT 06/06/23 01/23/24 History 1,000 mcg/mL injection solution lisinopril 5 mg tablet 5 mg PO BID BP #180 tabs 10/10/23 01/29/24 Rx aspirin 81 mg tablet,delayed 81 mg PO DAILY SUPPLEMENT 10/11/23 02/14/24 History release (Adult Aspirin Regimen) ascorbic acid (vitamin C) 500 mg 500 mg PO QDAY SUPPLEMENT 11/24/23 Unknown History tablet vibegron 75 mg tablet (Gemtesa) 75 mg PO QDAY OAB 11/24/23 01/29/24 History pantoprazole 40 mg tablet,delayed 40 mg PO BID GERD #60 tabs 12/28/23 01/29/24 Rx release ondansetron 4 mg disintegrating 4 mg PO Q8H PRN PRN nausea and 01/18/24 Unknown History tablet vomiting ibuprofen 600 mg tablet 600 mg PO Q6H PRN PRN Pain 1-10 Or 01/31/24 02/14/24 Rx Fever #0 tabs oxycodone-acetaminophen 5 mg-325 1 tab PO Q6H PRN PRN Pain 3 days 02/01/24 Unknown Rx mg tablet #12 TABLETS nitrofurantoin 100 mg PO Q12 #14 CAPSULES 02/03/24 Unknown Rx monohydrate/macrocrystals 100 mg capsule simvastatin 80 mg tablet 80 mg PO DAILY high cholestoral 02/15/24 Unknown History Allergy/AdvReac Type Severity Reaction Status Date / Time Sulfa (Sulfonamide Allergy Intermediate Other Verified 02/15/24 16:05 Antibiotics) sulfamethoxazole (From Allergy Intermediate Itching Verified 02/15/24 16:05 Bactrim) trimethoprim (From Bactrim) Allergy Intermediate Itching Verified 02/15/24 16:05 codeine Allergy Unknown Other Verified 02/15/24 16:05 adhesive tape (tape) Allergy Rash Verified 02/15/24 16:05 Penicillins (PCN) Allergy Rash Verified 02/15/24 16:05 atorvastatin AdvReac Intermediate Myalgias Verified 02/15/24 16:05 Family History Mother Hypertension Arthritis Respiratory disease Grandfather Cancer kidney, brain Father Parkinson's disease Arthritis Grandmother CVA (cerebral vascular accident) Myocardial infarction Brother CVA (cerebral vascular accident) Myocardial infarction Sister Seizures Surgical History S/P colectomy Hx of colonoscopy History of laminectomy History of arthroscopy of right knee Hx of heart artery stent Hx of cardiac cath History of coronary artery stent placement (~04/23/22) H/O bilateral salpingo-oophorectomy H/O: hysterectomy Hx of tonsillectomy History of appendectomy History of cholecystectomy Social History Smoking Status: Never smoker alcohol intake: never substance use type: does not use caffeine: Yes Type: coffee Number of servings: 1 ROS Constitutional Constitutional: Reports chills, fatigue and fever(s) Eyes Eyes: Denies blurry vision, change in eye color, change in vision, discharge from eye(s), double vision, erythema, eye pain, loss of vision or other ENT HEENT: Denies abnormal hearing, dysphagia, ear pain, epistaxis, headache(s), hearing loss, nasal congestion, nasal discharge, post nasal drip, sinus pressure, sore throat or other Cardiovascular Cardiovascular: Denies chest pain, claudication, dyspnea on exertion, edema, lightheadedness, orthopnea, palpitations, paroxysmal nocturnal dyspnea, rapid heart rate, syncope or other Respiratory/Chest Respiratory/Chest: Denies cough, dyspnea, excessive phlegm production, hemoptysis, productive cough, shortness of breath at rest, shortness of breath with exertion, wheezing or other Gastrointestinal Gastrointestinal: Denies abdominal pain, coffee ground emesis, constipation, diarrhea, dyspepsia, hematemesis, hematochezia, loose stools, melena, nausea, vomiting or other Genitourinary Genitourinary: Denies burning urination, difficulty urinating, dysuria, hematuria, nocturia, urinary frequency, urinary hesitancy, urinary incontinence, urinary urgency or other Musculoskeletal Musculoskeletal: Denies arthralgias, back pain, joint pain, joint stiffness, joint swelling, myalgias, neck pain or other Neurologic Neurologic: Denies abnormal gait, abnormal speech, confusion, disequilibrium, dizziness, focal weakness, headache(s), numbness, paresthesias, seizure-like activity, seizures, syncope, tingling, tremor(s) or other Psychiatric Psychiatric: Denies anxiety, depression, homicidal ideation, suicidal ideation or other Endocrine Endocrinology: Denies change in body appearance, cold intolerance, excessive sweating, heat intolerance, polydipsia, polyuria or other Hematologic/Lymphatic Hematologic/Lymphatic: Denies anemia, easy bleeding, easy bruising, lymphadenopathy or other Allergic/Immunologic Allergic/Immunologic: Denies rhinitis, hives, eczemia, asthma or other Vital Signs Vital Signs Vital Signs: 02/15/24 16:06 02/15/24 16:10 02/15/24 17:17 Temperature 98 F 98 F 98.3 F Temperature Source Oral Oral Oral Pulse Rate 84 84 83 Respiratory Rate 18 18 16 Blood Pressure 115/64 115/64 142/59 H Blood Pressure Mean 81 81 86 Pulse Ox 100 100 98 Oxygen Delivery Method Room Air Room Air Room Air 02/15/24 18:00 02/15/24 19:00 02/15/24 20:00 Temperature 97.8 F 98.5 F 97.8 F Temperature Source Temporal Oral Oral Pulse Rate 62 65 64 Respiratory Rate 16 16 16 Blood Pressure 120/46 L 134/44 H 122/64 H Blood Pressure Mean 70 74 83 Pulse Ox 99 98 99 Oxygen Delivery Method Room Air Room Air Room Air Physical Exam Const alert and oriented x3 HEENT normocephalic and head/scalp atraumatic Eyes PERRL Neck no lymphadenopathy Resp normal respiratory effort and no retractions Cardio regular rate and regular rhythm GI normal to inspection, nondistended, normoactive bowel sounds GI Narrative: No renal angle tenderness Neuro oriented x3 and CN's II-XII intact bilaterally Psych affect normal Results Medical Records Data Attestation: I reviewed the patient's medical records Lab / Micro Data 02/15/24 17:42 02/15/24 17:42 Labs: Laboratory Results - last 24 hr 02/15/24 17:42: WBC 7.3, RBC 3.83 L, Hgb 10.8 L, Hct 33.8 L, MCV 88.3, MCH 28.2, MCHC 32.0, RDW Std Deviation 44.9 H, RDW Coeff of Nuno 13.9, Plt Count 395, MPV 9.4, Immature Gran % (Auto) 0.300, Neut % (Auto) 62.6, Lymph % (Auto) 26.6, [place] % (Auto) 6.1, Eos % (Auto) 3.4, Baso % (Auto) 1.0, Absolute Neuts (auto) 4.6, Absolute Lymphs (auto) 1.95, Nucleated RBC % 0, PT 14.0, INR 1.1, APTT 24.8, Sodium 139, Potassium 3.7, Chloride 106, Carbon Dioxide 28.0, Anion Gap 5, BUN 13, Creatinine 0.85, Est GFR (MDRD) Af Amer 84, Est GFR (MDRD) Non-Af 69, BUN/Creatinine Ratio 15.2, Glucose 99, Lactic Acid 1.0, Calcium 10.1, Total Bilirubin 0.30, Direct Bilirubin 0.07, AST 11 L, ALT 18, Alkaline Phosphatase 77, Total Protein 7.0, Albumin 3.5, Globulin 3.5, Urine Color Yellow, Urine Clarity Turbid, Urine pH 6.0, Ur Specific [place] 1.015, Urine Protein 100 H, Urine Glucose (UA) Normal, Urine Ketones Negative, Urine Occult Blood 150 H, U rine Nitrite Positive H, Urine Bilirubin 1 H, Urine Urobilinogen 1 H, Ur Leukocyte Esterase 500 H, Urine RBC 0-5 SEEN, Urine WBC >100 SEEN, Ur Squamous Epith Cells 0-5 SEEN, Urine Bacteria 3+, Hyaline Casts 0-5 SEEN, Urine Mucus 0 SEEN Imaging Radiology Impression Abdomen/Pelvis CT 02/15/24 18:59 IMPRESSION: Postsurgical changes status post bowel resection and right lower quadrant and mild thickening of the bowel wall at the anastomosis and mild stranding in the fat likely postsurgical. No focal abscess is observed. Findings which may be consistent with cystitis. 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 Her laboratory findings, imaging findings are consistent with cystitis. There are no clinical evidence of pyelonephritis at this time. She is being admitted to be started on IV antibiotics for her infection. #ESBL E. coli urinary tract infection -IV meropenem 1 g every 8 hours -ID consult -Repeat urine cultures -Monitor for fevers -Input output monitoring -Social work consult for home antibiotic therapy at the time of discharge #Coronary artery disease -Continue aspirin -Asymptomatic at this time #Cecal volvulus s/p ileocecectomy -No active symptoms -No diarrhea or changes in bowel habits #Superior mesenteric vein thrombosis - no abdominal pain, no features of chronic mesenteric ischemia - Continue to monitor #DVT prophylaxis -Enoxaparin 40 mg daily -Encourage mobilization #AJAY -Continue to monitor #Hypertension -Continue home medications #Heart failure preserved ejection fraction -Continue to monitor #Depression -Continue with Vilazodone 20 mg as home medication Charges/Coding Visit Charges Inpatient E&M: 83534 Init Hosp L2
[2024-02-15] MEDS: 0.9% Saline Lock 10 ML Syringe IV (22:32)
[2024-02-15] MEDS: Lisinopril 5 MG Tablet PO (23:07)
[2024-02-15] MEDS: Pantoprazole Sodium 40 MG Tablet PO (23:08)
[2024-02-15] MEDS: Ascorbic Acid 500 MG Tablet PO (23:08)
[2024-02-15] MEDS: Ibuprofen 600 MG Tablet PO (23:10)
[2024-02-16 05:48] VITALS: BP 125/54; PULSE 53; RESP 18; TEMP 36.6; O2SAT 97
[2024-02-16] MEDS: Meropenem 1 GM in 0.9% Normal Saline (100mL MB+) 100 ML IV ×3 (05:50→21:46)
[2024-02-16 06:19] LABS: Absolute Lymphocyte Count 1.85 X10^3/uL (0.83-4.51); Absolute Neutrophil Count 2.9 X10^3/uL (2.0-7.7); Basophil# 0.07 X10^3/uL; Basophil% 1.3 % (0-1); Eosinophil# 0.28 X10^3/uL; Hematocrit 30.9 % (37-47); Hemoglobin 9.6 g/dL (12.0-15.0); Lymphocyte # 1.85 X10^3/ul (0.83-4.51); Lymphocyte % 33.2 % (19-41); Mean Corp Hgb Conc 31.1 g/dL (32-36); Mean Corpuscular Hgb 27.4 pg (27.0-32.0); Mean Corpuscular Volume 88.3 fL (81-99); Mean Platelet Vol. 9.3 fl (6.2-12.0); Monocyte# 0.44 X10^3/uL; Monocyte% 7.9 % (0-10); NRBC Flagged by Analyzer 0 % (0-5); Neutrophil # 2.92 X10^3/uL (2.7-7.7); Neutrophil % 52.4 % (47-70); Platelet Count 333 K/mm3 (150-450); RBC Distribution Width SD 45.1 fl (35.1-43.9); White Blood Count 5.6 K/mm3 (4.4-11.0)
[2024-02-16 06:52] LABS: International Normalized Ratio 1.1; Prothrombin Time (Protime)PT. 14.1 SECONDS (11.7-14.9)
[2024-02-16 06:57] LABS: AST(SGOT) 10 U/L (15-37); Alanine Aminotransfer ALT/SGPT 15 U/L (13-56); Albumin, Serum 2.9 g/dL (3.2-5.0); Alkaline Phosphatase 63 U/L (45-117); Anion Gap 4 (5-15); BUN 12 mg/dL (7-18); BUN/Creat Ratio 13.4 RATIO (10-20); Calcium,Total 9.2 mg/dL (8.5-10.1); Chloride 108 mmol/L (98-107); Creatinine, Serum 0.89 mg/dL (0.55-1.02); EST Glomerular Filtration Rate 66 mL/min (>60); Est Glom Filt Rate - Afr Amer 79 mL/min (>60); Estimated Creatinine Clearance 55.63 ml/min; Glucose 99 mg/dL (74-106); Magnesium 2.1 mg/dL (1.6-2.6); Phosphorus 4.3 mg/dL (2.5-4.9); Potassium 4.1 mmol/L (3.5-5.1); Protein, Total 5.9 g/dL (6.4-8.2); Sodium Level 141 mmol/L (136-145); Thyroid Stim Hormone (TSH) 0.437 uIU/mL (0.358-3.740)
--- NOTE | 2024-02-16 07:24 | PN.HOSP_ITS ---
Reason for Visit Reason for Visit: Diagnoses Other bacterial infections of unspecified site (02/15/24) Extended spectrum beta lactamase (ESBL) resistance (02/15/24) Subjective Subjective Feels well. Complains of suprapubic abdominal pain. Requesting pyridium. Objective Data Objective Data Vital Signs: Vital Signs Temp Pulse Resp BP Pulse Ox O2 Del Method 36.6 C 53 L 18 125/54 H 97 Room Air 02/16/24 05:48 02/16/24 05:48 02/16/24 05:48 02/16/24 05:48 02/16/24 05:48 02/16/24 05:56 Oxygen Delivery Method Room Air Weight: 83.7 kg Body Mass Index (BMI) 33.7 Intake & Output: Intake and Output for Last 24 Hours 02/14/24 02/15/24 02/16/24 23:59 23:59 23:59 Intake Total 120 / 120 400 / 400 Balance 120 / 120 400 / 400 Lab / Micro Data 02/16/24 05:35 02/16/24 05:35 Labs: Laboratory Results - last 24 hr 02/15/24 17:42: WBC 7.3, RBC 3.83 L, Hgb 10.8 L, Hct 33.8 L, MCV 88.3, MCH 28.2, MCHC 32.0, RDW Std Deviation 44.9 H, RDW Coeff of Nuno 13.9, Plt Count 395, MPV 9.4, Immature Gran % (Auto) 0.300, Neut % (Auto) 62.6, Lymph % (Auto) 26.6, [place] % (Auto) 6.1, Eos % (Auto) 3.4, Baso % (Auto) 1.0, Absolute Neuts (auto) 4.6, Absolute Lymphs (auto) 1.95, Nucleated RBC % 0, PT 14.0, INR 1.1, APTT 24.8, Sodium 139, Potassium 3.7, Chloride 106, Carbon Dioxide 28.0, Anion Gap 5, BUN 13, Creatinine 0.85, Est GFR (MDRD) Af Amer 84, Est GFR (MDRD) Non-Af 69, BUN/Creatinine Ratio 15.2, Glucose 99, Lactic Acid 1.0, Calcium 10.1, Total Bilirubin 0.30, Direct Bilirubin 0.07, AST 11 L, ALT 18, Alkaline Phosphatase 77, Total Protein 7.0, Albumin 3.5, Globulin 3.5, Urine Color Yellow, Urine Clarity Turbid, Urine pH 6.0, Ur Specific [place] 1.015, Urine Protein 100 H, Urine Glucose (UA) Normal, Urine Ketones Negative, Urine Occult Blood 150 H, U rine Nitrite Positive H, Urine Bilirubin 1 H, Urine Urobilinogen 1 H, Ur Leukocyte Esterase 500 H, Urine RBC 0-5 SEEN, Urine WBC >100 SEEN, Ur Squamous Epith Cells 0-5 SEEN, Urine Bacteria 3+, Hyaline Casts 0-5 SEEN, Urine Mucus 0 SEEN 02/16/24 05:35: WBC 5.6, RBC 3.50 L, Hgb 9.6 L, Hct 30.9 L, MCV 88.3, MCH 27.4, MCHC 31.1 L, RDW Std Deviation 45.1 H, RDW Coeff of Nuno 14.0, Plt Count 333, MPV 9.3, Immature Gran % (Auto) 0.200, Neut % (Auto) 52.4, Lymph % (Auto) 33.2, [place] % (Auto) 7.9, Eos % (Auto) 5.0, Baso % (Auto) 1.3 H, Absolute Neuts (auto) 2.9, Absolute Lymphs (auto) 1.85, Nucleated RBC % 0, PT 14.1, INR 1.1, Sodium 141, Potassium 4.1, Chloride 108 H, Carbon Dioxide 29.0, Anion Gap 4 L, BUN 12, Creatinine 0.89, Estim Creat Clear Calc 55.63, Est GFR (MDRD) Af Amer 79, Est GFR (MDRD) Non-Af 66, BUN/Creatinine Ratio 13.4, Glucose 99, Calcium 9.2, Phosphorus 4.3, Magnesium 2.1, Total Bilirubin 0.30, Direct Bilirubin 0.10, AST 10 L, ALT 15, Alkaline Phosphatase 63, Total Protein 5.9 L, Albumin 2.9 L, Globulin 3.0, Albumin/Globulin Ratio 1.0, TSH 0.437 Radiography Diagnostic Testing: Radiology Impression Abdomen/Pelvis CT 02/15/24 18:59 IMPRESSION: Postsurgical changes status post bowel resection and right lower quadrant and mild thickening of the bowel wall at the anastomosis and mild stranding in the fat likely postsurgical. No focal abscess is observed. Findings which may be consistent with cystitis. 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 No focal abscess is observed. Findings which may be consistent with cystitis. 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 : The above Results were Read Back by Anjel Napoles MD to En Sung DO, and understanding confirmed on 02/15/2024 21:11:28 (ET). Electronically Signed: Anjel Napoles MD at 20:55 EST , Physical Exam Const alert and no apparent distress HEENT head/scalp atraumatic and moist oral mucous membranes Resp normal respiratory effort, no retractions, no use of accessory muscles and clear to auscultation bilaterally Cardio regular rate, regular rhythm, S1 normal heart sound and S2 normal heart sound GI GI Narrative: suprapubic abdominal pain. Assessment & Plan Assessment/Plan (1) Infection due to ESBL-producing Escherichia coli: PLAN: Plan ESBL E. coli urinary tract infection * noted on 02/02 UCx * IV meropenem 1 g every 8 hours * ID consult * add pyridium Mesenteric venous thrombosis * suspect may be related to recent bowel surgery. * start apixaban. Recommend follow up with hematology as outpt for hyper coag work up. Chronic conditions: * CAD: coronary artery disease. Continue aspirin. Asymptomatic at this time. * Cecal volvulus s/p ileocecectomy: No active symptoms. No diarrhea or changes in bowel habits. * superior mesenteric vein thrombosis- no abdominal pain, no features of chronic mesenteric ischemia- Continue to monitor * AJAY-Continue to monitor * Hypertension-Continue home medications * Heart failure preserved ejection fraction-Continue to monitor * Depression-Continue with Vilazodone 20 mg as home medication DVT prophylaxis Enoxaparin 40 mg daily Charges/Coding Visit Charges Inpatient E&M: 80256 Subs Hosp L2
[2024-02-16 08:01] VITALS: BP 118/53; PULSE 56; RESP 18; TEMP 36.4; O2SAT 97
[2024-02-16] MEDS: Cholecalciferol (VIT D3) 25 MCG TABLET (1,000 UNITS) 100 MCG PO (10:06)
[2024-02-16] MEDS: Aspirin E.C. 81 MG Tablet PO (10:06)
[2024-02-16] MEDS: Pantoprazole Sodium 40 MG Tablet PO ×2 (10:07→20:22)
[2024-02-16] MEDS: Ascorbic Acid 500 MG Tablet PO (10:07)
[2024-02-16] MEDS: Lisinopril 5 MG Tablet PO ×2 (10:09→20:22)
--- NOTE | 2024-02-16 10:38 | CASEMGMT ---
ADRIENNE GIBSON chart review Pt was admitted 01/30/24 to 02/01/24 for Laproscopic R Hemicolectomy. See assessment from 01/31/24. Pt was discharged home with instructions to follow up with surgeon and family support. Pt states she had a follow up with her doctor and has a second follow up scheduled for 02/23/24. Pt reports she has been taking all medications as ordered. Pt returned to hospital and admitted to [facility] 02/15/24 for UTI. ADRIENNE GIBSON in to discuss DC Plan with Pt. Pt likely to need IV antibiotics at time of DC. Pt states she has a daughter at home with CP who receives nursing care 5x a week from [facility], Pt chose [facility] out of [place] for needs and [facility] for IV infusion if necessary at time of DC. Pt denies list of local [facility] providers. ADRIENNE GIBSON notified ADRIENNE GIBSON on floor of Pt preference.
--- NOTE | 2024-02-16 10:43 | PCM.CONS.GEN ---
Assessment & Plan Assessment/Plan (1) Infection due to ESBL-producing Escherichia coli: PLAN: Cont meropenem. Ucx and bcx pending. Feeling better. Will follow, thank you (2) Superior mesenteric vein thrombosis: (3) Night sweats: HPI Consult Data Date of Consult: 02/16/24 HPI Narrative Reason for Consultation: uti HPI Narrative: PARVIN DUENAS, is a 73 F with h/o CAD, pulm htn, recurrent uti, presented to ED 02/15/24 with 2 weeks progressive dysuria, night sweats, chills, and acute onset unsteadiness at home. Has been on macrobid for several weeks without improvement, follows with Dr. Regalado. Had partial bowel resection done 2 weeks ago as well. Referred to ID, saw me in the office, sent to ED, admitted on meropenem, feeling better this AM. Full ROS performed and neg except as noted above. PENDING SALE TO [facility] Medical History History of ESBL E. coli infection Shortness of breath on exertion Wears glasses Depression Arthritis High cholesterol History of hiatal hernia CPAP (continuous positive airway pressure) dependence History of edema History of Holter monitoring History of stress test History of echocardiogram Cardiology follow-up encounter History of CAD (coronary artery disease) Dyspnea on exertion Dyslipidemia Angina pectoris Chest pain Decreased radial pulse Swelling of right wrist Claudication of both lower extremities Leg cramps CAD (coronary artery disease) Abnormal stress test Heart failure with preserved ejection fraction, NYHA class II Obesity AJAY (obstructive sleep apnea) Chavira palsy CKD (chronic kidney disease) stage 3, GFR 30-59 ml/min B12 deficiency Hyperlipidemia Diastolic dysfunction Pulmonary hypertension SVT (supraventricular tachycardia) Palpitations SOB (shortness of breath) Essential (primary) hypertension Eczema of both hands Anxiety Gastroparesis GERD (gastroesophageal reflux disease) Piriformis syndrome of left side IBS (irritable bowel syndrome) Depression Home Medications ?Medication ?Instructions ?Recorded ?Last Taken ?Type albuterol sulfate 90 mcg/actuation 2 puff inhalation Q4H PRN 03/12/22 Unknown History aerosol inhaler shortness of breath or wheezing vilazodone 20 mg tablet 20 mg PO DAILY DEPRESSION 03/12/22 01/30/24 History cholecalciferol (vitamin D3) 50 100 mcg PO DAILY SUPPLEMENT 03/23/22 02/15/24 History mcg (2,000 unit) capsule nitroglycerin 0.4 mg sublingual 0.4 mg sublingual Q5M PRN 04/23/22 Unknown Rx tablet Cardiac/Chest Pain #14 tabs cyanocobalamin (vitamin B-12) 1,000 mcg IM QMONTH SUPPLEMENT 06/06/23 01/23/24 History 1,000 mcg/mL injection solution lisinopril 5 mg tablet 5 mg PO BID BP #180 tabs 10/10/23 01/29/24 Rx aspirin 81 mg tablet,delayed 81 mg PO DAILY SUPPLEMENT 10/11/23 02/14/24 History release (Adult Aspirin Regimen) ascorbic acid (vitamin C) 500 mg 500 mg PO QDAY SUPPLEMENT 11/24/23 Unknown History tablet vibegron 75 mg tablet (Gemtesa) 75 mg PO QDAY OAB 11/24/23 01/29/24 History pantoprazole 40 mg tablet,delayed 40 mg PO BID GERD #60 tabs 12/28/23 01/29/24 Rx release ondansetron 4 mg disintegrating 4 mg PO Q8H PRN PRN nausea and 01/18/24 Unknown History tablet vomiting ibuprofen 600 mg tablet 600 mg PO Q6H PRN PRN Pain 1-10 Or 01/31/24 02/14/24 Rx Fever #0 tabs oxycodone-acetaminophen 5 mg-325 1 tab PO Q6H PRN PRN Pain 3 days 02/01/24 Unknown Rx mg tablet #12 TABLETS nitrofurantoin 100 mg PO Q12 #14 CAPSULES 02/03/24 Unknown Rx monohydrate/macrocrystals 100 mg capsule simvastatin 80 mg tablet 80 mg PO DAILY high cholestoral 02/15/24 Unknown History Allergy/AdvReac Type Severity Reaction Status Date / Time Sulfa (Sulfonamide Allergy Intermediate Other Verified 02/15/24 16:05 Antibiotics) sulfamethoxazole (From Allergy Intermediate Itching Verified 02/15/24 16:05 Bactrim) trimethoprim (From Bactrim) Allergy Intermediate Itching Verified 02/15/24 16:05 codeine Allergy Unknown Other Verified 02/15/24 16:05 adhesive tape (tape) Allergy Rash Verified 02/15/24 16:05 Penicillins (PCN) Allergy Rash Verified 02/15/24 16:05 atorvastatin AdvReac Intermediate Myalgias Verified 02/15/24 16:05 Family History Mother Hypertension Arthritis Respiratory disease Grandfather Cancer kidney, brain Father Parkinson's disease Arthritis Grandmother CVA (cerebral vascular accident) Myocardial infarction Brother CVA (cerebral vascular accident) Myocardial infarction Sister Seizures Surgical History S/P colectomy Hx of colonoscopy History of laminectomy History of arthroscopy of right knee Hx of heart artery stent Hx of cardiac cath History of coronary artery stent placement (~04/23/22) H/O bilateral salpingo-oophorectomy H/O: hysterectomy Hx of tonsillectomy History of appendectomy History of cholecystectomy Social History Smoking Status: Never smoker alcohol intake: never substance use type: does not use caffeine: Yes Type: coffee Number of servings: 1 Physical Exam Const alert, oriented x3 and no apparent distress General Appearance: cooperative HEENT normocephalic and head/scalp atraumatic Eyes PERRL and EOMs intact bilaterally Neck supple and No nodes Resp normal air movement and clear to auscultation bilaterally Cardio regular rate and regular rhythm GI soft to palpation, non-tender and non-distended Extremity General Extremity: Negative for edema Skin no rashes or lesions noted Neuro CN's II-XII intact bilaterally Lab / Micro Data Attestation: I reviewed the patient's lab results. 02/16/24 05:35 02/16/24 05:35 Labs: Laboratory Results - last 24 hr 02/15/24 17:42: WBC 7.3, RBC 3.83 L, Hgb 10.8 L, Hct 33.8 L, MCV 88.3, MCH 28.2, MCHC 32.0, RDW Std Deviation 44.9 H, RDW Coeff of Nuno 13.9, Plt Count 395, MPV 9.4, Immature Gran % (Auto) 0.300, Neut % (Auto) 62.6, Lymph % (Auto) 26.6, Mccreary % (Auto) 6.1, Eos % (Auto) 3.4, Baso % (Auto) 1.0, Absolute Neuts (auto) 4.6, Absolute Lymphs (auto) 1.95, Nucleated RBC % 0, PT 14.0, INR 1.1, APTT 24.8, Sodium 139, Potassium 3.7, Chloride 106, Carbon Dioxide 28.0, Anion Gap 5, BUN 13, Creatinine 0.85, Est GFR (MDRD) Af Amer 84, Est GFR (MDRD) Non-Af 69, BUN/Creatinine Ratio 15.2, Glucose 99, Lactic Acid 1.0, Calcium 10.1, Total Bilirubin 0.30, Direct Bilirubin 0.07, AST 11 L, ALT 18, Alkaline Phosphatase 77, Total Protein 7.0, Albumin 3.5, Globulin 3.5, Urine Color Yellow, Urine Clarity Turbid, Urine pH 6.0, Ur Specific [place] 1.015, Urine Protein 100 H, Urine Glucose (UA) Normal, Urine Ketones Negative, Urine Occult Blood 150 H, Urine Nitrite Positive H, Urine Bilirubin 1 H, Urine Urobilinogen 1 H, Ur Leukocyte Esterase 500 H, Urine RBC 0-5 SEEN, Urine WBC >100 SEEN, Ur Squamous Epith Cells 0-5 SEEN, Urine Bacteria 3+, Hyaline Casts 0-5 SEEN, Urine Mucus 0 SEEN 02/16/24 05:35: WBC 5.6, RBC 3.50 L, Hgb 9.6 L, Hct 30.9 L, MCV 88.3, MCH 27.4, MCHC 31.1 L, RDW Std Deviation 45.1 H, RDW Coeff of Nuno 14.0, Plt Count 333, MPV 9.3, Immature Gran % (Auto) 0.200, Neut % (Auto) 52.4, Lymph % (Auto) 33.2, Mccreary % (Auto) 7.9, Eos % (Auto) 5.0, Baso % (Auto) 1.3 H, Absolute Neuts (auto) 2.9, Absolute Lymphs (auto) 1.85, Nucleated RBC % 0, PT 14.1, INR 1.1, Sodium 141, Potassium 4.1, Chloride 108 H, Carbon Dioxide 29.0, Anion Gap 4 L, BUN 12, Creatinine 0.89, Estim Creat Clear Calc 55.63, Est GFR (MDRD) Af Amer 79, Est GFR (MDRD) Non-Af 66, BUN/Creatinine Ratio 13.4, Glucose 99, Calcium 9.2, Phosphorus 4.3, Magnesium 2.1, Total Bilirubin 0.30, Direct Bilirubin 0.10, AST 10 L, ALT 15, Alkaline Phosphatase 63, Total Protein 5.9 L, Albumin 2.9 L, Globulin 3.0, Albumin/Globulin Ratio 1.0, TSH 0.437 Imaging Radiology Impression Abdomen/Pelvis CT 02/15/24 18:59 IMPRESSION: Postsurgical changes status post bowel resection and right lower quadrant and mild thickening of the bowel wall at the anastomosis and mild stranding in the fat likely postsurgical. No focal abscess is observed. Findings which may be consistent with cystitis. 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 No focal abscess is observed. Findings which may be consistent with cystitis. 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 : The above Results were Read Back by Anjel Napoles MD to En Sung DO, and understanding confirmed on 02/15/2024 21:11:28 (ET). Electronically Signed: Anjel Napoles MD at 20:55 EST ,
--- NOTE | 2024-02-16 11:46 | CASEMGMT ---
Addendum entered by Leida Silvestre 02/16/24 15:11: No response received via [employer] from [facility]. TC to [facility], spoke with Felicita who gave number of [place] office. [phone]. TC to their office, spoke with Yosef, he states that they do not typically take on new patients for IV atb but he will run it by their team to see as they service her dtr. RN CM to await returned call. He states to have a back up in line as this likely will be needed. Original Note: Sent message to [facility] via [employer] to see if they are able to see pt for skilled care should pt need to be dc'd home on IV atb. Will await decision.
[2024-02-16] MEDS: Phenazopyridine 95 MG Tablet PO ×2 (12:36→20:22)
[2024-02-16] MEDS: APIXABAN 5 MG TABLET 10 MG PO ×2 (12:36→20:22)
[2024-02-16 14:18] VITALS: BP 125/53; PULSE 64; RESP 18; TEMP 36.7; O2SAT 100
[2024-02-16 20:24] VITALS: BP 138/48; PULSE 65; RESP 16; TEMP 36.3; O2SAT 97
[2024-02-16] MEDS: MELATONIN 3 MG TABLET PO (22:44)
[2024-02-16 22:46] VITALS: BP 130/50; PULSE 60; RESP 15; TEMP 36.3; O2SAT 97
[2024-02-16 23:10] LABS: Bedside Glucose 110 mg/dL (74-106)
[2024-02-17 01:36] VITALS: BP 153/59; PULSE 71; RESP 16; TEMP 36.5; O2SAT 97
[2024-02-17] MEDS: Ibuprofen 600 MG Tablet PO (01:40)
[2024-02-17] MEDS: Meropenem 1 GM in 0.9% Normal Saline (100mL MB+) 100 ML IV ×2 (05:46→14:44)
[2024-02-17] MEDS: Phenazopyridine 95 MG Tablet PO ×2 (05:46→14:44)
--- NOTE | 2024-02-17 07:23 | PCM.PN.HOSP ---
Reason for Visit Reason for Visit: Diagnoses Other bacterial infections of unspecified site (02/15/24) Acute infarction of intestine, part and extent unspecified (02/15/24) Generalized hyperhidrosis (02/15/24) Extended spectrum beta lactamase (ESBL) resistance (02/15/24) Subjective Subjective Feels well. No new issues. Objective Data Objective Data Vital Signs: Vital Signs Temp Pulse Resp BP Pulse Ox O2 Del Method 36.5 C L 71 16 153/59 H 97 Room Air 02/17/24 01:36 02/17/24 01:36 02/17/24 01:36 02/17/24 01:36 02/17/24 01:36 02/17/24 01:36 Oxygen Delivery Method Room Air Weight: 83.7 kg Body Mass Index (BMI) 33.7 Intake & Output: Intake and Output for Last 24 Hours 02/15/24 02/16/24 02/17/24 23:59 23:59 23:59 Intake Total 120 / 120 1600 / 1600 645 / 645 Output Total 540 / 540 300 / 300 Balance 120 / 120 1060 / 1060 345 / 345 Lab / Micro Data 02/17/24 06:28 02/17/24 06:28 Labs: Laboratory Results - last 24 hr 02/15/24 17:42: Urine Color Yellow, Urine Clarity Turbid, Urine pH 6.0, Ur Specific [place] 1.015, Urine Protein 100 H, Urine Glucose (UA) Normal, Urine Ketones Negative, Urine Occult Blood 150 H, Urine Nitrite Positive H, Urine Bilirubin 1 H, Urine Urobilinogen 1 H, Ur Leukocyte Esterase 500 H, Urine RBC 0-5 SEEN, Urine WBC >100 SEEN, Ur Squamous Epith Cells 0-5 SEEN, Urine Bacteria 3+, Hyaline Casts 0-5 SEEN, Urine Mucus 0 SEEN 02/16/24 22:52: POC Glucose 110 H Micro: Microbiology 02/15/24 17:42 Urine, Clean Catch Urine Culture - Preliminary GNR lactose right of way worker Physical Exam Const alert and no apparent distress Constitutional Narrative: up in bed. non-toxic. Neuro Sensorium / Orientation: awake and alert Assessment & Plan Assessment/Plan (1) Infection due to ESBL-producing Escherichia coli: PLAN: Plan Urinary tract infection ESBL E. coli noted on 02/02 UCx, culture on 02/14 showed Klebsiella pneumoniae sensitive to amp/SB, cefepime, CTX, gent, glory, pip/tazo, Bactrim. IV meropenem 1 g every 8 hours ID consult pyridium Mesenteric venous thrombosis suspect may be related to recent bowel surgery. start apixaban. Recommend follow up with hematology as outpt for hyper coag work up. Would treat for 3 months at the minimum. Would defer to hematology if needs to be prolonged to hematology. Chronic conditions: CAD: coronary artery disease. Continue aspirin. Asymptomatic at this time. Cecal volvulus s/p ileocecectomy: No active symptoms. No diarrhea or changes in bowel habits. superior mesenteric vein thrombosis- no abdominal pain, no features of chronic mesenteric ischemia- Continue to monitor AJAY-Continue to monitor Hypertension-Continue home medications Heart failure preserved ejection fraction-Continue to monitor Depression-Continue with Vilazodone 20 mg as home medication DVT prophylaxis Enoxaparin 40 mg daily Charges/Coding Visit Charges Inpatient E&M: 06436 [facility] Hosp L1
[2024-02-17 07:39] LABS: Absolute Lymphocyte Count 1.58 X10^3/uL (0.83-4.51); Absolute Neutrophil Count 2.3 X10^3/uL (2.0-7.7); Basophil% 2.1 % (0-1); Eosinophil# 0.32 X10^3/uL; Eosinophils% 6.8 % (0-5); Hemoglobin 9.9 g/dL (12.0-15.0); Lymphocyte # 1.58 X10^3/ul (0.83-4.51); Lymphocyte % 33.7 % (19-41); Mean Corp Hgb Conc 31.9 g/dL (32-36); Mean Corpuscular Hgb 28.1 pg (27.0-32.0); Mean Corpuscular Volume 88.1 fL (81-99); Mean Platelet Vol. 9.7 fl (6.2-12.0); Monocyte# 0.35 X10^3/uL; Monocyte% 7.5 % (0-10); NRBC Flagged by Analyzer 0.4 % (0-5); Neutrophil # 2.26 X10^3/uL (2.7-7.7); Neutrophil % 48.2 % (47-70); Platelet Count 359 K/mm3 (150-450); RBC Distribution Width SD 45.1 fl (35.1-43.9); Red Blood Count 3.52 M/mm3 (4.2-5.4); White Blood Count 4.7 K/mm3 (4.4-11.0)
[2024-02-17 08:00] VITALS: BP 120/55; PULSE 55; RESP 16; TEMP 36.7; O2SAT 98
[2024-02-17 08:37] LABS: Anion Gap 4 (5-15); BUN 13 mg/dL (7-18); BUN/Creat Ratio 13.7 RATIO (10-20); Calcium,Total 9.6 mg/dL (8.5-10.1); Chloride 108 mmol/L (98-107); Creatinine, Serum 0.95 mg/dL (0.55-1.02); EST Glomerular Filtration Rate 61 mL/min (>60); Est Glom Filt Rate - Afr Amer 74 mL/min (>60); Estimated Creatinine Clearance 52.11 ml/min; Glucose 107 mg/dL (74-106); Potassium 4.2 mmol/L (3.5-5.1); Sodium Level 140 mmol/L (136-145)
[2024-02-17] MEDS: APIXABAN 5 MG TABLET 10 MG PO (09:21)
[2024-02-17] MEDS: Cholecalciferol (VIT D3) 25 MCG TABLET (1,000 UNITS) 100 MCG PO (09:21)
[2024-02-17] MEDS: VILAZODONE HYDROCHLORIDE 10 MG TABLET 20 MG PO (09:21)
[2024-02-17] MEDS: Ascorbic Acid 500 MG Tablet PO (09:21)
[2024-02-17] MEDS: Pantoprazole Sodium 40 MG Tablet PO (09:21)
[2024-02-17] MEDS: Lisinopril 5 MG Tablet PO (09:22)
[2024-02-17] MEDS: Aspirin E.C. 81 MG Tablet PO (09:22)
--- NOTE | 2024-02-17 09:23 | CASEMGMT ---
Addendum entered by Leida Silvestre 02/17/24 15:18: TC to [facility] Retail pharmacy, spoke with Jean-Paul, cost of Eliquis was unable to be determined as amount was over days allowed, savings card applied. No cost. Addendum entered by Leida Silvestre 02/17/24 14:03: ADRIENNE GIBSON into pt room, pt states she does not need IV's. She is pleased with this and she denies any homegoing needs. Pt to dc today. Addendum entered by Leida Silvestre 02/17/24 13:44: Spoke with ID, pt will dc on po atb. Updated hospitalist. Original Note: ADRIENNE GIBSON into pt room to make aware that [facility] has asked to look at other options other than them for HHC as they are checking on this possibility. Discussed with pt, requirements for HHC and pt is not currently homebound. Pt is agreeable to coming into the [facility] should her med be daily. Pt states she does not have difficulty leaving the home. Pt is also open to learning the IV medication on her own and coming in weekly for labs and picc dressing changes. If this is the case, ADRIENNE GIBSON will attempt to have [facility] educate pt prior to dc if available. Pt verbalizes understanding.
[2024-02-17 14:00] VITALS: BP 116/58; PULSE 59; RESP 16; TEMP 36.6; O2SAT 97
--- NOTE | 2024-02-17 14:24 | PN.ID_ITS ---
Physical Exam Narrative Feeling better. No sweats last night, no dysuria. Const alert and no apparent distress General Appearance: cooperative Resp normal air movement and clear to auscultation bilaterally Cardio regular rate and regular rhythm GI soft to palpation, non-tender and non-distended Skin no rashes or lesions noted ID ID: Route of nutrition/ use of supplements: [] Nutritional Intake: [] IV Site: [] [place] Catheter: [] Assessment & Plan Assessment/Plan (1) Infection due to ESBL-producing Escherichia coli: PLAN: On meropenem. Ucx with K pneumo. Feeling much better. Not growing ESBL now. Will write for 5 days cefdinir at discharge, stop macrobid. Will also start detention methenamine and vitamin C for uti prophylaxis with urology followup. ID prn. Will follow as needed, d/w housing case manager (2) Superior mesenteric vein thrombosis: (3) Night sweats:
--- NOTE | 2024-02-17 14:53 | DS.PCM_ITS ---
Providers Date of Admission: 02/15/24 Primary Care Physician: Dr. Aubree Woody, DO Consultations 02/15/24 21:51 Consult: Infectious Disease Routine Consulting Provider: Gilberto Macdonald Reason for Consult: ESBL EMERGENT Consult: No MD Notified: Yes Date Notified: 02/16/24 Time Notified: 06:37 Method of Notification: Answering Service Reason For Visit: UTI Diagnosis Discharge Diagnosis (1) Infection due to ESBL-producing Escherichia coli: Status: Acute Code(s): A49.8 - Other bacterial infections of unspecified site; Z16.12 - Extended spectrum beta lactamase (ESBL) resistance (2) Superior mesenteric vein thrombosis: Status: Acute Code(s): K55.069 - Acute infarction of intestine, part and extent unspecified (3) Night sweats: Status: Acute Code(s): R61 - Generalized hyperhidrosis Plan Urinary tract infection * ESBL E. coli noted on 02/02 UCx, culture on 02/14 showed Klebsiella pneumoniae sensitive to amp/SB, cefepime, CTX, gent, glory, pip/tazo, Bactrim. * ID recommending cefdinir. Mesenteric venous thrombosis * suspect may be related to recent bowel surgery. * start apixaban. Recommend follow up with hematology as outpt for hyper coag work up. Would treat for 3 months at the minimum. Would defer to hematology if needs to be prolonged to hematology. Chronic conditions: * CAD: coronary artery disease. Continue aspirin. Asymptomatic at this time. * Cecal volvulus s/p ileocecectomy: No active symptoms. No diarrhea or changes in bowel habits. * superior mesenteric vein thrombosis- no abdominal pain, no features of chronic mesenteric ischemia- Continue to monitor * AJAY-Continue to monitor * Hypertension-Continue home medications * Heart failure preserved ejection fraction-Continue to monitor * Depression-Continue with Vilazodone 20 mg as home medication DC home. Medications at Discharge Home Medications albuterol sulfate 90 mcg/actuation aerosol inhaler 2 puff inhalation Q4H PRN shortness of breath or wheezing 03/12/22 vilazodone 20 mg tablet 20 mg PO DAILY DEPRESSION 03/12/22 cholecalciferol (vitamin D3) 50 mcg (2,000 unit) capsule 100 mcg PO DAILY SUPPLEMENT 03/23/22 nitroglycerin 0.4 mg sublingual tablet 0.4 mg sublingual Q5M PRN Cardiac/Chest Pain #14 tabs 04/23/22 cyanocobalamin (vitamin B-12) 1,000 mcg/mL injection solution 1,000 mcg IM QMONTH SUPPLEMENT 06/06/23 lisinopril 5 mg tablet 5 mg PO BID BP #180 tabs 10/10/23 aspirin 81 mg tablet,delayed release (Adult Aspirin Regimen) 81 mg PO DAILY SUPPLEMENT 10/11/23 ascorbic acid (vitamin C) 500 mg tablet 500 mg PO QDAY SUPPLEMENT 11/24/23 vibegron 75 mg tablet (Gemtesa) 75 mg PO QDAY OAB 11/24/23 pantoprazole 40 mg tablet,delayed release 40 mg PO BID GERD #60 tabs 12/28/23 ondansetron 4 mg disintegrating tablet 4 mg PO Q8H PRN PRN nausea and vomiting 01/18/24 ibuprofen 600 mg tablet 600 mg PO Q6H PRN PRN Pain 1-10 Or Fever #0 tabs 01/31/24 apixaban 5 mg tablet 5 mg PO BID #90 tabs 02/17/24 ascorbic acid (vitamin C) 500 mg tablet (Vitamin C) 500 mg PO BID #60 tabs 02/17/24 cefdinir 300 mg capsule 300 mg PO BID #10 caps 02/17/24 methenamine hippurate 1 gram tablet 1 g PO BID #60 tabs 02/17/24 phenazopyridine 95 mg tablet (Azo Urinary Pain Relief) 95 mg PO TID #6 tabs 02/17/24 Hospital Course Operations None Procedures None Summary of Care Provided Minutes Spent on Discharge: 32 Weight / BMI Weight Weight: 83.7 kg Body Mass Index (BMI) 33.7 ABG / Lab / Microbiology Data 02/17/24 06:28 02/17/24 06:28 Laboratory: Laboratory Results - last 24 hr 02/15/24 17:42: Urine Color Yellow, Urine Clarity Turbid, Urine pH 6.0, Ur Specific [place] 1.015, Urine Protein 100 H, Urine Glucose (UA) Normal, Urine Ketones Negative, Urine Occult Blood 150 H, Urine Nitrite Positive H, Urine Bilirubin 1 H, Urine Urobilinogen 1 H, Ur Leukocyte Esterase 500 H, Urine RBC 0- 5 SEEN, Urine WBC >100 SEEN, Ur Squamous Epith Cells 0-5 SEEN, Urine Bacteria 3+, Hyaline Casts 0-5 SEEN, Urine Mucus 0 SEEN 02/16/24 22:52: POC Glucose 110 H 02/17/24 06:28: WBC 4.7, RBC 3.52 L, Hgb 9.9 L, Hct 31.0 L, MCV 88.1, MCH 28.1, MCHC 31.9 L, RDW Std Deviation 45.1 H, RDW Coeff of Nuno 14.0, Plt Count 359, MPV 9.7, Immature Gran % (Auto) 1.700 H, Neut % (Auto) 48.2, Lymph % (Auto) 33.7, [place] % (Auto) 7.5, Eos % (Auto) 6.8 H, Baso % (Auto) 2.1 H, Absolute Neuts (auto) 2.3, Absolute Lymphs (auto) 1.58, Nucleated RBC % 0.4, Sodium 140, Potassium 4.2, Chloride 108 H, Carbon Dioxide 28.0, Anion Gap 4 L, BUN 13, Creatinine 0.95, Estim Creat Clear Calc 52.11, Est GFR (MDRD) Af Amer 74, Est GFR (MDRD) Non-Af 61, BUN/Creatinine Ratio 13.7, Glucose 107 H, Calcium 9.6 Microbiology: Microbiology 02/15/24 17:42 Urine, Clean Catch Urine Culture - Preliminary Klebsiella pneumoniae sp pneum D/C Instructions Discharge Diet: No restrictions DC O2, CPAP, BIPAP Needs Additional Home O2 Discharge instructions: No DC home with Oxygen: No Meaningful Use Info Meaningful Use Meaningful Use Diagnoses (Choose all that apply): None applicable Ischemic Stroke Statin Dosing Therapy Reference: STATIN DOSE THERAPY REFERENCE: * Patients > 75 years receive moderate or high dose statin therapy. * Patients 75 years or YOUNGER should receive HIGH intensity statin dose unless contraindicated. You will be required to document reason for non-treatment if statin daily dose does not meet guidelines. HIGH DOSE STATIN THERAPY DAILY Atorvastatin > than or = to 40 mg Rosuvastatin > than or = to 20 mg Amlodipine + Atorvastatin > than or = to 2.5/40 mg Ezetimibe + Simvastatin 10/80 mg Simvastatin 80mg Discharge Plan Admission Admit Date/Time: 02/15/24 21:22 Primary Reason for Your Visit: UTI Attending Provider: Torres Delgadillo Primary Care Provider: Aubree Woody Consulting Providers: Gilberto Macdonald; Rema Garza Discharge Orders/Prescriptions Prescriptions: New cefdinir 300 mg capsule 300 mg PO BID Qty: 10 0RF methenamine hippurate 1 gram tablet 1 g PO BID Qty: 60 3RF ascorbic acid (vitamin C) [Vitamin C] 500 mg tablet 500 mg PO BID Qty: 60 3RF phenazopyridine [Azo Urinary Pain Relief] 95 mg Tablet 95 mg PO TID Qty: 6 0RF apixaban 5 mg tablet 5 mg PO BID Qty: 90 0RF Rx Instructions: 2 tabs twice daily for 5 more days, then 1 tab daily twice daily thereafter. Continued albuterol sulfate 90 mcg/actuation HFA aerosol inhaler 2 puff inhalation Q4H PRN (Reason: shortness of breath or wheezing) vilazodone 20 mg tablet 20 mg PO DAILY cholecalciferol (vitamin D3) 50 mcg (2,000 unit) capsule 100 mcg PO DAILY aspirin [Adult Aspirin Regimen] 81 mg tablet,delayed release (DR/EC) 81 mg PO DAILY ascorbic acid (vitamin C) 500 mg tablet 500 mg PO QDAY Gemtesa 75 mg tablet 75 mg PO QDAY nitroglycerin 0.4 mg Tablet, Sublingual 0.4 mg sublingual Q5M PRN (Reason: Cardiac/Chest Pain) Qty: 14 3RF ondansetron 4 mg tablet,disintegrating 4 mg PO Q8H PRN PRN (Reason: nausea and vomiting) ibuprofen 600 mg Tablet 600 mg PO Q6H PRN PRN (Reason: Pain 1-10 Or Fever) Qty: 0 0RF cyanocobalamin (vitamin B-12) 1,000 mcg/mL solution 1,000 mcg IM QMONTH lisinopril 5 mg tablet 5 mg PO BID Qty: 180 3RF pantoprazole 40 mg tablet,delayed release (DR/EC) 40 mg PO BID Qty: 60 1RF Discontinued oxycodone-acetaminophen 5-325 mg tablet 1 tab PO Q6H PRN PRN (Reason: Pain) 3 Days Qty: 12 0RF nitrofurantoin monohyd/m-cryst 100 mg capsule 100 mg PO Q12 Qty: 14 0RF simvastatin 80 mg tablet 80 mg PO DAILY Referrals / Follow Up: *[facility] [Provider Group] - Within 3 Months Annalise,Aubree, DO [Primary Care Provider] - Within 2 Weeks Disposition Disposition (needs filled in before D/C Order can be placed): Home, Self Care Charges/Coding Visit Charges Inpatient E&M: 55446 Disch Hosp >30min
== END 2024-02-17 16:55 | disposition home or self-care (01) | DRG 689 ==
LOC: ED 21:29 → MS3 21:34
PROVIDERS: Admitting Provider Internal Medicine; Emergency Provider Emergency Medicine; PCP Internal Medicine
DX: N39.0 Urinary tract infection, site not specified (principal); K55.069 Acute infarction of intestine, part and extent unspecified; I13.0 Hypertensive heart and chronic kidney disease with heart failure and stage 1 through stage 4 chronic kidney disease, or unspecified chronic kidney disease; I50.32 Chronic diastolic (congestive) heart failure; I27.20 Pulmonary hypertension, unspecified; N18.30 Chronic kidney disease, stage 3 unspecified; F32.A Depression, unspecified; E78.5 Hyperlipidemia, unspecified; I25.10 Atherosclerotic heart disease of native coronary artery without angina pectoris; E78.00 Pure hypercholesterolemia, unspecified; G47.33 Obstructive sleep apnea (adult) (pediatric); B96.1 Klebsiella pneumoniae [K. pneumoniae] as the cause of diseases classified elsewhere; Z88.2 Allergy status to sulfonamides; Z79.82 Long term (current) use of aspirin; Z79.899 Other long term (current) drug therapy; Z90.49 Acquired absence of other specified parts of digestive tract; Z95.5 Presence of coronary angioplasty implant and graft
CPT/HCPCS: 36415; 74177; 80048; 80053; 80076; 81001; 82248; 82962; 83605; 83735; 84100; 84443; 85025; 85610; 85730; 87040; 87077; 87086; 87088; 87186; 99284; J2185; Q9967; A4216

== ENCOUNTER 2024-02-22 11:59 | Outpatient (CLI) | payer MEDICARE, BC, SELFPAY ==
[2022-07-12 09:18] VITALS: BMI 34.2
[2024-02-22 12:24] VITALS: BP 119/57; PULSE 63; RESP 16; TEMP 36.5; O2SAT 98; BMI 33.8
[2024-02-22] MEDS: Ertapenem Sod 1 GM/10 ML Vial IM (12:35)
[2024-02-22 14:56] LABS: Color, Urine Straw (Yellow); Glucose, Dipstick Normal (Normal); Ketone-Dipstick 5 mg/dl (Negative); Leukocyte Esterase-Dipstick 500 /ul (Negative); Nitrite-Dipstick Positive (Negative); Occult Blood-Urine 50 /ul (Negative); Protein-Dipstick 100 mg/dl (Negative); Specific Gravity, Urine 1.025 (1.002-1.030); Urine Clarity Cloudy (Clear); Urine Urobilinogen 4 mg/dl (Normal)
[2024-02-22 14:57] LABS: Urine Bilirubin Dipstick 1 mg/dL (Negative)
== END 2024-02-22 23:59 | disposition home or self-care (01) ==
PROVIDERS: PCP Internal Medicine; Referring Provider Internal Medicine Infectious Disease; Visit Provider Internal Medicine Infectious Disease
DX: N39.0 Urinary tract infection, site not specified (principal)
CPT/HCPCS: 81002; 87086; 87088; 87186; 96372

== ENCOUNTER 2024-02-23 11:16 | Outpatient (CLI) | payer MEDICARE, BC, SELFPAY ==
[2022-07-12 09:18] VITALS: BMI 34.2
[2024-02-23 11:22] VITALS: BP 169/62; PULSE 66; RESP 16; TEMP 36.3; O2SAT 97; BMI 34.0
[2024-02-23] MEDS: Ertapenem Sod 1 GM/10 ML Vial IM (11:59)
== END 2024-02-23 23:59 | disposition home or self-care (01) ==
LOC: MEDOUTP 11:16
PROVIDERS: PCP Internal Medicine; Referring Provider Internal Medicine Infectious Disease; Visit Provider Internal Medicine Infectious Disease
DX: N39.0 Urinary tract infection, site not specified (principal)
CPT/HCPCS: 96372

== ENCOUNTER 2024-02-24 11:17 | Outpatient (CLI) | payer MEDICARE, BC, SELFPAY ==
[2022-07-12 09:18] VITALS: BMI 34.2
[2024-02-24 11:28] VITALS: BP 138/57; PULSE 51; RESP 14; TEMP 35.9; O2SAT 100; BMI 34.0
[2024-02-24] MEDS: Ertapenem Sod 1 GM/10 ML Vial IM (11:52)
== END 2024-02-24 23:59 | disposition home or self-care (01) ==
LOC: MEDOUTP 11:18
PROVIDERS: PCP Internal Medicine; Referring Provider Internal Medicine Infectious Disease; Visit Provider Internal Medicine Infectious Disease
DX: N39.0 Urinary tract infection, site not specified (principal)
CPT/HCPCS: 96372

== ENCOUNTER 2024-02-25 11:16 | Outpatient (CLI) | payer MEDICARE, BC, SELFPAY ==
[2022-07-12 09:18] VITALS: BMI 34.2
[2024-02-25 11:42] VITALS: BP 136/62; PULSE 57; RESP 16; TEMP 36.6; O2SAT 99
[2024-02-25] MEDS: Ertapenem Sod 1 GM/10 ML Vial IM (11:57)
== END 2024-02-25 12:00 | disposition home or self-care (01) ==
LOC: MEDOUTP 11:16 → PCU 11:19
PROVIDERS: PCP Internal Medicine; Referring Provider Internal Medicine Infectious Disease; Visit Provider Internal Medicine Infectious Disease
DX: N39.0 Urinary tract infection, site not specified (principal)
CPT/HCPCS: 96372

== ENCOUNTER 2024-02-26 11:34 | Outpatient (CLI) | payer MEDICARE, BC, SELFPAY ==
[2022-07-12 09:18] VITALS: BMI 34.2
[2024-02-26] MEDS: Ertapenem Sod 1 GM/10 ML Vial IM (12:03)
[2024-02-26 12:22] LABS: Hematocrit 31.2 % (37-47); Hemoglobin 9.9 g/dL (12.0-15.0); Mean Corp Hgb Conc 31.7 g/dL (32-36); Mean Corpuscular Volume 88.1 fL (81-99); Mean Platelet Vol. 9.3 fl (6.2-12.0); Platelet Count 272 K/mm3 (150-450); RBC Distribution Width CV 13.6 % (11.6-14.6); RBC Distribution Width SD 44.4 fl (35.1-43.9); Red Blood Count 3.54 M/mm3 (4.2-5.4); White Blood Count 3.6 K/mm3 (4.4-11.0)
[2024-02-26 12:39] LABS: ALB/GLOB Ratio 1.1 RATIO (0.9-2.4); AST(SGOT) 13 U/L (15-37); Alanine Aminotransfer ALT/SGPT 17 U/L (13-56); Albumin, Serum 3.4 g/dL (3.2-5.0); Alkaline Phosphatase 70 U/L (45-117); Anion Gap 4 (5-15); BUN 11 mg/dL (7-18); BUN/Creat Ratio 14.1 RATIO (10-20); Calcium,Total 9.4 mg/dL (8.5-10.1); Chloride 105 mmol/L (98-107); Creatinine, Serum 0.78 mg/dL (0.55-1.02); EST Glomerular Filtration Rate 76 mL/min (>60); Est Glom Filt Rate - Afr Amer 92 mL/min (>60); Globulin 3.2 g/dL (2.2-4.2); Glucose 94 mg/dL (74-106); Protein, Total 6.6 g/dL (6.4-8.2); Sodium Level 138 mmol/L (136-145)
== END 2024-02-26 12:03 | disposition home or self-care (01) ==
LOC: MEDOUTP 11:34 → PCU 11:42
PROVIDERS: PCP Internal Medicine; Referring Provider Internal Medicine Infectious Disease; Visit Provider Internal Medicine Infectious Disease
DX: N39.0 Urinary tract infection, site not specified (principal)
CPT/HCPCS: 80053; 85027; 96372

== ENCOUNTER 2024-02-27 11:57 | Outpatient (CLI) | payer MEDICARE, BC, SELFPAY ==
[2022-07-12 09:18] VITALS: BMI 34.2
[2024-02-27 12:04] VITALS: BP 134/65; PULSE 60; RESP 16; TEMP 35.6; O2SAT 100
[2024-02-27] MEDS: Ertapenem Sod 1 GM/10 ML Vial IM (12:58)
== END 2024-02-27 23:59 | disposition home or self-care (01) ==
LOC: MEDOUTP 11:58
PROVIDERS: PCP Internal Medicine; Referring Provider Internal Medicine Infectious Disease; Visit Provider Internal Medicine Infectious Disease
DX: N39.0 Urinary tract infection, site not specified (principal)
CPT/HCPCS: 96372

== ENCOUNTER 2024-02-28 09:48 | Outpatient (CLI) | payer MEDICARE, BC, SELFPAY ==
[2022-07-12 09:18] VITALS: BMI 34.2
[2024-02-28 10:03] VITALS: BP 158/91; PULSE 80; RESP 16; TEMP 36.6; O2SAT 100
[2024-02-28] MEDS: Ertapenem Sod 1 GM/10 ML Vial IM (10:29)
== END 2024-02-28 23:59 | disposition home or self-care (01) ==
LOC: MEDOUTP 09:48
PROVIDERS: PCP Internal Medicine; Referring Provider Internal Medicine Infectious Disease; Visit Provider Internal Medicine Infectious Disease
DX: N39.0 Urinary tract infection, site not specified (principal)
CPT/HCPCS: 96372

== ENCOUNTER 2024-02-29 11:30 | Outpatient (CLI) | payer MEDICARE, BC, SELFPAY ==
[2022-07-12 09:18] VITALS: BMI 34.2
[2024-02-29 11:37] VITALS: BP 136/62; PULSE 78; RESP 18; TEMP 36.6; O2SAT 100
[2024-02-29] MEDS: Ertapenem Sod 1 GM/10 ML Vial IM (11:38)
== END 2024-02-29 11:39 | disposition home or self-care (01) ==
LOC: MEDOUTP 11:31 → MS3 11:32
PROVIDERS: PCP Internal Medicine; Referring Provider Internal Medicine Infectious Disease; Visit Provider Internal Medicine Infectious Disease
DX: N39.0 Urinary tract infection, site not specified (principal)
CPT/HCPCS: 96372

== ENCOUNTER 2024-03-01 11:23 | Outpatient (CLI) | payer MEDICARE, BC, SELFPAY ==
[2022-07-12 09:18] VITALS: BMI 34.2
[2024-03-01 11:32] VITALS: BP 149/70; PULSE 55; RESP 16; TEMP 35.7; O2SAT 98
[2024-03-01] MEDS: Ertapenem Sod 1 GM/10 ML Vial IM (12:20)
== END 2024-03-01 23:59 | disposition home or self-care (01) ==
LOC: MEDOUTP 11:23
PROVIDERS: PCP Internal Medicine; Referring Provider Internal Medicine Infectious Disease; Visit Provider Internal Medicine Infectious Disease
DX: N39.0 Urinary tract infection, site not specified (principal)
CPT/HCPCS: 96372

== ENCOUNTER 2024-03-02 10:49 | Outpatient (CLI) | payer MEDICARE, BC, SELFPAY ==
[2022-07-12 09:18] VITALS: BMI 34.2
[2024-03-02 10:58] VITALS: BP 133/52; PULSE 61; RESP 16; TEMP 36.2; O2SAT 100
[2024-03-02] MEDS: Ertapenem Sod 1 GM/10 ML Vial IM (11:28)
== END 2024-03-02 23:59 | disposition home or self-care (01) ==
LOC: MEDOUTP 10:49
PROVIDERS: PCP Internal Medicine; Referring Provider Internal Medicine Infectious Disease; Visit Provider Internal Medicine Infectious Disease
DX: N39.0 Urinary tract infection, site not specified (principal)
CPT/HCPCS: 96372

== ENCOUNTER → 2024-03-16 | Outpatient (CLI) | payer MEDICARE, BC, SELFPAY ==
[2022-07-12 09:18] VITALS: BMI 34.2
[2024-03-16 09:17] LABS: Bacteria 0 SEEN /hpf (None Seen); Mucous, Urine 0 SEEN /hpf (<or=2+); Red Blood Cells-Urine 0 SEEN /hpf (0-5); Squamous Epithelial Cells - UA 0 SEEN /hpf (5-10); White Blood Cells 0 SEEN /hpf (0-5)
[2024-03-16 10:20] LABS: Color, Urine Yellow (Yellow); Glucose, Dipstick Normal (Normal); Ketone-Dipstick Negative (Negative); Leukocyte Esterase-Dipstick 100 /ul (Negative); Nitrite-Dipstick Negative (Negative); Occult Blood-Urine Negative /ul (Negative); Protein-Dipstick 15 mg/dl (Negative); Specific Gravity, Urine 1.015 (1.002-1.030); Urine Bilirubin Dipstick Negative (Negative); Urine Clarity Clear (Clear); Urine Urobilinogen Normal (Normal)
== END | disposition home or self-care (01) ==
PROVIDERS: PCP Internal Medicine; Referring Provider Internal Medicine Infectious Disease; Visit Provider Internal Medicine Infectious Disease
DX: A49.9 Bacterial infection, unspecified (principal)

== ENCOUNTER → 2024-03-20 | Outpatient (CLI) | payer MEDICARE, BC, SELFPAY ==
[2022-07-12 09:18] VITALS: BMI 34.2
== END | disposition home or self-care (01) ==
LOC: LABSPEC 10:22
PROVIDERS: PCP Internal Medicine; Referring Provider Internal Medicine Infectious Disease; Visit Provider Internal Medicine Infectious Disease
DX: N39.0 Urinary tract infection, site not specified (principal)

== ENCOUNTER → 2024-04-03 | Outpatient (CLI) | payer MEDICARE, BC, SELFPAY ==
[2022-07-12 09:18] VITALS: BMI 34.2
[2024-04-03 11:56] LABS: Cholesterol 190 mg/dL (200); High Density Lipoprotein 53 mg/dL; Triglycerides 194 mg/dL; Very Low Density Lipoprotein 39 mg/dL (5-40)
== END | disposition home or self-care (01) ==
LOC: LAB 10:58
PROVIDERS: PCP Internal Medicine; Referring Provider Nurse Practitioner Gerontology; Visit Provider Nurse Practitioner Gerontology
DX: E78.5 Hyperlipidemia, unspecified (principal)
CPT/HCPCS: 36415; 80061

== ENCOUNTER 2024-04-30 13:25 | Outpatient (CLI) | payer MEDICARE, BC, SELFPAY ==
[2022-07-12 09:18] VITALS: BMI 34.2
[2024-04-30 13:32] VITALS: BP 143/62; PULSE 90; RESP 16; TEMP 36.4; O2SAT 96; BMI 33.5
[2024-04-30] MEDS: Ertapenem Sod 1 GM/10 ML Vial IM (14:09)
== END 2024-04-30 23:59 | disposition home or self-care (01) ==
LOC: MEDOUTP 13:25
PROVIDERS: PCP Internal Medicine; Referring Provider Internal Medicine Infectious Disease; Visit Provider Internal Medicine Infectious Disease
DX: N39.0 Urinary tract infection, site not specified (principal)
CPT/HCPCS: 96372

== ENCOUNTER 2024-05-01 12:35 | Outpatient (CLI) | payer MEDICARE, BC, SELFPAY ==
[2022-07-12 09:18] VITALS: BMI 34.2
[2024-05-01 13:07] LABS: Color, Urine Amber (Yellow); Glucose, Dipstick Normal (Normal); Ketone-Dipstick 5 mg/dl (Negative); Leukocyte Esterase-Dipstick 100 /ul (Negative); Nitrite-Dipstick Positive (Negative); Occult Blood-Urine 10 /ul (Negative); Protein-Dipstick 30 mg/dl (Negative); Urine Clarity Clear (Clear); Urine Urobilinogen 12 mg/dl (Normal)
[2024-05-01 13:09] LABS: Urine Bilirubin Dipstick 6 mg/dL (Negative)
[2024-05-01 13:23] VITALS: BP 150/76; PULSE 74; RESP 16; TEMP 35.7; O2SAT 97; BMI 33.5
[2024-05-01] MEDS: Ertapenem Sod 1 GM/10 ML Vial IM (13:42)
== END 2024-05-01 23:59 | disposition home or self-care (01) ==
LOC: MEDOUTP 12:36
PROVIDERS: PCP Internal Medicine; Referring Provider Internal Medicine Infectious Disease; Visit Provider Internal Medicine Infectious Disease
DX: N39.0 Urinary tract infection, site not specified (principal)
CPT/HCPCS: 81002; 87086; 96372

== ENCOUNTER 2024-05-02 13:29 | Outpatient (CLI) | payer MEDICARE, BC, SELFPAY ==
[2022-07-12 09:18] VITALS: BMI 34.2
[2024-05-02 13:43] VITALS: BP 133/65; PULSE 52; RESP 16; TEMP 36.4; O2SAT 99; BMI 33.5
[2024-05-02] MEDS: Ertapenem Sod 1 GM/10 ML Vial IM (14:02)
== END 2024-05-02 23:59 | disposition home or self-care (01) ==
LOC: MEDOUTP 13:29
PROVIDERS: PCP Internal Medicine; Referring Provider Internal Medicine Infectious Disease; Visit Provider Internal Medicine Infectious Disease
DX: N39.0 Urinary tract infection, site not specified (principal)
CPT/HCPCS: 96372

== ENCOUNTER 2024-05-03 13:21 | Outpatient (CLI) | payer MEDICARE, BC, SELFPAY ==
[2022-07-12 09:18] VITALS: BMI 34.2
[2024-05-03 13:46] VITALS: BP 149/75; PULSE 58; RESP 16; O2SAT 100; BMI 33.5
[2024-05-03] MEDS: Ertapenem Sod 1 GM/10 ML Vial IM (13:52)
== END 2024-05-03 23:59 | disposition home or self-care (01) ==
LOC: MEDOUTP 13:21
PROVIDERS: PCP Internal Medicine; Referring Provider Internal Medicine Infectious Disease; Visit Provider Internal Medicine Infectious Disease
DX: N39.0 Urinary tract infection, site not specified (principal)
CPT/HCPCS: 96372

== ENCOUNTER → 2024-05-14 | Outpatient (CLI) | payer MEDICARE, BC, SELFPAY ==
[2022-07-12 09:18] VITALS: BMI 34.2
--- NOTE | 2024-05-14 16:38 | RAD_ITS ---
PROCEDURE: CHEST PA AND LATERAL REASON FOR EXAM: CXR PA T LAT (77620) : R/O PNEUMONIA, COUGH X5 WEEKS TECHNIQUE: PA and lateral views of the chest. COMPARISON: 09/16/2023, 07/27/2023 and 09/24/2022 FINDINGS: The lungs appear clear. Pulmonary vascularity appears within limits. No pleural effusion. Cardiac and mediastinal contours appear within limits. Atherosclerotic change of the aortic arch again noted. Status post cholecystectomy. DISH again noted. RAD/Chest PA and Lateral IMPRESSION: No evidence of acute disease. Reading Location: [id number]
== END | disposition home or self-care (01) ==
LOC: RAD 16:35
PROVIDERS: PCP Internal Medicine; Referring Provider Nurse Practitioner Family; Visit Provider Nurse Practitioner Family
DX: R05.8 Other specified cough (principal)
CPT/HCPCS: 71046

== ENCOUNTER → 2024-05-21 | Outpatient (CLI) | payer MEDICARE, BC, SELFPAY ==
[2022-07-12 09:18] VITALS: BMI 34.2
== END | disposition home or self-care (01) ==
PROVIDERS: PCP Internal Medicine; Referring Provider Internal Medicine Infectious Disease; Visit Provider Internal Medicine Infectious Disease
DX: N39.0 Urinary tract infection, site not specified (principal)
CPT/HCPCS: 87077; 87086; 87088; 87186

== ENCOUNTER → 2024-06-04 | Outpatient (CLI) | payer MEDICARE, BC, SELFPAY ==
[2022-07-12 09:18] VITALS: BMI 34.2
[2024-06-04 11:30] LABS: Absolute Lymphocyte Count 2.18 X10^3/uL (0.83-4.51); Absolute Neutrophil Count 2.1 X10^3/uL (2.0-7.7); Basophil# 0.04 X10^3/uL; Basophil% 0.8 % (0-1); Eosinophil# 0.14 X10^3/uL; Eosinophils% 2.8 % (0-5); Hematocrit 32.8 % (37-47); Hemoglobin 10.2 g/dL (12.0-15.0); Lymphocyte # 2.18 X10^3/ul (0.83-4.51); Lymphocyte % 44.3 % (19-41); Mean Corp Hgb Conc 31.1 g/dL (32-36); Mean Corpuscular Hgb 25.6 pg (27.0-32.0); Mean Corpuscular Volume 82.4 fL (81-99); Mean Platelet Vol. 9.7 fl (6.2-12.0); Monocyte# 0.42 X10^3/uL; Monocyte% 8.5 % (0-10); NRBC Flagged by Analyzer 0 % (0-5); Neutrophil # 2.13 X10^3/uL (2.7-7.7); Neutrophil % 43.4 % (47-70); Platelet Count 249 K/mm3 (150-450); RBC Distribution Width CV 16.5 % (11.6-14.6); RBC Distribution Width SD 49.8 fl (35.1-43.9); Red Blood Count 3.98 M/mm3 (4.2-5.4); White Blood Count 4.9 K/mm3 (4.4-11.0)
[2024-06-04 12:40] LABS: Thyroid Stim Hormone (TSH) 0.765 uIU/mL (0.300-4.200)
[2024-06-04 12:51] LABS: Anion Gap 12 (5-15); BUN 16 mg/dL (4-19); BUN/Creat Ratio 18.7 RATIO (10-20); Calcium,Total 9.4 mg/dL (7.6-11.0); Carbon Dioxide 22.4 mmol/L (21.0-32.0); Chloride 105 mmol/L (98-108); Creatinine, Serum 0.85 mg/dL (0.70-1.20); EST Glomerular Filtration Rate 72 (>60); Glucose 87 mg/dL (70-99); Sodium Level 139 mmol/L (133-145)
== END | disposition home or self-care (01) ==
LOC: LAB 11:00
PROVIDERS: PCP Internal Medicine; Referring Provider Orthopaedic Surgery; Visit Provider Student in an Organized Health Care Education/Training Program
DX: M54.16 Radiculopathy, lumbar region (principal); R61 Generalized hyperhidrosis; R07.9 Chest pain, unspecified; R25.2 Cramp and spasm
CPT/HCPCS: 36415; 80048; 84439; 84443; 85025

== ENCOUNTER → 2024-06-06 | Outpatient (CLI) | payer MEDICARE, BC, SELFPAY ==
[2022-07-12 09:18] VITALS: BMI 34.2
[2024-06-06 16:17] LABS: Color, Urine Yellow (Yellow); Glucose, Dipstick Normal (Normal); Ketone-Dipstick Negative (Negative); Leukocyte Esterase-Dipstick 25 /ul (Negative); Nitrite-Dipstick Negative (Negative); Occult Blood-Urine Negative /ul (Negative); Protein-Dipstick 15 mg/dl (Negative); Specific Gravity, Urine 1.015 (1.002-1.030); Urine Bilirubin Dipstick Negative (Negative); Urine Clarity Clear (Clear); Urine Urobilinogen 1 mg/dl (Normal)
== END | disposition home or self-care (01) ==
LOC: LAB 15:21
PROVIDERS: PCP Internal Medicine; Referring Provider Internal Medicine Infectious Disease; Visit Provider Internal Medicine Infectious Disease
DX: N39.0 Urinary tract infection, site not specified (principal)
CPT/HCPCS: 81002; 87086

== ENCOUNTER 2024-06-18 09:14 | Inpatient (IN) | payer MEDICARE, BC, SELFPAY ==
[2022-07-12 09:18] VITALS: BMI 34.2
[2024-06-18] VITALS (11 sets, daily range): BP systolic 137–175; BP diastolic 52–87; PULSE 62–94; RESP 10–19; TEMP 36.3–37.2; O2SAT 94–99; BMI 34.7; BMI 34.0
--- NOTE | 2024-06-18 09:31 | EX.ED.DYSGE1 ---
HPI History of Present Illness Chief Complaint: Complaint Detail of Chief Complaint: Abdominal pain and dysuria Informant: patient Narrative Narrative: Patient presents the emergency department complaint of abdominal pain and dysuria. Patient states that she has had 6 positive urine culture since January. She is working with infectious disease specialist Dr. Shaikh. Patient currently on a cephalosporin antibiotic for a positive Klebsiella culture. She has a CT scan of the abdomen pelvis ordered for May of the abdomen and pelvis with and without contrast. Patient having pain 8 out of 10 in the lower abdomen today. She has been on Azo for last 8 days. She has had prior appendectomy and cholecystectomy. In January 2024 she had a partial colectomy due to a volvulus. She states that her symptoms and problems began after that. [facility] Medical History (Updated 06/04/24 @ 11:25 by ALONDRA Campo) Night sweats History of ESBL E. coli infection Shortness of breath on exertion Wears glasses Depression Arthritis High cholesterol History of hiatal hernia CPAP (continuous positive airway pressure) dependence History of edema History of Holter monitoring History of stress test History of echocardiogram Cardiology follow-up encounter History of CAD (coronary artery disease) Dyspnea on exertion Angina pectoris Chest pain Decreased radial pulse Swelling of right wrist Claudication of both lower extremities Leg cramps Abnormal stress test Heart failure with preserved ejection fraction, NYHA class II Obesity AJAY (obstructive sleep apnea) Chavira palsy CKD (chronic kidney disease) stage 3, GFR 30-59 ml/min B12 deficiency Hyperlipidemia Diastolic dysfunction Pulmonary hypertension SVT (supraventricular tachycardia) Palpitations Essential (primary) hypertension Eczema of both hands Anxiety Gastroparesis GERD (gastroesophageal reflux disease) Piriformis syndrome of left side IBS (irritable bowel syndrome) Depression Home Medications ?Medication ?Instructions ?Recorded ?Last Taken ?Type albuterol sulfate 90 mcg/actuation 2 puff inhalation Q4H PRN 03/12/22 Unknown History aerosol inhaler shortness of breath or wheezing vilazodone 20 mg tablet 20 mg PO DAILY DEPRESSION 03/12/22 01/30/24 History cholecalciferol (vitamin D3) 50 100 mcg PO DAILY SUPPLEMENT 03/23/22 02/15/24 History mcg (2,000 unit) capsule nitroglycerin 0.4 mg sublingual 0.4 mg sublingual Q5M PRN 04/23/22 Unknown Rx tablet Cardiac/Chest Pain #14 tabs cyanocobalamin (vitamin B-12) 1,000 mcg IM QMONTH SUPPLEMENT 06/06/23 01/23/24 History 1,000 mcg/mL injection solution lisinopril 5 mg tablet 5 mg PO BID BP #180 tabs 10/10/23 01/29/24 Rx aspirin 81 mg tablet,delayed 81 mg PO DAILY SUPPLEMENT 10/11/23 02/14/24 History release (Adult Aspirin Regimen) vibegron 75 mg tablet (Gemtesa) 75 mg PO QDAY OAB 11/24/23 01/29/24 History ibuprofen 600 mg tablet 600 mg PO Q6H PRN PRN Pain 1-10 Or 01/31/24 02/14/24 Rx Fever #0 tabs apixaban 5 mg tablet 5 mg PO BID #90 tabs 02/17/24 Unknown Rx rabeprazole 20 mg tablet,delayed mg PO 03/27/24 Unknown History release albuterol 90 mcg-budesonide 80 2 inh inhalation 4XD PRN shortness 05/02/24 Unknown Rx mcg/actuation HFA aerosol inhaler of breath or wheezing #10.7 grams (Airsupra) amlodipine 2.5 mg tablet 2.5 mg PO QDAY #90 tabs 06/04/24 Unknown Rx atorvastatin 10 mg tablet 10 mg PO QHS #90 tabs 06/04/24 Unknown Rx pantoprazole 40 mg tablet,delayed 40 mg PO QDAY 06/04/24 Unknown History release Allergy/AdvReac Type Severity Reaction Status Date / Time Sulfa (Sulfonamide Allergy Intermediate Rash Verified 06/18/24 09:16 Antibiotics) sulfamethoxazole (From Allergy Intermediate Itching Verified 06/18/24 09:16 Bactrim) trimethoprim (From Bactrim) Allergy Intermediate Itching Verified 06/18/24 09:16 adhesive tape (tape) Allergy Rash Verified 06/18/24 09:16 cefdinir Allergy Hives Verified 06/18/24 09:16 Penicillins (PCN) Allergy Rash Verified 06/18/24 09:16 atorvastatin AdvReac Intermediate Myalgias Verified 06/18/24 09:16 codeine AdvReac Unknown Other Verified 06/18/24 09:16 Family History Mother Hypertension Arthritis Respiratory disease Grandfather Cancer kidney, brain Father Parkinson's disease Arthritis Grandmother CVA (cerebral vascular accident) Myocardial infarction Brother CVA (cerebral vascular accident) Myocardial infarction H/O blood clots Sister Seizures H/O blood clots Surgical History S/P colectomy Hx of colonoscopy History of laminectomy History of arthroscopy of right knee Hx of heart artery stent Hx of cardiac cath History of coronary artery stent placement (~04/23/22) H/O bilateral salpingo-oophorectomy H/O: hysterectomy Hx of tonsillectomy History of appendectomy History of cholecystectomy Social History Smoking Status: Never smoker alcohol intake: never substance use type: does not use caffeine: Yes Type: coffee Number of servings: 1 ROS ROS ED Review of Systems ROS Unobtainable: other Constitutional Constitutional ED: Reports lethargy; Denies chills, fever(s), sweats or weight loss Eyes Eyes: Denies blurry vision, change in vision or diplopia ENT ENT ED: Denies rhinorrhea or sore throat Cardiovascular Cardiovascular: Denies chest pain, orthopnea or racing heartbeat Respiratory/Chest Respiratory/Chest: Denies cough, dyspnea, dyspnea on exertion, orthopnea or sputum Gastrointestinal Gastrointestinal: Reports abdominal pain; Denies diarrhea, nausea or vomiting Genitourinary Genitourinary ED: Reports dysuria and urinary frequency; Denies hematuria Musculoskeletal Musculoskeletal: Denies arthralgias, back pain, myalgias or neck pain Integumentary Denies abscess, Abrasions or rash Neurologic Neurologic: Denies headache(s) or weakness Psychiatric Psychiatric: Denies anxiety, depression or suicidal thoughts Endocrine Endocrinology: Denies polydipsia, polyphagia or polyuria Hematologic/Lymphatic Hematologic/Lymphatic: Denies easy bleeding, easy bruising or lymphadenopathy Allergic/Immunologic Allergic/Immunologic ED: Denies mouth swelling, tongue swelling or urticaria EXAM Physical Exam Const Vital Signs: 06/18/24 09:15 Temperature 98.4 F Temperature Source Oral Pulse Rate 66 Respiratory Rate 18 Blood Pressure 170/87 H Blood Pressure Mean 114 Pulse Ox 99 Oxygen Delivery Method Room Air Positive well nourished and well developed General Appearance ED: well developed and NAD HEENT Reports TM's clear and moist mucous membranes normocephalic and atraumatic; Negative for trauma or tenderness Tympanic Membrane ED: Yes TM's clear Eyes PERRL and EOMs intact bilaterally General Eye ED: Negative for pale conjunctiva or scleral icterus Neck no lymphadenopathy, supple and no JVD General: Negative for tenderness Chest Wall inspection of chest normal and palpation of chest normal Chest: Negative for tenderness Resp normal respiratory effort and clear to auscultation bilaterally Effort and Inspection: Negative for respiratory distress or pain with movement Auscultation: Negative for rhonchi, wheezes or diminished lung sounds Cardio regular rate, regular rhythm, S1 normal heart sound, S2 normal heart sound and no murmurs Peripheral Pulses: pulses 2+ throughout GI normal to inspection, nondistended, normoactive bowel sounds, soft to palpation, non-distended and no masses GI Narrative: Tenderness to palpation over the suprapubic area. There is mild guarding. There is no rebound or rigidity. No masses palpated Back/Spine no CVA tenderness and no thoracic nor lumbar tenderness Extremity normal to inspection General Extremety ED: Negative for edema General Extremity: Negative for edema Neuro oriented x3, CN's II-XII intact bilaterally, no sensory deficits noted and gait normal Sensorium / Orientation: awake, alert, oriented to person, oriented to place and oriented to time Motor Exam: strength 5/5 throughout and strength abnormal Psych mental status grossly normal Skin no rashes or lesions noted and no wounds Discharge Plan Triage Chief Complaint: Complaint ED Provider: Steffanie Benedict Dx/Rx/DC Orders Prescriptions: No Action albuterol sulfate 90 mcg/actuation HFA aerosol inhaler 2 puff inhalation Q4H PRN (Reason: shortness of breath or wheezing) vilazodone 20 mg tablet 20 mg PO DAILY cholecalciferol (vitamin D3) 50 mcg (2,000 unit) capsule 100 mcg PO DAILY aspirin [Adult Aspirin Regimen] 81 mg tablet,delayed release (DR/EC) 81 mg PO DAILY rabeprazole 20 mg tablet,delayed release (DR/EC) PO Airsupra 90-80 mcg/actuation HFA aerosol inhaler 2 inh inhalation 4XD PRN (Reason: shortness of breath or wheezing) Qty: 10.7 11RF pantoprazole 40 mg tablet,delayed release (DR/EC) 40 mg PO QDAY atorvastatin 10 mg tablet 10 mg PO QHS Qty: 90 3RF amlodipine 2.5 mg tablet 2.5 mg PO QDAY Qty: 90 3RF Gemtesa 75 mg tablet 75 mg PO QDAY nitroglycerin 0.4 mg Tablet, Sublingual 0.4 mg sublingual Q5M PRN (Reason: Cardiac/Chest Pain) Qty: 14 3RF ibuprofen 600 mg Tablet 600 mg PO Q6H PRN PRN (Reason: Pain 1-10 Or Fever) Qty: 0 0RF cyanocobalamin (vitamin B-12) 1,000 mcg/mL solution 1,000 mcg IM QMONTH apixaban 5 mg tablet 5 mg PO BID Qty: 90 0RF Rx Instructions: 2 tabs twice daily for 5 more days, then 1 tab daily twice daily thereafter. lisinopril 5 mg tablet 5 mg PO BID Qty: 180 3RF Primary Care Provider: Aubree Woody Referrals: Aubree Woody DO [Primary Care Provider] - Print Language: Welsh
[2024-06-18 09:42] LABS: Mucous, Urine 0 SEEN /hpf (<or=2+); Squamous Epithelial Cells - UA 0 SEEN /hpf (5-10)
[2024-06-18 09:47] LABS: Color, Urine Amber (Yellow); Glucose, Dipstick Normal (Normal); Ketone-Dipstick Negative (Negative); Leukocyte Esterase-Dipstick 500 /ul (Negative); Nitrite-Dipstick Positive (Negative); Occult Blood-Urine 10 /ul (Negative); Protein-Dipstick 100 mg/dl (Negative); Urine Bilirubin Dipstick 6 mg/dL (Negative); Urine Clarity Sl. Cloudy (Clear); Urine Urobilinogen 8 mg/dl (Normal)
[2024-06-18] MEDS: 0.9% Normal Saline (1000mL) 1,000 ML 125 ML IV (09:47)
[2024-06-18] MEDS: Ondansetron 4 MG/2 ML Vial IV (09:48)
[2024-06-18] MEDS: Morphine 4 MG/ML Syringe IV (09:48)
[2024-06-18 09:54] LABS: Bacteria 1+ /hpf (None Seen); White Blood Cells 25-50 SEEN /hpf (0-5)
[2024-06-18 09:55] LABS: Red Blood Cells-Urine 0-5 SEEN /hpf (0-5)
[2024-06-18 10:05] LABS: Absolute Lymphocyte Count 1.85 X10^3/uL (0.83-4.51); Absolute Neutrophil Count 3.3 X10^3/uL (2.0-7.7); Basophil# 0.05 X10^3/uL; Basophil% 0.9 % (0-1); Eosinophil# 0.09 X10^3/uL; Eosinophils% 1.6 % (0-5); Hemoglobin 10.4 g/dL (12.0-15.0); Lymphocyte # 1.85 X10^3/ul (0.83-4.51); Lymphocyte % 32.9 % (19-41); Mean Corp Hgb Conc 30.6 g/dL (32-36); Mean Corpuscular Hgb 25.6 pg (27.0-32.0); Mean Corpuscular Volume 83.7 fL (81-99); Mean Platelet Vol. 9.6 fl (6.2-12.0); Monocyte# 0.31 X10^3/uL; Monocyte% 5.5 % (0-10); NRBC Flagged by Analyzer 0 % (0-5); Neutrophil # 3.31 X10^3/uL (2.7-7.7); Neutrophil % 58.9 % (47-70); Platelet Count 275 K/mm3 (150-450); RBC Distribution Width CV 16.5 % (11.6-14.6); RBC Distribution Width SD 50.4 fl (35.1-43.9); Red Blood Count 4.06 M/mm3 (4.2-5.4); White Blood Count 5.6 K/mm3 (4.4-11.0)
--- NOTE | 2024-06-18 10:18 | CT_ITS ---
PROCEDURE: CT ABD/PELVIS W/WO CONTRAST 06/18/2024 REASON FOR EXAM: PAIN UTI. TECHNIQUE: Abdomen and pelvis CT with intravenous contrast. Coronal and Sagittal reconstruction series were provided. PATIENT PREPARATION: Per protocol ORAL CONTRAST TYPE: None. CONTRAST: Isovue-300 VOLUME: 100 mL One or more dose reduction techniques were used (e.g., Automated exposure control, adjustment of the mA and/or kV according to patient size, use of iterative reconstruction technique. RADIATION DOSE SUMMARY: CTDlvol: 15.5 mGy DLP: 2432.39 mGycm COMPARISON: None FINDINGS: Lung bases: Unremarkable. Coronary artery calcification. Liver: Normal size. No mass. Gallbladder: Surgically absent. Spleen: Normal size. Pancreas: Normal size without evidence of mass surrounding inflammation or ductal dilation. Adrenals: Unremarkable Kidneys: Multiple left renal cysts. The largest cyst is in the lower pole of the left kidney and measures 2.9 cm. Minimal fullness of the right renal pelvis although no obstructive calculus is seen. Bladder: Mild degree of diffuse bladder wall thickening with increased markings in the surrounding peritoneal fat suggestive of cystitis. Reproductive Organs: Prior hysterectomy. Adnexal regions are unremarkable. Bowel: Colonic diverticulosis without diverticulitis. Small hiatal hernia. Surgical anastomosis seen in the distal ileal colic region. Appendix: Prior appendectomy. Lymph nodes: No suspicious lymph node enlargement. Vasculature: Mild diffuse atherosclerotic calcifications are noted. Peritoneum / Retroperitoneum: Unremarkable Bones: Degenerative changes of the spine. CT/CT Abd/Pelvis W/WO Contrast IMPRESSION: Status post cholecystectomy and appendectomy. Prior hysterectomy. Small left renal cysts. Minimal fullness of the right renal pelvis although no obstructive uropathy is seen at this time. Surgical anastomosis in the ileocolic region. Diffuse bladder wall thickening with increased markings in the surrounding anita toneal fat suggestive of cystitis. Sigmoid diverticulosis. [facility]
[2024-06-18 10:49] LABS: Lactic Acid 1.9 mmol/L (0.0-2.0)
[2024-06-18 10:50] LABS: Anion Gap 11 (5-15); BUN 16 mg/dL (4-19); BUN/Creat Ratio 19.1 RATIO (10-20); Calcium,Total 9.4 mg/dL (7.6-11.0); Carbon Dioxide 25.4 mmol/L (21.0-32.0); Chloride 103 mmol/L (98-108); Creatinine, Serum 0.82 mg/dL (0.70-1.20); EST Glomerular Filtration Rate 75 (>60); Estimated Creatinine Clearance 61.35 ml/min (50-250); Glucose 130 mg/dL (70-99); Potassium 4.2 mmol/L (3.3-5.1); Sodium Level 139 mmol/L (133-145)
[2024-06-18] MEDS: Ciprofloxacin 400 MG/200 ML BAG 200 MG IV (11:29)
--- NOTE | 2024-06-18 13:38 | PCM.HP.STD ---
HPI - General General Date of Admission: 06/18/24 Date of Service: 06/18/24 Chief Complaint: Abdominal pain, dysuria. HPI Narrative The patient is a 73 y/o F w/ PMHx: Recent Superior mesenteric vein thrombosis with systemic anticoagulation x 3 months at least with preferably 6 months, Obesity, AJAY on CPAP, Frequent UTI w/ Hx ESBL E. Coli, CAD s/p PCI 04/2022, HTN, HLD, Anxiety and Depression, HFpEF, CKD stage III unclear subtype per GFR trending, Chronic normocytic anemia, GERD, IBS who presents to the [facility] ED on 06/18/24 with history of abdominal discomfort and dysuria with unfortunately frequent urinary tract infections following closely with infectious disease currently on a cephalosporin for a positive Klebsiella culture recently as noted with recent CT abdomen and pelvis planned to be obtained in July however given presentation with 8 of 10 severity lower abdominal discomfort prompted ED evaluation to be cautious. She notes also she has been on Azo for the last 8 days. She reports that 01/2024 she presented for partial colectomy secondary to a volvulus and has had issues since. Workup in the ED included T98.4, heart rate 66, BP 170/87, respiratory rate 18, 99% on room air with most recent repeat vitals T98.3, heart rate 76, BP 142/77, respiratory rate 16, 99% on room air, CBC with WBC 5.6, hemoglobin 10.4, MCV 83.7, platelet 275 without marked shift, BMP with BUN/creatinine 16/0.82, GFR 75, glucose 130, lactic acid 1.9, urinalysis with specific gravity 1.010, protein 100, occult blood 10, nitrate positive, leukocyte esterase 500 with urine WBCs 25-50 with 1+ urine bacteria, urine culture pending per ED, CT abdomen and pelvis with and without contrast with status postcholecystectomy, appendectomy, hysterectomy, small left renal cyst, minimal fullness right renal pelvis although no obstructive uropathy seen, surgical anastomosis evident in the ileocolic region, diffuse bladder wall thickening with increased markings in the surrounding peritoneal fat suggestive of cystitis, sigmoid diverticulitis, blood culture x 2 pending per ED. In the ED patient ministered maintenance IV fluids, ciprofloxacin 40 mg IV x 1 given allergies, morphine 4 mg IV x 1, Zofran 4 mg IV x 1. Most recent cultures noted 06/06/2024 with Klebsiella pneumonia 11,000 25,000 and otherwise mixed gram-positive organisms with monique sensitivity aside ampicillin resistant and previous to this staphylococcal epidermis 50-80,000 with resistance to Bactrim, tetracycline, oxy floxacillin, and sensitivity to doxycycline. Noted ESBL E. coli 03/20/2024 with 50-80,000 coliform units with sensitivity to amikacin, Erbe cyclin, gentamicin, imipenem, meropenem, nitrofurantoin, tobramycin, Bactrim, minocycline. Noted resistance to ciprofloxacin. Will discuss with the ED physician and request change of medication. [facility] Medical History Night sweats History of ESBL E. coli infection Shortness of breath on exertion Wears glasses Depression Arthritis High cholesterol History of hiatal hernia CPAP (continuous positive airway pressure) dependence History of edema History of Holter monitoring History of stress test History of echocardiogram Cardiology follow-up encounter History of CAD (coronary artery disease) Dyspnea on exertion Angina pectoris Chest pain Decreased radial pulse Swelling of right wrist Claudication of both lower extremities Leg cramps Abnormal stress test Heart failure with preserved ejection fraction, NYHA class II Obesity AJAY (obstructive sleep apnea) Chavira palsy CKD (chronic kidney disease) stage 3, GFR 30-59 ml/min B12 deficiency Hyperlipidemia Diastolic dysfunction Pulmonary hypertension SVT (supraventricular tachycardia) Palpitations Essential (primary) hypertension Eczema of both hands Anxiety Gastroparesis GERD (gastroesophageal reflux disease) Piriformis syndrome of left side IBS (irritable bowel syndrome) Depression Home Medications ?Medication ?Instructions ?Recorded ?Last Taken ?Type albuterol sulfate 90 mcg/actuation 2 puff inhalation Q4H PRN 03/12/22 Unknown History aerosol inhaler shortness of breath or wheezing vilazodone 20 mg tablet 20 mg PO DAILY DEPRESSION 03/12/22 01/30/24 History cholecalciferol (vitamin D3) 50 100 mcg PO DAILY SUPPLEMENT 03/23/22 02/15/24 History mcg (2,000 unit) capsule nitroglycerin 0.4 mg sublingual 0.4 mg sublingual Q5M PRN 04/23/22 Unknown Rx tablet Cardiac/Chest Pain #14 tabs cyanocobalamin (vitamin B-12) 1,000 mcg IM QMONTH SUPPLEMENT 06/06/23 01/23/24 History 1,000 mcg/mL injection solution lisinopril 5 mg tablet 5 mg PO BID BP #180 tabs 10/10/23 01/29/24 Rx aspirin 81 mg tablet,delayed 81 mg PO DAILY SUPPLEMENT 10/11/23 02/14/24 History release (Adult Aspirin Regimen) vibegron 75 mg tablet (Gemtesa) 75 mg PO QDAY OAB 11/24/23 01/29/24 History ibuprofen 600 mg tablet 600 mg PO Q6H PRN PRN Pain 1-10 Or 01/31/24 02/14/24 Rx Fever #0 tabs apixaban 5 mg tablet 5 mg PO BID #90 tabs 02/17/24 Unknown Rx rabeprazole 20 mg tablet,delayed mg PO 03/27/24 Unknown History release albuterol 90 mcg-budesonide 80 2 inh inhalation 4XD PRN shortness 05/02/24 Unknown Rx mcg/actuation HFA aerosol inhaler of breath or wheezing #10.7 grams (Airsupra) amlodipine 2.5 mg tablet 2.5 mg PO QDAY #90 tabs 06/04/24 Unknown Rx atorvastatin 10 mg tablet 10 mg PO QHS #90 tabs 06/04/24 Unknown Rx pantoprazole 40 mg tablet,delayed 40 mg PO QDAY 06/04/24 Unknown History release Allergy/AdvReac Type Severity Reaction Status Date / Time Sulfa (Sulfonamide Allergy Intermediate Rash Verified 06/18/24 09:16 Antibiotics) sulfamethoxazole (From Allergy Intermediate Itching Verified 06/18/24 09:16 Bactrim) trimethoprim (From Bactrim) Allergy Intermediate Itching Verified 06/18/24 09:16 adhesive tape (tape) Allergy Rash Verified 06/18/24 09:16 cefdinir Allergy Hives Verified 06/18/24 09:16 Penicillins (PCN) Allergy Rash Verified 06/18/24 09:16 atorvastatin AdvReac Intermediate Myalgias Verified 06/18/24 09:16 codeine AdvReac Unknown Other Verified 06/18/24 09:16 Family History Mother Hypertension Arthritis Respiratory disease Grandfather Cancer kidney, brain Father Parkinson's disease Arthritis Grandmother CVA (cerebral vascular accident) Myocardial infarction Brother CVA (cerebral vascular accident) Myocardial infarction H/O blood clots Sister Seizures H/O blood clots Surgical History S/P colectomy Hx of colonoscopy History of laminectomy History of arthroscopy of right knee Hx of heart artery stent Hx of cardiac cath History of coronary artery stent placement (~04/23/22) H/O bilateral salpingo-oophorectomy H/O: hysterectomy Hx of tonsillectomy History of appendectomy History of cholecystectomy Social History household members: spouse Smoking Status: Never smoker alcohol intake: never substance use type: does not use caffeine: Yes Type: coffee Number of servings: 1 ROS ROS Narrative Admission Review of Systems: CONSTITUTIONAL: No weight loss, + subjective fever, chills, weakness or fatigue. HEENT: Eyes: No visual loss, blurred vision, double vision or yellow sclerae. Ears, Nose, Throat: No hearing loss, sneezing, congestion, runny nose or sore throat. SKIN: No rash or itching, lesions, wounds. CARDIOVASCULAR: No chest pain, chest pressure or chest discomfort, palpitations, edema, orthopnea, syncopal events. RESPIRATORY: No shortness of breath, cough or sputum, wheezing, hemoptysis. GASTROINTESTINAL: + anorexia/decreased appetite, nausea, abdominal discomfort. No vomiting, diarrhea, constipation melena, BRBPR. GENITOURINARY: + Dysuria/flank discomfort/increased frequency. No urgency or retention. NEUROLOGICAL: No headache, dizziness, syncope, paralysis, ataxia, numbness or tingling in the extremities, focal weakness, change in bowel or bladder control, seizure. MUSCULOSKELETAL: + muscle, back pain, joint pain or stiffness. HEMATOLOGIC: + Chronic anemia, easy bleeding/bruising. LYMPHATICS: No enlarged nodes. No history of splenectomy. PSYCHIATRIC: + History of anxiety and depression. ENDOCRINOLOGIC: + reports of sweating, cold or heat intolerance. No polyuria or polydipsia. ALLERGIES: + History of hives, allergic rhinitis. Vital Signs Vital Signs Vital Signs: 06/18/24 09:15 06/18/24 09:16 06/18/24 10:00 Temperature 98.4 F 98.9 F 97.6 F L Temperature Source Oral Oral Oral Pulse Rate 66 67 67 Respiratory Rate 18 18 15 Blood Pressure 170/87 H 137/79 H 138/79 H Blood Pressure Mean 114 98 98 Pulse Ox 99 94 96 Oxygen Delivery Method Room Air Nasal Cannula Room Air 06/18/24 11:00 06/18/24 12:00 06/18/24 13:00 Temperature 97.7 F L 97.7 F L Temperature Source Oral Oral Pulse Rate 62 94 76 Respiratory Rate 10 L 19 H 16 Blood Pressure 175/67 H 175/67 H 142/77 H Blood Pressure Mean 103 103 98 Pulse Ox 95 94 99 Oxygen Delivery Method Room Air 06/18/24 13:28 Temperature 98.3 F Temperature Source Pulse Rate 76 Respiratory Rate 16 Blood Pressure 142/77 H Blood Pressure Mean 98 Pulse Ox 99 Oxygen Delivery Method Weight Weight: 190 lb 3 oz Body Mass Index (BMI) 34.7 Physical Exam Narrative Physical Examination: General: Awake, alert, oriented x 3 and cooperative, seated upright in ED bed, fatigued, currently notes somewhat improved but has occasional spasms of her bladder. Skin: Normal color, normal turgor, no icterus, no cyanosis except occasional stage ecchymoses. HEENT: AT/NC, EOMI, PERRLA, dry MM, no carotid bruits or JVD noted. Lungs: Mildly diminished, greater bases, appropriate effort, no rales, ronchi or wheezing. Heart: Improved, regular rate and rhythm; no gallop, rub audible. Abdomen: Soft, mild generalized discomfort, right lower quadrant worse, mildly hyperactive BS, difficult to discern distention and HSM given discomfort. Extremities: No cyanosis, no clubbing, mild ankle not markedly pitting chronic edema. Neurological: Patient awake, alert, oriented as noted, cognitive function intact; pupils equally reactive to light and accommodation, cranial nerves gross normal, moving all 4 extremities, no focal deficits, strength moderately globally decreased secondary to acute presentation. Psychiatric: Affect appears fatigued, no acute evidence of depressive or anxiety feelings but does have underlying. Results Lab / Micro Data 06/18/24 09:45 06/18/24 09:45 Labs: Laboratory Results - last 24 hr 06/18/24 09:37: Urine Color Rolanda, Urine Clarity Sl. Cloudy, Urine pH 7.0, Ur Specific [place] 1.010, Urine Protein 100 H, Urine Glucose (UA) Normal, Urine Ketones Negative, Urine Occult Blood 10 H, Urine Nitrite Positive H, Urine Bilirubin 6 H, Urine Urobilinogen 8 H, Ur Leukocyte Esterase 500 H, Urine RBC 0-5 SEEN, Urine WBC 25-50 SEEN, Ur Squamous Epith Cells 0 SEEN, Urine Bacteria 1+, Urine Mucus 0 SEEN 06/18/24 09:45: WBC 5.6, RBC 4.06 L, Hgb 10.4 L, Hct 34.0 L, MCV 83.7, MCH 25.6 L, MCHC 30.6 L, RDW Std Deviation 50.4 H, RDW Coeff of Nuno 16.5 H, Plt Count 275, MPV 9.6, Immature Gran % (Auto) 0.200, Neut % (Auto) 58.9, Lymph % (Auto) 32.9, [place] % (Auto) 5.5, Eos % (Auto) 1.6, Baso % (Auto) 0.9, Absolute Neuts (auto) 3.3, Absolute Lymphs (auto) 1.85, Nucleated RBC % 0, Sodium 139, Potassium 4.2, Chloride 103, Carbon Dioxide 25.4, Anion Gap 11, BUN 16, Creatinine 0.82, Estim Creat Clear Calc 61.35, Est GFR (MDRD) Non-Af 75, BUN/Creatinine Ratio 19.1, Glucose 130 H, Lactic Acid 1.9, Calcium 9.4 Imaging Radiology Impression Abdomen/Pelvis CT 06/18/24 10:18 IMPRESSION: Status post cholecystectomy and appendectomy. Prior hysterectomy. Small left renal cysts. Minimal fullness of the right renal pelvis although no obstructive uropathy is seen at this time. Surgical anastomosis in the ileocolic region. Diffuse bladder wall thickening with increased markings in the surrounding peritoneal fat suggestive of cystitis. Sigmoid diverticulosis. Reading Location: [facility] Assessment & Plan Assessment/Plan (1) Complicated UTI (urinary tract infection): PLAN: Plan The patient is a 73 y/o F w/ PMHx: Recent Superior mesenteric vein thrombosis with systemic anticoagulation x 3 months at least with preferably 6 months, Obesity, AJAY on CPAP, Frequent UTI w/ Hx ESBL E. Coli, CAD s/p PCI 04/2022, HTN, HLD, Anxiety and Depression, HFpEF, CKD stage III unclear subtype per GFR trending, Chronic normocytic anemia, GERD, IBS who presents to the [facility] ED on 06/18/24 with history of abdominal discomfort and dysuria with unfortunately frequent urinary tract infections following closely with infectious disease currently on a cephalosporin for a positive Klebsiella culture recently as noted with recent CT abdomen and pelvis planned to be obtained in July however given presentation with 8 of 10 severity lower abdominal discomfort prompted ED evaluation to be cautious. #1. Acute Complicated Urinary Tract Infection with concern for acute pyelonephritis, failed outpatient antibiotic therapy with history of previous ESBL E. coli infection, frequent urinary tract infection: Will admit to [facility] given stable vital sign, UA upon ED evaluation remarkable, pending UCx, continue judicious IVFs, monitor I/Os, per discussion with infectious disease who will be consulted will place on IV meropenem in case this is ESBL E. coli as she has significant resistant history of w/ transition as able pending sensitivities and speciation. #2. Recent Superior mesenteric vein thrombosis: Following operative intervention after a volvulus with surgical intervention discharge 01/31/2024, following outpatient with hematology with most recent note recommendations for systemic anticoagulation x 3 months at least with preferably 6 months, clarified to be certain that she is still on. #3. CAD: S/p PCI 04/2022, most recent cardiac cath 07/28/2023 with noted mild CAD with previous stent to the RCA widely patent with no significant disease otherwise noted with continued medical management recommendation, will continue aspirin, Eliquis, statin therapy, per current list is on lisinopril but no beta-marciano, clarified to be certain, encourage continued outpatient follow-up with cardiology as previously arranged. #4. HFpEF: Most recent echocardiogram 07/28/23 with EF 70%, no evidence of any diastolic dysfunction, will continue aspirin, Eliquis but clarifying she still on, statin therapy, lisinopril, not on beta-marciano nor any diuretic therapy of note, judiciously hydrate. #5. CKD stage II per GFR trending but has vacillated and been consistent with stage III, unclear subtype previously: Admission BUN/creatinine 16/0.82, GFR 75, more recently GFR has been more consistent with stage II, baseline creatinine 0.7-0.9, will continue to trend. #6. Chronic normocytic anemia: Admission hemoglobin 10.4, MCV 83.7, baseline hemoglobin appears 9-10 range recently, will continue to trend CBC. #7. Hypertension: Continue home regimen including lisinopril, amlodipine with hold parameters as needed, PRN hydralazine. #8. Hyperlipidemia: Will continue patient on statin therapy. #9. Anxiety and depression: We will continue patient home vilazodone regimen. #10. Obesity: Weight loss and lifestyle changes encouraged. #11. GERD: Will continue patient on PPI. #12. AJAY: CPAP nightly. #13. DVT prophylaxis: Will continue patient home Eliquis regimen, clarifying that she is still on this but per most recent hematology note preference was to continue for at least 6 months. #14. CODE status: Patient DONNA is her and living will is currently in place. Discussed CODE status at length including difference between FULL code, DNR-CCA and DNR-CC status. Following discussions about the differences in these status, requested Full Code status. Charges/Coding Visit Charges Inpatient E&M: 28949 Init Hosp L3
[2024-06-18] MEDS: 0.9% Normal Saline (1000mL) 1,000 ML 100 ML IV (16:55)
[2024-06-18] MEDS: Meropenem 1 GM in 0.9% Normal Saline (100mL MB+) 100 ML IV ×2 (16:55→21:21)
[2024-06-18] MEDS: Ketorolac 15 MG/ML Vial IV ×2 (16:56→21:25)
[2024-06-18] MEDS: 0.9% Saline Lock 10 ML Syringe IV ×2 (16:56→21:25)
[2024-06-18] MEDS: Mag Hydrox/Al Hydrox/Simeth 30 ML UDC PO (18:26)
[2024-06-18] MEDS: 0.9% Normal Saline (100mL Bag) 100 ML 15 ML IV (21:21)
[2024-06-18] MEDS: Lisinopril 5 MG Tablet PO (21:28)
[2024-06-18] MEDS: Atorvastatin Calcium 10 MG Tablet PO (21:28)
[2024-06-19] VITALS (8 sets, daily range): BP systolic 110–145; BP diastolic 46–54; PULSE 55–75; RESP 16–18; TEMP 36.4–36.7; O2SAT 94–97; BMI 35.3
[2024-06-19] MEDS: 0.9% Saline Lock 10 ML Syringe IV ×3 (03:14→14:21)
[2024-06-19] MEDS: Acetaminophen 325 MG Tablet 650 MG PO ×2 (03:16→16:55)
[2024-06-19] MEDS: Ketorolac 15 MG/ML Vial IV ×3 (05:38→21:52)
[2024-06-19] MEDS: Meropenem 1 GM in 0.9% Normal Saline (100mL MB+) 100 ML IV ×3 (05:41→21:45)
[2024-06-19 07:37] LABS: Absolute Lymphocyte Count 1.57 X10^3/uL (0.83-4.51); Absolute Neutrophil Count 1.4 X10^3/uL (2.0-7.7); Basophil# 0.03 X10^3/uL; Basophil% 0.9 % (0-1); Eosinophil# 0.08 X10^3/uL; Eosinophils% 2.3 % (0-5); Hematocrit 31.6 % (37-47); Hemoglobin 9.5 g/dL (12.0-15.0); Lymphocyte # 1.57 X10^3/ul (0.83-4.51); Lymphocyte % 45.5 % (19-41); Mean Corp Hgb Conc 30.1 g/dL (32-36); Mean Corpuscular Hgb 25.1 pg (27.0-32.0); Mean Corpuscular Volume 83.6 fL (81-99); Mean Platelet Vol. 9.3 fl (6.2-12.0); Monocyte# 0.34 X10^3/uL; Monocyte% 9.9 % (0-10); NRBC Flagged by Analyzer 0 % (0-5); Neutrophil # 1.42 X10^3/uL (2.7-7.7); Neutrophil % 41.1 % (47-70); Platelet Count 233 K/mm3 (150-450); RBC Distribution Width CV 16.6 % (11.6-14.6); Red Blood Count 3.78 M/mm3 (4.2-5.4); White Blood Count 3.5 K/mm3 (4.4-11.0)
[2024-06-19] MEDS: Aspirin E.C. 81 MG Tablet PO (07:45)
--- NOTE | 2024-06-19 08:06 | PN.HOSP_ITS ---
Reason for Visit Reason for Visit: Diagnoses Urinary tract infection, site not specified (06/18/24) Subjective Subjective Patient is a 73-year-old lady who was admitted with abdominal pain as well as dysuria diagnosed with acute complicated UTI having failed outpatient treatment admitted to a monitored bed for subsequent management Objective Data Objective Data Vital Signs: Vital Signs Temp Pulse Resp BP Pulse Ox O2 Del Method 97.5 F L 55 L 18 131/52 H 95 Room Air 06/19/24 07:54 06/19/24 07:54 06/19/24 07:54 06/19/24 07:54 06/19/24 07:54 06/19/24 07:54 Oxygen Delivery Method Room Air Weight: 87.6 kg Body Mass Index (BMI) 35.3 Intake & Output: Intake and Output for Last 24 Hours 06/17/24 06/18/24 06/19/24 23:59 23:59 23:59 Intake Total 1861.5 / 1861.5 1120 / 1120 Balance 1861.5 / 1861.5 1120 / 1120 Lab / Micro Data 06/19/24 07:05 06/19/24 07:05 Labs: Laboratory Results - last 24 hr 06/18/24 09:37: Urine Color Rolanda, Urine Clarity Sl. Cloudy, Urine pH 7.0, Ur Specific [place] 1.010, Urine Protein 100 H, Urine Glucose (UA) Normal, Urine Ketones Negative, Urine Occult Blood 10 H, Urine Nitrite Positive H, Urine Bilirubin 6 H, Urine Urobilinogen 8 H, Ur Leukocyte Esterase 500 H, Urine RBC 0- 5 SEEN, Urine WBC 25-50 SEEN, Ur Squamous Epith Cells 0 SEEN, Urine Bacteria 1+, Urine Mucus 0 SEEN 06/18/24 09:45: WBC 5.6, RBC 4.06 L, Hgb 10.4 L, Hct 34.0 L, MCV 83.7, MCH 25.6 L, MCHC 30.6 L, RDW Std Deviation 50.4 H, RDW Coeff of Nuno 16.5 H, Plt Count 275, MPV 9.6, Immature Gran % (Auto) 0.200, Neut % (Auto) 58.9, Lymph % (Auto) 32.9, [place] % (Auto) 5.5, Eos % (Auto) 1.6, Baso % (Auto) 0.9, Absolute Neuts (auto) 3.3, Absolute Lymphs (auto) 1.85, Nucleated RBC % 0, Sodium 139, Potassium 4.2, Chloride 103, Carbon Dioxide 25.4, Anion Gap 11, BUN 16, Creatinine 0.82, Estim Creat Clear Calc 61.35, Est GFR (MDRD) Non-Af 75, BUN/Creatinine Ratio 19.1, Glucose 130 H, Lactic Acid 1.9, Calcium 9.4 06/19/24 07:05: WBC 3.5 L, RBC 3.78 L, Hgb 9.5 L, Hct 31.6 L, MCV 83.6, MCH 25.1 L, MCHC 30.1 L, RDW Std Deviation 51.0 H, RDW Coeff of Nuno 16.6 H, Plt Count 233, MPV 9.3, Immature Gran % (Auto) 0.300, Neut % (Auto) 41.1 L, Lymph % (Auto) 45.5 H, [place] % (Auto) 9.9, Eos % (Auto) 2.3, Baso % (Auto) 0.9, Absolute Neuts (auto) 1.4 L, Absolute Lymphs (auto) 1.57, Nucleated RBC % 0 Radiography Diagnostic Testing: Radiology Impression Abdomen/Pelvis CT 06/18/24 10:18 IMPRESSION: Status post cholecystectomy and appendectomy. Prior hysterectomy. Small left renal cysts. Minimal fullness of the right renal pelvis although no obstructive uropathy is seen at this time. Surgical anastomosis in the ileocolic region. Diffuse bladder wall thickening with increased markings in the surrounding peritoneal fat suggestive of cystitis. Sigmoid diverticulosis. Reading Location: [facility] Physical Exam Narrative GENERAL: cooperative HEENT: Atraumatic; normocephalic EYES; Anicteric, Normal Conjunctiva NECK; supple, normal thyroid, RESPIRATORY: Diminished to auscultation CARDIOVASCULAR: Regular S1 S2, GI: soft, normoactive bowel sounds, : No Renal angle tenderness; EXTREMITIES: No edema, no clubbing, MUSCULOSKELETAL: no muscle wasting NEURO: Awake; no lateralizing signs. SKIN: No Rash PSYCH; Flat affect Assessment & Plan Assessment/Plan (1) Complicated UTI (urinary tract infection): PLAN: Plan Patient is a 73-year-old lady who was admitted with abdominal pain as well as dysuria diagnosed with acute complicated UTI having failed outpatient treatment admitted to a monitored bed for subsequent management 1. Acute complicated UTI having failed outpatient treatment. Patient has history of previous ESBL admitted to monitored bed started on meropenem consult placed to ID on admission urine culture sent. Patient has apparently had recurrent UTIs consult placed to patient's urologist 2. Recent superior mesenteric vein thrombosis ? Following surgical intervention for volvulus on 01/31/2024 patient prescribed apixaban for 6-month did continue with home dose 3. Coronary artery disease ? With previous PCI patient is on guideline directed medical therapy 4. Chronic congestive heart failure with preserved ejection fraction ? EF 70% from an echo on 07/28/2023. Patient remains compensated 5. Anemia ? Secondary to chronic disorder monitoring H&H and transfuse if patient becomes symptomatic or hemoglobin falls below 7. Ordered iron studies 6. Hypertension ? Blood pressure controlled, home medications continued with dose adjustment as needed 7. Class II obesity with BMI of 35.3 ? Complicating care weight loss advised 8. GERD Patient is on PPI did continue #9. Obstructive sleep apnea ? Consistent use of CPAP therapy encouraged 10. Depression ? Did continue patient home meds 11. DVT prophylaxis ? Patient is on apixaban # Charges/Coding Visit Charges Inpatient E&M: 42515 Subs Hosp L3
[2024-06-19 08:45] LABS: ALB/GLOB Ratio 1.5 RATIO (0.9-2.4); AST(SGOT) 17 U/L (<=31); Alanine Aminotransfer ALT/SGPT 9 U/L (<=34); Albumin, Serum 3.6 g/dL (3.4-4.8); Alkaline Phosphatase 61 U/L (35-104); Anion Gap 10 (5-15); BUN 12 mg/dL (4-19); BUN/Creat Ratio 15.9 RATIO (10-20); Calcium,Total 8.9 mg/dL (7.6-11.0); Carbon Dioxide 24.2 mmol/L (21.0-32.0); Chloride 107 mmol/L (98-108); Creatinine, Serum 0.72 mg/dL (0.70-1.20); EST Glomerular Filtration Rate 87 (>60); Globulin 2.4 g/dL (2.2-4.2); Glucose 102 mg/dL (70-99); Potassium 4.1 mmol/L (3.3-5.1); Sodium Level 141 mmol/L (133-145); Total Bilirubin 0.27 mg/dL (0.00-1.30)
[2024-06-19] MEDS: APIXABAN 5 MG TABLET PO ×2 (09:30→21:52)
[2024-06-19] MEDS: Vibegron 75 MG TABLET PO (09:30)
[2024-06-19] MEDS: amLODIPine 2.5 MG Tablet PO (09:30)
[2024-06-19] MEDS: Pantoprazole Sodium 40 MG Tablet PO (09:31)
[2024-06-19] MEDS: VILAZODONE HYDROCHLORIDE 10 MG TABLET 20 MG PO (09:31)
[2024-06-19] MEDS: Lisinopril 5 MG Tablet PO ×2 (09:33→21:52)
--- NOTE | 2024-06-19 10:27 | PCM.CONS.GEN ---
Assessment & Plan Assessment/Plan (1) Complicated UTI (urinary tract infection): PLAN: Recurrent uti, h/o ESBL, possible L pyelo. CT done. Pt c/o incomplete bladder emptying. Will consult urology. Cont glory while cxs pending. Will follow, thank you HPI Consult Data Date of Consult: 06/19/24 HPI Narrative Reason for Consultation: recurrent uti HPI Narrative: PARVIN DUENAS, is a 73 F with h/o CAD, partial bowel resection at end of 2023, now with several months recurrent uti despite methenamine. Feels like she does not empty bladder completely. Has been on multiple courses IM ertapenem, macrobid, and most recently cefdinir. C/o several weeks lower abd pain, dysuria, nausea, not feeling well. Had some flank pain. No fever. Came to ED, admitted on meropenem, feeling better this AM. Full ROS performed and neg except as noted above. [facility] Medical History Night sweats History of ESBL E. coli infection Shortness of breath on exertion Wears glasses Depression Arthritis High cholesterol History of hiatal hernia CPAP (continuous positive airway pressure) dependence History of edema History of Holter monitoring History of stress test History of echocardiogram Cardiology follow-up encounter History of CAD (coronary artery disease) Dyspnea on exertion Angina pectoris Chest pain Decreased radial pulse Swelling of right wrist Claudication of both lower extremities Leg cramps Abnormal stress test Heart failure with preserved ejection fraction, NYHA class II Obesity AJAY (obstructive sleep apnea) Chavira palsy CKD (chronic kidney disease) stage 3, GFR 30-59 ml/min B12 deficiency Hyperlipidemia Diastolic dysfunction Pulmonary hypertension SVT (supraventricular tachycardia) Palpitations Essential (primary) hypertension Eczema of both hands Anxiety Gastroparesis GERD (gastroesophageal reflux disease) Piriformis syndrome of left side IBS (irritable bowel syndrome) Depression Home Medications ?Medication ?Instructions ?Recorded ?Last Taken ?Type albuterol sulfate 90 mcg/actuation 2 puff inhalation Q4H PRN 03/12/22 Unknown History aerosol inhaler shortness of breath or wheezing vilazodone 20 mg tablet 20 mg PO DAILY DEPRESSION 03/12/22 01/30/24 History cholecalciferol (vitamin D3) 50 4,000 unit PO DAILY SUPPLEMENT 03/23/22 02/15/24 History mcg (2,000 unit) capsule nitroglycerin 0.4 mg sublingual 0.4 mg sublingual Q5M PRN 04/23/22 Unknown Rx tablet Cardiac/Chest Pain #14 tabs cyanocobalamin (vitamin B-12) 1,000 mcg IM QMONTH SUPPLEMENT 06/06/23 01/23/24 History 1,000 mcg/mL injection solution lisinopril 5 mg tablet 5 mg PO BID BP #180 tabs 10/10/23 01/29/24 Rx aspirin 81 mg tablet,delayed 81 mg PO DAILY SUPPLEMENT 10/11/23 02/14/24 History release (Adult Aspirin Regimen) vibegron 75 mg tablet (Gemtesa) 75 mg PO QDAY OAB 11/24/23 01/29/24 History ibuprofen 600 mg tablet 600 mg PO Q6H PRN PRN Pain 1-10 Or 01/31/24 02/14/24 Rx Fever #0 tabs apixaban 5 mg tablet 5 mg PO BID blood thinner #90 tabs 02/17/24 Unknown Rx amlodipine 2.5 mg tablet 2.5 mg PO QDAY #90 tabs 06/04/24 Unknown Rx atorvastatin 10 mg tablet 10 mg PO QHS #90 tabs 06/04/24 Unknown Rx pantoprazole 40 mg tablet,delayed 40 mg PO QDAY heart burn 06/04/24 Unknown History release cefdinir 300 mg capsule 300 mg PO BID urinary tract 06/18/24 Unknown History infection Allergy/AdvReac Type Severity Reaction Status Date / Time Sulfa (Sulfonamide Allergy Intermediate Rash Verified 06/18/24 09:16 Antibiotics) sulfamethoxazole (From Allergy Intermediate Itching Verified 06/18/24 09:16 Bactrim) trimethoprim (From Bactrim) Allergy Intermediate Itching Verified 06/18/24 09:16 adhesive tape (tape) Allergy Rash Verified 06/18/24 09:16 cefdinir Allergy Hives Verified 06/18/24 09:16 Penicillins (PCN) Allergy Rash Verified 06/18/24 09:16 atorvastatin AdvReac Intermediate Myalgias Verified 06/18/24 09:16 codeine AdvReac Unknown Other Verified 06/18/24 09:16 Family History Mother Hypertension Arthritis Respiratory disease Grandfather Cancer kidney, brain Father Parkinson's disease Arthritis Grandmother CVA (cerebral vascular accident) Myocardial infarction Brother CVA (cerebral vascular accident) Myocardial infarction H/O blood clots Sister Seizures H/O blood clots Surgical History S/P colectomy Hx of colonoscopy History of laminectomy History of arthroscopy of right knee Hx of heart artery stent Hx of cardiac cath History of coronary artery stent placement (~04/23/22) H/O bilateral salpingo-oophorectomy H/O: hysterectomy Hx of tonsillectomy History of appendectomy History of cholecystectomy Social History household members: spouse Smoking Status: Never smoker alcohol intake: never substance use type: does not use caffeine: Yes Type: coffee Number of servings: 1 Physical Exam Const alert, oriented x3 and no apparent distress General Appearance: cooperative HEENT normocephalic and head/scalp atraumatic Eyes PERRL and EOMs intact bilaterally Neck supple and No nodes Resp normal air movement and clear to auscultation bilaterally Cardio regular rate and regular rhythm GI soft to palpation and non-distended GI Narrative: mild suprapubic and L flank tenderness Extremity General Extremity: Negative for edema Skin no rashes or lesions noted Neuro CN's II-XII intact bilaterally Lab / Micro Data Attestation: I reviewed the patient's lab results. 06/19/24 07:05 06/19/24 07:05 Labs: Laboratory Results - last 24 hr 06/18/24 09:45: Sodium 139, Potassium 4.2, Chloride 103, Carbon Dioxide 25.4, Anion Gap 11, BUN 16, Creatinine 0.82, Estim Creat Clear Calc 61.35, Est GFR (MDRD) Non-Af 75, BUN/Creatinine Ratio 19.1, Glucose 130 H, Lactic Acid 1.9, Calcium 9.4 06/19/24 07:05: WBC 3.5 L, RBC 3.78 L, Hgb 9.5 L, Hct 31.6 L, MCV 83.6, MCH 25.1 L, MCHC 30.1 L, RDW Std Deviation 51.0 H, RDW Coeff of Nuno 16.6 H, Plt Count 233, MPV 9.3, Immature Gran % (Auto) 0.300, Neut % (Auto) 41.1 L, Lymph % (Auto) 45.5 H, [place] % (Auto) 9.9, Eos % (Auto) 2.3, Baso % (Auto) 0.9, Absolute Neuts (auto) 1.4 L, Absolute Lymphs (auto) 1.57, Nucleated RBC % 0, Sodium 141, Potassium 4.1, Chloride 107, Carbon Dioxide 24.2, Anion Gap 10, BUN 12, Creatinine 0.72, Estim Creat Clear Calc 63.40, Est GFR (MDRD) Non-Af 87, BUN/Creatinine Ratio 15.9, Glucose 102 H, Calcium 8.9, Total Bilirubin 0.27, AST 17, ALT 9, Alkaline Phosphatase 61, Total Protein 6.0, Albumin 3.6, Globulin 2.4, Albumin/Globulin Ratio 1.5 Micro: Microbiology 06/18/24 09:37 Urine, Clean Catch Urine Culture - Preliminary Presumptive E. coli Imaging Radiology Impression Abdomen/Pelvis CT 06/18/24 10:18 IMPRESSION: Status post cholecystectomy and appendectomy. Prior hysterectomy. Small left renal cysts. Minimal fullness of the right renal pelvis although no obstructive uropathy is seen at this time. Surgical anastomosis in the ileocolic region. Diffuse bladder wall thickening with increased markings in the surrounding peritoneal fat suggestive of cystitis. Sigmoid diverticulosis. Reading Location: [place] [id number]
[2024-06-19 12:24] LABS: Iron 41 ug/dL (50-170); Iron Binding Capacity,Total 365 ug/dL (250-450); Iron Binding Capacity,Unsat 324 ug/dL (228-428); Vitamin B12 249 pg/mL (180-914)
[2024-06-19] MEDS: 0.9% Normal Saline (100mL Bag) 100 ML 15 ML IV (14:25)
--- NOTE | 2024-06-19 15:30 | CASEMGMT ---
RN CM Face to Face with patient for initial transition planning/care coordination assessment. RN CM introduced self and role at [facility]. Patient lying in bed, alert and oriented. Patient willing to participate in assessment and is able to answer all questions appropriately. Care providers, pharmacy, and demographics verified. Strata: 3 PCP: Annalise Specialists: Perry Parsons, third cook; Tylor, octave board assembler; Friend, GI; Sabine, urologist; Preferred Pharmacy: [facility] Retail Insurance: [employer] Prescription Benefit: yes Living Will/HPOA: yes, Estrada Jensen LNOK: Living Arrangements: Patient lives with and daughter in a single story home with ramp to enter the home. Patient is independent at home. Transportation: self, DME/HHC: Patient has shower chair, walker, cpap. No previous HHC or SNF. Patient wishes to discharge home, denies need for home health at this time. Patient states he has no further needs or concerns at this time. CM to follow for discharge planning needs that may arise. Disposition Plan: Patient to discharge home with family support and follow-up plans in place. Tana KIRK, RN, CM
[2024-06-19] MEDS: Atorvastatin Calcium 10 MG Tablet PO (21:51)
[2024-06-20] MEDS: Acetaminophen 325 MG Tablet 650 MG PO (03:46)
[2024-06-20 03:53] VITALS: BP 126/40; PULSE 61; RESP 16; TEMP 36.6; O2SAT 96
[2024-06-20 04:29] VITALS: BMI 35.4
[2024-06-20] MEDS: Meropenem 1 GM in 0.9% Normal Saline (100mL MB+) 100 ML IV (05:08)
[2024-06-20 07:34] VITALS: O2SAT 96
[2024-06-20 07:42] LABS: Absolute Lymphocyte Count 1.54 X10^3/uL (0.83-4.51); Absolute Neutrophil Count 1.6 X10^3/uL (2.0-7.7); Basophil# 0.03 X10^3/uL; Basophil% 0.8 % (0-1); Eosinophil# 0.12 X10^3/uL; Eosinophils% 3.4 % (0-5); Hemoglobin 9.9 g/dL (12.0-15.0); Lymphocyte # 1.54 X10^3/ul (0.83-4.51); Lymphocyte % 43.4 % (19-41); Mean Corp Hgb Conc 30.9 g/dL (32-36); Mean Corpuscular Hgb 25.5 pg (27.0-32.0); Mean Corpuscular Volume 82.5 fL (81-99); Mean Platelet Vol. 9.8 fl (6.2-12.0); Monocyte% 8.5 % (0-10); NRBC Flagged by Analyzer 0 % (0-5); Neutrophil # 1.55 X10^3/uL (2.7-7.7); Neutrophil % 43.6 % (47-70); Platelet Count 250 K/mm3 (150-450); RBC Distribution Width CV 16.6 % (11.6-14.6); RBC Distribution Width SD 49.9 fl (35.1-43.9); Red Blood Count 3.88 M/mm3 (4.2-5.4); White Blood Count 3.6 K/mm3 (4.4-11.0)
[2024-06-20 07:51] VITALS: BP 132/53; PULSE 57; RESP 18; TEMP 36.2; O2SAT 97
[2024-06-20] MEDS: Aspirin E.C. 81 MG Tablet PO (08:03)
[2024-06-20] MEDS: Vibegron 75 MG TABLET PO (08:03)
[2024-06-20] MEDS: Pantoprazole Sodium 40 MG Tablet PO (08:04)
[2024-06-20] MEDS: VILAZODONE HYDROCHLORIDE 10 MG TABLET 20 MG PO (08:04)
[2024-06-20] MEDS: amLODIPine 2.5 MG Tablet PO (08:04)
[2024-06-20] MEDS: APIXABAN 5 MG TABLET PO (08:04)
[2024-06-20] MEDS: Lisinopril 5 MG Tablet PO (08:04)
--- NOTE | 2024-06-20 08:12 | PCM.PN.HOSP ---
Reason for Visit Reason for Visit: Diagnoses Urinary tract infection, site not specified (06/18/24) Objective Data Objective Data Vital Signs: Vital Signs Temp Pulse Resp BP Pulse Ox O2 Del Method 97.1 F L 57 L 18 132/53 H 97 Room Air 06/20/24 07:51 06/20/24 07:51 06/20/24 07:51 06/20/24 07:51 06/20/24 07:51 06/20/24 07:58 Oxygen Delivery Method Room Air Weight: 88 kg Body Mass Index (BMI) 35.4 Intake & Output: Intake and Output for Last 24 Hours 06/18/24 06/19/24 06/20/24 23:59 23:59 23:59 Intake Total 1861.5 / 1861.5 1840 / 1840 220 / 220 Output Total 0 / 0 Balance 1861.5 / 1861.5 1840 / 1840 220 / 220 Lab / Micro Data 06/20/24 06:59 06/19/24 07:05 Labs: Laboratory Results - last 24 hr 06/19/24 07:05: Sodium 141, Potassium 4.1, Chloride 107, Carbon Dioxide 24.2, Anion Gap 10, BUN 12, Creatinine 0.72, Estim Creat Clear Calc 63.40, Est GFR (MDRD) Non-Af 87, BUN/Creatinine Ratio 15.9, Glucose 102 H, Calcium 8.9, Iron 41 L, TIBC 365, Iron Saturation 11.0 L, Unsaturated IBC 324, Total Bilirubin 0.27, AST 17, ALT 9, Alkaline Phosphatase 61, Total Protein 6.0, Albumin 3.6, Globulin 2.4, Albumin/Globulin Ratio 1.5, Vitamin B12 249 06/20/24 06:59: WBC 3.6 L, RBC 3.88 L, Hgb 9.9 L, Hct 32.0 L, MCV 82.5, MCH 25.5 L, MCHC 30.9 L, RDW Std Deviation 49.9 H, RDW Coeff of Nuno 16.6 H, Plt Count 250, MPV 9.8, Immature Gran % (Auto) 0.300, Neut % (Auto) 43.6 L, Lymph % (Auto) 43.4 H, Dewitt % (Auto) 8.5, Eos % (Auto) 3.4, Baso % (Auto) 0.8, Absolute Neuts (auto) 1.6 L, Absolute Lymphs (auto) 1.54, Nucleated RBC % 0 Micro: Microbiology 06/18/24 09:37 Urine, Clean Catch Urine Culture - Preliminary ESBL Escherichia coli Physical Exam Narrative GENERAL: cooperative HEENT: Atraumatic; normocephalic EYES; Anicteric, Normal Conjunctiva NECK; supple, normal thyroid, RESPIRATORY: Diminished to auscultation CARDIOVASCULAR: Regular S1 S2, GI: soft, normoactive bowel sounds, : No Renal angle tenderness; EXTREMITIES: No edema, no clubbing, MUSCULOSKELETAL: no muscle wasting NEURO: Awake; no lateralizing signs. SKIN: No Rash PSYCH; Flat affect Assessment & Plan Assessment/Plan (1) Complicated UTI (urinary tract infection): PLAN: Plan Patient is a 73-year-old lady who was admitted with abdominal pain as well as dysuria diagnosed with acute complicated UTI having failed outpatient treatment admitted to a monitored bed for subsequent management 1. Acute complicated UTI having failed outpatient treatment. Patient has history of previous ESBL admitted to monitored bed started on meropenem consult placed to ID on admission urine culture sent. Patient has apparently had recurrent UTIs consult placed to patient's urologist 2. Recent superior mesenteric vein thrombosis ? Following surgical intervention for volvulus on 01/31/2024 patient prescribed apixaban for 6-month did continue with home dose 3. Coronary artery disease ? With previous PCI patient is on guideline directed medical therapy 4. Chronic congestive heart failure with preserved ejection fraction ? EF 70% from an echo on 07/28/2023. Patient remains compensated 5. Anemia ? Secondary to chronic disorder monitoring H&H and transfuse if patient becomes symptomatic or hemoglobin falls below 7. Ordered iron studies 6. Hypertension ? Blood pressure controlled, home medications continued with dose adjustment as needed 7. Class II obesity with BMI of 35.3 ? Complicating care weight loss advised 8. GERD Patient is on PPI did continue #9. Obstructive sleep apnea ? Consistent use of CPAP therapy encouraged 10. Depression ? Did continue patient home meds 11. DVT prophylaxis ? Patient is on apixaban #
--- NOTE | 2024-06-20 08:52 | CON.PCM_ITS ---
Assessment & Plan Assessment/Plan (1) Complicated UTI (urinary tract infection): (2) Night sweats: PLAN: Plan Will plan to repeat cystoscopy in the office after discharge Continue timed voiding Continue infection prevention with methenamine, probiotics, vaginal estrogen, d- mannose Continue antibiotics per infectious disease No plans for surgical intervention at this time HPI Consult Data Date of Consult: 06/20/24 HPI Narrative Reason for Consultation: Recurrent urinary tract infection, question urinary retention HPI Narrative: PARVIN DUENAS, is a 73 F who presented to the emergency room and was admitted for intravenous antibiotic administration for failure of outpatient management urinary tract infection. She does not have significant amounts of pain aside from the mid back area and the suprapubic lower abdominal region. There is no nausea or vomiting or fevers. She has been having significant night sweats at home. [facility] Medical History Night sweats History of ESBL E. coli infection Shortness of breath on exertion Wears glasses Depression Arthritis High cholesterol History of hiatal hernia CPAP (continuous positive airway pressure) dependence History of edema History of Holter monitoring History of stress test History of echocardiogram Cardiology follow-up encounter History of CAD (coronary artery disease) Dyspnea on exertion Angina pectoris Chest pain Decreased radial pulse Swelling of right wrist Claudication of both lower extremities Leg cramps Abnormal stress test Heart failure with preserved ejection fraction, NYHA class II Obesity AJAY (obstructive sleep apnea) Chavira palsy CKD (chronic kidney disease) stage 3, GFR 30-59 ml/min B12 deficiency Hyperlipidemia Diastolic dysfunction Pulmonary hypertension SVT (supraventricular tachycardia) Palpitations Essential (primary) hypertension Eczema of both hands Anxiety Gastroparesis GERD (gastroesophageal reflux disease) Piriformis syndrome of left side IBS (irritable bowel syndrome) Depression Home Medications ?Medication ?Instructions ?Recorded ?Last Taken ?Type albuterol sulfate 90 mcg/actuation 2 puff inhalation Q 4H PRN 03/12/22 Unknown History aerosol inhaler shortness of breath or wheez ing vilazodone 20 mg tablet 20 mg PO DAILY DEPRESSION 01/30/24 History cholecalciferol (vitamin D3) 50 4,000 unit PO DAILY CHRISTY PPLEMENT 03/23/22 02/15/24 History mcg (2,000 unit) capsule nitroglycerin 0.4 mg sublingual 0.4 mg sublingual Q5M PRN 04/23/22 Unknown Rx tablet Cardiac/Chest Pain #14 tabs cyanocobalamin (vitamin B-12) 1,000 mcg IM QMONTH SUPP LEMENT 06/06/23 01/23/24 History 1,000 mcg/mL injection solution lisinopril 5 mg tablet 5 mg PO BID BP #180 tabs 07/2801/29/24 Rx aspirin 81 mg tablet,delayed 81 mg PO DAILY SUPPLEMENT 10/11/23 02/14/24 History release (Adult Aspirin Regimen) vibegron 75 mg tablet (Gemtesa) 75 mg PO QDAY OAB 11/0501/29/24 History ibuprofen 600 mg tablet 600 mg PO Q6H PRN PRN Pain 1 -10 Or 01/31/24 02/14/24 Rx Fever #0 tabs apixaban 5 mg tablet 5 mg PO BID blood thinner #9 0 tabs 02/17/24 Unknown Rx amlodipine 2.5 mg tablet 2.5 mg PO QDAY #90 tabs 05/07 03/31 Unknown Rx atorvastatin 10 mg tablet 10 mg PO QHS #90 tabs Unknown Rx pantoprazole 40 mg tablet,delayed 40 mg PO QDAY heart burn 06/04/24 Unknown History release cefdinir 300 mg capsule 300 mg PO BID urinary tract 06/18/24 Unknown History infection Allergy/AdvReac Type Severity Reaction Status Date / Time Sulfa (Sulfonamide Allergy Intermediate Rash Verified 06/18/24 09:16 Antibiotics) sulfamethoxazole (From Allergy Intermediate Itching Verified 06/18/24 09:16 Bactrim) trimethoprim (From Bactrim) Allergy Intermediate Itching Verified 06/18/24 09:16 adhesive tape (tape) Allergy Rash Verified 06/18/24 09:16 cefdinir Allergy Hives Verified 06/18/24 09:16 Penicillins (PCN) Allergy Rash Verified 06/18/24 09:16 atorvastatin AdvReac Intermediate Myalgias Verified 06/18/24 09:16 codeine AdvReac Unknown Other Verified 06/18/24 09:16 Family History Mother Hypertension Arthritis Respiratory disease Grandfather Cancer kidney, brain Father Parkinson's disease Arthritis Grandmother CVA (cerebral vascular accident) Myocardial infarction Brother CVA (cerebral vascular accident) Myocardial infarction H/O blood clots Sister Seizures H/O blood clots Surgical History S/P colectomy Hx of colonoscopy History of laminectomy History of arthroscopy of right knee Hx of heart artery stent Hx of cardiac cath History of coronary artery stent placement (~04/23/22) H/O bilateral salpingo-oophorectomy H/O: hysterectomy Hx of tonsillectomy History of appendectomy History of cholecystectomy Social History household members: spouse Smoking Status: Never smoker alcohol intake: never substance use type: does not use caffeine: Yes Type: coffee Number of servings: 1 ROS Constitutional Constitutional: Reports night sweats; Denies chills, fever(s) or weakness Eyes Eyes: Reports systems reviewed and no addt'l complaints, except as documented ENT HEENT: Reports systems reviewed and no addt'l complaints, except as documented Cardiovascular Cardiovascular: Denies chest pain, diaphoresis or dizziness Respiratory/Chest Respiratory/Chest: Denies cough, dyspnea or inability to speak Gastrointestinal Gastrointestinal: Denies anorexia, nausea or vomiting Genitourinary Genitourinary: Reports abdominal discomfort, urinary frequency, urinary incontinence and urinary urgency; Denies anuria Musculoskeletal Musculoskeletal: Reports systems reviewed and no addt'l complaints, except as documented Integumentary Integumentary: Reports systems reviewed and no addt'l complaints, except as documented Neurologic Neurologic: Reports systems reviewed and no addt'l complaints, except as documented Psychiatric Psychiatric: Reports systems reviewed and no addt'l complaints, except as documented Endocrine Endocrinology: Reports systems reviewed and no addt'l complaints, except as documented Hematologic/Lymphatic Hematologic/Lymphatic: Reports systems reviewed and no addt'l complaints, except as documented Allergic/Immunologic Allergic/Immunologic: Reports systems reviewed and no addt'l complaints, except as documented Physical Exam Const alert, oriented x3 and no apparent distress General Appearance: cooperative, comfortable, well kempt and well developed HEENT normocephalic, head/scalp atraumatic, hearing grossly normal bilaterally, external ears normal, external nose normal and dentition normal Eyes General Eye: normal appearance of both eyes Neck supple General: trachea midline Lymph Lymphatic: no lymphedema noted Chest inspection of chest normal Chest: symmetrical chest wall rise Resp normal respiratory effort, normal air movement and no retractions Cardio regular rate GI soft to palpation GI Narrative: Suprapubic tenderness no CVA tenderness Narrative: Bladder scan postvoid residual negligible Bladder / Kidney Exam: bladder abnormal to palpation tender Back/Spine no CVA tenderness Extremity normal to inspection Skin no rashes or lesions noted, no jaundice, no petechiae and no mottling Neuro oriented x3, CN's II-XII intact bilaterally and moves all extremities Psych mental status grossly normal and thought process normal Lab / Micro Data 06/20/24 06:59 06/19/24 07:05 Labs: Laboratory Results - last 24 hr 06/19/24 07:05: Iron 41 L, TIBC 365, Iron Saturation 11.0 L, Unsaturated IBC 324, Vitamin B12 249 06/20/24 06:59: WBC 3.6 L, RBC 3.88 L, Hgb 9.9 L, Hct 32.0 L, MCV 82.5, MCH 25.5 L, MCHC 30.9 L, RDW Std Deviation 49.9 H, RDW Coeff of Nuno 16.6 H, Plt Count 250, MPV 9.8, Immature Gran % (Auto) 0.300, Neut % (Auto) 43.6 L, Lymph % (Auto) 43.4 H, [place]row % (Auto) 8.5, Eos % (Auto) 3.4, Baso % (Auto) 0.8, Absolute Neuts (auto) 1.6 L, Absolute Lymphs (auto) 1.54, Nucleated RBC % 0 Micro: Microbiology 06/18/24 09:37 Urine, Clean Catch Urine Culture - Preliminary ESBL Escherichia coli
[2024-06-20 09:50] LABS: Anion Gap 8 (5-15); BUN 14 mg/dL (4-19); BUN/Creat Ratio 16.6 RATIO (10-20); Calcium,Total 8.9 mg/dL (7.6-11.0); Carbon Dioxide 26.7 mmol/L (21.0-32.0); Chloride 105 mmol/L (98-108); Creatinine, Serum 0.83 mg/dL (0.70-1.20); EST Glomerular Filtration Rate 74 (>60); Estimated Creatinine Clearance 61.26 ml/min (50-250); Glucose 96 mg/dL (70-99); Magnesium 2.2 mg/dL (1.5-2.2); Phosphorus 2.9 mg/dL (2.7-4.5); Potassium 4.4 mmol/L (3.3-5.1); Sodium Level 139 mmol/L (133-145)
--- NOTE | 2024-06-20 10:26 | DS.PCM_ITS ---
Providers Date of Admission: 06/18/24 Date of Discharge: 06/20/24 Primary Care Physician: Dr. Aubree Woody, Consultations 06/18/24 16:13 Consult: Infectious Disease Routine Consulting Provider: Gilberto Macdonald Reason for Consult: Complicated UTI/pyelonephritis EMERGENT Consult: No Notified: Yes Date Notified: 06/18/24 Time Notified: 16:40 Method of Notification: Text 06/19/24 10:10 Consult: Urology Routine Consulting Provider: Kiera Regalado Reason for Consult: recurrent uti EMERGENT Consult: No Notified: Yes Date Notified: 06/19/24 Time Notified: 11:01 Method of Notification: Text Reason For Visit: COMPLICATED UTI Diagnosis Discharge Diagnosis (1) Complicated UTI (urinary tract infection): Status: Acute Code(s): N39.0 - Urinary tract infection, site not specified (2) Night sweats: Status: Acute Code(s): R61 - Generalized hyperhidrosis Plan Patient is a 73-year-old lady who was admitted with abdominal pain as well as dysuria diagnosed with acute complicated UTI having failed outpatient treatment admitted to a monitored bed for subsequent management 1. Acute complicated UTI having failed outpatient treatment. Patient has history of previous ESBL admitted to monitored bed started on meropenem consult placed to ID on admission urine culture sent. Patient has apparently had recurrent UTIs consult placed to patient's urologist ? Patient was seen in consultation by Dr. Regalado with urology plans for patient to have an outpatient cystoscopy. Urine cultures came back positive for ESBL midline was placed patient discharged home on Invanz 1 g every 24 hours for 14 days 2. Recent superior mesenteric vein thrombosis ? Following surgical intervention for volvulus on 01/31/2024 patient prescribed apixaban for 6-month did continue with home dose 3. Coronary artery disease ? With previous PCI patient is on guideline directed medical therapy 4. Chronic congestive heart failure with preserved ejection fraction ? EF 70% from an echo on 07/28/2023. Patient remains compensated 5. Anemia ? Secondary to chronic disorder monitoring H&H and transfuse if patient becomes symptomatic or hemoglobin falls below 7. Ordered iron studies 6. Hypertension ? Blood pressure controlled, home medications continued with dose adjustment as needed 7. Class II obesity with BMI of 35.3 ? Complicating care weight loss advised 8. GERD Patient is on PPI did continue #9. Obstructive sleep apnea ? Consistent use of CPAP therapy encouraged 10. Depression ? Did continue patient home meds 11. DVT prophylaxis ? Patient is on apixaban Medications at Discharge Home Medications albuterol sulfate 90 mcg/actuation aerosol inhaler 2 puff inhalation Q4H PRN shortness of breath or wheezing 03/12/22 vilazodone 20 mg tablet 20 mg PO DAILY DEPRESSION 03/12/22 cholecalciferol (vitamin D3) 50 mcg (2,000 unit) capsule 4,000 unit PO DAILY SUPPLEMENT 03/23/22 nitroglycerin 0.4 mg sublingual tablet 0.4 mg sublingual Q5M PRN Cardiac/Chest Pain #14 tabs 04/23/22 cyanocobalamin (vitamin B-12) 1,000 mcg/mL injection solution 1,000 mcg IM QMONTH SUPPLEMENT 06/06/23 lisinopril 5 mg tablet 5 mg PO BID BP #180 tabs 10/10/23 aspirin 81 mg tablet,delayed release (Adult Aspirin Regimen) 81 mg PO DAILY SUPPLEMENT 10/11/23 vibegron 75 mg tablet (Gemtesa) 75 mg PO QDAY OAB 11/24/23 ibuprofen 600 mg tablet 600 mg PO Q6H PRN PRN Pain 1-10 Or Fever #0 tabs 01/31/24 apixaban 5 mg tablet 5 mg PO BID blood thinner #90 tabs 02/17/24 amlodipine 2.5 mg tablet 2.5 mg PO QDAY #90 tabs 06/04/24 atorvastatin 10 mg tablet 10 mg PO QHS #90 tabs 06/04/24 pantoprazole 40 mg tablet,delayed release 40 mg PO QDAY heart burn 06/04/24 ertapenem 1 gram solution for injection 1 g IM DAILY 14 days #14 ea 06/20/24 Hospital Course Summary of Care Provided Minutes Spent on Discharge: 34 Physical Exam Narrative GENERAL: cooperative HEENT: Atraumatic; normocephalic EYES; Anicteric, Normal Conjunctiva NECK; supple, normal thyroid, RESPIRATORY: Diminished to auscultation CARDIOVASCULAR: Regular S1 S2, GI: soft, normoactive bowel sounds, : No Renal angle tenderness; EXTREMITIES: No edema, no clubbing, MUSCULOSKELETAL: no muscle wasting NEURO: Awake; no lateralizing signs. SKIN: No Rash PSYCH; Flat affect Weight / BMI Weight Weight: 88 kg Body Mass Index (BMI) 35.4 ABG / Lab / Microbiology Data 06/20/24 06:59 06/20/24 06:59 Laboratory: Laboratory Results - last 24 hr 06/19/24 07:05: Iron 41 L, TIBC 365, Iron Saturation 11.0 L, Unsaturated IBC 324, Vitamin B12 249 06/20/24 06:59: WBC 3.6 L, RBC 3.88 L, Hgb 9.9 L, Hct 32.0 L, MCV 82.5, MCH 25.5 L, MCHC 30.9 L, RDW Std Deviation 49.9 H, RDW Coeff of Nuno 16.6 H, Plt Count 250, MPV 9.8, Immature Gran % (Auto) 0.300, Neut % (Auto) 43.6 L, Lymph % (Auto) 43.4 H, Mcdowell % (Auto) 8.5, Eos % (Auto) 3.4, Baso % (Auto) 0.8, Absolute Neuts (auto) 1.6 L, Absolute Lymphs (auto) 1.54, Nucleated RBC % 0, Sodium 139, Potassium 4.4, Chloride 105, Carbon Dioxide 26.7, Anion Gap 8, BUN 14, Creatinine 0.83, Estim Creat Clear Calc 61.26, Est GFR (MDRD) Non-Af 74, BUN/Creatinine Ratio 16.6, Glucose 96, Calcium 8.9, Phosphorus 2.9, Magnesium 2.2 Microbiology: Microbiology 06/18/24 09:37 Urine, Clean Catch Urine Culture - Preliminary ESBL Escherichia coli D/C Instructions Discharge Diet: No restrictions Discharge Activity: Return to Normal Activity Call your doctor if you observe: Fever of 101 or Higher, Shortness of breath, Fainting spells and Chest pain DC O2, CPAP, BIPAP Needs Home O2 Discharge instructions: No Meaningful Use Info Meaningful Use Meaningful Use Diagnoses (Choose all that apply): None applicable Ischemic Stroke Statin Dosing Therapy Reference: STATIN DOSE THERAPY REFERENCE: * Patients > 75 years receive moderate or high dose statin therapy. * Patients 75 years or YOUNGER should receive HIGH intensity statin dose unless contraindicated. You will be required to document reason for non-treatment if statin daily dose does not meet guidelines. HIGH DOSE STATIN THERAPY DAILY Atorvastatin > than or = to 40 mg Rosuvastatin > than or = to 20 mg Amlodipine + Atorvastatin > than or = to 2.5/40 mg Ezetimibe + Simvastatin 10/80 mg Simvastatin 80mg Discharge Plan Admission Admit Date/Time: 06/18/24 13:46 Attending Provider: Willi Mehta Primary Care Provider: Aubree Woody Consulting Providers: Gilberto Macdonald; Grazyna Gr; Kiera Regalado Discharge Orders/Prescriptions Prescriptions: New ertapenem 1 gram recon soln 1 g IM DAILY 14 Days Qty: 14 0RF Continued albuterol sulfate 90 mcg/actuation HFA aerosol inhaler 2 puff inhalation Q4H PRN (Reason: shortness of breath or wheezing) vilazodone 20 mg tablet 20 mg PO DAILY cholecalciferol (vitamin D3) 50 mcg (2,000 unit) capsule 4,000 unit PO DAILY aspirin [Adult Aspirin Regimen] 81 mg tablet,delayed release (DR/EC) 81 mg PO DAILY pantoprazole 40 mg tablet,delayed release (DR/EC) 40 mg PO QDAY atorvastatin 10 mg tablet 10 mg PO QHS Qty: 90 3RF amlodipine 2.5 mg tablet 2.5 mg PO QDAY Qty: 90 3RF Gemtesa 75 mg tablet 75 mg PO QDAY nitroglycerin 0.4 mg Tablet, Sublingual 0.4 mg sublingual Q5M PRN (Reason: Cardiac/Chest Pain) Qty: 14 3RF ibuprofen 600 mg Tablet 600 mg PO Q6H PRN PRN (Reason: Pain 1-10 Or Fever) Qty: 0 0RF cyanocobalamin (vitamin B-12) 1,000 mcg/mL solution 1,000 mcg IM QMONTH apixaban 5 mg tablet 5 mg PO BID Qty: 90 0RF Rx Instructions: 2 tabs twice daily for 5 more days, then 1 tab daily twice daily thereafter. lisinopril 5 mg tablet 5 mg PO BID Qty: 180 3RF Discontinued cefdinir 300 mg capsule 300 mg PO BID Referrals / Follow Up: Kiera Regalado MD [Med Staff - Active Staff] - Within 1 Week (For repeat outpatient cystoscopy) Aubree Woody DO [Primary Care Provider] - Within 1 Week Disposition Disposition (needs filled in before D/C Order can be placed): Home, Self Care Charges/Coding Visit Charges Inpatient E&M: 29800 Disch Hosp >30min
--- NOTE | 2024-06-20 10:55 | CASEMGMT ---
Addendum entered by Tana Pearce 06/20/24 11:43: ADRIENNE GIBSON received call back from Ayla in the infusion center. First appt is made for tomorrow at 10:30am. ADRIENNE GIBSON updated discharge instructions and updated patient. Original Note: ADRIENNE GIBSON updated by hospitalist that patient will discharge on IV ATB Ertapenem once daily. ADRIENNE GIBSON in to discuss needs at discharge. Patient prefers to go to [facility] Outpatient infusion center for ATBs. Patient denied further questions or concerns. ADRIENNE GIBSON fax referral to [facility] Outpatient infusion. ADRIENNE GIBSON called and spoke with [place] in infusion center and they will call with start of care. CM will continue to follow this patient and plan for a safe discharge.
[2024-06-20] MEDS: Ertapenem Sod 1 GM in 0.9% Normal Saline (50mL MB+) 50 ML IV (11:47)
--- NOTE | 2024-06-20 12:38 | PCM.PN.ID ---
Physical Exam Narrative Feeling better, no fever, pain much improved Const alert and no apparent distress General Appearance: cooperative Resp normal air movement and clear to auscultation bilaterally Cardio regular rate and regular rhythm GI soft to palpation, non-tender and non-distended Skin no rashes or lesions noted ID ID: Route of nutrition/ use of supplements: [] Nutritional Intake: [] IV Site: [] [place] Catheter: [] Assessment & Plan Assessment/Plan (1) Complicated UTI (urinary tract infection): PLAN: Recurrent uti, h/o ESBL, possible L pyelo. CT done. Pt c/o incomplete bladder emptying. Seen by urology. Ok discharge with midline for 12 days iv erta daily. D/w Dr. Mehta and director of casework department. Will follow
[2024-06-20 14:15] VITALS: BP 143/59; PULSE 60; RESP 18; TEMP 36.2; O2SAT 98
--- NOTE | 2024-06-20 14:44 | PHA.DC.MR.R ---
Pharmacy [place] Med Reconciliation Pharmacy Service has performed discharge medication reconciliation for this patient. The patient's discharge medication list was reviewed for discrepancies and discrepancies were resolved. Medications at Discharge Home Medications albuterol sulfate 90 mcg/actuation aerosol inhaler 2 puff inhalation Q4H PRN shortness of breath or wheezing 03/12/22 vilazodone 20 mg tablet 20 mg PO DAILY DEPRESSION 03/12/22 cholecalciferol (vitamin D3) 50 mcg (2,000 unit) capsule 4,000 unit PO DAILY SUPPLEMENT 03/23/22 nitroglycerin 0.4 mg sublingual tablet 0.4 mg sublingual Q5M PRN Cardiac/Chest Pain #14 tabs 04/23/22 cyanocobalamin (vitamin B-12) 1,000 mcg/mL injection solution 1,000 mcg IM QMONTH SUPPLEMENT 06/06/23 lisinopril 5 mg tablet 5 mg PO BID BP #180 tabs 10/10/23 aspirin 81 mg tablet,delayed release (Adult Aspirin Regimen) 81 mg PO DAILY SUPPLEMENT 10/11/23 vibegron 75 mg tablet (Gemtesa) 75 mg PO QDAY OAB 11/24/23 ibuprofen 600 mg tablet 600 mg PO Q6H PRN PRN Pain 1-10 Or Fever #0 tabs 01/31/24 apixaban 5 mg tablet 5 mg PO BID blood thinner #90 tabs 02/17/24 amlodipine 2.5 mg tablet 2.5 mg PO QDAY blood pressure #90 tabs 06/04/24 atorvastatin 10 mg tablet 10 mg PO QHS cholesterol #90 tabs 06/04/24 pantoprazole 40 mg tablet,delayed release 40 mg PO QDAY heart burn 06/04/24 ertapenem 1 gram solution for injection 1 g IV Q24 #14 ea 06/20/24
== END 2024-06-20 15:10 | disposition home or self-care (01) | DRG 690 ==
LOC: ED 10:49 → PCU 14:22
PROVIDERS: Admitting Provider Family Medicine; Emergency Provider Emergency Medicine; PCP Internal Medicine; Visit Provider Internal Medicine
DX: N39.0 Urinary tract infection, site not specified (principal); I13.0 Hypertensive heart and chronic kidney disease with heart failure and stage 1 through stage 4 chronic kidney disease, or unspecified chronic kidney disease; I50.32 Chronic diastolic (congestive) heart failure; Z16.24 Resistance to multiple antibiotics; B96.1 Klebsiella pneumoniae [K. pneumoniae] as the cause of diseases classified elsewhere; F32.A Depression, unspecified; E66.812 Obesity, class 2; N18.2 Chronic kidney disease, stage 2 (mild); K21.9 Gastro-esophageal reflux disease without esophagitis; E78.00 Pure hypercholesterolemia, unspecified; G47.33 Obstructive sleep apnea (adult) (pediatric); I25.10 Atherosclerotic heart disease of native coronary artery without angina pectoris; F41.9 Anxiety disorder, unspecified; B96.20 Unspecified Escherichia coli [E. coli] as the cause of diseases classified elsewhere; Z79.01 Long term (current) use of anticoagulants; Z95.5 Presence of coronary angioplasty implant and graft; Z90.710 Acquired absence of both cervix and uterus; Z79.2 Long term (current) use of antibiotics; Z68.35 Body mass index [BMI] 35.0-35.9, adult; Z90.49 Acquired absence of other specified parts of digestive tract; Z86.19 Personal history of other infectious and parasitic diseases; Z87.440 Personal history of urinary (tract) infections; Z86.718 Personal history of other venous thrombosis and embolism; R33.9 Retention of urine, unspecified; Z79.899 Other long term (current) drug therapy; Z79.1 Long term (current) use of non-steroidal anti-inflammatories (NSAID); Z79.02 Long term (current) use of antithrombotics/antiplatelets; Z88.2 Allergy status to sulfonamides; Z91.048 Other nonmedicinal substance allergy status; Z88.1 Allergy status to other antibiotic agents; Z88.5 Allergy status to narcotic agent; R61 Generalized hyperhidrosis
CPT/HCPCS: 36415; 36569; 74178; 80048; 80053; 81001; 82607; 83540; 83550; 83605; 83735; 84100; 85025; 87040; 87086; 87088; 87186; 94668; 99284; J2185; Q9967; A4216; J0744; J2405

== ENCOUNTER 2024-06-21 10:23 | Outpatient (CLI) | payer MEDICARE, BC, SELFPAY ==
[2022-07-12 09:18] VITALS: BMI 34.2
[2024-06-21] MEDS: Ertapenem Sod 1 GM in 0.9% Normal Saline (50mL MB+) 50 ML IV (10:54)
[2024-06-21 10:57] VITALS: BP 140/62; PULSE 62; RESP 14; TEMP 36.3; O2SAT 99; BMI 33.5
[2024-06-21 11:57] VITALS: BP 140/66; PULSE 65; RESP 16; TEMP 36
== END 2024-06-21 23:59 | disposition home or self-care (01) ==
LOC: MEDOUTP 10:23
PROVIDERS: PCP Internal Medicine; Referring Provider Internal Medicine; Visit Provider Internal Medicine
DX: N39.0 Urinary tract infection, site not specified (principal); Z86.19 Personal history of other infectious and parasitic diseases
CPT/HCPCS: 96360; A4216

== ENCOUNTER 2024-06-22 10:14 | Outpatient (CLI) | payer MEDICARE, BC, SELFPAY ==
[2022-07-12 09:18] VITALS: BMI 34.2
[2024-06-22 10:25] VITALS: BP 117/36; PULSE 64; RESP 16; TEMP 36.1; O2SAT 96; BMI 33.5
[2024-06-22] MEDS: Ertapenem Sod 1 GM in 0.9% Normal Saline (50mL MB+) 50 ML IV (10:31)
[2024-06-22 11:30] VITALS: BP 139/59; PULSE 58; RESP 14; TEMP 36.4; O2SAT 98
== END 2024-06-22 23:59 | disposition home or self-care (01) ==
LOC: MEDOUTP 10:15
PROVIDERS: PCP Internal Medicine; Referring Provider Internal Medicine; Visit Provider Internal Medicine
DX: N39.0 Urinary tract infection, site not specified (principal); Z86.19 Personal history of other infectious and parasitic diseases
CPT/HCPCS: 96365; A4216

== ENCOUNTER 2024-06-23 10:18 | Outpatient (CLI) | payer MEDICARE, BC, SELFPAY ==
[2022-07-12 09:18] VITALS: BMI 34.2
[2024-06-23] MEDS: Ertapenem Sod 1 GM in 0.9% Normal Saline (50mL MB+) 50 ML IV (10:33)
[2024-06-23 10:37] VITALS: BP 141/58; PULSE 77; RESP 18; TEMP 37; O2SAT 99
[2024-06-23] MEDS: 0.9% Normal Saline (100mL Bag) 100 ML 15 ML IV (10:40)
[2024-06-23] MEDS: 0.9% Saline Lock 10 ML Syringe IV ×2 (10:40→11:20)
[2024-06-23 11:37] VITALS: BP 153/72; PULSE 80; RESP 18; TEMP 36.4; O2SAT 97
== END 2024-06-23 11:34 | disposition home or self-care (01) ==
LOC: MEDOUTP 10:18 → MS3 10:20
PROVIDERS: PCP Internal Medicine; Referring Provider Internal Medicine; Visit Provider Internal Medicine
DX: N39.0 Urinary tract infection, site not specified (principal); Z86.19 Personal history of other infectious and parasitic diseases
CPT/HCPCS: 96365; A4216

== ENCOUNTER 2024-06-24 10:28 | Outpatient (CLI) | payer MEDICARE, BC, SELFPAY ==
[2022-07-12 09:18] VITALS: BMI 34.2
[2024-06-24 10:35] VITALS: BP 125/52; PULSE 61; RESP 18; TEMP 36.4; O2SAT 97
[2024-06-24] MEDS: Ertapenem Sod 1 GM in 0.9% Normal Saline (50mL MB+) 50 ML IV (10:37)
[2024-06-24 11:35] VITALS: BP 145/56; PULSE 56; RESP 16; TEMP 36.3; O2SAT 97
== END 2024-06-24 11:45 | disposition home or self-care (01) ==
LOC: MEDOUTP 10:28 → MS3 10:29
PROVIDERS: PCP Internal Medicine; Referring Provider Internal Medicine; Visit Provider Internal Medicine
DX: N39.0 Urinary tract infection, site not specified (principal); Z86.19 Personal history of other infectious and parasitic diseases
CPT/HCPCS: 96365

== ENCOUNTER 2024-06-25 10:21 | Outpatient (CLI) | payer MEDICARE, BC, SELFPAY ==
[2022-07-12 09:18] VITALS: BMI 34.2
[2024-06-25 10:30] VITALS: BP 131/55; PULSE 58; RESP 16; TEMP 36.6; O2SAT 99; BMI 33.5
[2024-06-25] MEDS: Ertapenem Sod 1 GM in 0.9% Normal Saline (50mL MB+) 50 ML IV (10:37)
[2024-06-25 11:38] VITALS: BP 138/60; PULSE 55; RESP 16; TEMP 35.9; O2SAT 100
== END 2024-06-25 23:59 | disposition home or self-care (01) ==
LOC: MEDOUTP 10:21
PROVIDERS: PCP Internal Medicine; Referring Provider Internal Medicine; Visit Provider Internal Medicine
DX: N39.0 Urinary tract infection, site not specified (principal); Z86.19 Personal history of other infectious and parasitic diseases
CPT/HCPCS: 96365; A4216

== ENCOUNTER 2024-06-26 10:38 | Outpatient (CLI) | payer MEDICARE, BC, SELFPAY ==
[2022-07-12 09:18] VITALS: BMI 34.2
[2024-06-26 10:52] VITALS: BP 143/46; PULSE 52; RESP 16; TEMP 35.7; O2SAT 98
[2024-06-26] MEDS: Ertapenem Sod 1 GM in 0.9% Normal Saline (50mL MB+) 50 ML IV (11:06)
[2024-06-26 11:59] VITALS: BP 138/62; PULSE 56; RESP 16; TEMP 36.1; O2SAT 98
== END 2024-06-26 23:59 | disposition home or self-care (01) ==
LOC: MEDOUTP 10:38
PROVIDERS: PCP Internal Medicine; Referring Provider Internal Medicine; Visit Provider Internal Medicine
DX: N39.0 Urinary tract infection, site not specified (principal); Z86.19 Personal history of other infectious and parasitic diseases
CPT/HCPCS: 96365; A4216

== ENCOUNTER 2024-06-27 09:58 | Outpatient (CLI) | payer MEDICARE, BC, SELFPAY ==
[2022-07-12 09:18] VITALS: BMI 34.2
[2024-06-27 10:28] VITALS: BP 138/87; PULSE 54; RESP 16; TEMP 35.7
[2024-06-27] MEDS: Ertapenem Sod 1 GM in 0.9% Normal Saline (50mL MB+) 50 ML IV (10:28)
[2024-06-27 10:35] LABS: Absolute Lymphocyte Count 1.91 X10^3/uL (0.83-4.51); Absolute Neutrophil Count 2.1 X10^3/uL (2.0-7.7); Basophil# 0.04 X10^3/uL; Basophil% 0.9 % (0-1); Eosinophil# 0.13 X10^3/uL; Eosinophils% 2.9 % (0-5); Hematocrit 31.8 % (37-47); Hemoglobin 9.9 g/dL (12.0-15.0); Lymphocyte # 1.91 X10^3/ul (0.83-4.51); Mean Corp Hgb Conc 31.1 g/dL (32-36); Mean Corpuscular Hgb 25.6 pg (27.0-32.0); Mean Corpuscular Volume 82.4 fL (81-99); Mean Platelet Vol. 9.4 fl (6.2-12.0); Monocyte# 0.37 X10^3/uL; Monocyte% 8.1 % (0-10); NRBC Flagged by Analyzer 0 % (0-5); Neutrophil # 2.09 X10^3/uL (2.7-7.7); Neutrophil % 45.9 % (47-70); Platelet Count 239 K/mm3 (150-450); RBC Distribution Width CV 16.3 % (11.6-14.6); RBC Distribution Width SD 49.2 fl (35.1-43.9); Red Blood Count 3.86 M/mm3 (4.2-5.4); White Blood Count 4.6 K/mm3 (4.4-11.0)
[2024-06-27 10:59] LABS: Anion Gap 11 (5-15); BUN 13 mg/dL (4-19); BUN/Creat Ratio 16.6 RATIO (10-20); Calcium,Total 9.3 mg/dL (7.6-11.0); Carbon Dioxide 24.2 mmol/L (21.0-32.0); Chloride 103 mmol/L (98-108); Creatinine, Serum 0.76 mg/dL (0.70-1.20); EST Glomerular Filtration Rate 82 (>60); Glucose 103 mg/dL (70-99); Sodium Level 137 mmol/L (133-145)
[2024-06-27 11:25] VITALS: BP 141/61; PULSE 69; RESP 16; TEMP 36.1; O2SAT 98
[2024-06-27 18:03] LABS: Xtra Tube EP Lab EXTRA TUBE
== END 2024-06-27 23:59 | disposition home or self-care (01) ==
LOC: MEDOUTP 09:58
PROVIDERS: PCP Internal Medicine; Referring Provider Internal Medicine; Visit Provider Internal Medicine
DX: N39.0 Urinary tract infection, site not specified (principal); Z86.19 Personal history of other infectious and parasitic diseases
CPT/HCPCS: 96365; 36592; 80048; 85025; A4216

== ENCOUNTER 2024-06-28 09:02 | Outpatient (CLI) | payer MEDICARE, BC, SELFPAY ==
[2022-07-12 09:18] VITALS: BMI 34.2
[2024-06-28 09:09] VITALS: BP 135/52; PULSE 70; RESP 16; TEMP 35.7; O2SAT 97
[2024-06-28] MEDS: Ertapenem Sod 1 GM in 0.9% Normal Saline (50mL MB+) 50 ML IV (09:15)
== END 2024-06-28 23:59 | disposition home or self-care (01) ==
LOC: MEDOUTP 09:02
PROVIDERS: PCP Internal Medicine; Referring Provider Internal Medicine; Visit Provider Internal Medicine
DX: N39.0 Urinary tract infection, site not specified (principal); Z86.19 Personal history of other infectious and parasitic diseases
CPT/HCPCS: 96365; A4216

== ENCOUNTER 2024-06-29 10:12 | Outpatient (CLI) | payer MEDICARE, BC, SELFPAY ==
[2022-07-12 09:18] VITALS: BMI 34.2
[2024-06-29] MEDS: Ertapenem Sod 1 GM in 0.9% Normal Saline (50mL MB+) 50 ML IV (10:22)
[2024-06-29 10:25] VITALS: BP 131/60; PULSE 60; RESP 16; TEMP 36.6; O2SAT 98
[2024-06-29 11:17] VITALS: BP 137/61; PULSE 54
== END 2024-06-29 23:59 | disposition home or self-care (01) ==
LOC: MEDOUTP 10:12
PROVIDERS: PCP Internal Medicine; Referring Provider Internal Medicine; Visit Provider Internal Medicine
DX: N39.0 Urinary tract infection, site not specified (principal); Z86.19 Personal history of other infectious and parasitic diseases
CPT/HCPCS: 96365; A4216

== ENCOUNTER 2024-06-30 09:52 | Outpatient (CLI) | payer MEDICARE, BC, SELFPAY ==
[2022-07-12 09:18] VITALS: BMI 34.2
[2024-06-30 09:56] VITALS: BP 125/65; PULSE 72; RESP 16; TEMP 36.4; O2SAT 98
[2024-06-30] MEDS: Ertapenem Sod 1 GM in 0.9% Normal Saline (50mL MB+) 50 ML IV (10:08)
[2024-06-30] MEDS: 0.9% Normal Saline (100mL Bag) 100 ML 15 ML IV (10:11)
[2024-06-30] MEDS: 0.9% Saline Lock 10 ML Syringe IV (10:11)
== END 2024-06-30 10:59 | disposition home or self-care (01) ==
LOC: MEDOUTP 09:53 → MS3 09:54
PROVIDERS: PCP Internal Medicine; Referring Provider Internal Medicine; Visit Provider Internal Medicine
DX: N39.0 Urinary tract infection, site not specified (principal); Z86.19 Personal history of other infectious and parasitic diseases
CPT/HCPCS: 96365; A4216

== ENCOUNTER 2024-07-01 09:54 | Outpatient (CLI) | payer MEDICARE, BC, SELFPAY ==
[2022-07-12 09:18] VITALS: BMI 34.2
[2024-07-01 09:59] VITALS: BP 146/62; PULSE 82; RESP 16; TEMP 36.3; O2SAT 94
[2024-07-01] MEDS: 0.9% Normal Saline (100mL Bag) 100 ML 15 ML IV (10:12)
[2024-07-01] MEDS: Ertapenem Sod 1 GM in 0.9% Normal Saline (50mL MB+) 50 ML IV (10:12)
[2024-07-01] MEDS: 0.9% Saline Lock 10 ML Syringe IV (10:14)
== END 2024-07-01 10:57 | disposition home or self-care (01) ==
LOC: MEDOUTP 09:54 → MS3 09:55
PROVIDERS: PCP Internal Medicine; Referring Provider Internal Medicine; Visit Provider Internal Medicine
DX: N39.0 Urinary tract infection, site not specified (principal); Z86.19 Personal history of other infectious and parasitic diseases
CPT/HCPCS: 96365; A4216

== ENCOUNTER 2024-07-02 10:16 | Outpatient (CLI) | payer MEDICARE, BC, SELFPAY ==
[2022-07-12 09:18] VITALS: BMI 34.2
[2024-07-02] MEDS: Ertapenem Sod 1 GM in 0.9% Normal Saline (50mL MB+) 50 ML IV (10:29)
[2024-07-02 10:31] VITALS: BP 132/60; PULSE 68; RESP 16; TEMP 36.1; O2SAT 98
[2024-07-02 11:37] VITALS: BP 149/53; PULSE 63; RESP 16; TEMP 36.1; O2SAT 98
== END 2024-07-02 23:59 | disposition home or self-care (01) ==
LOC: MEDOUTP 10:16
PROVIDERS: PCP Internal Medicine; Referring Provider Internal Medicine; Visit Provider Internal Medicine
DX: N39.0 Urinary tract infection, site not specified (principal); Z86.19 Personal history of other infectious and parasitic diseases
CPT/HCPCS: 96365; A4216

== ENCOUNTER 2024-07-03 10:18 | Outpatient (CLI) | payer MEDICARE, BC, SELFPAY ==
[2022-07-12 09:18] VITALS: BMI 34.2
[2024-07-03 10:25] VITALS: BP 151/63; PULSE 61; RESP 16; TEMP 36; O2SAT 99; BMI 33.5
[2024-07-03] MEDS: Ertapenem Sod 1 GM in 0.9% Normal Saline (50mL MB+) 50 ML IV (10:48)
[2024-07-03 12:07] VITALS: BP 133/61; PULSE 55; RESP 16; TEMP 36.1
== END 2024-07-03 23:59 | disposition home or self-care (01) ==
LOC: MEDOUTP 10:18
PROVIDERS: PCP Internal Medicine; Referring Provider Internal Medicine; Visit Provider Internal Medicine
DX: N39.0 Urinary tract infection, site not specified (principal); Z86.19 Personal history of other infectious and parasitic diseases
CPT/HCPCS: 96365; A4216

== ENCOUNTER 2024-07-04 10:23 | Outpatient (CLI) | payer MEDICARE, BC, SELFPAY ==
[2022-07-12 09:18] VITALS: BMI 34.2
[2024-07-04] MEDS: Ertapenem Sod 1 GM in 0.9% Normal Saline (50mL MB+) 50 ML IV (10:31)
[2024-07-04 10:33] VITALS: BP 141/61; PULSE 57; RESP 14; TEMP 35.6; O2SAT 100; BMI 33.5
[2024-07-04 12:14] VITALS: BP 165/58; PULSE 58; RESP 16; TEMP 36.3; O2SAT 99
== END 2024-07-04 23:59 | disposition home or self-care (01) ==
LOC: MEDOUTP 10:23
PROVIDERS: PCP Internal Medicine; Referring Provider Internal Medicine; Visit Provider Internal Medicine
DX: N39.0 Urinary tract infection, site not specified (principal); Z86.19 Personal history of other infectious and parasitic diseases
CPT/HCPCS: 96365; A4216

== ENCOUNTER 2024-08-03 12:08 | Outpatient (CLI) | payer MEDICARE, BC, SELFPAY ==
[2022-07-12 09:18] VITALS: BMI 34.2
[2024-08-03 12:13] VITALS: BP 128/55; PULSE 57; RESP 16; TEMP 35.9; O2SAT 95; BMI 33.5
[2024-08-03] MEDS: Ertapenem Sod 1 GM/10 ML Vial IM (12:43)
== END 2024-08-03 23:59 | disposition home or self-care (01) ==
LOC: MEDOUTP 12:08
PROVIDERS: PCP Internal Medicine; Visit Provider Internal Medicine Infectious Disease
DX: N39.0 Urinary tract infection, site not specified (principal); Z16.12 Extended spectrum beta lactamase (ESBL) resistance
CPT/HCPCS: 96372

== ENCOUNTER 2024-08-04 11:23 | Outpatient (CLI) | payer MEDICARE, BC, SELFPAY ==
[2022-07-12 09:18] VITALS: BMI 34.2
[2024-08-04 11:20] VITALS: BP 145/67; PULSE 58; RESP 18; TEMP 36.6; O2SAT 96
[2024-08-04] MEDS: Ertapenem Sod 1 GM/10 ML Vial IM (11:29)
== END 2024-08-04 11:36 | disposition home or self-care (01) ==
LOC: MEDOUTP 11:23 → MS3 11:24
PROVIDERS: PCP Internal Medicine; Referring Provider Internal Medicine Infectious Disease; Visit Provider Internal Medicine Infectious Disease
DX: N39.0 Urinary tract infection, site not specified (principal); Z16.12 Extended spectrum beta lactamase (ESBL) resistance

== ENCOUNTER 2024-08-05 09:09 | Outpatient (CLI) | payer MEDICARE, BC, SELFPAY ==
[2022-07-12 09:18] VITALS: BMI 34.2
[2024-08-05] MEDS: Ertapenem Sod 1 GM/10 ML Vial IM (10:08)
== END 2024-08-05 10:11 | disposition home or self-care (01) ==
LOC: MEDOUTP 09:09 → PCU 09:10
PROVIDERS: PCP Internal Medicine; Referring Provider Internal Medicine Infectious Disease; Visit Provider Internal Medicine Infectious Disease
DX: N39.0 Urinary tract infection, site not specified (principal); Z16.12 Extended spectrum beta lactamase (ESBL) resistance

== ENCOUNTER 2024-08-06 09:06 | Outpatient (CLI) | payer MEDICARE, BC, SELFPAY ==
[2022-07-12 09:18] VITALS: BMI 34.2
[2024-08-06 09:13] VITALS: BP 138/45; PULSE 92; RESP 14; TEMP 35.8; O2SAT 96; BMI 33.5
[2024-08-06] MEDS: Ertapenem Sod 1 GM/10 ML Vial IM (09:45)
== END 2024-08-06 23:59 | disposition home or self-care (01) ==
LOC: MEDOUTP 09:07
PROVIDERS: PCP Internal Medicine; Referring Provider Internal Medicine Infectious Disease; Visit Provider Internal Medicine Infectious Disease
DX: N39.0 Urinary tract infection, site not specified (principal); Z16.12 Extended spectrum beta lactamase (ESBL) resistance
CPT/HCPCS: 96372

== ENCOUNTER 2024-08-07 10:42 | Outpatient (CLI) | payer MEDICARE, BC, SELFPAY ==
[2022-07-12 09:18] VITALS: BMI 34.2
[2024-08-07 10:53] VITALS: BP 128/53; PULSE 57; RESP 16; TEMP 36.1; O2SAT 99
[2024-08-07] MEDS: Ertapenem Sod 1 GM/10 ML Vial IM (11:08)
== END 2024-08-07 23:59 | disposition home or self-care (01) ==
LOC: MEDOUTP 10:42
PROVIDERS: PCP Internal Medicine; Referring Provider Internal Medicine Infectious Disease; Visit Provider Internal Medicine Infectious Disease
DX: N39.0 Urinary tract infection, site not specified (principal); Z16.12 Extended spectrum beta lactamase (ESBL) resistance
CPT/HCPCS: 96372

== ENCOUNTER 2024-08-08 08:35 | Outpatient (CLI) | payer MEDICARE, BC, SELFPAY ==
[2022-07-12 09:18] VITALS: BMI 34.2
[2024-08-08 08:50] VITALS: BP 127/60; PULSE 60; RESP 16; TEMP 36.1; O2SAT 99; BMI 33.5
[2024-08-08] MEDS: Ertapenem Sod 1 GM/10 ML Vial IM (09:44)
== END 2024-08-08 23:59 | disposition home or self-care (01) ==
LOC: MEDOUTP 08:35
PROVIDERS: PCP Internal Medicine; Referring Provider Internal Medicine Infectious Disease; Visit Provider Internal Medicine Infectious Disease
DX: N39.0 Urinary tract infection, site not specified (principal); Z16.12 Extended spectrum beta lactamase (ESBL) resistance
CPT/HCPCS: 96372

== ENCOUNTER 2024-08-09 08:50 | Outpatient (CLI) | payer MEDICARE, BC, SELFPAY ==
[2022-07-12 09:18] VITALS: BMI 34.2
[2024-08-09 08:55] VITALS: BP 144/49; PULSE 64; RESP 16; TEMP 36.2; O2SAT 99; BMI 33.6
[2024-08-09] MEDS: Ertapenem Sod 1 GM/10 ML Vial IM (09:34)
== END 2024-08-09 23:59 | disposition home or self-care (01) ==
LOC: MEDOUTP 08:50
PROVIDERS: PCP Internal Medicine; Referring Provider Internal Medicine Infectious Disease; Visit Provider Internal Medicine Infectious Disease
DX: N39.0 Urinary tract infection, site not specified (principal); Z16.12 Extended spectrum beta lactamase (ESBL) resistance
CPT/HCPCS: 96372

== ENCOUNTER 2024-08-10 08:56 | Outpatient (CLI) | payer MEDICARE, BC, SELFPAY ==
[2022-07-12 09:18] VITALS: BMI 34.2
[2024-08-10 09:06] VITALS: BP 119/59; PULSE 67; RESP 16; TEMP 36.1; O2SAT 100
[2024-08-10] MEDS: Ertapenem Sod 1 GM/10 ML Vial IM (09:31)
== END 2024-08-10 23:59 | disposition home or self-care (01) ==
LOC: MEDOUTP 08:56
PROVIDERS: PCP Internal Medicine; Referring Provider Internal Medicine Infectious Disease; Visit Provider Internal Medicine Infectious Disease
DX: N39.0 Urinary tract infection, site not specified (principal); Z16.12 Extended spectrum beta lactamase (ESBL) resistance
CPT/HCPCS: 96372

== ENCOUNTER 2024-08-12 10:53 | Outpatient (CLI) | payer MEDICARE, BC, SELFPAY ==
[2022-07-12 09:18] VITALS: BMI 34.2
[2024-08-12 11:04] VITALS: BP 114/57; PULSE 60; RESP 16; TEMP 36.6; O2SAT 98
[2024-08-12] MEDS: Ertapenem Sod 1 GM/10 ML Vial IM (11:23)
== END 2024-08-12 11:30 | disposition home or self-care (01) ==
LOC: MEDOUTP 10:53 → MS3 10:54
PROVIDERS: PCP Internal Medicine; Referring Provider Internal Medicine Infectious Disease; Visit Provider Internal Medicine Infectious Disease
DX: N39.0 Urinary tract infection, site not specified (principal); Z16.12 Extended spectrum beta lactamase (ESBL) resistance

== ENCOUNTER 2024-08-13 09:21 | Outpatient (CLI) | payer MEDICARE, BC, SELFPAY ==
[2022-07-12 09:18] VITALS: BMI 34.2
[2024-08-13 09:25] VITALS: BP 123/56; PULSE 86; RESP 16; TEMP 35.9; O2SAT 99
[2024-08-13] MEDS: Ertapenem Sod 1 GM/10 ML Vial IM (09:58)
== END 2024-08-13 23:59 | disposition home or self-care (01) ==
LOC: MEDOUTP 09:21
PROVIDERS: PCP Internal Medicine; Referring Provider Internal Medicine Infectious Disease; Visit Provider Internal Medicine Infectious Disease
DX: N39.0 Urinary tract infection, site not specified (principal); Z16.12 Extended spectrum beta lactamase (ESBL) resistance
CPT/HCPCS: 96372

== ENCOUNTER → 2024-08-14 | Outpatient (CLI) | payer MEDICARE, BC, SELFPAY ==
[2022-07-12 09:18] VITALS: BMI 34.2
[2024-08-14 09:27] VITALS: BP 132/55; PULSE 67; RESP 16; TEMP 35.6; O2SAT 100
[2024-08-14] MEDS: Ertapenem Sod 1 GM/10 ML Vial IM (09:40)
== END | disposition home or self-care (01) ==
LOC: CT 09:15
PROVIDERS: PCP Internal Medicine; Referring Provider Internal Medicine Infectious Disease; Visit Provider Internal Medicine Infectious Disease
DX: N39.0 Urinary tract infection, site not specified (principal); Z16.12 Extended spectrum beta lactamase (ESBL) resistance
CPT/HCPCS: 96372

== ENCOUNTER 2024-08-15 09:17 | Outpatient (CLI) | payer MEDICARE, BC, SELFPAY ==
[2022-07-12 09:18] VITALS: BMI 34.2
[2024-08-15 09:34] VITALS: BP 143/58; PULSE 68; RESP 16; TEMP 35.5; O2SAT 96; BMI 33.6
[2024-08-15] MEDS: Ertapenem Sod 1 GM/10 ML Vial IM (09:58)
== END 2024-08-15 23:59 | disposition home or self-care (01) ==
LOC: MEDOUTP 09:18
PROVIDERS: PCP Internal Medicine; Referring Provider Internal Medicine Infectious Disease; Visit Provider Internal Medicine Infectious Disease
DX: N39.0 Urinary tract infection, site not specified (principal); Z16.12 Extended spectrum beta lactamase (ESBL) resistance
CPT/HCPCS: 96372

== ENCOUNTER 2024-08-16 08:08 | Day surgery (SDC) | payer MEDICARE, BC, SELFPAY ==
[2022-07-12 09:18] VITALS: BMI 34.2
--- NOTE | 2024-08-09 09:40 | EKG12_ITS ---
Test Reason : PRE OP Blood Pressure : */* mmHG Vent. Rate : 59 BPM Atrial Rate : 59 BPM P-R Int : 132 ms QRS Dur : 74 ms QT Int : 370 ms P-R-T Axes : 48 14 126 degrees QTcB Int : 366 ms Sinus bradycardia with marked sinus arrhythmia T wave abnormality, consider lateral ischemia Abnormal ECG Confirmed by CAMERON CORNEJO, TRIXIE ([id number]), television news video editor BRANDON DELGADO ([id number]) on 08/13/2024 7:01:37 AM Referred By: Kiera Regalado Confirmed By: TRIXIE BARNES MD
[2024-08-09 10:39] LABS: Hematocrit 35.8 % (37-47); Hemoglobin 10.9 g/dL (12.0-15.0); Mean Corp Hgb Conc 30.4 g/dL (32-36); Mean Corpuscular Hgb 26.4 pg (27.0-32.0); Mean Corpuscular Volume 86.7 fL (81-99); Mean Platelet Vol. 9.9 fl (6.2-12.0); Platelet Count 257 K/mm3 (150-450); RBC Distribution Width CV 16.9 % (11.6-14.6); RBC Distribution Width SD 53.3 fl (35.1-43.9); Red Blood Count 4.13 M/mm3 (4.2-5.4); White Blood Count 4.4 K/mm3 (4.4-11.0)
[2024-08-09 10:55] LABS: International Normalized Ratio 0.9; Partial Thromboplast Time 24.4 Seconds (24.1-36.2); Prothrombin Time (Protime)PT. 12.5 SECONDS (11.7-14.9)
[2024-08-09 11:31] LABS: AST(SGOT) 22 U/L (<=31); Alanine Aminotransfer ALT/SGPT 14 U/L (<=34); Alkaline Phosphatase 85 U/L (35-104); Anion Gap 9 (5-15); BUN 12 mg/dL (4-19); BUN/Creat Ratio 14.5 RATIO (10-20); Bilirubin, Direct 0.11 mg/dL (0.00-0.30); Calcium,Total 9.4 mg/dL (7.6-11.0); Carbon Dioxide 26.6 mmol/L (21.0-32.0); Chloride 106 mmol/L (98-108); Creatinine, Serum 0.85 mg/dL (0.70-1.20); EST Glomerular Filtration Rate 72 (>60); Globulin 2.8 g/dL (2.2-4.2); Glucose 97 mg/dL (70-99); Potassium 4.7 mmol/L (3.3-5.1); Protein, Total 6.8 g/dL (5.9-8.4); Sodium Level 142 mmol/L (133-145)
--- NOTE | 2024-08-09 18:33 | PAT.ANESEVAL ---
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 When Was Last Pacemaker Check QUESTION #4 FULL TEXT: You/Your Family Experience fever (hyperthermia) with Anesthesia Last Oral Intake Last Oral intake: Last Oral Intake NPO since Meds taken in AM with sips of water? Meds patient instructed to take am of surgery PONV PONV - environmental field office manager: PONV - environmental field office manager Female Yes 08/03/24 13:53 HX of Motion Sickness No 08/03/24 13:53 HX of N/V After Surgery No 08/03/24 13:53 Non-Smoker Yes 08/03/24 13:53 Duration of Surgery greater Yes 08/03/24 13:53 than 60 minutes Number of Risk Factors 3 08/03/24 13:53 PONV Score Moderate Risk 08/03/24 13:53 Height & Weight Height & Weight: Anesthesia: Height & Weight Height 5 ft 2 in 08/07/24 10:53 Respiratory Assessment Respiratory Assessment - environmental field office manager: Respiratory Tract Infection Hx - environmental field office manager Hx Respiratory Tract Infection No 08/03/24 13:53 STOP Sleep Apnea STOP Sleep Apnea - environmental field office manager: STOP Sleep Apnea - environmental field office manager Hx Hypertension Yes: CONTROLLED WITH MED 08/07/24 10:53 Hx Sleep Apnea Yes 08/03/24 13:53 CPAP Yes 08/03/24 13:53 BIPAP No 08/03/24 13:53 Do you snore loudly (louder than talking or can be heard Do you often feel tired/ fatigued/ sleepy during daytime? Has anyone observed you stop breathing during sleep? STOP Results Positive 08/03/24 13:53 QUESTION #5 FULL TEXT : Do you snore loudly (louder than talking or can be heard through closed doors)? 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 Specify any problems Hx of Preganancy in last 3 No 08/03/24 13:53 Months Nurse Filling Out Transfusion DSCHRIBER 08/03/24 13:53 & Questions: Date: 08/03/24 08/03/24 13:53 Time: 13:54 08/03/24 13:53 Patient unable to answer at this time (ie. confused, unrespo /Reproduction History /Reproductive History - environmental field office manager: /Reproductive Hx- environmental field office manager Hx Now No 08/03/24 13:53 Gestational Age (in weeks): EDC: Hx Hx Para Hx Section SAB No 08/03/24 13:53 PFSH Medical History (Updated 08/03/24 @ 14:00 by Kate Martin) Blood clot in abdominal vein Easy bruising Back pain Night sweats History of ESBL E. coli infection Shortness of breath on exertion Depression Arthritis High cholesterol History of hiatal hernia CPAP (continuous positive airway pressure) dependence History of edema History of Holter monitoring History of stress test History of echocardiogram Cardiology follow-up encounter History of CAD (coronary artery disease) Dyspnea on exertion Angina pectoris Chest pain Decreased radial pulse Swelling of right wrist Claudication of both lower extremities Leg cramps Abnormal stress test Heart failure with preserved ejection fraction, NYHA class II Obesity AJAY (obstructive sleep apnea) Chavira palsy B12 deficiency Hyperlipidemia Diastolic dysfunction Pulmonary hypertension SVT (supraventricular tachycardia) Palpitations Essential (primary) hypertension Eczema of both hands Anxiety Gastroparesis GERD (gastroesophageal reflux disease) Piriformis syndrome of left side IBS (irritable bowel syndrome) Depression Home Medications ?Medication ?Instructions ?Recorded ?Last Taken ?Type albuterol sulfate 90 mcg/actuation 2 puff inhalation Q4H PRN 01/06/23 Unknown History aerosol inhaler shortness of breath or wheezing vilazodone 20 mg tablet 20 mg PO DAILY DEPRESSION 03/12/22 01/30/24 History cholecalciferol (vitamin D3) 50 4,000 unit PO DAILY SUPPLEMENT 03/23/22 02/15/24 History mcg (2,000 unit) capsule nitroglycerin 0.4 mg sublingual 0.4 mg sublingual Q5M PRN 04/23/22 Unknown Rx tablet Cardiac/Chest Pain #14 tabs cyanocobalamin (vitamin B-12) 1,000 mcg IM QMONTH SUPPLEMENT 06/06/23 01/23/24 History 1,000 mcg/mL injection solution lisinopril 5 mg tablet 5 mg PO BID BP #180 tabs 10/10/23 01/29/24 Rx aspirin 81 mg tablet,delayed 81 mg PO DAILY SUPPLEMENT 10/11/23 02/14/24 History release (Adult Aspirin Regimen) vibegron 75 mg tablet (Gemtesa) 75 mg PO QDAY OAB 11/24/23 01/29/24 History ibuprofen 600 mg tablet 600 mg PO Q6H PRN PRN Pain 1-10 Or 01/31/24 02/14/24 Rx Fever #0 tabs amlodipine 2.5 mg tablet 2.5 mg PO QDAY blood pressure #90 06/04/24 Unknown Rx tabs atorvastatin 10 mg tablet 10 mg PO QHS cholesterol #90 tabs 06/04/24 Unknown Rx pantoprazole 40 mg tablet,delayed 40 mg PO QDAY heart burn 06/04/24 Unknown History release ertapenem 1 gram solution for 1 g IV Q24 #14 ea 06/20/24 Unknown Rx injection Allergy/AdvReac Type Severity Reaction Status Date / Time Sulfa (Sulfonamide Allergy Intermediate Rash Verified 08/06/24 09:12 Antibiotics) sulfamethoxazole (From Allergy Intermediate Itching Verified 08/06/24 09:12 Bactrim) trimethoprim (From Bactrim) Allergy Intermediate Itching Verified 08/06/24 09:12 adhesive tape (tape) Allergy Rash Verified 08/06/24 09:12 cefdinir Allergy Hives Verified 08/06/24 09:12 Penicillins (PCN) Allergy Rash Verified 08/06/24 09:12 atorvastatin AdvReac Intermediate Myalgias Verified 08/06/24 09:12 codeine AdvReac Unknown Other Verified 08/06/24 09:12 Family History Mother Hypertension Arthritis Respiratory disease Grandfather Cancer kidney, brain Father Parkinson's disease Arthritis Grandmother CVA (cerebral vascular accident) Myocardial infarction Brother CVA (cerebral vascular accident) Myocardial infarction H/O blood clots Sister Seizures H/O blood clots Surgical History (Updated 08/03/24 @ 14:00 by Kate Martin) Hx of right cataract extraction Hx of left cataract extraction History of colectomy S/P colectomy Hx of colonoscopy History of laminectomy History of arthroscopy of right knee Hx of heart artery stent Hx of cardiac cath History of coronary artery stent placement (~04/23/22) H/O bilateral salpingo-oophorectomy H/O: hysterectomy Hx of tonsillectomy History of appendectomy History of cholecystectomy Social History household members: spouse Smoking Status: Never smoker alcohol intake: never substance use type: does not use caffeine: Yes Type: coffee Number of servings: 1 Audit: Pertinent Findings Pertinent Findings EKG Perinent findings: January 30, 2024. Sinus bradycardia 56 bpm with sinus arrhythmia. Nonspecific T wave abnormality. Compared to EKG of July 28, 2023, nonspecific T wave abnormality has improved in the anterior leads. Stress test pertinent findings: April 07, 2022. EF 82%. Mild decreased perfusion of the anterior wall and basal lateral wall with stress suggestive of ischemia. Echo (EF%) pertinent findings: July 28, 2023. EF 70%. No aortic stenosis. Heart catheterization pertinent findings: July 28, 2023. Mild coronary artery disease. Prior stent to the RCA is widely patent. No significant aortic stenosis. First diagonal has 30% proximal stenosis. April 23, 2022. GENI to the distal RCA. Mild disease of LAD and left circumflex. Continue Plavix for 12 months. Aspirin indefinitely. Consult pertinent findings: June 04, 2024. Diameter PAC. 1. History of coronary artery disease?chronic-status post PCI to the distal RCA in April 2022. Most recent heart cath in 07/28/2023 with patent stent and mild coronary artery disease. 2. History of stent placement-GENI to the distal RCA. Stent is patent. Continue low-dose aspirin. 3. Chest discomfort?acute-described as spasm-like and bronchial. Patient to start taking amlodipine and monitor for improvement. 4. Hypertension?chronic-patient is to continue monitoring at home. Additional pertinent findings: Holter monitor March 22, 2023. Predominantly normal sinus rhythm. No ventricular or supraventricular ectopy. Diary noted 1 episode of feeling of palpitations which did not correlate with scan. 1 episode of rapid heart rate which did not correlate with scan. Recommendation Anesthesia Recommendation Anesthesia recommendation: OPTIMIZED for anesthesia
[2024-08-16] VITALS (8 sets, daily range): BP systolic 118–132; BP diastolic 54–63; PULSE 55–87; RESP 10–71; TEMP 36.1–36.9; O2SAT 93–98; BMI 34.0
[2024-08-16] MEDS: Lactated Ringers 1,000 ML 15 ML IV (09:06)
--- NOTE | 2024-08-16 09:33 | PRE.ANES_ITS ---
ASA Classification* ASA Classification ASA Classification: 3 Assessment & Plan Anesthesia* Anesthesia Assessment Anesthesia Assessment: Discussed sedation and/or anesthesia options, risks, benefits, and alternatives with patient/parents/legal guardian/POA. Questions invited. The patient/parents/legal guardian/POA seems to understand and agrees to proceed with anesthesia plan. Reviewed the physical assessment, medical history, allergy history and patient home medications list prior to surgery/procedure/anesthetic and documented any changes. Performed airway and anesthesia risk assessments. Anesthesia Type Anesthesia Type: General Anesthesia Focused Assessment* Temperature: 97.3 F Pulse Rate: 55 Blood Pressure: 118/59 Respiratory Rate: 18 Pulse Ox: 98 Airway Assessment Mouth opens: >3 cm Mallampati Score: II Labs Anesthesia Preop lab: CBC WBC 4.4 K/mm3 (4.4-11.0) 08/09/24 09:54 08/09/24 RBC 4.13 M/mm3 (4.2-5.4) L 08/09/24 09:54 08/09/24 Hgb 10.9 g/dL (12.0-15.0) L 08/09/24 09:54 5 Hct 35.8 % (37-47) L 08/09/24 09:54 08/09/24 Plt Count 257 K/mm3 (150-450) 08/09/24 09:54 08/09/24 CHEMISTRY Potassium 4.7 mmol/L (3.3-5.1) 08/09/24 09:54 08/09/24 Sodium 142 mmol/L (133-145) 08/09/24 09:54 08/09/24 Magnesium 2.2 mg/dL (1.5-2.2) 06/20/24 06:59 06/20/24 Phosphorus 2.9 mg/dL (2.7-4.5) 06/20/24 06:59 06/20/24 BUN 12 mg/dL (4-19) 08/09/24 09:54 08/09/24 Creatinine 0.85 mg/dL (0.70-1.20) 08/09/24 09:54 08/09/24 Glucose 97 mg/dL (70-99) 08/09/24 09:54 08/09/24 POC Glucose 110 mg/dL (74-106) H 02/16/24 22:52 02/16/24 TSH 0.765 uIU/mL (0.300-4.200) 06/04/24 11:03 /03/31 COAG PT 12.5 SECONDS (11.7-14.9) 08/09/24 09:54 Pre-Assessment Diagnosis/Proposed Procedure Planned Operative Procedure(s): CYSTO POSS BLADDER BIOPSY POSS TURB MUCOSA Anesthesia History 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 When Was Last Pacemaker Check QUESTION #4 FULL TEXT: You/Your Family Experience fever (hyperthermia) with Anesthesia Last Oral Intake Last Oral intake: Last Oral Intake NPO since Meds taken in AM with sips of water? Meds patient instructed to take am of surgery PONV PONV - music orchestrator: PONV - music orchestrator Female Yes 08/03/24 13:53 HX of Motion Sickness No 08/03/24 13:53 HX of N/V After Surgery No 08/03/24 13:53 Non-Smoker Yes 08/03/24 13:53 Duration of Surgery greater Yes 08/03/24 13:53 than 60 minutes Number of Risk Factors 3 08/03/24 13:53 PONV Score Moderate Risk 08/03/24 13:53 Height & Weight Height & Weight: Anesthesia: Height & Weight Height 5 ft 3 in 08/16/24 08:55 Weight: 87 kg 08/16/24 08:55 Body Mass Index (BMI) 34.0 08/16/24 08:55 Respiratory Assessment Respiratory Assessment - music orchestrator: Respiratory Tract Infection Hx - music orchestrator Hx Respiratory Tract Infection No 08/03/24 13:53 STOP Sleep Apnea STOP Sleep Apnea - music orchestrator: STOP Sleep Apnea - music orchestrator Hx Hypertension Yes: CONTROLLED WITH MED 08/15/24 09:34 Hx Sleep Apnea Yes 08/03/24 13:53 CPAP Yes 08/03/24 13:53 BIPAP No 08/03/24 13:53 Do you snore loudly (louder than talking or can be heard Do you often feel tired/ fatigued/ sleepy during daytime? Has anyone observed you stop breathing during sleep? STOP Results Positive 08/03/24 13:53 QUESTION #5 FULL TEXT : Do you snore loudly (louder than talking or can be heard through closed doors)? 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 Specify any problems Hx of Preganancy in last 3 No 08/03/24 13:53 Months Nurse Filling Out Transfusion DSCHRIBER 08/03/24 13:53 & Questions: Date: 08/03/24 08/03/24 13:53 Time: 13:54 08/03/24 13:53 Patient unable to answer at this time (ie. confused, unrespo /Reproduction History /Reproductive History - music orchestrator: /Reproductive Hx- music orchestrator Hx Now No 08/03/24 13:53 Gestational Age (in weeks): EDC: Hx Hx Para Hx Section SAB No 08/03/24 13:53 Active Medications Active Medications: Current Medications Generic Name Dose Route Start Last Admin Trade Name Freq PRN Reason Stop Dose Admin Lactated Ringer's 1,000 mls @ 15 mls/hr 08/16/24 08:30 08/16/24 09:06 IV 15 mls/hr .Q48H KEITH Administration Ciprofloxacin 400 mg in 200 mls @ 200 mls/hr 08/16/24 09:00 Cipro IV 08/16/24 09:59 PREOP ONE [facility] Medical History Blood clot in abdominal vein Easy bruising Back pain Night sweats History of ESBL E. coli infection Shortness of breath on exertion Depression Arthritis High cholesterol History of hiatal hernia CPAP (continuous positive airway pressure) dependence History of edema History of Holter monitoring History of stress test History of echocardiogram Cardiology follow-up encounter History of CAD (coronary artery disease) Dyspnea on exertion Angina pectoris Chest pain Decreased radial pulse Swelling of right wrist Claudication of both lower extremities Leg cramps Abnormal stress test Heart failure with preserved ejection fraction, NYHA class II Obesity AJAY (obstructive sleep apnea) Chavira palsy B12 deficiency Hyperlipidemia Diastolic dysfunction Pulmonary hypertension SVT (supraventricular tachycardia) Palpitations Essential (primary) hypertension Eczema of both hands Anxiety Gastroparesis GERD (gastroesophageal reflux disease) Piriformis syndrome of left side IBS (irritable bowel syndrome) Depression Home Medications ?Medication ?Instructions ?Recorded ?Last Taken ?Type albuterol sulfate 90 mcg/actuation 2 puff inhalation Q 4H PRN 03/12/22 Unknown History aerosol inhaler shortness of breath or wheez ing vilazodone 20 mg tablet 20 mg PO DAILY DEPRESSION 08/16/24 History cholecalciferol (vitamin D3) 50 4,000 unit PO DAILY CHRISTY PPLEMENT 03/23/22 02/15/24 History mcg (2,000 unit) capsule nitroglycerin 0.4 mg sublingual 0.4 mg sublingual Q5M PRN 04/23/22 Unknown Rx tablet Cardiac/Chest Pain #14 tabs cyanocobalamin (vitamin B-12) 1,000 mcg IM QMONTH SUPP LEMENT 06/06/23 01/23/24 History 1,000 mcg/mL injection solution lisinopril 5 mg tablet 5 mg PO BID BP #180 tabs 07/2808/15/24 Rx aspirin 81 mg tablet,delayed 81 mg PO DAILY SUPPLEMENT 10/11/23 08/12/24 History release (Adult Aspirin Regimen) vibegron 75 mg tablet (Gemtesa) 75 mg PO QDAY OAB 11/0508/16/24 History ibuprofen 600 mg tablet 600 mg PO Q6H PRN PRN Pain 1 -10 Or 01/31/24 02/14/24 Rx Fever #0 tabs amlodipine 2.5 mg tablet 2.5 mg PO QDAY blood pressur e #90 06/04/24 08/16/24 Rx tabs pantoprazole 40 mg tablet,delayed 40 mg PO QDAY heart burn 06/04/24 08/16/24 History release atorvastatin 20 mg tablet 20 mg PO QHS cholesterol #90 tabs 08/15/24 Unknown Rx ertapenem 1 gram solution for 1 g IV Q24 08/15/24 Unkn own History injection Allergy/AdvReac Type Severity Reaction Status Date / Time Sulfa (Sulfonamide Allergy Intermediate Rash Verified 08/16/24 08:53 Antibiotics) sulfamethoxazole (From Allergy Intermediate Itching Verified 08/16/24 08:53 Bactrim) trimethoprim (From Bactrim) Allergy Intermediate Itching Verified 08/16/24 08:53 adhesive tape (tape) Allergy Rash Verified 08/16/24 08:53 cefdinir Allergy Hives Verified 08/16/24 08:53 Penicillins (PCN) Allergy Rash Verified 08/16/24 08:53 codeine AdvReac Unknown Other Verified 08/16/24 08:53 Family History Mother Hypertension Arthritis Respiratory disease Grandfather Cancer kidney, brain Father Parkinson's disease Arthritis Grandmother CVA (cerebral vascular accident) Myocardial infarction Brother CVA (cerebral vascular accident) Myocardial infarction H/O blood clots Sister Seizures H/O blood clots Surgical History Hx of right cataract extraction Hx of left cataract extraction History of colectomy S/P colectomy Hx of colonoscopy History of laminectomy History of arthroscopy of right knee Hx of heart artery stent Hx of cardiac cath History of coronary artery stent placement (~04/23/22) H/O bilateral salpingo-oophorectomy H/O: hysterectomy Hx of tonsillectomy History of appendectomy History of cholecystectomy Social History household members: spouse Smoking Status: Never smoker alcohol intake: never substance use type: does not use caffeine: Yes Type: coffee Number of servings: 1 Review of Systems (Anesthesia) ROS Narrative System reviewed and no additional complaints, except as documented.
--- NOTE | 2024-08-16 10:10 | BLA_PTH ---
PATIENT: PARVIN DUENAS LOC: [facility] [place] U#:[id number] AGE/SX: 74/F ROOM: RE08/16/[address]: Dr. Kiera Regalado MD : 1950 BED: DIS: 08/16/2024 SPEC #: [id number] RECD: 08/16/24 11:00 STATUS: ANTONIO REPonce #: [id number] ANDRES: 08/16/24 10:[address]: Kiera Regalado DEPT: SURGICAL PATHOLOGY RECD BY: Corbin Kruse ENTERED: 08/16/24 12:06 SP TYPE: BLADDER BX OTHR DR: Dr. Aubree Woody DO Tissues: A - Urinary bladder, NOS Procedures: Surgery Specimen Level IV HEADER OPERATION: Bladder biopsy with fulguration PRE-OP DIAGNOSIS: Urinary tract infection, lesion of bladder, overactive bladder, urge incontinence, postmenopausal atrophic vaginitis, rectocele TISSUE SUBMITTED: A- Bladder biopsy MICROSCOPIC DIAGNOSIS A. Bladder, biopsy: * Partially denuded urothelium with reactive changes - see note. * Lamina propria with edema, marked lymphoplasmacytic chronic inflammation, and small lymphoid aggregates. * No muscularis propria identified. * Note: The histologic differential diagnosis includes follicular cystitis vs interstitial cystitis. Recommend clinical correlation. MICROSCOPIC DESCRIPTION Slides are reviewed. GROSS DESCRIPTION A. Received in formalin labeled with the patient's name and date of . Designated as bladder biopsy are 2 erythematous tissue fragments, 0.4 cm each. Entirely submitted in 1 cassette. [facility] [place] 08/16/2024 CPT:46844
--- NOTE | 2024-08-16 10:25 | PCM.OPRPT ---
Operative Report (Standard) Operative Information Date of Procedure: 08/16/24 Pre-Operative Diagnosis: Recurrent urinary tract infections, bladder mucosal lesion Post-Operative Diagnosis: Same Surgery/Procedure Performed: Cystoscopy with bladder biopsy and fulguration commercial photographer: No Type of Anesthesia: MAC RN Documented Start/Stop Times: Operation Date: 08/16/24 10:10 Case Time Into Pre-Op 08/16/24 08:21 Out of Pre-Op 08/16/24 10:11 Anesthesia Start 08/16/24 10:21 Into Room 08/16/24 10:21 Procedure Start 08/16/24 10:32 Procedure End 08/16/24 10:39 Anesthesia End 08/16/24 10:43 Out of Room 08/16/24 10:43 Procedure Start Time: 10:32 Procedure Stop Time: 10:39 Select all DRAINS/GRAFTS/IMPLANTS that apply: None Estimated Blood Loss: <5cc Specimen collected: Yes Description of specimen(s) removed: Bladder biopsy Description of surgery: The patient is a 74-year-old female with recurrent UTIs and a history of squamous cell metaplasia of the bladder. A repeat cystoscopy was performed in the office revealing evidence of an ulceration on the right lateral bladder wall. The area of erythema was approximately 5 cm in diameter. She now presents for biopsy and fulguration. Informed consent was obtained. The patient was taken to the operating room and placed on the operating room table. Anesthesia monitored the head, neck, airway, IV access and vital signs throughout the case. Once anesthesia was appropriate ministered she was placed into dorsolithotomy position was prepped and draped in usual sterile fashion. The cystoscope was inserted through the urethra under direct visualization into the urinary bladder. Cystoscopic evaluation revealed the same ulcerative area. Biopsies were taken of the central portion of this area. The area was then fulgurated for hemostatic control and tissue treatment. No other abnormal areas of the bladder were identified. The bladder was then emptied and the cystoscope was removed. A lidocaine jet was inserted into the bladder. The patient was awakened and taken to the recovery room in good condition. There were no complications during the procedure. Surgical Findings: Bladder lesion consistent with ulceration Complications Complications: No Admit VTE Documentation VTE Present on Admission: Yes VTE Mechan Device Prophylaxis: SCD's VTE Pharm Prophylaxis ordered?: No Reason prophylaxis not ordered: Treatment Not Indicated
[2024-08-16] MEDS: Lidocaine Jelly 2% 20 ML Syringe (URO-JET) OPERA.SITE (10:37)
--- NOTE | 2024-08-16 10:40 | PCM.POST.ANE ---
Anesthesia: Postop Eval I Current Vital Signs Temperature: 97 F Pulse Rate: 60 Blood Pressure: 131/54 Respiratory Rate: 10 Pulse Ox: 98 Oxygen Delivery Method: Room Air Assessment Airway patent: Yes Spontaneous unlabored respirations: Yes Mental status: Awake and Calm nausea: No Vomiting: No Anesthesia Complication: No Fluid Hydration Crystalloid volume administer (ml): 500 Total IV fluid infused: 500 Progress Note Anesthesia document: Postop Eval 1 completed: Yes
--- NOTE | 2024-08-16 10:47 | EX.PCM.DISCH ---
Discharge Instructions Diet Discharge Diet: No restrictions Activity Discharge Activity: Return to Normal Activity Dressing / Incision Call your doctor if you observe: Fever of 101 or Higher, Inability to urinate and Inability to have a bowel movement Follow Up Care Please Follow Up With: Kiera Regalado MD When: Next week for biopsy results Test Results: Test results from this visit will be discussed in further detail at your follow-up appointment, if applicable. Discharge Plan Admission Attending Provider: Kiera Regalado Primary Care Provider: Aubree Woody Instructions Print Language: Ecuadorean Discharge Orders/Prescriptions Prescriptions: New oxycodone-acetaminophen 5-325 mg tablet 1 tab PO Q8H PRN (Reason: pain) 3 Days Qty: 10 0RF Continued albuterol sulfate 90 mcg/actuation HFA aerosol inhaler 2 puff inhalation Q4H PRN (Reason: shortness of breath or wheezing) vilazodone 20 mg tablet 20 mg PO DAILY cholecalciferol (vitamin D3) 50 mcg (2,000 unit) capsule 4,000 unit PO DAILY aspirin [Adult Aspirin Regimen] 81 mg tablet,delayed release (DR/EC) 81 mg PO DAILY pantoprazole 40 mg tablet,delayed release (DR/EC) 40 mg PO QDAY amlodipine 2.5 mg tablet 2.5 mg PO QDAY Qty: 90 3RF Gemtesa 75 mg tablet 75 mg PO QDAY ertapenem 1 gram recon soln 1 g IV Q24 Rx Instructions: Last injection tomorrow atorvastatin 20 mg tablet 20 mg PO QHS Qty: 90 3RF nitroglycerin 0.4 mg Tablet, Sublingual 0.4 mg sublingual Q5M PRN (Reason: Cardiac/Chest Pain) Qty: 14 3RF ibuprofen 600 mg Tablet 600 mg PO Q6H PRN PRN (Reason: Pain 1-10 Or Fever) Qty: 0 0RF cyanocobalamin (vitamin B-12) 1,000 mcg/mL solution 1,000 mcg IM QMONTH lisinopril 5 mg tablet 5 mg PO BID Qty: 180 3RF Other Ambulatory Orders: 12 Lead EKG (Routine) Timeframe: [id number] Location: None Selected Ordered By: Dr. Kiera Regalado Referrals / Follow Up: Aubree Woody DO [Primary Care Provider] - Disposition Disposition (needs filled in before D/C Order can be placed): Home, Self Care
--- NOTE | 2024-08-16 11:02 | POSTOPAN2_ITS ---
Anesthesia Postop Eval I Sum Postop Eval Completion status Anesthesia document: Postop Eval 1 completed: Yes Anesthesia Postop Eval I Summary Anesthesia Postop Eval I Summary: Anesthesia Postop Eval I: Assessment Summary Airway patent Yes 08/16/24 10:40 [email or web address] Spontaneous unlabored Yes 08/16/24 10:40 [email or web address] respirations Mental status Awake,Calm 08/16/24 10:40 [email or web address] nausea No 08/16/24 10:40 [email or web address] Vomiting No 08/16/24 10:40 [email or web address] Anesthesia Postop Eval I: Fluid Summary Crystalloid volume administer 500 08/16/24 10:40 [email or web address].MDOT (ml) Colloids volume administered ( ml) Blood Product volume administered (ml) Total IV fluid infused 500 08/16/24 10:40 [email or web address] Anesthesia Postop Eval I: Summary Notes Anesthesia Complication No 08/16/24 10:40 [email or web address] Anesthesia Complication Comment: Post-operative progress note Anesthesia: Postop Eval II Evaluation Mental status: Awake Pain Level: 0 nausea: No Vomiting: No
--- NOTE | 2024-08-16 11:02 | PCM.POSTANE2 ---
Anesthesia Postop Eval I Sum Postop Eval Completion status Anesthesia document: Postop Eval 1 completed: Yes Anesthesia Postop Eval I Summary Anesthesia Postop Eval I Summary: Anesthesia Postop Eval I: Assessment Summary Airway patent Yes 08/16/24 10:40 SUPERINTENDENT REFUSE DISPOSAL.MDOT Spontaneous unlabored Yes 08/16/24 10:40 SUPERINTENDENT REFUSE DISPOSAL.MDOT respirations Mental status Awake,Calm 08/16/24 10:40 SUPERINTENDENT REFUSE DISPOSAL.MDOT nausea No 08/16/24 10:40 SUPERINTENDENT REFUSE DISPOSAL.MDOT Vomiting No 08/16/24 10:40 SUPERINTENDENT REFUSE DISPOSAL.MDOT Anesthesia Postop Eval I: Fluid Summary Crystalloid volume administer 500 08/16/24 10:40 SUPERINTENDENT REFUSE DISPOSAL.MDOT (ml) Colloids volume administered ( ml) Blood Product volume administered (ml) Total IV fluid infused 500 08/16/24 10:40 SUPERINTENDENT REFUSE DISPOSAL.MDOT Anesthesia Postop Eval I: Summary Notes Anesthesia Complication No 08/16/24 10:40 SUPERINTENDENT REFUSE DISPOSAL.MDOT Anesthesia Complication Comment: Post-operative progress note Anesthesia: Postop Eval II Evaluation Mental status: Awake Pain Level: 0 nausea: No Vomiting: No
--- NOTE | 2024-08-16 11:24 | SUR.PHASEII ---
patient spilled hot coffee on herself, left thigh. redness noted. cool washcloth provided and new linens. patient tolerated well.
== END 2024-08-16 11:46 | disposition home or self-care (01) ==
LOC: SDC 08:09 → AC 08:11
PROVIDERS: Anesthesiology; PCP Internal Medicine; Referring Provider Urology; Visit Provider Urology
PROC: 0TBB8ZX Excision of Bladder, Via Natural or Artificial Opening Endoscopic, Diagnostic (ICD-10-PCS; CPT 52240; principal; 2024-08-16 10:00)
DX: N30.20 Other chronic cystitis without hematuria (principal); Z87.440 Personal history of urinary (tract) infections; I10 Essential (primary) hypertension; J45.909 Unspecified asthma, uncomplicated; Z79.899 Other long term (current) drug therapy; Z79.01 Long term (current) use of anticoagulants; Z79.02 Long term (current) use of antithrombotics/antiplatelets; N32.81 Overactive bladder; N39.41 Urge incontinence; N95.2 Postmenopausal atrophic vaginitis; N81.6 Rectocele; K59.00 Constipation, unspecified; E78.00 Pure hypercholesterolemia, unspecified; K21.9 Gastro-esophageal reflux disease without esophagitis
CPT/HCPCS: 52240; 00912; 36415; 80048; 80076; 85027; 85610; 85730; 88305; 93005; J0744

== ENCOUNTER 2024-08-16 09:15 | Outpatient (CLI) | payer MEDICARE, BC, SELFPAY ==
[2022-07-12 09:18] VITALS: BMI 34.2
== END 2024-08-16 23:59 | disposition home or self-care (01) ==
LOC: MEDOUTP 01-15 16:08
PROVIDERS: PCP Internal Medicine; Referring Provider Internal Medicine Infectious Disease; Visit Provider Internal Medicine Infectious Disease
DX: N39.0 Urinary tract infection, site not specified (principal); Z16.12 Extended spectrum beta lactamase (ESBL) resistance
CPT/HCPCS: J2405

== ENCOUNTER → 2024-08-29 | Outpatient (CLI) | payer MEDICARE, BC, SELFPAY ==
[2022-07-12 09:18] VITALS: BMI 34.2
== END | disposition home or self-care (01) ==
LOC: LABSPEC 11:35
PROVIDERS: PCP Internal Medicine; Referring Provider Internal Medicine Infectious Disease; Visit Provider Internal Medicine Infectious Disease
DX: N39.0 Urinary tract infection, site not specified (principal)
CPT/HCPCS: 87077; 87086; 87088; 87186

== ENCOUNTER 2024-08-30 08:53 | Outpatient (CLI) | payer MEDICARE, BC, SELFPAY ==
[2022-07-12 09:18] VITALS: BMI 34.2
[2024-08-30 08:59] VITALS: BP 151/73; PULSE 53; RESP 16; TEMP 35.8; O2SAT 97; BMI 32.5
[2024-08-30] MEDS: Ertapenem Sod 1 GM/10 ML Vial IM (09:41)
== END 2024-08-30 23:59 | disposition home or self-care (01) ==
LOC: MEDOUTP 08:53
PROVIDERS: PCP Internal Medicine; Referring Provider Internal Medicine Infectious Disease; Visit Provider Internal Medicine Infectious Disease
DX: N39.0 Urinary tract infection, site not specified (principal)
CPT/HCPCS: 96372

== ENCOUNTER 2024-08-31 08:53 | Outpatient (CLI) | payer MEDICARE, BC, SELFPAY ==
[2022-07-12 09:18] VITALS: BMI 34.2
[2024-08-31 09:08] VITALS: BP 124/56; PULSE 70; RESP 16; TEMP 36.1; O2SAT 97
[2024-08-31] MEDS: Ertapenem Sod 1 GM/10 ML Vial IM (09:43)
== END 2024-08-31 23:59 | disposition home or self-care (01) ==
LOC: MEDOUTP 08:54
PROVIDERS: PCP Internal Medicine; Referring Provider Internal Medicine Infectious Disease; Visit Provider Internal Medicine Infectious Disease
DX: N39.0 Urinary tract infection, site not specified (principal)
CPT/HCPCS: 96372

== ENCOUNTER 2024-09-01 09:56 | Outpatient (CLI) | payer MEDICARE, BC, SELFPAY ==
[2022-07-12 09:18] VITALS: BMI 34.2
[2024-09-01] MEDS: Ertapenem Sod 1 GM/10 ML Vial IM (10:32)
== END 2024-09-01 10:58 | disposition home or self-care (01) ==
LOC: MEDOUTP 09:58 → PCU 09:59
PROVIDERS: PCP Internal Medicine; Referring Provider Internal Medicine Infectious Disease; Visit Provider Internal Medicine Infectious Disease
DX: N39.0 Urinary tract infection, site not specified (principal)
CPT/HCPCS: 96372

== ENCOUNTER 2024-09-02 09:46 | Outpatient (CLI) | payer MEDICARE, BC, SELFPAY ==
[2022-07-12 09:18] VITALS: BMI 34.2
[2024-09-02] MEDS: Ertapenem Sod 1 GM/10 ML Vial IM (10:20)
== END 2024-09-02 10:31 | disposition home or self-care (01) ==
LOC: MEDOUTP 09:48 → PCU 09:48
PROVIDERS: PCP Internal Medicine; Referring Provider Internal Medicine Infectious Disease; Visit Provider Internal Medicine Infectious Disease
DX: N39.0 Urinary tract infection, site not specified (principal)
CPT/HCPCS: 96372

== ENCOUNTER 2024-09-03 13:25 | Outpatient (CLI) | payer MEDICARE, BC, SELFPAY ==
[2022-07-12 09:18] VITALS: BMI 34.2
[2024-09-03 13:50] VITALS: BP 122/46; PULSE 60; RESP 16; TEMP 35.9; O2SAT 98; BMI 32.5
[2024-09-03] MEDS: Ertapenem Sod 1 GM/10 ML Vial IM (14:02)
== END 2024-09-03 23:59 | disposition home or self-care (01) ==
LOC: MEDOUTP 13:26
PROVIDERS: PCP Internal Medicine; Referring Provider Internal Medicine Infectious Disease; Visit Provider Internal Medicine Infectious Disease
DX: N39.0 Urinary tract infection, site not specified (principal)
CPT/HCPCS: 96372

== ENCOUNTER 2024-09-04 09:55 | Outpatient (CLI) | payer MEDICARE, BC, SELFPAY ==
[2022-07-12 09:18] VITALS: BMI 34.2
[2024-09-04 10:06] VITALS: BP 123/59; PULSE 56; RESP 16; TEMP 35.8; O2SAT 98
[2024-09-04] MEDS: Ertapenem Sod 1 GM/10 ML Vial IM (10:56)
== END 2024-09-04 23:59 | disposition home or self-care (01) ==
LOC: MEDOUTP 09:55
PROVIDERS: PCP Internal Medicine; Referring Provider Internal Medicine Infectious Disease; Visit Provider Internal Medicine Infectious Disease
DX: N39.0 Urinary tract infection, site not specified (principal)
CPT/HCPCS: 96372

== ENCOUNTER 2024-09-05 08:48 | Outpatient (CLI) | payer MEDICARE, BC, SELFPAY ==
[2022-07-12 09:18] VITALS: BMI 34.2
[2024-09-05 08:56] VITALS: BP 119/50; PULSE 60; RESP 16; TEMP 36.3; O2SAT 98; BMI 32.5
[2024-09-05] MEDS: Ertapenem Sod 1 GM/10 ML Vial IM (09:19)
== END 2024-09-05 23:59 | disposition home or self-care (01) ==
LOC: MEDOUTP 08:48
PROVIDERS: PCP Internal Medicine; Referring Provider Internal Medicine Infectious Disease; Visit Provider Internal Medicine Infectious Disease
DX: N39.0 Urinary tract infection, site not specified (principal)
CPT/HCPCS: 96372

== ENCOUNTER 2024-09-06 09:59 | Outpatient (CLI) | payer MEDICARE, BC, SELFPAY ==
[2022-07-12 09:18] VITALS: BMI 34.2
[2024-09-06 10:03] VITALS: BP 129/55; PULSE 76; RESP 16; TEMP 36.6; O2SAT 97
[2024-09-06 10:26] LABS: Hematocrit 34.9 % (37-47); Hemoglobin 10.9 g/dL (12.0-15.0); Immature Granulocytes Count 0.010 X10^3/uL (0.0-0.0); Mean Corp Hgb Conc 31.2 g/dL (32-36); Mean Corpuscular Volume 87.3 fL (81-99); Mean Platelet Vol. 9.2 fl (6.2-12.0); NRBC Flagged by Analyzer 0 % (0-5); Platelet Count 253 K/mm3 (150-450); RBC Distribution Width CV 16.3 % (11.6-14.6); RBC Distribution Width SD 51.9 fl (35.1-43.9); Red Blood Count 4.00 M/mm3 (4.2-5.4); White Blood Count 4.5 K/mm3 (4.4-11.0)
[2024-09-06] MEDS: Ertapenem Sod 1 GM/10 ML Vial IM (10:32)
[2024-09-06 11:10] LABS: AST(SGOT) 21 U/L (<=31); Alanine Aminotransfer ALT/SGPT 14 U/L (<=34); Albumin, Serum 4.0 g/dL (3.4-4.8); Alkaline Phosphatase 88 U/L (35-104); Anion Gap 12 (5-15); BUN 19 mg/dL (4-19); BUN/Creat Ratio 24.2 RATIO (10-20); Calcium,Total 9.3 mg/dL (7.6-11.0); Carbon Dioxide 24.6 mmol/L (21.0-32.0); Chloride 104 mmol/L (98-108); Globulin 2.8 g/dL (2.2-4.2); Glucose 123 mg/dL (70-99); Potassium 4.1 mmol/L (3.3-5.1)
[2024-09-06 18:19] LABS: Xtra Tube EP Lab EXTRA TUBE
== END 2024-09-06 23:59 | disposition home or self-care (01) ==
LOC: MEDOUTP 10:00
PROVIDERS: PCP Internal Medicine; Referring Provider Internal Medicine Infectious Disease; Visit Provider Internal Medicine Infectious Disease
DX: N39.0 Urinary tract infection, site not specified (principal)
CPT/HCPCS: 36415; 80053; 85025; 96372

== ENCOUNTER 2024-09-07 09:46 | Outpatient (CLI) | payer MEDICARE, BC, SELFPAY ==
[2022-07-12 09:18] VITALS: BMI 34.2
[2024-09-07] MEDS: Ertapenem Sod 1 GM/10 ML Vial IM (10:12)
== END 2024-09-07 10:19 | disposition home or self-care (01) ==
LOC: MEDOUTP 09:46 → PCU 09:47
PROVIDERS: PCP Internal Medicine; Visit Provider Internal Medicine Infectious Disease
DX: N39.0 Urinary tract infection, site not specified (principal)
CPT/HCPCS: 96372

== ENCOUNTER 2024-09-08 10:00 | Outpatient (CLI) | payer MEDICARE, BC, SELFPAY ==
[2022-07-12 09:18] VITALS: BMI 34.2
[2024-09-08] MEDS: Ertapenem Sod 1 GM/10 ML Vial IM (10:02)
== END 2024-09-08 10:05 | disposition home or self-care (01) ==
LOC: MEDOUTP 10:08 → PCU 10:09
PROVIDERS: PCP Internal Medicine; Referring Provider Internal Medicine Infectious Disease; Visit Provider Internal Medicine Infectious Disease
DX: N39.0 Urinary tract infection, site not specified (principal)
CPT/HCPCS: 96372

== ENCOUNTER 2024-09-09 09:50 | Outpatient (CLI) | payer MEDICARE, BC, SELFPAY ==
[2022-07-12 09:18] VITALS: BMI 34.2
[2024-09-09] MEDS: Ertapenem Sod 1 GM/10 ML Vial IM (09:53)
== END 2024-09-09 09:57 | disposition home or self-care (01) ==
LOC: MEDOUTP 10:48 → PCU 10:49
PROVIDERS: PCP Internal Medicine; Referring Provider Internal Medicine Infectious Disease; Visit Provider Internal Medicine Infectious Disease
DX: N39.0 Urinary tract infection, site not specified (principal)
CPT/HCPCS: 96372

== ENCOUNTER 2024-09-10 09:24 | Outpatient (CLI) | payer MEDICARE, BC, SELFPAY ==
[2022-07-12 09:18] VITALS: BMI 34.2
[2024-09-10 09:39] VITALS: BP 130/48; PULSE 56; RESP 16; TEMP 36.2; O2SAT 100
[2024-09-10] MEDS: Ertapenem Sod 1 GM/10 ML Vial IM (10:05)
== END 2024-09-10 23:59 | disposition home or self-care (01) ==
LOC: MEDOUTP 09:24
PROVIDERS: PCP Internal Medicine; Referring Provider Internal Medicine Infectious Disease; Visit Provider Internal Medicine Infectious Disease
DX: N39.0 Urinary tract infection, site not specified (principal)
CPT/HCPCS: 96372

== ENCOUNTER 2024-09-11 09:27 | Outpatient (CLI) | payer MEDICARE, BC, SELFPAY ==
[2022-07-12 09:18] VITALS: BMI 34.2
[2024-09-11 09:43] VITALS: BP 123/57; PULSE 60; RESP 16; O2SAT 96
[2024-09-11] MEDS: Ertapenem Sod 1 GM/10 ML Vial IM (09:50)
== END 2024-09-11 23:59 | disposition home or self-care (01) ==
LOC: MEDOUTP 09:27
PROVIDERS: PCP Internal Medicine; Referring Provider Internal Medicine Infectious Disease; Visit Provider Internal Medicine Infectious Disease
DX: N39.0 Urinary tract infection, site not specified (principal)
CPT/HCPCS: 96372

== ENCOUNTER 2024-09-12 09:49 | Outpatient (CLI) | payer MEDICARE, BC, SELFPAY ==
[2022-07-12 09:18] VITALS: BMI 34.2
[2024-09-12 09:54] VITALS: BP 134/50; PULSE 68; RESP 16; TEMP 35.6; O2SAT 98
[2024-09-12] MEDS: Ertapenem Sod 1 GM/10 ML Vial IM (10:08)
== END 2024-09-12 23:59 | disposition home or self-care (01) ==
LOC: MEDOUTP 09:49
PROVIDERS: PCP Internal Medicine; Referring Provider Internal Medicine Infectious Disease; Visit Provider Internal Medicine Infectious Disease
DX: N39.0 Urinary tract infection, site not specified (principal)
CPT/HCPCS: 96372

== ENCOUNTER 2024-09-19 11:24 | Outpatient (CLI) | payer MEDICARE, BC, SELFPAY ==
[2022-07-12 09:18] VITALS: BMI 34.2
[2024-09-20 08:00] LABS: Mucous, Urine 0 SEEN /hpf (<or=2+); Red Blood Cells-Urine 0 SEEN /hpf (0-5)
[2024-09-20 08:35] LABS: Color, Urine Yellow (Yellow); Glucose, Dipstick Normal (Normal); Ketone-Dipstick Negative (Negative); Leukocyte Esterase-Dipstick 100 /ul (Negative); Nitrite-Dipstick Negative (Negative); Occult Blood-Urine Negative /ul (Negative); Protein-Dipstick 15 mg/dl (Negative); Specific Gravity, Urine 1.010 (1.002-1.030); Urine Bilirubin Dipstick Negative (Negative)
[2024-09-20 08:44] LABS: Squamous Epithelial Cells - UA 0-5 SEEN /hpf (5-10); Transitional Epithelial - Ur 0-5 SEEN /hpf (0-5)
== END 2024-09-19 23:59 | disposition home or self-care (01) ==
LOC: LABSPEC 11:25
PROVIDERS: PCP Internal Medicine; Referring Provider Internal Medicine Infectious Disease; Visit Provider Internal Medicine Infectious Disease
DX: N39.0 Urinary tract infection, site not specified (principal); B96.20 Unspecified Escherichia coli [E. coli] as the cause of diseases classified elsewhere
CPT/HCPCS: 81001; 87086; 87088

== ENCOUNTER → 2024-09-26 | Outpatient (CLI) | payer MEDICARE, BC, SELFPAY ==
[2022-07-12 09:18] VITALS: BMI 34.2
== END | disposition home or self-care (01) ==
LOC: LAB 13:33 → LABSPEC 13:34
PROVIDERS: PCP Internal Medicine; Referring Provider Internal Medicine Infectious Disease; Visit Provider Internal Medicine Infectious Disease
DX: N39.0 Urinary tract infection, site not specified (principal)
CPT/HCPCS: 87077; 87086; 87088; 87186

== ENCOUNTER 2024-10-04 15:07 | Outpatient (RCR) | payer MEDICARE, BC, SELFPAY ==
[2022-07-12 09:18] VITALS: BMI 34.2
== END 2024-10-04 23:59 ==
LOC: LABSPEC 15:07
PROVIDERS: PCP Internal Medicine; Referring Provider Internal Medicine Infectious Disease; Visit Provider Internal Medicine Infectious Disease
DX: N39.0 Urinary tract infection, site not specified (principal)
CPT/HCPCS: 87086; 87088; 87186

== ENCOUNTER 2024-10-04 17:17 | Inpatient (IN) | payer MEDICARE, BC, SELFPAY ==
[2022-07-12 09:18] VITALS: BMI 34.2
[2024-10-04 17:18] VITALS: BP 172/76; PULSE 99; RESP 18; TEMP 36.6; O2SAT 97; BMI 35.1
[2024-10-04] MEDS: 0.9% Normal Saline (500mL Bag) 500 ML 1000 ML IV (17:54)
--- NOTE | 2024-10-04 18:01 | ED.VIS.FEGU ---
HPI HPI - Female History of Present Illness Chief Complaint: Complaint Informant: patient Narrative Narrative: Sent in by infectious disease Dr. Macdonald for evaluation and per patient admission with IV antibiotics. Patient's had multiple recurrent urinary tract infections since January. Has had previous ESBL. She states the last 2 rounds required outpatient injections with 14 days of ertapenem. She had recurrent dysuria a week ago outpatient workup she has been on amoxicillin for the past 5 days still symptomatic. No fevers. Nausea without vomiting. More pain suprapubic. 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 Since then to have an infection she has had a cystoscopy by Dr. 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 Allergies penicillin however can do mocks. Allergies to Bactrim. She had urine culture sent to the lab again today. After discussion with her infectious disease doctor was sent here for workup including a repeat CT scan. Prior similar symptoms: Yes PFSH PFSH Medical History Lesion of bladder Blood clot in abdominal vein Easy bruising Back pain Night sweats History of ESBL E. coli infection Shortness of breath on exertion Depression Arthritis High cholesterol History of hiatal hernia CPAP (continuous positive airway pressure) dependence History of edema History of Holter monitoring History of stress test History of echocardiogram Cardiology follow-up encounter History of CAD (coronary artery disease) Dyspnea on exertion Angina pectoris Chest pain Decreased radial pulse Swelling of right wrist Claudication of both lower extremities Leg cramps Abnormal stress test Heart failure with preserved ejection fraction, NYHA class II Obesity AJAY (obstructive sleep apnea) Chavira palsy B12 deficiency Hyperlipidemia Diastolic dysfunction Pulmonary hypertension SVT (supraventricular tachycardia) Palpitations Essential (primary) hypertension Eczema of both hands Anxiety Gastroparesis GERD (gastroesophageal reflux disease) Piriformis syndrome of left side IBS (irritable bowel syndrome) Depression Home Medications ?Medication ?Instructions ?Recorded ?Last Taken ?Type albuterol sulfate 90 mcg/actuation 2 puff inhalation Q4H PRN 03/12/22 Unknown History aerosol inhaler shortness of breath or wheezing vilazodone 20 mg tablet 20 mg PO DAILY DEPRESSION 03/12/22 10/04/24 History cholecalciferol (vitamin D3) 50 4,000 unit PO DAILY SUPPLEMENT 03/23/22 10/04/24 History mcg (2,000 unit) capsule nitroglycerin 0.4 mg sublingual 0.4 mg sublingual Q5M PRN 04/23/22 Unknown Rx tablet Cardiac/Chest Pain #14 tabs cyanocobalamin (vitamin B-12) 1,000 mcg IM QMONTH SUPPLEMENT 06/06/23 01/23/24 History 1,000 mcg/mL injection solution lisinopril 5 mg tablet 5 mg PO BID BP #180 tabs 10/10/23 10/04/24 Rx aspirin 81 mg tablet,delayed 81 mg PO DAILY heart health 10/11/23 10/04/24 History release (Adult Aspirin Regimen) vibegron 75 mg tablet (Gemtesa) 75 mg PO QDAY OAB 11/24/23 10/04/24 History ibuprofen 600 mg tablet 600 mg PO Q6H PRN PRN Pain 1-10 Or 01/31/24 10/04/24 Rx Fever #0 tabs amlodipine 2.5 mg tablet 2.5 mg PO QDAY blood pressure #90 06/04/24 10/04/24 Rx tabs pantoprazole 40 mg tablet,delayed 40 mg PO QDAY heart burn 06/04/24 10/04/24 History release multivitamin (Daily Multi-Vitamin 1 tab PO DAILY supplement 08/30/24 10/04/24 History tablet) atorvastatin 20 mg tablet 20 mg PO QHS cholesterol #90 tabs 09/27/24 10/03/24 Rx Allergy/AdvReac Type Severity Reaction Status Date / Time Sulfa (Sulfonamide Allergy Intermediate Rash Verified 10/04/24 17:19 Antibiotics) sulfamethoxazole (From Allergy Intermediate Itching Verified 10/04/24 17:19 Bactrim) trimethoprim (From Bactrim) Allergy Intermediate Itching Verified 10/04/24 17:19 adhesive tape (tape) Allergy Rash Verified 10/04/24 17:19 cefdinir Allergy Hives Verified 10/04/24 17:19 Penicillins (PCN) Allergy Rash Verified 10/04/24 17:19 codeine AdvReac Unknown Other Verified 10/04/24 17:19 Family History Mother Hypertension Arthritis Respiratory disease Grandfather Cancer kidney, brain Father Parkinson's disease Arthritis Grandmother CVA (cerebral vascular accident) Myocardial infarction Brother CVA (cerebral vascular accident) Myocardial infarction H/O blood clots Sister Seizures H/O blood clots Surgical History Hx of right cataract extraction Hx of left cataract extraction History of colectomy S/P colectomy Hx of colonoscopy History of laminectomy History of arthroscopy of right knee Hx of heart artery stent Hx of cardiac cath History of coronary artery stent placement (~04/23/22) H/O bilateral salpingo-oophorectomy H/O: hysterectomy Hx of tonsillectomy History of appendectomy History of cholecystectomy Social History household members: spouse Smoking Status: Never smoker alcohol intake: never substance use type: does not use caffeine: Yes Type: coffee Number of servings: 1 ROS ROS ED Constitutional Constitutional ED: Denies chills, fever(s) or sweats ENT ENT ED: Denies sore throat Cardiovascular Cardiovascular: Denies chest pain, leg edema, palpitations or racing heartbeat Respiratory/Chest Respiratory/Chest: Denies cough, dyspnea or dyspnea on exertion Gastrointestinal Gastrointestinal: Reports abdominal pain and nausea; Denies diarrhea or vomiting Genitourinary Genitourinary ED: Reports dysuria; Denies hematuria or urinary frequency Musculoskeletal Musculoskeletal: Denies back pain, extremity pain or neck pain Integumentary Denies rash or wounds Neurologic Neurologic: Denies headache(s), paresthesias or weakness EXAM Physical Exam Const Vital Signs: 10/04/24 17:18 10/04/24 19:17 10/04/24 21:00 Temperature 97.8 F Temperature Source Oral Pulse Rate 99 78 75 Respiratory Rate 18 16 16 Blood Pressure 172/76 H 150/71 H 126/50 H Blood Pressure Mean 108 97 75 Pulse Ox 97 94 94 Oxygen Delivery Method Room Air Room Air Room Air 10/04/24 21:59 Temperature 97.9 F Temperature Source Pulse Rate 86 Respiratory Rate 16 Blood Pressure 122/45 H Blood Pressure Mean 70 Pulse Ox 94 Oxygen Delivery Method Positive well nourished and well developed General Appearance ED: well developed and NAD HEENT Reports moist mucous membranes normocephalic and atraumatic Eyes General Eye ED: Yes normal appearance of both eyes Neck full ROM Chest Wall Chest: Negative for tenderness Resp normal respiratory effort and normal air movement Effort and Inspection: symmetric chest movement; Negative for respiratory distress Cardio regular rate, regular rhythm and no murmurs Peripheral Pulses: pulses 2+ throughout GI normal to inspection, nondistended, normoactive bowel sounds GI Narrative: Suprapubic tenderness no guarding or rebound. Palpation: Negative for guarding or rebound tenderness present Back/Spine no CVA tenderness Extremity normal to inspection General Extremety ED: Negative for edema or tenderness General Extremity: Negative for edema Neuro oriented x3 and no sensory deficits noted Sensorium / Orientation: awake and alert Skin no rashes or lesions noted and no wounds MDM MDM MDM Narrative Medical decision making narrative: Interventions / MDM: Differential diagnosis: Recurrent UTI, abdominal pain, dysuria, history of ESBL Diagnosis considered but do not suspect: N/A My EKG interpretation: N/A Imaging independently reviewed and interpreted by myself: CT abdomen pelvis IV and p.o. contrast: Thickening bladder stable anastomosis. External documents reviewed: N/A Test considered but not ordered:N/A ED course: Recurrent UTI symptomatic. Urine culture repeats in the system. I will get basic labs, will order the CT scan IV contrast. Morphine Zofran ordered. 1809: I spoke with Dr. Macdonald, knows her well. Request CT be formed with p.o. and IV contrast. Cultures with Enterococcus faecalis along additional gram-negative champ that is pending. He recommended meropenem which would cover for both. No blood cultures required at this time. He would like her admitted to medicine he would like to request medicine to get her urologist involved. He will also be involved to help with management. 1999: Patient a lot more comfortable at this time. White count normal 5.6. Creatinine 0.96. CT results pending. 2199: CT thickening of the bladder no other acute findings. Stable anastomosis. Clinically stable. I spoke with hospital Dr. Hicks for admission to the medical floor. Discussed ID involvement requesting also urology involvement. Urine added per request. Results positive for infection. Re-evaluation: stable Disposition discussed with patient/family/significant other: Patient Case discussed with consulting clinician: Infectious disease, hospitalist This note was generated with [employer] software. It may contain incorrect words, spelling, and punctuation that were not noted in checking the note before signing. Lab Data Attestation: I reviewed the patient's lab results. Labs: Laboratory Results - last 24 hr 10/04/24 10/04/24 17:40 22:01 WBC 5.6 RBC 4.12 L Hgb 11.4 L Hct 36.0 L MCV 87.4 MCH 27.7 MCHC 31.7 L RDW Std Deviation 50.5 H RDW Coeff of Nuno 15.9 H Plt Count 245 MPV 9.6 Immature Gran % (Auto) 0.400 Neut % (Auto) 52.9 Lymph % (Auto) 35.1 [place] % (Auto) 8.1 Eos % (Auto) 3.0 Baso % (Auto) 0.5 Absolute Neuts (auto) 3.0 Absolute Lymphs (auto) 1.96 Nucleated RBC % 0 Sodium 141 Potassium 3.8 Chloride 103 Carbon Dioxide 26.2 Anion Gap 12 BUN 13 Creatinine 0.96 Estim Creat Clear Calc 53.89 Est GFR (MDRD) Non-Af 62 BUN/Creatinine Ratio 13.5 Glucose 122 H Calcium 9.6 Magnesium 2.2 TSH 1.430 Urine Color Yellow Urine Clarity Clear Urine pH 8.0 Ur Specific [place] 1.010 Urine Protein 15 H Urine Glucose (UA) Normal Urine Ketones Negative Urine Occult Blood Negative Urine Nitrite Positive H Urine Bilirubin Negative Urine Urobilinogen Normal Ur Leukocyte Esterase 100 H Urine RBC 0-5 SEEN Urine WBC 5-10 SEEN Ur Squamous Epith Cells 0-5 SEEN Urine Bacteria 1+ Urine Mucus 0 SEEN Radiography Diagnostic Testing: Clinical Impression(s) from Imaging Studies Abdomen/Pelvis CT 10/04/24 19:53 IMPRESSION: Diffusely thickened urinary bladder with adjacent inflammation, query acute and/or chronic cystitis. This has minimally worsened since the prior study. Reading Location: [id number] Discharge Plan Dx/Rx/DC Orders Clinical Impression: Recurrent UTI, Failure of outpatient treatment, Dysuria, Abdominal pain Disposition Disposition: Acute Care Hospital [facility] Discharge Date/Time: 10/04/24 23:28
[2024-10-04 18:02] LABS: Hematocrit 36.0 % (37-47); Hemoglobin 11.4 g/dL (12.0-15.0); Immature Granulocytes Count 0.020 X10^3/uL (0.0-0.0); Mean Corp Hgb Conc 31.7 g/dL (32-36); Mean Corpuscular Volume 87.4 fL (81-99); Mean Platelet Vol. 9.6 fl (6.2-12.0); NRBC Flagged by Analyzer 0 % (0-5); Platelet Count 245 K/mm3 (150-450); RBC Distribution Width CV 15.9 % (11.6-14.6); RBC Distribution Width SD 50.5 fl (35.1-43.9); Red Blood Count 4.12 M/mm3 (4.2-5.4); White Blood Count 5.6 K/mm3 (4.4-11.0)
[2024-10-04 18:22] LABS: Anion Gap 12 (5-15); BUN 13 mg/dL (4-19); BUN/Creat Ratio 13.5 RATIO (10-20); Calcium,Total 9.6 mg/dL (7.6-11.0); Carbon Dioxide 26.2 mmol/L (21.0-32.0); Chloride 103 mmol/L (98-108); Estimated Creatinine Clearance 53.89 ml/min (50-250); Glucose 122 mg/dL (70-99); Potassium 3.8 mmol/L (3.3-5.1)
[2024-10-04] MEDS: Meropenem 1 GM in 0.9% Normal Saline (100mL MB+) 100 ML IV (18:30)
[2024-10-04 19:17] VITALS: BP 150/71; PULSE 78; RESP 16; O2SAT 94
--- NOTE | 2024-10-04 19:53 | CT_ITS ---
PROCEDURE: ABDOMEN/PELVIS WITH CONTRAST 10/04/2024 REASON FOR EXAM: LOWER ABD PAIN, RECURRENT UTIS. TECHNIQUE: ABDOMEN/PELVIS WITH CONTRAST Coronal and Sagittal reconstruction series were provided. CONTRAST: OMNIPAQUE 300 VOLUME: 100 mL One or more dose reduction techniques were used (e.g., Automated exposure control, adjustment of the mA and/or kV according to patient size, use of iterative reconstruction technique. RADIATION DOSE SUMMARY: CTDlvol: 9.97, 22.36 mGy DLP: 1150.20 mGycm FINDINGS: LUNG BASES: No pleural effusion. Minimal dependent atelectasis bilaterally. LIVER: Unremarkable. GALLBLADDER: Prior cholecystectomy. BILE DUCTS: No ductal dilation. PANCREAS: Unremarkable. SPLEEN: Unremarkable. ADRENAL GLANDS: Unremarkable. KIDNEYS: The kidneys enhance symmetrically. No hydronephrosis or hydroureter. Renal cysts again seen bilaterally, the largest is 2.8 cm on the left. STOMACH AND BOWEL: Ileocolic anastomosis in the right lower quadrant. No obstruction or perforation. No wall thickening. No CT evidence of colitis or acute diverticulitis. APPENDIX: Surgically absent. RETRO/PERITONEUM: No free fluid. No free air. LYMPH NODES: No lymphadenopathy. PELVIC ORGANS: Diffuse wall thickening of the urinary bladder, which appears minimally worsened. Associated Perivesicular fat stranding. Prior hysterectomy. No adnexal lesions. Incidental note is made of pelvic floor descent. VASCULATURE: No aortic aneurysm. Scattered calcified atherosclerosis. ABDOMINAL WALL AND SOFT TISSUES: No acute abnormality. BONES: No fracture or suspicious osseous abnormality. Degenerative changes of the spine. Prior bilateral L4 laminectomies. CT/Abdomen/Pelvis WITH Contrast IMPRESSION: Diffusely thickened urinary bladder with adjacent inflammation, query acute and /or chronic cystitis. This has minimally worsened since the prior study. Reading Location: [id number]
[2024-10-04 21:00] VITALS: BP 126/50; PULSE 75; RESP 16; O2SAT 94
--- NOTE | 2024-10-04 21:52 | HP.PCM.HOS_ITS ---
[facility] - General General Date of Admission: 10/04/24 Date of Service: 10/04/24 Chief Complaint: Dysuria and Bladder Pain. [facility] Narrative PARVIN JENSEN, is a 74 F with a past medical history of essential hypertension; on amlodipine and lisinopril twice daily, hyperlipidemia; on atorvastatin, obesity (class II); with BMI of 35.1 this admission, AJAY; on CPAP, CAD; s/p distal RCA stent placement (2022) on baby aspirin and as needed SL NTG, history of chronic diastolic CHF; preserved LVEF, history of SVT, history of pulmonary hypertension, depression; on vilazodone, GERD with history of hiatal hernia; on pantoprazole, history of Right hemicolectomy (01/2024), history of blood clot in the superior mesenteric vein postoperatively; resolved after treatment with apixaban, OA; with chronic back pain and claudication of both lower extremities; s/p laminectomy x 2 on ibuprofen every 6 hours as needed, OAB; on vibegron, history of cystoscopy by Dr. Regalado reporting squamous cell metaplasia of the bladder and history of recurrent UTI due to ESBL E. coli; s/p 2 rounds of outpatient IV or ertapenem followed by Dr. Macdonald of infectious disease who was sent to [facility] ER by Dr. Macdonald to be admitted for IV ertapenem for presumed recurrent UTI. Ms. Jensen reports her acute symptoms began ~1 week ago due to recurrent dysuria with outpatient workup done and with patient started on empiric amoxicillin for the past 5 days which has not improved her symptoms. She also admits to abdominal pain with nausea and dysuria. She notably has allergies to PCN (rash), cefdinir (hives) and trimethoprim/sulfamethoxazole (itching) which is also complicated her treatment plans. There was no report of fever, chills, changes in vision, discharge from eyes, runny nose, sore throat, ear pain, vomiting, diarrhea, constipation, chest pain, palpitations, heart racing, lower extremity edema, shortness of breath, cough, back pain, hematuria or rash. In the ER she was noted to have a CT scan of the abdomen/pelvis that revealed d iffusely thickened urinary bladder with adjacent inflammation, query acute and/or chronic cystitis that is minimally worsened since prior study with new UA positive for Acute Cystitis; without hematuria and very recent urine culture done as outpatient also pending final results. The ER physician also indicated that Dr. Macdonald would like patient to be evaluated by Dr. Regalado of urology. She was then admitted to the general medical floor for ongoing care for stay that is expected to extend beyond 2 midnights. [facility] Medical History Lesion of bladder Blood clot in abdominal vein Easy bruising Back pain Night sweats History of ESBL E. coli infection Shortness of breath on exertion Depression Arthritis High cholesterol History of hiatal hernia CPAP (continuous positive airway pressure) dependence History of edema History of Holter monitoring History of stress test History of echocardiogram Cardiology follow-up encounter History of CAD (coronary artery disease) Dyspnea on exertion Angina pectoris Chest pain Decreased radial pulse Swelling of right wrist Claudication of both lower extremities Leg cramps Abnormal stress test Heart failure with preserved ejection fraction, NYHA class II Obesity AJAY (obstructive sleep apnea) Chavira palsy B12 deficiency Hyperlipidemia Diastolic dysfunction Pulmonary hypertension SVT (supraventricular tachycardia) Palpitations Essential (primary) hypertension Eczema of both hands Anxiety Gastroparesis GERD (gastroesophageal reflux disease) Piriformis syndrome of left side IBS (irritable bowel syndrome) Depression Home Medications ?Medication ?Instructions ?Recorded ?Last Taken ?Type albuterol sulfate 90 mcg/actuation 2 puff inhalation Q 4H PRN 03/12/22 Unknown History aerosol inhaler shortness of breath or wheez ing vilazodone 20 mg tablet 20 mg PO DAILY DEPRESSION 10/04/24 History cholecalciferol (vitamin D3) 50 4,000 unit PO DAILY CHRISTY PPLEMENT 03/23/22 10/04/24 History mcg (2,000 unit) capsule nitroglycerin 0.4 mg sublingual 0.4 mg sublingual Q5M PRN 04/23/22 Unknown Rx tablet Cardiac/Chest Pain #14 tabs cyanocobalamin (vitamin B-12) 1,000 mcg IM QMONTH SUPP LEMENT 06/06/23 01/23/24 History 1,000 mcg/mL injection solution lisinopril 5 mg tablet 5 mg PO BID BP #180 tabs 07/2810/04/24 Rx aspirin 81 mg tablet,delayed 81 mg PO DAILY heart heal th 10/11/23 10/04/24 History release (Adult Aspirin Regimen) vibegron 75 mg tablet (Gemtesa) 75 mg PO QDAY OAB 11/0510/04/24 History ibuprofen 600 mg tablet 600 mg PO Q6H PRN PRN Pain 1 -10 Or 01/31/24 10/04/24 Rx Fever #0 tabs amlodipine 2.5 mg tablet 2.5 mg PO QDAY blood pressur e #90 06/04/24 10/04/24 Rx tabs pantoprazole 40 mg tablet,delayed 40 mg PO QDAY heart burn 06/04/24 10/04/24 History release multivitamin (Daily Multi-Vitamin 1 tab PO DAILY suppl ement 08/30/24 10/04/24 History tablet) atorvastatin 20 mg tablet 20 mg PO QHS cholesterol #90 tabs 09/27/24 10/03/24 Rx Allergy/AdvReac Type Severity Reaction Status Date / Time Sulfa (Sulfonamide Allergy Intermediate Rash Verified 10/04/24 17:19 Antibiotics) sulfamethoxazole (From Allergy Intermediate Itching Verified 10/04/24 17:19 Bactrim) trimethoprim (From Bactrim) Allergy Intermediate Itching Verified 10/04/24 17:19 adhesive tape (tape) Allergy Rash Verified 10/04/24 17:19 cefdinir Allergy Hives Verified 10/04/24 17:19 Penicillins (PCN) Allergy Rash Verified 10/04/24 17:19 codeine AdvReac Unknown Other Verified 10/04/24 17:19 Family History Mother Hypertension Arthritis Respiratory disease Grandfather Cancer kidney, brain Father Parkinson's disease Arthritis Grandmother CVA (cerebral vascular accident) Myocardial infarction Brother CVA (cerebral vascular accident) Myocardial infarction H/O blood clots Sister Seizures H/O blood clots Surgical History Hx of right cataract extraction Hx of left cataract extraction History of colectomy S/P colectomy Hx of colonoscopy History of laminectomy History of arthroscopy of right knee Hx of heart artery stent Hx of cardiac cath History of coronary artery stent placement (~04/23/22) H/O bilateral salpingo-oophorectomy H/O: hysterectomy Hx of tonsillectomy History of appendectomy History of cholecystectomy Social History household members: spouse Smoking Status: Never smoker alcohol intake: never substance use type: does not use caffeine: Yes Type: coffee Number of servings: 1 ROS ROS Narrative Review of Systems: Constitutional: Patient denies fever or chills. Eyes: Patient denies change in vision or discharge from eyes. ENT: Patient denies runny nose, sore throat or ear pain. Resp: Patient denies shortness of breath or cough. CV: Patient denies chest pain, palpitations, heart racing or lower extremity edema. GI: Patient admits to abdominal pain with nausea but she denies vomiting, diarrhea or constipation. : Patient admits to dysuria but she denies hematuria or urinary frequency. MSK: Patient denies arthralgias or myalgias. Skin: Patient denies rash, abscess, wounds or jaundice. Psych: Patient denies symptoms of uncontrolled depression or anxiety. Neuro: Patient denies headache, paresthesias or focal neurologic deficits. Allergy: Patient denies lip swelling, tongue swelling or urticaria. Hematology: Patient denies easy bleeding or easy bruisability. Endocrinology: Patient denies polyuria, polydipsia, polyphagia or heat/cold intolerance. 14 point ROS otherwise negative except for positives noted above in HPI. Vital Signs Vital Signs Vital Signs: 10/04/24 17:18 10/04/24 19:17 10/04/24 21:00 Temperature 97.8 F Temperature Source Oral Pulse Rate 99 78 75 Respiratory Rate 18 16 16 Blood Pressure 172/76 H 150/71 H 126/50 H Blood Pressure Mean 108 97 75 Pulse Ox 97 94 94 Oxygen Delivery Method Room Air Room Air Room Air Weight Weight: 198 lb 5 oz Body Mass Index (BMI) 35.1 Physical Exam Const alert, oriented x3 and no apparent distress Constitutional Narrative: Obese and nontoxic in appearance. HEENT normocephalic, head/scalp atraumatic, hearing grossly normal bilaterally and moist oral mucous membranes Eyes PERRL, EOMs intact bilaterally and conjunctivae normal Neck no lymphadenopathy, supple and no JVD Resp normal respiratory effort, no retractions, no use of accessory muscles and clear to auscultation bilaterally Cardio regular rate and regular rhythm GI soft to palpation and non-distended GI Narrative: Patient noted to have suprapubic tenderness with no guarding or rebound. Extremity normal to inspection, full ROM and no clubbing, cyanosis or edema Skin Skin Narrative: Patient has no evidence of rash, abscess, wounds or jaundice. Neuro oriented x3, CN's II-XII intact bilaterally, moves all extremities and no focal motor deficits Sensorium / Orientation: awake, alert, oriented to person, oriented to place and oriented to time Speech: speech normal Psych affect normal Results Medical Records Data Attestation: I reviewed the patient's medical records Lab / Micro Data Attestation: I reviewed the patient's lab results. 10/04/24 17:40 10/04/24 17:40 Labs: Laboratory Results - last 24 hr 10/04/24 17:40: WBC 5.6, RBC 4.12 L, Hgb 11.4 L, Hct 36.0 L, MCV 87.4, MCH 27.7, MCHC 31.7 L, RDW Std Deviation 50.5 H, RDW Coeff of Nuno 15.9 H, Plt Count 245, MPV 9.6, Immature Gran % (Auto) 0.400, Neut % (Auto) 52.9, Lymph % (Auto) 35.1, [place] % (Auto) 8.1, Eos % (Auto) 3.0, Baso % (Auto) 0.5, Absolute Neuts (auto) 3.0, Absolute Lymphs (auto) 1.96, Nucleated RBC % 0, Sodium 141, Potassium 3.8, Chloride 103, Carbon Dioxide 26.2, Anion Gap 12, BUN 13, Creatinine 0.96, Estim Creat Clear Calc 53.89, Est GFR (MDRD) Non-Af 62, BUN/Creatinine Ratio 13.5, G lucose 122 H, Calcium 9.6 Imaging Radiology Impression Abdomen/Pelvis CT 10/04/24 19:53 IMPRESSION: Diffusely thickened urinary bladder with adjacent inflammation, query acute and/or chronic cystitis. This has minimally worsened since the prior study. Reading Location: [facility] Assessment & Plan Assessment/Plan (1) Recurrent UTI: (2) Failure of outpatient treatment: (3) History of ESBL E. coli infection: (4) Dysuria: (5) Abdominal pain: QUALIFIERS: Abdominal location: generalized Qualified Code(s): R 10.84 - Generalized abdominal pain (6) Squamous cell metaplasia of urinary bladder: (7) Overactive bladder: (8) Obesity (BMI 30-39.9): PLAN: Plan 1. CT scan of the abdomen/pelvis that revealed diffusely thickened urinary bladder with adjacent inflammation, query acute and/or chronic cystitis that is minimally worsened since prior study with new UA pending at this time and very recent urine culture done as outpatient also pending final results in the setting of previously known recurrent UTI due to ESBL E. coli; s/p 2 rounds of outpatient IV or ertapenem and more recent 5 day course of oral amoxicillin followed by Dr. Macdonald of infectious disease with UA this admission positive for Acute Cystitis; without hematuria - Admit to general medical floor. Continue empiric IV meropenem begun in ER and await culture and sensitivity data. Check UA C&S this admission to confirm active infection. Give ondansetron IV as needed for nausea and vomiting. Give acetaminophen as needed for [id number] (level 1-5/10) pain or fever. Give morphine IV as needed for severe (level 6-10/10) pain. Finally, we will consult both Dr. Macdonald and Dr. Regalado to see this patient on rounds in the a.m. for further recommendations with the help of both appreciated in advance. 2. History of cystoscopy by Dr. Regalado reporting squamous cell metaplasia of the bladder complicating #1 - Patient's metaplasia may be exacerbating her symptoms. 3. OAB; on vibegron compounding #1 & #2 - Maintain as previous. 4. Obesity (class II); with BMI of 35.1 this admission plus AJAY; on CPAP adding to the burden of disease outlined from #1 - #3 - Weight loss will be recommended. Check TSH. Resume nocturnal CPAP. This complicates her case may hamper recovery. 5. Essential hypertension; on amlodipine and lisinopril twice daily - Resume current therapy. 6. Hyperlipidemia; on atorvastatin - Continue statin. 7. CAD; s/p distal RCA stent placement (2022) on baby aspirin and as needed SL NTG - Hold baby aspirin at this time until patient is evaluated by urology in case repeat procedure is indicated. Continue as needed SL NTG if angina develops. 8. History of chronic diastolic CHF; preserved LVEF - Stable with no current signs of volume overload. 9. History of SVT - Noted with no signs of recurrence at this time. 10. History of pulmonary hypertension - Stable. 11. Depression; on vilazodone - Maintain vilazodone as before. 12. GERD with history of hiatal hernia; on pantoprazole - Resume PPI. 13. History of Right hemicolectomy (01/2024) with subsequent blood clot in the superior mesenteric vein postoperatively; resolved after treatment with apixaban - Noted. 14. OA; with chronic back pain and claudication of both lower extremities; s/p laminectomy x 2 on ibuprofen every 6 hours as needed - We will follow pain regimen and scale as outlined in #1. 15. DVT prophylaxis - SCD's only in case of possible urologic procedure. Total time: Approximately (but not less than) 75 minutes. Charges/Coding Visit Charges Inpatient E&M: 41673 Init Hosp L3
[2024-10-04 21:59] VITALS: BP 122/45; PULSE 86; RESP 16; TEMP 36.6; O2SAT 94
[2024-10-04 22:08] LABS: Mucous, Urine 0 SEEN /hpf (<or=2+)
[2024-10-04 22:12] LABS: Color, Urine Yellow (Yellow); Glucose, Dipstick Normal (Normal); Ketone-Dipstick Negative (Negative); Leukocyte Esterase-Dipstick 100 /ul (Negative); Nitrite-Dipstick Positive (Negative); Occult Blood-Urine Negative /ul (Negative); Protein-Dipstick 15 mg/dl (Negative); Specific Gravity, Urine 1.010 (1.002-1.030); Urine Bilirubin Dipstick Negative (Negative)
--- NOTE | 2024-10-04 22:17 | CASEMGMT ---
Care Management Face to Face with patient for initial transition planning/care coordination assessment. This conventional mortgage underwriter introduced self and role at [facility]. Patient lying in bed, alert and oriented. Patient willing to participate in assessment and is able to answer all questions appropriately. Care providers, pharmacy, and demographics verified. Admitting Diagnosis: recurrent UTIs, Dysuria Other diagnosis history: essential hypertension, hyperlipidemia, AJAY, CAD, s/p stent placement (2022) on baby aspirin and as needed SL NTG, history of chronic diastolic CHF, GERD PCP: Annalise Specialists: Perry Parsons, leather carver; Tylor, rn faculty; Friend, GI; Sabine, urologist; Sharon, bowel surgery Preferred Pharmacy: [facility] Retail Insurance: Medicare A B (primary). [place] (secondary). Prescription Benefit: yes Living Will/HPOA: yes, Estrada Jensen. Patient states intent to ask to bring in documents. LNOK: , son (Eduardo Jr. Mikey) Living Arrangements: Patient lives with and daughter in a single story home with ramp to enter the home. Patient is independent at home with all ADLs/IADLs at baseline. Transportation: patient drives DME: shower chair, walker, CPAP HHC: Patient has shower chair, walker, cpap. No previous HHC or SNF. SNF/Rehab: none Community Resources: none Behavioral Health History: depression, per medical records Patient goals: patient wishes to discharge home, denies need for home health at this time. Patient denies any further needs or concerns at this time. Disposition Plan: admission to acute; RN CM/SW to follow for discharge planning needs that may arise. Felicity Thomas, [employer] SUPERVISOR, REHAB SPECIALIST
[2024-10-04 22:36] LABS: Red Blood Cells-Urine 0-5 SEEN /hpf (0-5); Squamous Epithelial Cells - UA 0-5 SEEN /hpf (5-10)
[2024-10-04 23:08] LABS: Magnesium 2.2 mg/dL (1.5-2.2)
[2024-10-04 23:40] VITALS: BMI 34.7
[2024-10-05] VITALS (8 sets, daily range): BP systolic 111–131; BP diastolic 46–60; PULSE 56–75; RESP 16–18; TEMP 36.4–36.7; O2SAT 92–94; BMI 28.5
[2024-10-05] MEDS: 0.9% Normal Saline (1000mL) 1,000 ML 100 ML IV (00:11)
[2024-10-05] MEDS: 0.9% Saline Lock 10 ML Syringe IV ×2 (00:11→20:22)
[2024-10-05 06:55] LABS: Hematocrit 33.8 % (37-47); Hemoglobin 10.7 g/dL (12.0-15.0); Immature Granulocytes Count 0.010 X10^3/uL (0.0-0.0); Mean Corp Hgb Conc 31.7 g/dL (32-36); Mean Corpuscular Volume 87.6 fL (81-99); Mean Platelet Vol. 9.7 fl (6.2-12.0); NRBC Flagged by Analyzer 0 % (0-5); Platelet Count 223 K/mm3 (150-450); RBC Distribution Width CV 15.9 % (11.6-14.6); RBC Distribution Width SD 51.1 fl (35.1-43.9); Red Blood Count 3.86 M/mm3 (4.2-5.4); White Blood Count 5.3 K/mm3 (4.4-11.0)
[2024-10-05] MEDS: Meropenem 1 GM in 0.9% Normal Saline (100mL MB+) 100 ML IV ×3 (06:55→21:52)
[2024-10-05 07:35] LABS: AST(SGOT) 23 U/L (<=31); Alanine Aminotransfer ALT/SGPT 13 U/L (<=34); Albumin, Serum 3.8 g/dL (3.4-4.8); Alkaline Phosphatase 78 U/L (35-104); Anion Gap 11 (5-15); BUN 12 mg/dL (4-19); BUN/Creat Ratio 13.5 RATIO (10-20); Calcium,Total 9.1 mg/dL (7.6-11.0); Carbon Dioxide 24.7 mmol/L (21.0-32.0); Chloride 103 mmol/L (98-108); Estimated Creatinine Clearance 52.49 ml/min (50-250); Globulin 2.3 g/dL (2.2-4.2); Glucose 95 mg/dL (70-99); Potassium 4.1 mmol/L (3.3-5.1)
[2024-10-05] MEDS: Lactobacillis Acidophilus 1 CAP PO ×4 (09:39→20:22)
[2024-10-05] MEDS: VILAZODONE HYDROCHLORIDE 10 MG TABLET 20 MG PO (09:40)
[2024-10-05] MEDS: Cholecalciferol (VIT D3) 25 MCG TABLET (1,000 UNITS) 100 MCG PO (09:41)
--- NOTE | 2024-10-05 14:58 | PCM.PN.HOSP ---
Reason for Visit Chief Complaint: Dysuria and Bladder Pain. Subjective Subjective Still having dysuria and suprapubic tenderness and feeling generally unwell, a little bit better since being admitted and started on meropenem Objective Data Objective Data Vital Signs: Vital Signs Temp Pulse Resp BP Pulse Ox O2 Del Method 97.9 F 56 L 16 129/55 H 94 Room Air 10/05/24 13:57 10/05/24 13:57 10/05/24 13:57 10/05/24 13:57 10/05/24 13:57 10/05/24 13:57 Oxygen Delivery Method Room Air Weight: 70.2 kg Body Mass Index (BMI) 28.5 Intake & Output: Intake and Output for Last 24 Hours 10/03/24 10/04/24 10/05/24 23:59 23:59 23:59 Intake Total 600 / 600 100 / 100 Balance 600 / 600 100 / 100 Lab / Micro Data 10/05/24 05:48 10/05/24 05:48 Labs: Laboratory Results - last 24 hr 10/04/24 17:40: WBC 5.6, RBC 4.12 L, Hgb 11.4 L, Hct 36.0 L, MCV 87.4, MCH 27.7, MCHC 31.7 L, RDW Std Deviation 50.5 H, RDW Coeff of Nuno 15.9 H, Plt Count 245, MPV 9.6, Immature Gran % (Auto) 0.400, Neut % (Auto) 52.9, Lymph % (Auto) 35.1, [place] % (Auto) 8.1, Eos % (Auto) 3.0, Baso % (Auto) 0.5, Absolute Neuts (auto) 3.0, Absolute Lymphs (auto) 1.96, Nucleated RBC % 0, Sodium 141, Potassium 3.8, Chloride 103, Carbon Dioxide 26.2, Anion Gap 12, BUN 13, Creatinine 0.96, Estim Creat Clear Calc 53.89, Est GFR (MDRD) Non-Af 62, BUN/Creatinine Ratio 13.5, Glucose 122 H, Calcium 9.6, Magnesium 2.2, TSH 1.430 10/04/24 22:01: Urine Color Yellow, Urine Clarity Clear, Urine pH 8.0, Ur Specific [place] 1.010, Urine Protein 15 H, Urine Glucose (UA) Normal, Urine Ketones Negative, Urine Occult Blood Negative, Urine Nitrite Positive H, Urine Bilirubin Negative, Urine Urobilinogen Normal, Ur Leukocyte Esterase 100 H, Urine RBC 0-5 SEEN, Urine WBC 5-10 SEEN, Ur Squamous Epith Cells 0-5 SEEN, Urine Bacteria 1+, Urine Mucus 0 SEEN 10/05/24 05:48: WBC 5.3, RBC 3.86 L, Hgb 10.7 L, Hct 33.8 L, MCV 87.6, MCH 27.7, MCHC 31.7 L, RDW Std Deviation 51.1 H, RDW Coeff of Nuno 15.9 H, Plt Count 223, MPV 9.7, Immature Gran % (Auto) 0.200, Neut % (Auto) 56.0, Lymph % (Auto) 30.3, [place] % (Auto) 8.9, Eos % (Auto) 4.0, Baso % (Auto) 0.6, Absolute Neuts (auto) 3.0, Absolute Lymphs (auto) 1.61, Nucleated RBC % 0, Sodium 139, Potassium 4.1, Chloride 103, Carbon Dioxide 24.7, Anion Gap 11, BUN 12, Creatinine 0.85, Estim Creat Clear Calc 52.49, Est GFR (MDRD) Non-Af 71, BUN/Creatinine Ratio 13.5, Glucose 95, Calcium 9.1, Phosphorus 4.6 H, Total Bilirubin 0.39, AST 23, ALT 13, Alkaline Phosphatase 78, Total Protein 6.1, Albumin 3.8, Globulin 2.3, Albumin/Globulin Ratio 1.7 Radiography Diagnostic Testing: Radiology Impression Abdomen/Pelvis CT 10/04/24 19:53 IMPRESSION: Diffusely thickened urinary bladder with adjacent inflammation, query acute and/or chronic cystitis. This has minimally worsened since the prior study. Reading Location: [facility][NOTE 3] Physical Exam Narrative General: Alert, oriented, no apparent distress HEENT: Atraumatic, normocephalic Eyes: Anicteric, normal conjunctiva, extraocular movements grossly intact Neck: Supple Respiratory: Clear to auscultation bilaterally, normal respiratory effort Cardiovascular: Regular rate and rhythm GI: Soft, tender especially in suprapubic region without rebound, guarding, rigidity Extremities: No edema Musculoskeletal: Moving all extremities Neuro: No overt focal neurological deficits Skin: No rashes appreciated Psych: Cooperative Assessment & Plan Assessment/Plan (1) Recurrent UTI: PLAN: Plan # Recurrent urinary tract infection - Outpatient grew Enterococcus but she did not improve with amoxicillin at home so she was sent to the ED -CT scan in the ED of abdomen pelvis revealed diffusely thickened urinary bladder with adjacent inflammation and query acute and/or chronic cystitis - Urine culture resent, feeling a little bit better on the meropenem, preliminary urine culture now growing E. coli - Infectious disease following - It was recommended to consult patient's urologist for evaluation, not presently available for consult however this is not emergent at this time, inpatient versus outpatient evaluation depending on availability and progress #Hx of CAD -w/ previous distal RCA stent placement 2022 -Continue home medications #Hx abnormal cystoscopy - Reportedly had cystoscopy with Dr. Regalado reporting squamous cell metaplasia of the bladder #Depression/anxiety -Continue home medications #GERD -Continue PPI #Hypertension - Continue amlodipine and lisinopril overactive bladder # Overactive bladder - Continue Gemtesa #AJAY -Continue home NIPPV if applicable #DVT ppx: SCDs Xiao Neal MD Charges/Coding Visit Charges Inpatient E&M: 53260 Subs Hosp L2
--- NOTE | 2024-10-05 15:13 | PCM.CONS.GEN ---
Assessment & Plan Assessment/Plan (1) Recurrent UTI: PLAN: Ucx now with ecoli. Cont meropenem. Urology consulted. CT did not show any issues with stones, abscess, or bowels. Will follow, thank you (2) Failure of outpatient treatment: HPI Consult Data Date of Consult: 10/05/24 HPI Narrative Reason for Consultation: uti HPI Narrative: PARVIN DUENAS, is a 74 F with recurrent uti, presented with 10-14 days severe dysuria, lower abd pain. No fever or chills, no flank pain. Ucx had been (+) for enterococcus, but sx did not improve with 7-10 days amoxicillin at home. Sent to ED, admitted on meropenem, feeling a little better today. Full ROS performed and neg except as noted above. [facility] Medical History Lesion of bladder Blood clot in abdominal vein Easy bruising Back pain Night sweats History of ESBL E. coli infection Shortness of breath on exertion Depression Arthritis High cholesterol History of hiatal hernia CPAP (continuous positive airway pressure) dependence History of edema History of Holter monitoring History of stress test History of echocardiogram Cardiology follow-up encounter History of CAD (coronary artery disease) Dyspnea on exertion Angina pectoris Chest pain Decreased radial pulse Swelling of right wrist Claudication of both lower extremities Leg cramps Abnormal stress test Heart failure with preserved ejection fraction, NYHA class II Obesity AJAY (obstructive sleep apnea) Chavira palsy B12 deficiency Hyperlipidemia Diastolic dysfunction Pulmonary hypertension SVT (supraventricular tachycardia) Palpitations Essential (primary) hypertension Eczema of both hands Anxiety Gastroparesis GERD (gastroesophageal reflux disease) Piriformis syndrome of left side IBS (irritable bowel syndrome) Depression Home Medications ?Medication ?Instructions ?Recorded ?Last Taken ?Type albuterol sulfate 90 mcg/actuation 2 puff inhalation Q4H PRN 03/12/22 Unknown History aerosol inhaler shortness of breath or wheezing vilazodone 20 mg tablet 20 mg PO DAILY DEPRESSION 03/12/22 10/04/24 History cholecalciferol (vitamin D3) 50 4,000 unit PO DAILY SUPPLEMENT 03/23/22 10/04/24 History mcg (2,000 unit) capsule nitroglycerin 0.4 mg sublingual 0.4 mg sublingual Q5M PRN 04/23/22 Unknown Rx tablet Cardiac/Chest Pain #14 tabs cyanocobalamin (vitamin B-12) 1,000 mcg IM QMONTH SUPPLEMENT 06/06/23 01/23/24 History 1,000 mcg/mL injection solution lisinopril 5 mg tablet 5 mg PO BID BP #180 tabs 10/10/23 10/04/24 Rx aspirin 81 mg tablet,delayed 81 mg PO DAILY heart health 10/11/23 10/04/24 History release (Adult Aspirin Regimen) vibegron 75 mg tablet (Gemtesa) 75 mg PO QDAY OAB 11/24/23 10/04/24 History ibuprofen 600 mg tablet 600 mg PO Q6H PRN PRN Pain 1-10 Or 01/31/24 10/04/24 Rx Fever #0 tabs amlodipine 2.5 mg tablet 2.5 mg PO QDAY blood pressure #90 06/04/24 10/04/24 Rx tabs pantoprazole 40 mg tablet,delayed 40 mg PO QDAY heart burn 06/04/24 10/04/24 History release multivitamin (Daily Multi-Vitamin 1 tab PO DAILY supplement 08/30/24 10/04/24 History tablet) atorvastatin 20 mg tablet 20 mg PO QHS cholesterol #90 tabs 09/27/24 10/03/24 Rx Allergy/AdvReac Type Severity Reaction Status Date / Time Sulfa (Sulfonamide Allergy Intermediate Rash Verified 10/04/24 17:19 Antibiotics) sulfamethoxazole (From Allergy Intermediate Itching Verified 10/04/24 17:19 Bactrim) trimethoprim (From Bactrim) Allergy Intermediate Itching Verified 10/04/24 17:19 adhesive tape (tape) Allergy Rash Verified 10/04/24 17:19 cefdinir Allergy Hives Verified 10/04/24 17:19 Penicillins (PCN) Allergy Rash Verified 10/04/24 17:19 codeine AdvReac Unknown Other Verified 10/04/24 17:19 Family History Mother Hypertension Arthritis Respiratory disease Grandfather Cancer kidney, brain Father Parkinson's disease Arthritis Grandmother CVA (cerebral vascular accident) Myocardial infarction Brother CVA (cerebral vascular accident) Myocardial infarction H/O blood clots Sister Seizures H/O blood clots Surgical History Hx of right cataract extraction Hx of left cataract extraction History of colectomy S/P colectomy Hx of colonoscopy History of laminectomy History of arthroscopy of right knee Hx of heart artery stent Hx of cardiac cath History of coronary artery stent placement (~04/23/22) H/O bilateral salpingo-oophorectomy H/O: hysterectomy Hx of tonsillectomy History of appendectomy History of cholecystectomy Social History household members: spouse Smoking Status: Never smoker alcohol intake: never substance use type: does not use caffeine: Yes Type: coffee Number of servings: 1 Physical Exam Const alert, oriented x3 and no apparent distress General Appearance: cooperative HEENT normocephalic and head/scalp atraumatic Eyes PERRL and EOMs intact bilaterally Neck supple and No nodes Resp normal air movement and clear to auscultation bilaterally Cardio regular rate and regular rhythm GI soft to palpation and non-distended GI Narrative: mild lower tenderness Extremity General Extremity: Negative for edema Skin no rashes or lesions noted Neuro CN's II-XII intact bilaterally Lab / Micro Data Attestation: I reviewed the patient's lab results. 10/05/24 05:48 10/05/24 05:48 Labs: Laboratory Results - last 24 hr 10/04/24 17:40: WBC 5.6, RBC 4.12 L, Hgb 11.4 L, Hct 36.0 L, MCV 87.4, MCH 27.7, MCHC 31.7 L, RDW Std Deviation 50.5 H, RDW Coeff of Nuno 15.9 H, Plt Count 245, MPV 9.6, Immature Gran % (Auto) 0.400, Neut % (Auto) 52.9, Lymph % (Auto) 35.1, [place] % (Auto) 8.1, Eos % (Auto) 3.0, Baso % (Auto) 0.5, Absolute Neuts (auto) 3.0, Absolute Lymphs (auto) 1.96, Nucleated RBC % 0, Sodium 141, Potassium 3.8, Chloride 103, Carbon Dioxide 26.2, Anion Gap 12, BUN 13, Creatinine 0.96, Estim Creat Clear Calc 53.89, Est GFR (MDRD) Non-Af 62, BUN/Creatinine Ratio 13.5, Glucose 122 H, Calcium 9.6, Magnesium 2.2, TSH 1.430 10/04/24 22:01: Urine Color Yellow, Urine Clarity Clear, Urine pH 8.0, Ur Specific [place] 1.010, Urine Protein 15 H, Urine Glucose (UA) Normal, Urine Ketones Negative, Urine Occult Blood Negative, Urine Nitrite Positive H, Urine Bilirubin Negative, Urine Urobilinogen Normal, Ur Leukocyte Esterase 100 H, Urine RBC 0-5 SEEN, Urine WBC 5-10 SEEN, Ur Squamous Epith Cells 0-5 SEEN, Urine Bacteria 1+, Urine Mucus 0 SEEN 10/05/24 05:48: WBC 5.3, RBC 3.86 L, Hgb 10.7 L, Hct 33.8 L, MCV 87.6, MCH 27.7, MCHC 31.7 L, RDW Std Deviation 51.1 H, RDW Coeff of Nuno 15.9 H, Plt Count 223, MPV 9.7, Immature Gran % (Auto) 0.200, Neut % (Auto) 56.0, Lymph % (Auto) 30.3, [place] % (Auto) 8.9, Eos % (Auto) 4.0, Baso % (Auto) 0.6, Absolute Neuts (auto) 3.0, Absolute Lymphs (auto) 1.61, Nucleated RBC % 0, Sodium 139, Potassium 4.1, Chloride 103, Carbon Dioxide 24.7, Anion Gap 11, BUN 12, Creatinine 0.85, Estim Creat Clear Calc 52.49, Est GFR (MDRD) Non-Af 71, BUN/Creatinine Ratio 13.5, Glucose 95, Calcium 9.1, Phosphorus 4.6 H, Total Bilirubin 0.39, AST 23, ALT 13, Alkaline Phosphatase 78, Total Protein 6.1, Albumin 3.8, Globulin 2.3, Albumin/Globulin Ratio 1.7 Imaging Radiology Impression Abdomen/Pelvis CT 10/04/24 19:53 IMPRESSION: Diffusely thickened urinary bladder with adjacent inflammation, query acute and/or chronic cystitis. This has minimally worsened since the prior study. Reading Location: [id number]
--- NOTE | 2024-10-05 17:28 | CON.PCM_ITS ---
Assessment & Plan Assessment/Plan (1) Recurrent UTI: PLAN: I have followed this patient for quite some time regarding her urinary tract infections. She has had imaging, endoscopy, and has failed all sorts of infection prevention including d-mannose, methenamine, cranberry, vaginal estrogen cream, probiotics, vitamin C, daily prophylactic antibiotics. 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 Her most recent imaging does not show anything unexpected for her cultures. Today I discussed with her 2 options we have not utilized. #1 gentamicin bladder irrigations #2 hyperbaric oxygen The third option would be to consider referral to a larger institution for consideration of other treatments. I have reached out to Dr. Macdonald to discuss these options and move forward from here. Continue IV antibiotic coverage per Dr. Macdonald (2) Failure of outpatient treatment: (3) Dysuria: (4) Abdominal pain: QUALIFIERS: Abdominal location: generalized Qualified Code(s): R 10.84 - Generalized abdominal pain (5) Overactive bladder: (6) Hunner ulcer: HPI Consult Data Date of Consult: 10/05/24 HPI Narrative Reason for Consultation: Recurrent urinary tract infection HPI Narrative: PARVIN DUENAS, is a 74 F who presented to the emergency department with failure of outpatient management of urinary tract infection. Her main symptoms are lower urinary tract involved including severe urgency, frequency, incontinence and pain. She is not having fever, chills, nausea or vomiting at this time. Since her cystoscopy in August, she has had 2 rounds of intravenous antibiotic administration in the infusion center. She is continuing to have positive cultures. [facility] Medical History (Updated 10/05/24 @ 17:[address] Kiera Regalado MD) Hunner ulcer Lesion of bladder Blood clot in abdominal vein Easy bruising Back pain Night sweats History of ESBL E. coli infection Shortness of breath on exertion Depression Arthritis High cholesterol History of hiatal hernia CPAP (continuous positive airway pressure) dependence History of edema History of Holter monitoring History of stress test History of echocardiogram Cardiology follow-up encounter History of CAD (coronary artery disease) Dyspnea on exertion Angina pectoris Chest pain Decreased radial pulse Swelling of right wrist Claudication of both lower extremities Leg cramps Abnormal stress test Heart failure with preserved ejection fraction, NYHA class II Obesity AJAY (obstructive sleep apnea) Chavira palsy B12 deficiency Hyperlipidemia Diastolic dysfunction Pulmonary hypertension SVT (supraventricular tachycardia) Palpitations Essential (primary) hypertension Eczema of both hands Anxiety Gastroparesis GERD (gastroesophageal reflux disease) Piriformis syndrome of left side IBS (irritable bowel syndrome) Depression Home Medications ?Medication ?Instructions ?Recorded ?Last Taken ?Type albuterol sulfate 90 mcg/actuation 2 puff inhalation Q 4H PRN 03/12/22 Unknown History aerosol inhaler shortness of breath or wheez ing vilazodone 20 mg tablet 20 mg PO DAILY DEPRESSION 10/04/24 History cholecalciferol (vitamin D3) 50 4,000 unit PO DAILY CHRISTY PPLEMENT 03/23/22 10/04/24 History mcg (2,000 unit) capsule nitroglycerin 0.4 mg sublingual 0.4 mg sublingual Q5M PRN 04/23/22 Unknown Rx tablet Cardiac/Chest Pain #14 tabs cyanocobalamin (vitamin B-12) 1,000 mcg IM QMONTH SUPP LEMENT 06/06/23 01/23/24 History 1,000 mcg/mL injection solution lisinopril 5 mg tablet 5 mg PO BID BP #180 tabs 07/2810/04/24 Rx aspirin 81 mg tablet,delayed 81 mg PO DAILY heart heal th 10/11/23 10/04/24 History release (Adult Aspirin Regimen) vibegron 75 mg tablet (Gemtesa) 75 mg PO QDAY OAB 11/0510/04/24 History ibuprofen 600 mg tablet 600 mg PO Q6H PRN PRN Pain 1 -10 Or 01/31/24 10/04/24 Rx Fever #0 tabs amlodipine 2.5 mg tablet 2.5 mg PO QDAY blood pressur e #90 06/04/24 10/04/24 Rx tabs pantoprazole 40 mg tablet,delayed 40 mg PO QDAY heart burn 06/04/24 10/04/24 History release multivitamin (Daily Multi-Vitamin 1 tab PO DAILY suppl ement 08/30/24 10/04/24 History tablet) atorvastatin 20 mg tablet 20 mg PO QHS cholesterol #90 tabs 09/27/24 10/03/24 Rx Allergy/AdvReac Type Severity Reaction Status Date / Time Sulfa (Sulfonamide Allergy Intermediate Rash Verified 10/04/24 17:19 Antibiotics) sulfamethoxazole (From Allergy Intermediate Itching Verified 10/04/24 17:19 Bactrim) trimethoprim (From Bactrim) Allergy Intermediate Itching Verified 10/04/24 17:19 adhesive tape (tape) Allergy Rash Verified 10/04/24 17:19 cefdinir Allergy Hives Verified 10/04/24 17:19 Penicillins (PCN) Allergy Rash Verified 10/04/24 17:19 codeine AdvReac Unknown Other Verified 10/04/24 17:19 Family History Mother Hypertension Arthritis Respiratory disease Grandfather Cancer kidney, brain Father Parkinson's disease Arthritis Grandmother CVA (cerebral vascular accident) Myocardial infarction Brother CVA (cerebral vascular accident) Myocardial infarction H/O blood clots Sister Seizures H/O blood clots Surgical History Hx of right cataract extraction Hx of left cataract extraction History of colectomy S/P colectomy Hx of colonoscopy History of laminectomy History of arthroscopy of right knee Hx of heart artery stent Hx of cardiac cath History of coronary artery stent placement (~04/23/22) H/O bilateral salpingo-oophorectomy H/O: hysterectomy Hx of tonsillectomy History of appendectomy History of cholecystectomy Social History household members: spouse Smoking Status: Never smoker alcohol intake: never substance use type: does not use caffeine: Yes Type: coffee Number of servings: 1 ROS Constitutional Constitutional: Reports fatigue; Denies anorexia, chills or fever(s) Eyes Eyes: Reports systems reviewed and no addt'l complaints, except as documented ENT HEENT: Reports systems reviewed and no addt'l complaints, except as documented Cardiovascular Cardiovascular: Reports systems reviewed and no addt'l complaints, except as documented and abdominal pain; Denies chest pain, dizziness or dyspnea Respiratory/Chest Respiratory/Chest: Reports systems reviewed and no addt'l complaints, except as documented; Denies cough, dyspnea or inability to speak Gastrointestinal Gastrointestinal: Reports abdominal pain and dyspepsia Genitourinary Genitourinary: Reports abdominal discomfort, burning urination, dysuria, urinary frequency, urinary incontinence and urinary urgency Musculoskeletal Musculoskeletal: Reports systems reviewed and no addt'l complaints, except as documented Integumentary Integumentary: Reports systems reviewed and no addt'l complaints, except as documented Neurologic Neurologic: Reports systems reviewed and no addt'l complaints, except as documented Psychiatric Psychiatric: Reports systems reviewed and no addt'l complaints, except as documented and depression Endocrine Endocrinology: Reports systems reviewed and no addt'l complaints, except as documented Hematologic/Lymphatic Hematologic/Lymphatic: Reports systems reviewed and no addt'l complaints, except as documented Allergic/Immunologic Allergic/Immunologic: Reports systems reviewed and no addt'l complaints, except as documented Physical Exam Const alert, oriented x3 and no apparent distress General Appearance: comfortable, well kempt and well developed HEENT normocephalic, head/scalp atraumatic, hearing grossly normal bilaterally, external ears normal, external nose normal and moist oral mucous membranes Eyes Eyes Narrative: Wearing glasses General Eye: normal appearance of both eyes Neck supple General: trachea midline Lymph Lymphatic: no lymphedema noted Chest inspection of chest normal Resp normal respiratory effort, normal air movement and no retractions Cardio regular rate GI soft to palpation GI Narrative: Tender Palpation: tender no CVA tenderness Back/Spine no CVA tenderness Extremity normal to inspection Skin no rashes or lesions noted, no jaundice, no petechiae and no mottling Neuro oriented x3, CN's II-XII intact bilaterally and moves all extremities Psych mental status grossly normal and thought process normal Lab / Micro Data 10/05/24 05:48 10/05/24 05:48 Labs: Laboratory Results - last 24 hr 10/04/24 17:40: WBC 5.6, RBC 4.12 L, Hgb 11.4 L, Hct 36.0 L, MCV 87.4, MCH 27.7, MCHC 31.7 L, RDW Std Deviation 50.5 H, RDW Coeff of Nuno 15.9 H, Plt Count 245, MPV 9.6, Immature Gran % (Auto) 0.400, Neut % (Auto) 52.9, Lymph % (Auto) 35.1, [place] % (Auto) 8.1, Eos % (Auto) 3.0, Baso % (Auto) 0.5, Absolute Neuts (auto) 3.0, Absolute Lymphs (auto) 1.96, Nucleated RBC % 0, Sodium 141, Potassium 3.8, Chloride 103, Carbon Dioxide 26.2, Anion Gap 12, BUN 13, Creatinine 0.96, Estim Creat Clear Calc 53.89, Est GFR (MDRD) Non-Af 62, BUN/Creatinine Ratio 13.5, G lucose 122 H, Calcium 9.6, Magnesium 2.2, TSH 1.430 10/04/24 22:01: Urine Color Yellow, Urine Clarity Clear, Urine pH 8.0, Ur Specific [place] 1.010, Urine Protein 15 H, Urine Glucose (UA) Normal, Urine Ketones Negative, Urine Occult Blood Negative, Urine Nitrite Positive H, Urine Bilirubin Negative, Urine Urobilinogen Normal, Ur Leukocyte Esterase 100 H, Urine RBC 0-5 SEEN, Urine WBC 5-10 SEEN, Ur Squamous Epith Cells 0-5 SEEN, Urine Bacteria 1+, Urine Mucus 0 SEEN 10/05/24 05:48: WBC 5.3, RBC 3.86 L, Hgb 10.7 L, Hct 33.8 L, MCV 87.6, MCH 27.7, MCHC 31.7 L, RDW Std Deviation 51.1 H, RDW Coeff of Nuno 15.9 H, Plt Count 223, MPV 9.7, Immature Gran % (Auto) 0.200, Neut % (Auto) 56.0, Lymph % (Auto) 30.3, [place] % (Auto) 8.9, Eos % (Auto) 4.0, Baso % (Auto) 0.6, Absolute Neuts (auto) 3.0, Absolute Lymphs (auto) 1.61, Nucleated RBC % 0, Sodium 139, Potassium 4.1, Chloride 103, Carbon Dioxide 24.7, Anion Gap 11, BUN 12, Creatinine 0.85, Estim Creat Clear Calc 52.49, Est GFR (MDRD) Non-Af 71, BUN/Creatinine Ratio 13.5, Glucose 95, Calcium 9.1, Phosphorus 4.6 H, Total Bilirubin 0.39, AST 23, ALT 13, Alkaline Phosphatase 78, Total Protein 6.1, Albumin 3.8, Globulin 2.3, Albumin/Globulin Ratio 1.7 Imaging Radiology Impression Abdomen/Pelvis CT 10/04/24 19:53 IMPRESSION: Diffusely thickened urinary bladder with adjacent inflammation, query acute and/or chronic cystitis. This has minimally worsened since the prior study. Reading Location: [id number]
[2024-10-06 04:49] VITALS: BP 119/49; PULSE 60; RESP 18; TEMP 36.4; O2SAT 94
[2024-10-06] MEDS: Meropenem 1 GM in 0.9% Normal Saline (100mL MB+) 100 ML IV ×3 (04:58→23:00)
[2024-10-06 06:47] LABS: Anion Gap 11 (5-15); BUN 18 mg/dL (4-19); BUN/Creat Ratio 19.5 RATIO (10-20); Calcium,Total 9.1 mg/dL (7.6-11.0); Carbon Dioxide 23.6 mmol/L (21.0-32.0); Chloride 105 mmol/L (98-108); Estimated Creatinine Clearance 49.57 ml/min (50-250); Glucose 113 mg/dL (70-99); Potassium 4.5 mmol/L (3.3-5.1)
[2024-10-06 07:08] LABS: Hematocrit 33.4 % (37-47); Hemoglobin 10.5 g/dL (12.0-15.0); Immature Granulocytes Count 0.020 X10^3/uL (0.0-0.0); Mean Corp Hgb Conc 31.4 g/dL (32-36); Mean Corpuscular Volume 88.1 fL (81-99); Mean Platelet Vol. 9.9 fl (6.2-12.0); NRBC Flagged by Analyzer 0 % (0-5); Platelet Count 237 K/mm3 (150-450); RBC Distribution Width CV 15.9 % (11.6-14.6); RBC Distribution Width SD 50.7 fl (35.1-43.9); Red Blood Count 3.79 M/mm3 (4.2-5.4); White Blood Count 4.1 K/mm3 (4.4-11.0)
[2024-10-06 07:46] VITALS: BMI 28.5
[2024-10-06 08:03] VITALS: BP 116/55; PULSE 65; RESP 16; TEMP 36.5; O2SAT 94
[2024-10-06] MEDS: VILAZODONE HYDROCHLORIDE 10 MG TABLET 20 MG PO (08:34)
[2024-10-06] MEDS: Cholecalciferol (VIT D3) 25 MCG TABLET (1,000 UNITS) 100 MCG PO (08:34)
[2024-10-06] MEDS: Lactobacillis Acidophilus 1 CAP PO ×4 (08:34→23:00)
[2024-10-06] MEDS: Aspirin E.C. 81 MG Tablet PO (08:34)
[2024-10-06 14:16] VITALS: BP 118/48; PULSE 58; RESP 16; TEMP 36.4; O2SAT 94
--- NOTE | 2024-10-06 17:36 | PN.HOSP_ITS ---
Reason for Visit Chief Complaint: Dysuria and Bladder Pain. Subjective Subjective Feels very slightly better today though still burning and suprapubic pain, not presently having nausea, no problems with bowel movements Objective Data Objective Data Vital Signs: Vital Signs Temp Pulse Resp BP Pulse Ox O2 Del Method 97.6 F L 58 L 16 118/48 L 94 Room Air 10/06/24 14:16 10/06/24 14:16 10/06/24 14:16 10/06/24 14:16 10/06/24 14:16 10/06/24 14:45 Oxygen Delivery Method Room Air Weight: 70.2 kg Body Mass Index (BMI) 28.5 Intake & Output: Intake and Output for Last 24 Hours 10/04/24 10/05/24 10/06/24 23:59 23:59 23:59 Intake Total 600 / 600 1200 / 1200 300 / 300 Balance 600 / 600 1200 / 1200 300 / 300 Lab / Micro Data 10/06/24 05:40 10/06/24 05:40 Labs: Laboratory Results - last 24 hr 10/06/24 05:40: WBC 4.1 L, RBC 3.79 L, Hgb 10.5 L, Hct 33.4 L, MCV 88.1, MCH 27.7, MCHC 31.4 L, RDW Std Deviation 50.7 H, RDW Coeff of Nuno 15.9 H, Plt Count 237, MPV 9.9, Immature Gran % (Auto) 0.500, Neut % (Auto) 56.5, Lymph % (Auto) 28.3, [place] % (Auto) 10.0, Eos % (Auto) 3.7, Baso % (Auto) 1.0, Absolute Neuts (auto) 2.3, Absolute Lymphs (auto) 1.16, Nucleated RBC % 0, Sodium 140, Potassium 4.5, Chloride 105, Carbon Dioxide 23.6, Anion Gap 11, BUN 18, Creatinine 0.90, Estim Creat Clear Calc 49.57 L, Est GFR (MDRD) Non-Af 67, BUN/Creatinine Ratio 19.5, Glucose 113 H, Calcium 9.1, Phosphorus 3.9 Physical Exam Narrative General: Alert, oriented, no apparent distress HEENT: Atraumatic, normocephalic Eyes: Anicteric, normal conjunctiva, extraocular movements grossly intact Neck: Supple Respiratory: Clear to auscultation bilaterally, normal respiratory effort Cardiovascular: Regular rate and rhythm GI: Soft, tender in the suprapubic region, slightly improved though still present without rebound, guarding, rigidity Extremities: No edema Musculoskeletal: Moving all extremities Neuro: No overt focal neurological deficits Skin: No rashes appreciated Psych: Cooperative Assessment & Plan Assessment/Plan (1) Recurrent UTI: PLAN: Plan # Recurrent urinary tract infection?ESBL E. coli - Outpatient grew Enterococcus but she did not improve with amoxicillin at home so she was sent to the ED -CT scan in the ED of abdomen pelvis revealed diffusely thickened urinary bladder with adjacent inflammation and query acute and/or chronic cystitis - Urine culture resent, feeling a little bit better on the meropenem, preliminary urine culture now growing E. coli - Infectious disease following - It was recommended to consult patient's urologist for evaluation -10/06: Patient growing ESBL E. coli, continue meropenem, it is only sensitive to gentamicin, meropenem, nitrofurantoin. ID to see patient again on Tuesday for further antibiotic plans, patient continues to have symptoms, continue supportive care. Was seen by urology and patient was given several options to think over Chronic medical problems and/or problems not being actively addressed during today's encounter: #Hx of CAD -w/ previous distal RCA stent placement 2022 -Continue home medications #Hx abnormal cystoscopy - Reportedly had cystoscopy with Dr. 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
[2024-10-06 22:49] VITALS: BP 141/57; PULSE 72; RESP 18; TEMP 36.4; O2SAT 92
[2024-10-07 04:54] VITALS: BP 131/57; PULSE 53; RESP 16; TEMP 36.6; O2SAT 97
[2024-10-07] MEDS: Meropenem 1 GM in 0.9% Normal Saline (100mL MB+) 100 ML IV ×3 (04:58→23:23)
[2024-10-07 04:59] LABS: Hematocrit 32.5 % (37-47); Hemoglobin 10.3 g/dL (12.0-15.0); Immature Granulocytes Count 0.010 X10^3/uL (0.0-0.0); Mean Corp Hgb Conc 31.7 g/dL (32-36); Mean Corpuscular Volume 88.3 fL (81-99); Mean Platelet Vol. 9.9 fl (6.2-12.0); NRBC Flagged by Analyzer 0 % (0-5); Platelet Count 211 K/mm3 (150-450); RBC Distribution Width CV 15.6 % (11.6-14.6); RBC Distribution Width SD 49.9 fl (35.1-43.9); Red Blood Count 3.68 M/mm3 (4.2-5.4); White Blood Count 3.8 K/mm3 (4.4-11.0)
[2024-10-07 05:12] LABS: Anion Gap 10 (5-15); BUN 15 mg/dL (4-19); BUN/Creat Ratio 21.1 RATIO (10-20); Calcium,Total 8.8 mg/dL (7.6-11.0); Carbon Dioxide 23.9 mmol/L (21.0-32.0); Chloride 107 mmol/L (98-108); Estimated Creatinine Clearance 55.77 ml/min (50-250); Glucose 123 mg/dL (70-99); Potassium 4.0 mmol/L (3.3-5.1)
[2024-10-07 05:45] VITALS: BMI 34.3
[2024-10-07 07:55] VITALS: BP 129/58; PULSE 66; RESP 16; TEMP 36.6; O2SAT 99
[2024-10-07] MEDS: VILAZODONE HYDROCHLORIDE 10 MG TABLET 20 MG PO (07:59)
[2024-10-07] MEDS: Lactobacillis Acidophilus 1 CAP PO ×4 (07:59→23:20)
[2024-10-07] MEDS: Cholecalciferol (VIT D3) 25 MCG TABLET (1,000 UNITS) 100 MCG PO (07:59)
[2024-10-07] MEDS: Aspirin E.C. 81 MG Tablet PO (07:59)
--- NOTE | 2024-10-07 10:48 | PN.HOSP_ITS ---
Reason for Visit Chief Complaint: Dysuria and Bladder Pain. Subjective Subjective Tenderness continues to improve, did feel some abdominal bloating and cramping last night, this is improving with as needed medications, still feels little bit bloated but feels better than last night, no changes in bowel movements, no nausea or vomiting Objective Data Objective Data Vital Signs: Vital Signs Temp Pulse Resp BP Pulse Ox O2 Del Method 97.9 F 66 16 129/58 H 99 Room Air 10/07/24 07:55 10/07/24 07:55 10/07/24 07:55 10/07/24 07:55 10/07/24 07:55 10/07/24 07:55 Oxygen Delivery Method Room Air Weight: 84.6 kg Body Mass Index (BMI) 34.3 Intake & Output: Intake and Output for Last 24 Hours 10/05/24 10/06/24 10/07/24 23:59 23:59 23:59 Intake Total 1200 / 1200 300 / 300 200 / 200 Balance 1200 / 1200 300 / 300 200 / 200 Lab / Micro Data 10/07/24 03:50 10/07/24 03:50 Labs: Laboratory Results - last 24 hr 10/07/24 03:50: WBC 3.8 L, RBC 3.68 L, Hgb 10.3 L, Hct 32.5 L, MCV 88.3, MCH 28.0, MCHC 31.7 L, RDW Std Deviation 49.9 H, RDW Coeff of Nuno 15.6 H, Plt Count 211, MPV 9.9, Immature Gran % (Auto) 0.300, Neut % (Auto) 45.7 L, Lymph % (Auto) 37.2, Nicholas % (Auto) 11.3 H, Eos % (Auto) 4.7, Baso % (Auto) 0.8, Absolute Neuts (auto) 1.8 L, Absolute Lymphs (auto) 1.42, Nucleated RBC % 0, Sodium 141, Potassium 4.0, Chloride 107, Carbon Dioxide 23.9, Anion Gap 10, BUN 15, Creatinine 0.70, Estim Creat Clear Calc 55.77, Est GFR (MDRD) Non-Af 90, B UN/Creatinine Ratio 21.1 H, Glucose 123 H, Calcium 8.8 Physical Exam Narrative General: Alert, oriented, no apparent distress HEENT: Atraumatic, normocephalic Eyes: Anicteric, normal conjunctiva, extraocular movements grossly intact Neck: Supple Respiratory: Clear to auscultation bilaterally, normal respiratory effort Cardiovascular: Regular rate and rhythm GI: Little bit bloated in upper abdomen, tenderness in suprapubic region significantly improved though still present Extremities: No edema Musculoskeletal: Moving all extremities Neuro: No overt focal neurological deficits Skin: No rashes appreciated Psych: Cooperative Assessment & Plan Assessment/Plan (1) Recurrent UTI: PLAN: Plan # Recurrent urinary tract infection?ESBL E. coli - Outpatient grew Enterococcus but she did not improve with amoxicillin at home so she was sent to the ED -CT scan in the ED of abdomen pelvis revealed diffusely thickened urinary bladder with adjacent inflammation and query acute and/or chronic cystitis - Urine culture resent, feeling a little bit better on the meropenem, preliminary urine culture now growing E. coli - Infectious disease following - It was recommended to consult patient's urologist for evaluation -10/06: Patient growing ESBL E. coli, continue meropenem, it is only sensitive to gentamicin, meropenem, nitrofurantoin. ID to see patient again on Tuesday for further antibiotic plans, patient continues to have symptoms, continue supportive care. Was seen by urology and patient was given several options to think over -10/07: Dr. Regalado to see patient today at noon for gentamicin infusion, patient remains on meropenem, symptoms are continuing to improve, ID for further evaluation and management tomorrow, patient overall doing much better Chronic medical problems and/or problems not being actively addressed during today's encounter: #Hx of CAD -w/ previous distal RCA stent placement 2022 -Continue home medications #Hx abnormal cystoscopy - Reportedly had cystoscopy with Dr. 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
[2024-10-07] MEDS: GENTAMICIN INSTILLAT ×2 (12:15→23:26)
[2024-10-07] MEDS: NORMAL SALINE INSTILLAT ×2 (12:15→23:26)
--- NOTE | 2024-10-07 12:29 | PN.URO_ITS ---
Subjective Subjective Finally starting to feel better today. No issues overnight. After discussing with Dr. Macdonald and the patient, we have agreed to add gentamicin bladder irrigations to her regimen for treatment. Objective Data Objective Data Vital Signs: Vital Signs Temp Pulse Resp BP Pulse Ox O2 Del Method 97.9 F 66 16 129/58 H 99 Room Air 10/07/24 07:55 10/07/24 07:55 10/07/24 07:55 10/07/24 07:55 10/07/24 07:55 10/07/24 07:55 Oxygen Delivery Method Room Air Weight: 186 lb 8.177 oz Body Mass Index (BMI) 34.3 Intake & Output: Intake and Output for Last 24 Hours 10/05/24 10/06/24 10/07/24 23:59 23:59 23:59 Intake Total 1200 / 1200 300 / 300 200 / 200 Balance 1200 / 1200 300 / 300 200 / 200 Lab / Micro Data Attestation: I reviewed the patient's lab results. 10/07/24 03:50 10/07/24 03:50 Labs: Laboratory Results - last 24 hr 10/07/24 03:50: WBC 3.8 L, RBC 3.68 L, Hgb 10.3 L, Hct 32.5 L, MCV 88.3, MCH 28.0, MCHC 31.7 L, RDW Std Deviation 49.9 H, RDW Coeff of Nuno 15.6 H, Plt Count 211, MPV 9.9, Immature Gran % (Auto) 0.300, Neut % (Auto) 45.7 L, Lymph % (Auto) 37.2, Randall % (Auto) 11.3 H, Eos % (Auto) 4.7, Baso % (Auto) 0.8, Absolute Neuts (auto) 1.8 L, Absolute Lymphs (auto) 1.42, Nucleated RBC % 0, Sodium 141, Potassium 4.0, Chloride 107, Carbon Dioxide 23.9, Anion Gap 10, BUN 15, Creatinine 0.70, Estim Creat Clear Calc 55.77, Est GFR (MDRD) Non-Af 90, B UN/Creatinine Ratio 21.1 H, Glucose 123 H, Calcium 8.8 Micro: Sensitive to gentamicin and meropenem Physical Exam Narrative General: Alert, oriented, no apparent distress HEENT: Atraumatic, normocephalic Eyes: Anicteric, normal conjunctiva, extraocular movements grossly intact Neck: Supple Respiratory: Clear to auscultation bilaterally, normal respiratory effort Cardiovascular: Regular rate and rhythm GI: Soft, nontender nondistended Extremities: No edema Musculoskeletal: Moving all extremities Neuro: No overt focal neurological deficits Skin: No rashes appreciated Psych: Cooperative Const alert, oriented x3 and no apparent distress General Appearance: cooperative and comfortable GI soft to palpation and non-tender Narrative: Using sterile technique, the urethral meatus was cleansed with Betadine and a red rubber catheter coated in K-Y jelly was inserted through the urethra into the urinary bladder. The bladder was drained of clear yellow urine. The gentamicin solution was inserted through the catheter into the urinary bladder and was followed by flush. The red rubber catheter was then removed. The patient tolerated the procedure well without complication. Assessment & Plan Assessment/Plan (1) Recurrent UTI: (2) Failure of outpatient treatment: (3) Overactive bladder: (4) Hunner ulcer: PLAN: Plan Continue intravenous antibiotic administration per infectious disease recommendations 7 days of gentamicin bladder irrigation twice daily, followed by 4 weeks of once daily irrigations This was started today with the nurse at bedside and all questions were answered.
[2024-10-07 14:10] VITALS: BP 127/81; PULSE 60; RESP 16; TEMP 36.6; O2SAT 97
[2024-10-07 19:35] VITALS: BP 130/49; PULSE 58; RESP 18; TEMP 36.6; O2SAT 95
[2024-10-07 23:28] VITALS: BP 144/49; PULSE 71; RESP 16; TEMP 36.4; O2SAT 97
[2024-10-08 05:13] VITALS: BMI 34.5
[2024-10-08 06:40] VITALS: BP 152/69; PULSE 68; RESP 16; TEMP 36.4; O2SAT 97
[2024-10-08] MEDS: Meropenem 1 GM in 0.9% Normal Saline (100mL MB+) 100 ML IV (06:46)
[2024-10-08] MEDS: 0.9% Normal Saline (250mL Bag) 250 ML 15 ML IV (06:49)
[2024-10-08 07:25] LABS: Hematocrit 34.7 % (37-47); Hemoglobin 11.1 g/dL (12.0-15.0); Immature Granulocytes Count 0.010 X10^3/uL (0.0-0.0); Mean Corp Hgb Conc 32.0 g/dL (32-36); Mean Corpuscular Volume 87.8 fL (81-99); Mean Platelet Vol. 9.5 fl (6.2-12.0); NRBC Flagged by Analyzer 0 % (0-5); Platelet Count 230 K/mm3 (150-450); RBC Distribution Width CV 15.9 % (11.6-14.6); RBC Distribution Width SD 50.9 fl (35.1-43.9); Red Blood Count 3.95 M/mm3 (4.2-5.4); White Blood Count 4.2 K/mm3 (4.4-11.0)
[2024-10-08 08:04] LABS: Anion Gap 12 (5-15); BUN 11 mg/dL (4-19); BUN/Creat Ratio 17.7 RATIO (10-20); Calcium,Total 9.1 mg/dL (7.6-11.0); Carbon Dioxide 23.8 mmol/L (21.0-32.0); Chloride 106 mmol/L (98-108); Estimated Creatinine Clearance 61.52 ml/min (50-250); Glucose 99 mg/dL (70-99); Potassium 4.1 mmol/L (3.3-5.1)
[2024-10-08 09:18] VITALS: BP 140/62; PULSE 69; RESP 16; TEMP 36.6; O2SAT 97
[2024-10-08] MEDS: Lactobacillis Acidophilus 1 CAP PO ×3 (09:22→18:01)
[2024-10-08] MEDS: Cholecalciferol (VIT D3) 25 MCG TABLET (1,000 UNITS) 100 MCG PO (09:22)
[2024-10-08] MEDS: VILAZODONE HYDROCHLORIDE 10 MG TABLET 20 MG PO (09:22)
[2024-10-08] MEDS: Aspirin E.C. 81 MG Tablet PO (09:26)
--- NOTE | 2024-10-08 11:01 | PCM.PN.ID ---
Physical Exam Narrative Dysuria improved, no fever, no n/v/d. Const alert and no apparent distress General Appearance: cooperative Resp normal air movement and clear to auscultation bilaterally Cardio regular rate and regular rhythm GI soft to palpation, non-tender and non-distended Skin no rashes or lesions noted ID ID: Route of nutrition/ use of supplements: [] Nutritional Intake: [] IV Site: [] [place] Catheter: [] Assessment & Plan Assessment/Plan (1) Recurrent UTI: PLAN: Ucx now with ecoli. On meropenem. Seen by Dr. Regalado, bladder gentamicin started. CT did not show any issues with stones, abscess, or bowels. Discussed options with her, will arrange for 10 days IM ertapenem at discharge. D/w case management associate. Will follow (2) Failure of outpatient treatment:
[2024-10-08] MEDS: NORMAL SALINE INSTILLAT ×2 (12:06→18:01)
[2024-10-08] MEDS: GENTAMICIN INSTILLAT ×2 (12:06→18:01)
[2024-10-08] MEDS: Ertapenem Sod 1 GM in 0.9% Normal Saline (50mL MB+) 50 ML IV (12:06)
[2024-10-08 15:20] VITALS: BP 134/59; PULSE 56; RESP 16; TEMP 36.4; O2SAT 98
--- NOTE | 2024-10-08 15:48 | CASEMGMT ---
Per chart review, noted that the pt has an order from the Urologist for gentamicin bladder irrigation 2x/day for one week and then once daily x [address] Macdonald also hands this RN PAIGE an Rx for IM Ertapenem daily and states that the pt has [facility] past and to set the pt up again. ADRIENNE GIBSON to the pt room at this time. Pt states that she feels safe discharging home today with her family. However, pt is unsure on how she will obtain the supplies for the bladder irrigations. TC to [facility] who states that they are unable to provide the rxs needed. TC to [facility] who states that they are not providing this service needed at this time. TC to [facility]. No answer. VM left. This RN PAIGE collaborated with Dr Bailey who states that he will call Dr Regalado's personal number. Subsequently, the Urologist calls this RN PAIGE back. Dr Bah states that the pt is safe for DC today and can follow up in her office tomorrow. Dr Bah confirms that they will be able to teach the pt tomorrow regarding the irrigations and also provide the pt with the supplies needed. Dr Regalado states that the pt can DC today after the second irrigation. Dr Henson and pt's RN are aware. Dr Regalado states that she knows the pt personally and that the pt is to call the office to schedule a follow up appt for tomorrow. ADRIENNE GIBSON to the pt room and updated with the above information. Pt denies a preference on a time of day for her appts. TC to the [facility]fusion [facility] who states they are able to see the pt tomorrow @ 1400. Rx faxed. TC to [facility] x2. No answer either attempt. Appt times with contact #'s added to the pt's DC paperwork. Pt states that she will call to schedule the Urology follow up appt for tomorrow. Pt states that she feels safe with this DC plan and denies any further questions or concerns at this time. PLAN: DC home today after second bladder irrigation with family support and to follow up @ the [facility]fusion [facility] for IM ATB injections and follow up with [facility] under Dr Regalado for bladder irrigation education and supplies.
--- NOTE | 2024-10-08 16:30 | DCINST_ITS ---
Discharge Instructions DC O2, CPAP, BIPAP needs Home O2 Discharge instructions: No Dressing / Incision Discharge Activity: Return to Normal Activity Weight Bearing Status: Full weight bearing Follow Up Care Test Results: Test results from this visit will be discussed in further detail at your follow- up appointment, if applicable. Discharge Plan Admission Admit Date/Time: 10/04/24 22:32 Primary Reason for Your Visit: Recurrent cystitis Attending Provider: Arnulfo Bailey Primary Care Provider: Aubree Woody Consulting Providers: Gilberto Macdonald; Willi Saunders; Kiera Regalado; Xiao Neal Instructions Additional Instructions / Restrictions: Follow-up at Dr. Regalado's office for an appointment tomorrow for gentamicin bladder infusion Discharge Orders/Prescriptions Prescriptions: New ertapenem 1 gram recon soln 1 g IM DAILY 10 Days Qty: 10 0RF Rx Instructions: stop date 10/18/24. Dx: ESBL infection. Mix with lidocaine. Weekly bmp, cbc, and LFT; fax to [phone]. gentamicin 40 mg/mL Solution 80 mg INSTILLAT Q12 Qty: 0 0RF Syringe 1 ea INSTILLAT Q12 Qty: 0 0RF Continued albuterol sulfate 90 mcg/actuation HFA aerosol inhaler 2 puff inhalation Q4H PRN (Reason: shortness of breath or wheezing) vilazodone 20 mg tablet 20 mg PO DAILY cholecalciferol (vitamin D3) 50 mcg (2,000 unit) capsule 4,000 unit PO DAILY aspirin [Adult Aspirin Regimen] 81 mg tablet,delayed release (DR/EC) 81 mg PO DAILY pantoprazole 40 mg tablet,delayed release (DR/EC) 40 mg PO QDAY amlodipine 2.5 mg tablet 2.5 mg PO QDAY Qty: 90 3RF Gemtesa 75 mg tablet 75 mg PO QDAY nitroglycerin 0.4 mg Tablet, Sublingual 0.4 mg sublingual Q5M PRN (Reason: Cardiac/Chest Pain) Qty: 14 3RF ibuprofen 600 mg Tablet 600 mg PO Q6H PRN PRN (Reason: Pain 1-10 Or Fever) Qty: 0 0RF cyanocobalamin (vitamin B-12) 1,000 mcg/mL solution 1,000 mcg IM QMONTH Patient Comments: Around the 12th of the month multivitamin [Daily Multi-Vitamin] Tablet 1 tab PO DAILY lisinopril 5 mg tablet 5 mg PO BID Qty: 180 3RF atorvastatin 20 mg tablet 20 mg PO QHS Qty: 90 3RF Referrals / Follow Up: Kiera Regalado MD [Med Staff - Active Staff] - 10/09/24 (Please call and schedule a follow up appt) Aubree Woody DO [Primary Care Provider] - 10/22/24 11:00 am Disposition Disposition (needs filled in before D/C Order can be placed): Home, Self Care
--- NOTE | 2024-10-08 16:40 | DS.PCM_ITS ---
Providers Date of Admission: 10/04/24 Date of Discharge: 10/08/24 Primary Care Physician: Dr. Aubree Woody, Consultations 10/04/24 23:39 Consult: Infectious Disease Routine Consulting Provider: Gilberto Macdonald Reason for Consult: Recurrent UTI with ESBL. EMERGENT Consult: No Notified: Yes Date Notified: 10/04/24 Time Notified: 22:34 Method of Notification: ED Physician Initiated Consult: Urology Routine Consulting Provider: Kiera Regalado Reason for Consult: Recurrent UTI with ESBL and Bladder CA. EMERGENT Consult: No Notified: Yes Date Notified: 10/04/24 Time Notified: 22:34 Method of Notification: Text Reason For Visit: RECURRENT UTI WITH HISTORY OF ESBL & BLADDER Diagnosis Discharge Diagnosis (1) Recurrent UTI: Status: Inactive Code(s): N39.0 - Urinary tract infection, site not specified (2) Failure of outpatient treatment: Status: Inactive Code(s): Z78.9 - Other specified health status Plan 1. Recurrent cystitis secondary to ESBL E. coli #2 coronary artery disease #3 chronic depression #4 essential hypertension #5 hyperlipidemia Medications at Discharge Home Medications albuterol sulfate 90 mcg/actuation aerosol inhaler 2 puff inhalation Q4H PRN shortness of breath or wheezing 03/12/22 vilazodone 20 mg tablet 20 mg PO DAILY DEPRESSION 03/12/22 cholecalciferol (vitamin D3) 50 mcg (2,000 unit) capsule 4,000 unit PO DAILY SUPPLEMENT 03/23/22 nitroglycerin 0.4 mg sublingual tablet 0.4 mg sublingual Q5M PRN Cardiac/Chest Pain #14 tabs 04/23/22 cyanocobalamin (vitamin B-12) 1,000 mcg/mL injection solution 1,000 mcg IM QMONTH SUPPLEMENT 06/06/23 lisinopril 5 mg tablet 5 mg PO BID BP #180 tabs 10/10/23 aspirin 81 mg tablet,delayed release (Adult Aspirin Regimen) 81 mg PO DAILY heart health 10/11/23 vibegron 75 mg tablet (Gemtesa) 75 mg PO QDAY OAB 11/24/23 ibuprofen 600 mg tablet 600 mg PO Q6H PRN PRN Pain 1-10 Or Fever #0 tabs 01/31/24 amlodipine 2.5 mg tablet 2.5 mg PO QDAY blood pressure #90 tabs 06/04/24 pantoprazole 40 mg tablet,delayed release 40 mg PO QDAY heart burn 06/04/24 multivitamin (Daily Multi-Vitamin tablet) 1 tab PO DAILY supplement 08/30/24 atorvastatin 20 mg tablet 20 mg PO QHS cholesterol #90 tabs 09/27/24 Syringe 1 ea INSTILLAT Q12 ##0 10/08/24 ertapenem 1 gram solution for injection 1 g IM DAILY 10 days #10 ea 10/08/24 gentamicin 40 mg/mL injection solution 80 mg (2 mL) INSTILLAT Q12 #0 mL 10/08/24 Hospital Course Operations None Summary of Care Provided Minutes Spent on Discharge: Hospital Course: This 74-year-old white female was seen in the emergency room at [facility] with failed outpatient treatment for a urinary tract infection. Patient has chronic urinary tract infections and follows up with urology. Labs obtained in the emergency room showed a normal white blood cell count, hemoglobin was 11.4, CT of the abdomen and pelvis showed diffusely thickened urinary bladder with adjacent inflammation. Patient's chemistry profile was unremarkable. Urinalysis showed positive nitrites, 5-10 WBCs, 0-5 RBCs, and +1 bacteria. Patient was admitted to [place] [id number], she was seen in consultation by urology and infectious diseases and placed on IV antibiotics. Urine culture grew out ESBL E. coli. Urology recommended outpatient bladder infusions with gentamicin and this was arranged with their office. On 10/08/2024, patient was seen and examined: On examination she appeared in good health and spirits, she does not appear to be in any distress. Vital signs as documented. Skin warm and dry and without overt rashes. Neck without JVD, thyroid appears normal, trachea is midline, neck is supple. Lungs clear, normal air movement was noted. Heart exam notable for regular rhythm, normal sounds and absence of murmurs, rubs or gallops. Abdomen unremarkable and without evidence of organomegaly, masses, or abdominal aortic enlargement, bowel sounds are present in all 4 quadrants, no abdominal tenderness was noted. Extremities nonedematous, no cyanosis was noted, no clubbing was noted. Neuro: Cranial nerves II through XII are grossly intact, no focal motor deficits were noted, sensation to light touch and pinprick is intact, motor exam 5/5 throughout. Psych: Patient is alert and oriented x3, she does not appear anxious or depressed, she does not appear agitated. Patient appeared stable for discharge home on 10/08/2024. Weight / BMI Weight Weight: 85.2 kg Body Mass Index (BMI) 34.5 ABG / Lab / Microbiology Data 10/08/24 07:10 10/08/24 07:10 Laboratory: Laboratory Results - last 24 hr 10/08/24 07:10: WBC 4.2 L, RBC 3.95 L, Hgb 11.1 L, Hct 34.7 L, MCV 87.8, MCH 28.1, MCHC 32.0, RDW Std Deviation 50.9 H, RDW Coeff of Nuno 15.9 H, Plt Count 230, MPV 9.5, Immature Gran % (Auto) 0.200, Neut % (Auto) 50.1, Lymph % (Auto) 35.9, Lane % (Auto) 9.3, Eos % (Auto) 4.0, Baso % (Auto) 0.5, Absolute Neuts (auto) 2.1, Absolute Lymphs (auto) 1.51, Nucleated RBC % 0, Sodium 141, Potassium 4.1, Chloride 106, Carbon Dioxide 23.8, Anion Gap 12, BUN 11, C reatinine 0.62 L, Estim Creat Clear Calc 61.52, Est GFR (MDRD) Non-Af 93, BUN/Creatinine Ratio 17.7, Glucose 99, Calcium 9.1 D/C Instructions Weight Bearing Status: Full weight bearing DC O2, CPAP, BIPAP Needs Home O2 Discharge instructions: No Meaningful Use Info Meaningful Use Meaningful Use Diagnoses (Choose all that apply): None applicable Discharge Plan Admission Admit Date/Time: 10/04/24 22:32 Primary Reason for Your Visit: Recurrent cystitis Attending Provider: Arnulfo Bailey Primary Care Provider: Aubree Woody Consulting Providers: Gilberto Macdonald; Willi Saunders; Kiera Regalado; Xiao Neal Instructions Additional Instructions / Restrictions: Follow-up at Dr. Regalado's office for an appointment tomorrow for gentamicin bladder infusion Discharge Orders/Prescriptions Prescriptions: New ertapenem 1 gram recon soln 1 g IM DAILY 10 Days Qty: 10 0RF Rx Instructions: stop date 10/18/24. Dx: ESBL infection. Mix with lidocaine. Weekly bmp, cbc, and LFT; fax to [phone]. gentamicin 40 mg/mL Solution 80 mg INSTILLAT Q12 Qty: 0 0RF Syringe 1 ea INSTILLAT Q12 Qty: 0 0RF Continued albuterol sulfate 90 mcg/actuation HFA aerosol inhaler 2 puff inhalation Q4H PRN (Reason: shortness of breath or wheezing) vilazodone 20 mg tablet 20 mg PO DAILY cholecalciferol (vitamin D3) 50 mcg (2,000 unit) capsule 4,000 unit PO DAILY aspirin [Adult Aspirin Regimen] 81 mg tablet,delayed release (DR/EC) 81 mg PO DAILY pantoprazole 40 mg tablet,delayed release (DR/EC) 40 mg PO QDAY amlodipine 2.5 mg tablet 2.5 mg PO QDAY Qty: 90 3RF Gemtesa 75 mg tablet 75 mg PO QDAY nitroglycerin 0.4 mg Tablet, Sublingual 0.4 mg sublingual Q5M PRN (Reason: Cardiac/Chest Pain) Qty: 14 3RF ibuprofen 600 mg Tablet 600 mg PO Q6H PRN PRN (Reason: Pain 1-10 Or Fever) Qty: 0 0RF cyanocobalamin (vitamin B-12) 1,000 mcg/mL solution 1,000 mcg IM QMONTH Patient Comments: Around the 12th of the month multivitamin [Daily Multi-Vitamin] Tablet 1 tab PO DAILY lisinopril 5 mg tablet 5 mg PO BID Qty: 180 3RF atorvastatin 20 mg tablet 20 mg PO QHS Qty: 90 3RF Referrals / Follow Up: Kiera Regalado MD [Med Staff - Active Staff] - 10/09/24 (Please call and schedule a follow up appt) Aubree Woody DO [Primary Care Provider] - 10/22/24 11:00 am Disposition Disposition (needs filled in before D/C Order can be placed): Home, Self Care Charges/Coding Visit Charges Inpatient E&M: 73782 Disch Hosp >30min
--- NOTE | 2024-10-08 18:30 | NURSING ---
pt given discharge instructions including medications, follow up appointments and all other discharge instructions. pt denies any further needs or questions at this time. iv removed with catheter intact, clean dry dressing applied, pt tolerated well. pt wheeled out to daughters waiting vehicle. pt denies any further needs at this time.
--- NOTE | 2024-10-11 10:32 | CASEMGMT ---
[facility] calls this RN CM and confirms that the pt has followed up and has been taken care of. Denies further concerns.
== END 2024-10-08 18:37 | disposition home or self-care (01) | DRG 690 ==
LOC: ED 20:07 → MS3 22:42
PROVIDERS: Internal Medicine; Admitting Provider Internal Medicine; Emergency Provider Emergency Medicine; PCP Internal Medicine; Visit Provider Internal Medicine
DX: N39.0 Urinary tract infection, site not specified (principal); I50.32 Chronic diastolic (congestive) heart failure; B96.20 Unspecified Escherichia coli [E. coli] as the cause of diseases classified elsewhere; I11.0 Hypertensive heart disease with heart failure; F32.A Depression, unspecified; Z68.35 Body mass index [BMI] 35.0-35.9, adult; E78.00 Pure hypercholesterolemia, unspecified; K21.9 Gastro-esophageal reflux disease without esophagitis; I25.10 Atherosclerotic heart disease of native coronary artery without angina pectoris; G47.33 Obstructive sleep apnea (adult) (pediatric); N32.89 Other specified disorders of bladder; Z95.5 Presence of coronary angioplasty implant and graft; Z90.710 Acquired absence of both cervix and uterus; Z79.899 Other long term (current) drug therapy; R10.84 Generalized abdominal pain; N32.81 Overactive bladder; Z82.49 Family history of ischemic heart disease and other diseases of the circulatory system; Z79.1 Long term (current) use of non-steroidal anti-inflammatories (NSAID); Z99.89 Dependence on other enabling machines and devices; E66.812 Obesity, class 2; Z90.49 Acquired absence of other specified parts of digestive tract
CPT/HCPCS: 36415; 74177; 80048; 80053; 81001; 83735; 84100; 84443; 85025; 87086; 94668; 99285; J2185; Q9967; A4216; J2405

== ENCOUNTER 2024-10-09 13:49 | Outpatient (CLI) | payer MEDICARE, BC, SELFPAY ==
[2022-07-12 09:18] VITALS: BMI 34.2
[2024-10-09 14:03] VITALS: BP 164/52; PULSE 68; RESP 16; TEMP 36; O2SAT 97; BMI 34.5
[2024-10-09] MEDS: [UNRECOGNIZED DRUG - OTHER] IM (14:30)
== END 2024-10-09 23:59 | disposition home or self-care (01) ==
LOC: MEDOUTP 13:49
PROVIDERS: PCP Internal Medicine; Referring Provider Internal Medicine Infectious Disease; Visit Provider Internal Medicine Infectious Disease
DX: B99.9 Unspecified infectious disease (principal); Z16.12 Extended spectrum beta lactamase (ESBL) resistance
CPT/HCPCS: 96372

== ENCOUNTER 2024-10-10 14:26 | Outpatient (CLI) | payer MEDICARE, BC, SELFPAY ==
[2022-07-12 09:18] VITALS: BMI 34.2
[2024-10-10 14:48] VITALS: BP 119/76; PULSE 67; RESP 16; TEMP 35.8; O2SAT 98; BMI 32.9
[2024-10-10] MEDS: [UNRECOGNIZED DRUG - OTHER] IM (15:12)
== END 2024-10-10 23:59 | disposition home or self-care (01) ==
LOC: MEDOUTP 14:26
PROVIDERS: PCP Internal Medicine; Referring Provider Internal Medicine Infectious Disease; Visit Provider Internal Medicine Infectious Disease
DX: B99.9 Unspecified infectious disease (principal); Z16.12 Extended spectrum beta lactamase (ESBL) resistance
CPT/HCPCS: 96372

== ENCOUNTER 2024-10-11 12:47 | Outpatient (CLI) | payer MEDICARE, BC, SELFPAY ==
[2022-07-12 09:18] VITALS: BMI 34.2
[2024-10-11 12:57] VITALS: BP 146/73; PULSE 75; RESP 16; TEMP 36.2; O2SAT 96
[2024-10-11] MEDS: [UNRECOGNIZED DRUG - OTHER] IM (13:43)
== END 2024-10-11 23:59 | disposition home or self-care (01) ==
LOC: MEDOUTP 12:47
PROVIDERS: PCP Internal Medicine; Referring Provider Internal Medicine Infectious Disease; Visit Provider Internal Medicine Infectious Disease
DX: B99.9 Unspecified infectious disease (principal); Z16.12 Extended spectrum beta lactamase (ESBL) resistance
CPT/HCPCS: 96372

== ENCOUNTER 2024-10-12 09:35 | Outpatient (CLI) | payer MEDICARE, BC, SELFPAY ==
[2022-07-12 09:18] VITALS: BMI 34.2
[2024-10-12 09:49] VITALS: BP 133/45; PULSE 56; RESP 14; TEMP 36.1; BMI 33.8
== END 2024-10-12 23:59 | disposition home or self-care (01) ==
LOC: MEDOUTP 09:35
PROVIDERS: PCP Internal Medicine; Referring Provider Internal Medicine Infectious Disease; Visit Provider Internal Medicine Infectious Disease
DX: B99.9 Unspecified infectious disease (principal); Z16.12 Extended spectrum beta lactamase (ESBL) resistance
CPT/HCPCS: 96372

== ENCOUNTER 2024-10-13 11:00 | Outpatient (CLI) | payer MEDICARE, BC, SELFPAY ==
[2022-07-12 09:18] VITALS: BMI 34.2
[2024-10-13] MEDS: [UNRECOGNIZED DRUG - OTHER] IM (11:07)
== END 2024-10-13 11:53 | disposition home or self-care (01) ==
LOC: MEDOUTP 11:01 → MS3 11:02
PROVIDERS: PCP Internal Medicine; Referring Provider Internal Medicine Infectious Disease; Visit Provider Internal Medicine Infectious Disease
DX: B99.9 Unspecified infectious disease (principal); Z16.12 Extended spectrum beta lactamase (ESBL) resistance
CPT/HCPCS: 96372

== ENCOUNTER 2024-10-14 10:59 | Outpatient (CLI) | payer MEDICARE, BC, SELFPAY ==
[2022-07-12 09:18] VITALS: BMI 34.2
[2024-10-14] MEDS: [UNRECOGNIZED DRUG - OTHER] IM (11:14)
== END 2024-10-14 11:14 | disposition home or self-care (01) ==
LOC: MEDOUTP 10:59 → MS3 11:00
PROVIDERS: PCP Internal Medicine; Referring Provider Internal Medicine Infectious Disease; Visit Provider Internal Medicine Infectious Disease
DX: B99.9 Unspecified infectious disease (principal); Z16.12 Extended spectrum beta lactamase (ESBL) resistance
CPT/HCPCS: 96372

== ENCOUNTER 2024-10-15 08:57 | Outpatient (CLI) | payer MEDICARE, BC, SELFPAY ==
[2022-07-12 09:18] VITALS: BMI 34.2
[2024-10-15 09:07] VITALS: BP 118/51; PULSE 50; RESP 16; TEMP 35.6; O2SAT 99; BMI 32.9
[2024-10-15] MEDS: [UNRECOGNIZED DRUG - OTHER] IM (09:28)
[2024-10-15 09:39] LABS: Hematocrit 35.2 % (37-47); Hemoglobin 11.3 g/dL (12.0-15.0); Mean Corp Hgb Conc 32.1 g/dL (32-36); Mean Corpuscular Volume 87.6 fL (81-99); Mean Platelet Vol. 9.4 fl (6.2-12.0); Platelet Count 242 K/mm3 (150-450); RBC Distribution Width CV 15.5 % (11.6-14.6); RBC Distribution Width SD 49.3 fl (35.1-43.9); Red Blood Count 4.02 M/mm3 (4.2-5.4); White Blood Count 4.0 K/mm3 (4.4-11.0)
[2024-10-15 10:01] LABS: AST(SGOT) 21 U/L (<=31); Alanine Aminotransfer ALT/SGPT 16 U/L (<=34); Albumin, Serum 4.0 g/dL (3.4-4.8); Alkaline Phosphatase 89 U/L (35-104); Anion Gap 12 (5-15); BUN 18 mg/dL (4-19); BUN/Creat Ratio 22.9 RATIO (10-20); Bilirubin, Direct 0.15 mg/dL (0.00-0.30); Calcium,Total 9.6 mg/dL (7.6-11.0); Carbon Dioxide 22.6 mmol/L (21.0-32.0); Chloride 103 mmol/L (98-108); Estimated Creatinine Clearance 60.16 ml/min (50-250); Globulin 2.8 g/dL (2.2-4.2); Glucose 86 mg/dL (70-99); Potassium 4.3 mmol/L (3.3-5.1)
== END 2024-10-15 23:59 | disposition home or self-care (01) ==
LOC: MEDOUTP 08:58
PROVIDERS: PCP Internal Medicine; Referring Provider Internal Medicine Infectious Disease; Visit Provider Internal Medicine Infectious Disease
DX: B99.9 Unspecified infectious disease (principal); Z16.12 Extended spectrum beta lactamase (ESBL) resistance
CPT/HCPCS: 36415; 80048; 80076; 85027; 96372

== ENCOUNTER 2024-10-16 08:56 | Outpatient (CLI) | payer MEDICARE, BC, SELFPAY ==
[2022-07-12 09:18] VITALS: BMI 34.2
[2024-10-16 09:04] VITALS: BP 134/59; PULSE 70; RESP 14; TEMP 35.6; O2SAT 95; BMI 32.9
[2024-10-16] MEDS: [UNRECOGNIZED DRUG - OTHER] IM (09:43)
[2024-10-16 10:47] LABS: Cholesterol 240 mg/dL (<=200); Low Density Lipoprotein Calc. 135 mg/dL; Triglycerides 232 mg/dL; Very Low Density Lipoprotein 46 mg/dL (5-40); cholesterol:hdl ratio screen 4.10
[2024-10-16 10:57] LABS: AST(SGOT) 23 U/L (<=31); Alanine Aminotransfer ALT/SGPT 16 U/L (<=34); Albumin, Serum 4.1 g/dL (3.4-4.8); Alkaline Phosphatase 90 U/L (35-104); Bilirubin, Direct 0.12 mg/dL (0.00-0.30); Globulin 2.7 g/dL (2.2-4.2)
== END 2024-10-16 23:59 | disposition home or self-care (01) ==
PROVIDERS: Student in an Organized Health Care Education/Training Program; PCP Internal Medicine; Referring Provider Internal Medicine Infectious Disease; Visit Provider Internal Medicine Infectious Disease
DX: B99.9 Unspecified infectious disease (principal); Z16.12 Extended spectrum beta lactamase (ESBL) resistance; E78.5 Hyperlipidemia, unspecified
CPT/HCPCS: 36415; 80061; 80076; 96372

== ENCOUNTER 2024-10-17 08:58 | Outpatient (CLI) | payer MEDICARE, BC, SELFPAY ==
[2022-07-12 09:18] VITALS: BMI 34.2
[2024-10-17 09:03] VITALS: BP 147/55; PULSE 64; RESP 16; TEMP 36.2; O2SAT 99
[2024-10-17] MEDS: [UNRECOGNIZED DRUG - OTHER] IM (09:31)
== END 2024-10-17 23:59 | disposition home or self-care (01) ==
LOC: MEDOUTP 08:59
PROVIDERS: PCP Internal Medicine; Referring Provider Internal Medicine Infectious Disease; Visit Provider Internal Medicine Infectious Disease
DX: B99.9 Unspecified infectious disease (principal); Z16.12 Extended spectrum beta lactamase (ESBL) resistance
CPT/HCPCS: 96372

== ENCOUNTER 2024-10-18 08:54 | Outpatient (CLI) | payer MEDICARE, BC, SELFPAY ==
[2022-07-12 09:18] VITALS: BMI 34.2
[2024-10-18 09:27] VITALS: BP 126/58; PULSE 54; RESP 16; TEMP 36.2; O2SAT 100
[2024-10-18] MEDS: [UNRECOGNIZED DRUG - OTHER] IM (09:33)
== END 2024-10-18 23:59 | disposition home or self-care (01) ==
LOC: MEDOUTP 08:54
PROVIDERS: PCP Internal Medicine; Referring Provider Internal Medicine Infectious Disease; Visit Provider Internal Medicine Infectious Disease
DX: B99.9 Unspecified infectious disease (principal); Z16.12 Extended spectrum beta lactamase (ESBL) resistance
CPT/HCPCS: 96372

== ENCOUNTER → 2024-12-13 | Outpatient (CLI) | payer MEDICARE, BC, SELFPAY ==
[2022-07-12 09:18] VITALS: BMI 34.2
[2024-12-13 09:15] LABS: Color, Urine Red (Yellow); Glucose, Dipstick Normal (Normal); Ketone-Dipstick Negative (Negative); Leukocyte Esterase-Dipstick 100 /ul (Negative); Nitrite-Dipstick Positive (Negative); Occult Blood-Urine 25 /ul (Negative); Protein-Dipstick 100 mg/dl (Negative); Specific Gravity, Urine 1.020 (1.002-1.030); Urine Bilirubin Dipstick 6 mg/dL (Negative)
== END | disposition home or self-care (01) ==
PROVIDERS: PCP Internal Medicine; Referring Provider Internal Medicine Infectious Disease; Visit Provider Internal Medicine Infectious Disease
DX: N39.0 Urinary tract infection, site not specified (principal)
CPT/HCPCS: 81002; 87086; 87088; 87186

== ENCOUNTER 2024-12-17 04:08 | Emergency (ER) | payer MEDICARE, BC, SELFPAY ==
[2022-07-12 09:18] VITALS: BMI 34.2
[2024-12-17 04:11] VITALS: BP 171/72; PULSE 70; RESP 18; TEMP 36.4; O2SAT 98; BMI 36.5
[2024-12-17 04:13] VITALS: BP 171/72; PULSE 75; RESP 18; TEMP 36.4; O2SAT 98
[2024-12-17 04:16] VITALS: BP 129/57
--- NOTE | 2024-12-17 04:55 | EX.ED.DYSGE1 ---
HPI History of Present Illness Chief Complaint: Complaint Informant: patient Narrative Narrative: Patient is a 74-year-old female with past medical history of hypertension hyperlipidemia and recurrent UTIs. She states roughly 1 year ago she required a hemicolectomy. Following that surgery she states she has been having recurrent urinary tract infection. She follows with urology and states she gets weekly injections into her bladder with gentamicin. She states that she has been admitted previously and has also had home PICC lines with antibiotics. Despite all of these interventions she continues to get urinary tract infections. Patient states she was seen recently secondary to persistent UTI and was started on Cipro while the urine was sent for culture. She states she is taking her antibiotic and using Azo but she is having persistent pain in the lower abdomen and she states that she cannot take the pain any longer and therefore presents for pain control. She states that she has not had a fever during this time and she denies any injury to the abdomen causing worsening pain. [facility] Medical History Overactive bladder Constipation Abdominal pain Rectocele Chronic idiopathic constipation Vaginal atrophy Dyslipidemia Recurrent UTI (urinary tract infection) Obesity (BMI 30-39.9) Dysuria Failure of outpatient treatment Recurrent UTI Squamous cell metaplasia of urinary bladder Preop cardiovascular exam Complicated UTI (urinary tract infection) Superior mesenteric vein thrombosis Postoperative pain Chest discomfort Hunner ulcer Lesion of bladder Blood clot in abdominal vein Easy bruising Back pain Night sweats History of ESBL E. coli infection Shortness of breath on exertion Depression Arthritis High cholesterol History of hiatal hernia CPAP (continuous positive airway pressure) dependence History of edema History of Holter monitoring History of stress test History of echocardiogram Cardiology follow-up encounter History of CAD (coronary artery disease) Dyspnea on exertion Angina pectoris Chest pain Decreased radial pulse Swelling of right wrist Claudication of both lower extremities Leg cramps Abnormal stress test Heart failure with preserved ejection fraction, NYHA class II Obesity AJAY (obstructive sleep apnea) Chavira palsy B12 deficiency Hyperlipidemia Diastolic dysfunction Pulmonary hypertension SVT (supraventricular tachycardia) Palpitations Essential (primary) hypertension Eczema of both hands Anxiety Gastroparesis GERD (gastroesophageal reflux disease) Piriformis syndrome of left side IBS (irritable bowel syndrome) Depression Home Medications ?Medication ?Instructions ?Recorded ?Last Taken ?Type albuterol sulfate 90 mcg/actuation 2 puff inhalation Q4H PRN 01/06/23 Unknown History aerosol inhaler shortness of breath or wheezing vilazodone 20 mg tablet 20 mg PO DAILY DEPRESSION 03/12/22 10/04/24 History cholecalciferol (vitamin D3) 50 4,000 unit PO DAILY SUPPLEMENT 03/23/22 10/04/24 History mcg (2,000 unit) capsule nitroglycerin 0.4 mg sublingual 0.4 mg sublingual Q5M PRN 04/23/22 Unknown Rx tablet Cardiac/Chest Pain #14 tabs cyanocobalamin (vitamin B-12) 1,000 mcg IM QMONTH SUPPLEMENT 06/06/23 01/23/24 History 1,000 mcg/mL injection solution lisinopril 5 mg tablet 5 mg PO BID BP #180 tabs 10/10/23 10/04/24 Rx aspirin 81 mg tablet,delayed 81 mg PO DAILY heart health 10/11/23 10/04/24 History release (Adult Aspirin Regimen) vibegron 75 mg tablet (Gemtesa) 75 mg PO QDAY OAB 11/24/23 10/04/24 History ibuprofen 600 mg tablet 600 mg PO Q6H PRN PRN Pain 1-10 Or 01/31/24 10/04/24 Rx Fever #0 tabs pantoprazole 40 mg tablet,delayed 40 mg PO QDAY heart burn 06/04/24 10/04/24 History release multivitamin (Daily Multi-Vitamin 1 tab PO DAILY supplement 08/30/24 10/04/24 History tablet) amlodipine 5 mg tablet 5 mg PO QDAY #90 tabs 11/22/24 Unknown Rx ciprofloxacin HCl 500 mg tablet 500 mg PO BID 12/17/24 Unknown History doxycycline hyclate 100 mg capsule 100 mg PO BID 7 days #14 caps 12/17/24 Unknown Rx nitrofurantoin 100 mg PO BID 7 days #14 caps 12/17/24 Unknown Rx monohydrate/macrocrystals 100 mg capsule (Macrobid) oxycodone-acetaminophen 5 mg-325 1 tab PO Q6H PRN pain 5 days #20 12/17/24 Unknown Rx mg tablet (Percocet) tabs Allergy/AdvReac Type Severity Reaction Status Date / Time Sulfa (Sulfonamide Allergy Intermediate Rash Verified 12/17/24 04:09 Antibiotics) sulfamethoxazole (From Allergy Intermediate Itching Verified 12/17/24 04:09 Bactrim) trimethoprim (From Bactrim) Allergy Intermediate Itching Verified 12/17/24 04:09 adhesive tape (tape) Allergy Rash Verified 12/17/24 04:09 cefdinir Allergy Hives Verified 12/17/24 04:09 Penicillins (PCN) Allergy Rash Verified 12/17/24 04:09 codeine AdvReac Unknown Other Verified 12/17/24 04:09 Family History Mother Hypertension Arthritis Respiratory disease Grandfather Cancer kidney, brain Father Parkinson's disease Arthritis Grandmother CVA (cerebral vascular accident) Myocardial infarction Brother CVA (cerebral vascular accident) Myocardial infarction H/O blood clots Sister Seizures H/O blood clots Surgical History H/O hemicolectomy Hx of right cataract extraction Hx of left cataract extraction History of colectomy S/P colectomy Hx of colonoscopy History of laminectomy History of arthroscopy of right knee Hx of heart artery stent Hx of cardiac cath History of coronary artery stent placement (~04/23/22) H/O bilateral salpingo-oophorectomy H/O: hysterectomy Hx of tonsillectomy History of appendectomy History of cholecystectomy Social History household members: spouse Smoking Status: Never smoker alcohol intake: never substance use type: does not use caffeine: Yes Type: coffee Number of servings: 1 ROS ROS ED Constitutional Constitutional ED: Denies chills or fever(s) ENT ENT ED: Denies sore throat Cardiovascular Cardiovascular: Denies chest pain Respiratory/Chest Respiratory/Chest: Denies cough or dyspnea Gastrointestinal Gastrointestinal: Reports abdominal pain; Denies diarrhea, nausea or vomiting Genitourinary Genitourinary ED: Reports dysuria Musculoskeletal Musculoskeletal: Reports back pain Integumentary Denies rash Neurologic Neurologic: Denies headache(s) Psychiatric Psychiatric: Reports anxiety Hematologic/Lymphatic Hematologic/Lymphatic: Denies easy bleeding or easy bruising EXAM Physical Exam Const Vital Signs: 12/17/24 04:11 12/17/24 04:13 12/17/24 04:16 Temperature 97.5 F L 97.5 F L Temperature Source Oral Oral Pulse Rate 70 75 Respiratory Rate 18 18 Blood Pressure 171/72 H 171/72 H 129/57 H Blood Pressure Mean 105 105 81 Pulse Ox 98 98 Oxygen Delivery Method Room Air Room Air 12/17/24 04:57 12/17/24 05:55 Temperature 97.8 F Temperature Source Pulse Rate 71 75 Respiratory Rate 18 18 Blood Pressure 147/55 H 103/69 Blood Pressure Mean 85 80 Pulse Ox 98 100 Oxygen Delivery Method Room Air Positive well nourished and well developed General Appearance ED: well developed; Negative for pallor HEENT HEENT Narrative: Normocephalic atraumatic Eyes PERRL and EOMs intact bilaterally General Eye ED: Negative for scleral icterus Neck supple and no JVD Neck Narrative: No nuchal rigidity or meningeal signs Resp normal respiratory effort and clear to auscultation bilaterally Cardio regular rate and regular rhythm Rate: other Other Details: Radial and carotid pulses are equal and symmetric GI non-distended and no masses GI Narrative: Abdomen is soft and nondistended with normal active bowel sounds. There is pain with palpation in the lower mid abdomen/suprapubic region. However no voluntary guarding or rigidity or pulsatile mass. No peritoneal signs. No organomegaly to suggest urinary retention Auscultation: normoactive bowel sounds Palpation: soft Back/Spine no CVA tenderness Extremity normal to inspection Neuro oriented x3, CN's II-XII intact bilaterally and no sensory deficits noted Sensorium / Orientation: alert Motor Exam: strength 5/5 throughout Psych Mood & Affect: anxious Skin no rashes or lesions noted General Skin Exam: Negative for jaundice or pallor MDM MDM MDM Narrative Medical decision making narrative: Patient arrived to the ER hypertensive but has a past medical history of this and otherwise has stable vitals. She reported she has been dealing with recurrent infections in the bladder for approximately 1 year and is following with a specialist. She states that she is currently on ciprofloxacin for her recurrent urinary tract infections. She states she has been no fever she denies any excessive activity or trauma. She simply states that despite taking the recurrent antibiotics and Azo that her pain is too severe to manage with just Tylenol and Motrin which is why she presents. I reviewed her previous urine culture which was obtained on December 13. It shows multidrug-resistant infection. The drug is resistant to ciprofloxacin which would correlate with why she has not had any improvement of symptoms. I discussed the patient we can place an IV and perform laboratory studies to assess for systemic infection from the drug-resistant bacteria. She states that the main reason she presented this morning was secondary to pain and she is not feeling ill or having fevers and therefore has low concern about systemic infection and would simply want pain control/relief. After reviewing the urine culture it shows that the bacteria is susceptible to Macrobid/nitrofurantoin and a tetracycline. Therefore as these are both oral medications we do not necessarily have to admit the patient for IV antibiotic. I discussed with patient the need to stop the Cipro as the infection is resistant to the medication and beginning the 2 new antibiotics. She is agreeable with this plan of care. I will place her on Percocet to help control the persistent pain from the recurrent UTIs. In the ER at this time as she does not want to undergo testing I will simply start her on her antibiotics and provide Valium to help with muscle tension and spasm as well as anxiety and morphine for the pain. After receiving her antibiotics and pain medication the patient did report upper abdominal/lower chest discomfort. She was unsure if this is related to the medication or could potentially from a cardiac issue. Therefore I elected to perform an EKG. it revealed no acute ischemic or STEMI changes and was compared to EKG from August of this year and was essentially the same. After hearing that the EKGs were similar in nature without ischemic or STEMI changes the patient reports she feels comfortable returning home and is comfortable with the plan of care History & Record Review Discussion w/independent historian: Patient Additional record(s) reviewed:: Prior labs Discharge Plan Triage Chief Complaint: Complaint ED Provider: Christiano Matthews Dx/Rx/DC Orders Clinical Impression: Recurrent UTI (urinary tract infection), Abdominal pain, Essential (primary) hypertension, Hyperlipidemia Instructions: Abdominal Pain, UTIs Prescriptions: New oxycodone-acetaminophen [Percocet] 5-325 mg tablet 1 tab PO Q6H PRN (Reason: pain) 5 Days Qty: 20 0RF doxycycline hyclate 100 mg capsule 100 mg PO BID 7 Days Qty: 14 0RF nitrofurantoin monohyd/m-cryst [Macrobid] 100 mg capsule 100 mg PO BID 7 Days Qty: 14 0RF Rx Instructions: must administer with a meal/food No Action albuterol sulfate 90 mcg/actuation HFA aerosol inhaler 2 puff inhalation Q4H PRN (Reason: shortness of breath or wheezing) vilazodone 20 mg tablet 20 mg PO DAILY cholecalciferol (vitamin D3) 50 mcg (2,000 unit) capsule 4,000 unit PO DAILY aspirin [Adult Aspirin Regimen] 81 mg tablet,delayed release (DR/EC) 81 mg PO DAILY pantoprazole 40 mg tablet,delayed release (DR/EC) 40 mg PO QDAY Gemtesa 75 mg tablet 75 mg PO QDAY nitroglycerin 0.4 mg Tablet, Sublingual 0.4 mg sublingual Q5M PRN (Reason: Cardiac/Chest Pain) Qty: 14 3RF ibuprofen 600 mg Tablet 600 mg PO Q6H PRN PRN (Reason: Pain 1-10 Or Fever) Qty: 0 0RF cyanocobalamin (vitamin B-12) 1,000 mcg/mL solution 1,000 mcg IM QMONTH Patient Comments: Around the of the month multivitamin [Daily Multi-Vitamin] Tablet 1 tab PO DAILY ciprofloxacin HCl 500 mg tablet 500 mg PO BID lisinopril 5 mg tablet 5 mg PO BID Qty: 180 3RF amlodipine 5 mg tablet 5 mg PO QDAY Qty: 90 3RF Primary Care Provider: Aubree Woody Referrals: Kiera Regalado MD [Med Staff - Active Staff, Urology] Referral Note: Recurrent UTIs Aubree Woody DO [Primary Care Provider, Internal Medicine] Activity Restrictions/Additional Instructions: The urine culture you had obtained on December 13 shows multiple drug resistant E. coli. The Cipro will not work against the infection. Therefore stop the ciprofloxacin. Based on your culture results you will need to take both the Macrobid and doxycycline to resolve the infection. Please continue to follow-up with your urologist regarding your recurrent UTIs. Percocet has been added for improved pain relief and you can continue Azo if you need. If you develop a fever or have further concerns please return to the ER for repeat evaluation Print Language: Occitan Disposition Disposition: Home, Self Care Discharge Date/Time: 12/17/24 05:22
[2024-12-17 04:57] VITALS: BP 147/55; PULSE 71; RESP 18; TEMP 36.6; O2SAT 98
[2024-12-17 05:55] VITALS: BP 103/69; PULSE 75; RESP 18; O2SAT 100
--- NOTE | 2024-12-17 05:55 | ED.RN ---
This RN discharged, awaiting a ride from her neighbor, this RN was notified the patient was having chest pain. This RN went into the room to find the patient complaining of sternal chest pain, VS obtained and MD notified. EKG obtained and patient reassessed by .
--- NOTE | 2024-12-17 06:03 | EKG12_ITS ---
Test Reason : CP Blood Pressure : */* mmHG Vent. Rate : 60 BPM Atrial Rate : 60 BPM P-R Int : 142 ms QRS Dur : 74 ms QT Int : 426 ms P-R-T Axes : 66 23 92 degrees QTcB Int : 426 ms Normal sinus rhythm with sinus arrhythmia T wave abnormality, consider lateral ischemia Abnormal ECG Confirmed by SHARIF CORNEJO, MATHEW ([id number]), editor in chief newspaper LEONELA JENNINGS ([id number]) on 12/18/2024 7:49:36 AM Referred By: Confirmed By: MATHEW OLGUIN MD
== END 2024-12-17 05:22 | disposition home or self-care (01) ==
PROVIDERS: Emergency Provider Emergency Medicine; PCP Internal Medicine; Visit Provider Emergency Medicine
DX: N39.0 Urinary tract infection, site not specified (principal); I11.0 Hypertensive heart disease with heart failure; I50.9 Heart failure, unspecified; R10.9 Unspecified abdominal pain; I25.10 Atherosclerotic heart disease of native coronary artery without angina pectoris; E78.00 Pure hypercholesterolemia, unspecified; Z90.49 Acquired absence of other specified parts of digestive tract; K21.9 Gastro-esophageal reflux disease without esophagitis
CPT/HCPCS: 93005; 96372; 99283

== ENCOUNTER → 2025-01-08 | Outpatient (CLI) | payer MEDICARE, BC, SELFPAY ==
[2022-07-12 09:18] VITALS: BMI 34.2
--- NOTE | 2025-01-08 13:29 | BI_ITS ---
EXAM: SCRN MAMM (CAD)W/AMINA BILAT DATE: 01/08/2025 CLINICAL HISTORY: F, Age 74 y/o , SCRN MAMM (CAD)W/AMINA BILAT No family history. TECHNIQUE: Procedure Code: [id number] Modality: MG Procedure: SCRN MAMM (CAD)W/AMINA BILAT COMPARISON: Prior exam(s) dated August 11, 2023.. FINDINGS: TISSUE DENSITY: The breasts are almost entirely fatty. Bilateral Breast Mammographic Findings: No significant masses, calcifications or other abnormalities are identified. No suspicious masses, areas of developing architectural distortion, or suspicious calcifications. There has been no significant interval change. BI/SCRN MAMM (CAD)W/AMINA BILAT IMPRESSION: Stable bilateral screening mammogram. OVERALL FINAL ASSESSMENT BI-RADS 1: NEGATIVE. RECOMMENDATION: Routine annual follow-up in 1 Year Additional Recommendation none A letter with findings and recommendations will be mailed to the patient. Reading Location: [facility]
== END | disposition home or self-care (01) ==
LOC: OPBI 13:28
PROVIDERS: PCP Internal Medicine; Referring Provider Internal Medicine; Visit Provider Internal Medicine
DX: Z12.31 Encounter for screening mammogram for malignant neoplasm of breast (principal)
CPT/HCPCS: 77063; 77067

== ENCOUNTER → 2025-01-17 | Outpatient (CLI) | payer MEDICARE, BC, SELFPAY ==
[2022-07-12 09:18] VITALS: BMI 34.2
--- NOTE | 2025-01-17 07:31 | ECHOCS_ITS ---
Reason For Study Reason For Study: Diastolic Dysfunction W/O heart failure Procedure This was a 2D Doppler, Color Flow transthoracic echocardiogram. The study was technically difficult. Suboptimal apical imaging window. Contrast injection was performed. Exam performed in department. Left Ventricle Normal LV size. Mild concentric left ventricular hypertrophy. The left ventricular ejection fraction is 65 %. Stage 1 diastolic dysfunction. Right Ventricle Normal right ventricle. Atria The left and right atria are normal. Mitral Valve Mild mitral annular calcification. Trivial mitral valve insufficiency. Tricuspid Valve Trivial tricuspid valve insufficiency. Normal pulmonary artery pressure. Aortic Valve Mild diffuse aortic valve thickening. Pulmonic Valve The pulmonic valve is not well visualized. Great Vessels Normal sized aortic root. Pericardium/Pleural No pericardial effusion. Medication 22 gauge I.V. with prn adaptor inserted into left arm. Diluted definity 1.5ml given slow IV push to enhance endocardial definition. MMode/2D Measurements & Calculations LVIDd: 4.5 cm IVSd: 1.4 cm Ao root diam: 3.0 cm LVIDs: 3.0 cm LVPWd: 1.3 cm RVDd: 2.8 cm FS: 33.3 % LAV(MOD-bp): 54.9 ml LVAd ap4: 24.6 cm2 LVAd ap2: 29.7 cm2 LAV(MOD-bp) Indexed: 28.8 ml/m2 LVLd ap4: 7.3 cm LVLd ap2: 7.7 cm LAV(MOD-sp2): 57.5 ml EDV(MOD-sp4): 67.8 ml EDV(MOD-sp2): 94.2 ml LAV(MOD-sp4): 50.3 ml EDV(sp4-el): 70.3 ml EDV(sp2-el): 96.8 ml LVAs ap4: 11.2 cm2 LVAs ap2: 13.8 cm2 LVLs ap4: 5.6 cm LVLs ap2: 6.0 cm ESV(MOD-sp4): 19.1 ml ESV(MOD-sp2): 26.9 ml ESV(sp4-el): 19.1 ml ESV(sp2-el): 26.8 ml EF(MOD-sp4): 71.8 % EF(MOD-sp2): 71.5 % EF(sp4-el): 72.9 % SV(MOD-sp4): 48.7 ml SV(MOD-sp2): 67.4 ml SV(sp4-el): 51.3 ml SI(MOD-sp4): 25.5 ml/m2 SI(MOD-sp2): 35.3 ml/m2 LA A4 area: 18.2 cm2 LA dimension(2D): 3.8 cm RA A4 area: 17.1 cm2 TAPSE: 2.4 cm Time Measurements MV dec time: 0.29 sec Doppler Measurements & Calculations MV E max pako: 98.9 cm/sec Lat Peak E' Pako: 7.6 cm/sec Med Peak E' Pako: 7.4 cm/sec MV A max pako: 127.0 cm/sec E/E' lat: 13.1 E/E' med: 13.4 MV E/A: 0.78 MV V2 max: 135.9 cm/sec MV P1/2t max pako: 102.9 cm/sec Ao V2 max: 138.0 cm/sec MV max P.4 mmHg MV P1/2t: 77.2 msec Ao max P.6 mmHg MV V2 mean: 58.1 cm/sec MV dec slope: 390.6 cm/sec2 Ao V2 mean: 92.5 cm/sec MV mean P.8 mmHg MVA(P1/2t): 2.9 cm2 Ao mean P.9 mmHg MV V2 VTI: 42.0 cm Ao V2 VTI: 34.3 cm AV (velocity ratio): 0.92 LV V1 max: 119.4 cm/sec PA V2 max: 91.0 cm/sec TR max pako: 251.5 cm/sec LV V1 max P.7 mmHg TR max P.3 mmHg LV V1 mean P.9 mmHg LV V1 mean: 79.6 cm/sec LV V1 VTI: 31.6 cm ECHO/Echo Complete W/ Contrast Interpretation Summary Mild concentric left ventricular hypertrophy. The left ventricular ejection fraction is 65 %. Stage 1 diastolic dysfunction. Mild mitral annular calcification. Mild diffuse aortic valve thickening. Ordering Physician: Elizabet Snider Referring Physician: Aubree Woody Performed By: Concepcion Best, LAURITA, RVT
--- NOTE | 2025-01-17 11:59 | STRESSREP_ITS ---
Stress Test Report Date: 12/17/2024 Procedure: Pharmacologic stress nuclear imaging study Indications: Coronary artery disease Consent: Per the patient Procedure: The patient underwent pharmacologic (Regadenoson 0.4mg ) evaluation with a peak heart rate of 91 beats per minute (62%predicted maximal heart rate) and a peak blood pressure of 134/68 mmHg. The baseline ECG demonstrated sinus rhythm with nonspecific ST changes. The peak pharmacologic ECG was nondiagnostic secondary to baseline abnormalities. No significant cardiac dysrhythmias noted. There was no complaint of chest discomfort during pharmacologic infusion or recovery. The patient was injected with 11.7 millicuries of technetium 99m Cardiolite and subsequently rest SPECT Cardiolite nuclear imaging was obtained in the horizontal long, vertical long, and short axis views. The patient underwent pharmacologic (Regadenoson) evaluation. The patient was injected with 34.8 samantha curies of technetium 99m Cardiolite and subsequently stress SPECT Cardiolite nuclear imaging was obtained in the horizontal long, vertical long, and short axis views. A gated Cardiolite study at peak stress was obtained. The examination was stopped secondary to completion of protocol. Rest and stress SPECT Cardiolite nuclear imaging status post realignment, normalization, and attenuation correction demonstrate no fixed or reversible perfusion defects. There is end systolic thickening and brightening. The gated Cardiolite study demonstrates myocardial thickening and inward wall motion. The reported LVEF is 82%. Impression: 1. Pharmacologic (Regadenoson) evaluation 2. Peak pharmacologic ECG nondiagnostic secondary to baseline abnormalities. 3. No significant cardiac dysrhythmias noted. 5. Rest and stress SPECT Cardiolite nuclear imaging demonstrate relative uniform tracer uptake and myocardial perfusion appearing within normal limits. 6. The gated Cardiolite study reports an LVEF of 82%. This note was generated with [employer] software. It may contain incorrect words, spelling, and punctuation that were not noted in checking the note before signing.
== END | disposition home or self-care (01) ==
LOC: CVS 07:29
PROVIDERS: PCP Internal Medicine; Referring Provider Internal Medicine Cardiovascular Disease; Visit Provider Internal Medicine Cardiovascular Disease
DX: I51.89 Other ill-defined heart diseases (principal); I25.10 Atherosclerotic heart disease of native coronary artery without angina pectoris; G47.33 Obstructive sleep apnea (adult) (pediatric)
CPT/HCPCS: 78452; 93017; 93306; A9500; Q9957; A4216; C8929; J2785

== ENCOUNTER → 2025-01-22 | Outpatient (CLI) | payer MEDICARE, BC, SELFPAY ==
[2022-07-12 09:18] VITALS: BMI 34.2
[2025-01-22 12:21] LABS: AST(SGOT) 29 U/L (<=31); Alanine Aminotransfer ALT/SGPT 16 U/L (<=34); Albumin, Serum 4.1 g/dL (3.4-4.8); Alkaline Phosphatase 69 U/L (35-104); Anion Gap 11 (5-15); BUN 15 mg/dL (4-19); BUN/Creat Ratio 17.7 RATIO (10-20); Bilirubin, Direct < 0.08 mg/dL (0.00-0.30); Calcium,Total 9.6 mg/dL (7.6-11.0); Carbon Dioxide 26.1 mmol/L (21.0-32.0); Chloride 104 mmol/L (98-108); Cholesterol 223 mg/dL (<=200); Globulin 2.8 g/dL (2.2-4.2); Glucose 92 mg/dL (70-99); Low Density Lipoprotein Calc. 129 mg/dL; Potassium 4.6 mmol/L (3.3-5.1); Triglycerides 220 mg/dL; Very Low Density Lipoprotein 44 mg/dL (5-40); cholesterol:hdl ratio screen 4.03
== END | disposition home or self-care (01) ==
LOC: LAB 10:32
PROVIDERS: Internal Medicine Cardiovascular Disease; PCP Internal Medicine; Referring Provider Student in an Organized Health Care Education/Training Program; Visit Provider Student in an Organized Health Care Education/Training Program
DX: I27.20 Pulmonary hypertension, unspecified (principal); E78.5 Hyperlipidemia, unspecified
CPT/HCPCS: 36415; 80053; 80061; 82248

== ENCOUNTER → 2025-01-22 | Outpatient (CLI) | payer MEDICARE, BC, SELFPAY ==
[2022-07-12 09:18] VITALS: BMI 34.2
[2025-01-22 11:13] LABS: Mucous, Urine 0 SEEN /hpf (<or=2+); Red Blood Cells-Urine 0 SEEN /hpf (0-5)
[2025-01-22 12:32] LABS: Hematocrit 37.6 % (37-47); Hemoglobin 11.7 g/dL (12.0-15.0); Immature Granulocytes Count 0.020 X10^3/uL (0.0-0.0); Mean Corp Hgb Conc 31.1 g/dL (32-36); Mean Corpuscular Volume 89.5 fL (81-99); Mean Platelet Vol. 10.0 fl (6.2-12.0); NRBC Flagged by Analyzer 0 % (0-5); Platelet Count 246 K/mm3 (150-450); RBC Distribution Width CV 13.9 % (11.6-14.6); RBC Distribution Width SD 46.2 fl (35.1-43.9); Red Blood Count 4.20 M/mm3 (4.2-5.4); White Blood Count 5.0 K/mm3 (4.4-11.0)
[2025-01-22 14:54] LABS: Color, Urine Yellow (Yellow); Glucose, Dipstick Normal (Normal); Ketone-Dipstick Negative (Negative); Leukocyte Esterase-Dipstick 25 /ul (Negative); Nitrite-Dipstick Positive (Negative); Occult Blood-Urine 10 /ul (Negative); Protein-Dipstick 15 mg/dl (Negative); Specific Gravity, Urine 1.010 (1.002-1.030)
[2025-01-22 14:56] LABS: Urine Bilirubin Dipstick 3 mg/dL (Negative)
[2025-01-22 15:17] LABS: Squamous Epithelial Cells - UA 5-10 SEEN /hpf (5-10)
[2025-01-22 15:34] LABS: Creatinine, Urine (random) 102.00 mg/dL (28.00-217.00); Microalbumin,Random Urine 55.3 mg/L (<20 mg/L)
[2025-01-22 15:59] LABS: AST(SGOT) 19 U/L (<=31); Alanine Aminotransfer ALT/SGPT 16 U/L (<=34); Albumin, Serum 4.1 g/dL (3.4-4.8); Alkaline Phosphatase 67 U/L (35-104); Anion Gap 10 (5-15); BUN 15 mg/dL (4-19); BUN/Creat Ratio 18.3 RATIO (10-20); Calcium,Total 9.6 mg/dL (7.6-11.0); Carbon Dioxide 26.2 mmol/L (21.0-32.0); Chloride 104 mmol/L (98-108); Cholesterol 246 mg/dL (<=200); Ferritin 13 ng/mL (22-378); Globulin 2.6 g/dL (2.2-4.2); Glucose 94 mg/dL (70-99); Low Density Lipoprotein Calc. 153 mg/dL; Potassium 4.6 mmol/L (3.3-5.1); Triglycerides 211 mg/dL; Very Low Density Lipoprotein 42 mg/dL (5-40); Vitamin B12 321 pg/mL (180-914); Vitamin D,25 Hydroxy 44.5 ng/mL (30-100); cholesterol:hdl ratio screen 4.53
[2025-01-22 16:35] LABS: Iron 53 ug/dL (50-170); Iron Binding Capacity,Total 372 ug/dL (250-450); Iron Binding Capacity,Unsat 319 ug/dL (228-428)
== END | disposition home or self-care (01) ==
LOC: CIMLAB 11:10
PROVIDERS: PCP Internal Medicine; Referring Provider Internal Medicine; Visit Provider Internal Medicine
DX: E78.00 Pure hypercholesterolemia, unspecified (principal); E11.9 Type 2 diabetes mellitus without complications; D50.9 Iron deficiency anemia, unspecified; E55.9 Vitamin D deficiency, unspecified; E53.8 Deficiency of other specified B group vitamins
CPT/HCPCS: 36415; 80053; 80061; 81001; 82043; 82306; 82570; 82607; 82728; 83540; 83550; 84443; 85025

== ENCOUNTER 2025-03-06 14:57 | Outpatient (RCR) | payer MEDICARE, BC, SELFPAY ==
[2022-07-12 09:18] VITALS: BMI 34.2
== END 2025-03-06 23:59 ==
LOC: LABSPEC 14:57
PROVIDERS: PCP Internal Medicine; Referring Provider Internal Medicine Infectious Disease; Visit Provider Internal Medicine Infectious Disease
DX: N39.0 Urinary tract infection, site not specified (principal)
CPT/HCPCS: 36415; 87086; 87088